=== PATIENT | female | born 1980 | race Caucasian/White ===

== ENCOUNTER → 2019-12-25 16:00 | Outpatient (CLI) | payer OTHER, SELFPAY ==
[2015-08-27 08:49] VITALS: BMI 38.5
[2019-12-25 18:09] LABS: CRP 5.51 mg/L (0.0-3.0)
[2019-12-25 18:10] LABS: Erythrocyte Sedimentation Rate 13 mm/hr (0-20)
[2019-12-27 17:52] LABS: Angiotensin Convert Enzyme 25 U/L (14-82)
== END ==
PROVIDERS: PCP Family Medicine; Referring Provider Internal Medicine Pulmonary Disease; Visit Provider Internal Medicine Pulmonary Disease
DX: R06.00 Dyspnea, unspecified (principal)
CPT/HCPCS: 36415; 82164; 85652; 86140

== ENCOUNTER → 2020-01-20 06:08 | Outpatient (CLI) | payer OTHER, SELFPAY ==
[2020-01-20 07:05] LABS: Absolute Lymphocyte Count 1.79 X10^3/uL (0.83-4.51); Absolute Neutrophil Count 6.9 X10^3/uL (2.0-7.7); Basophil# 0.02 X10^3/uL; Basophil% 0.2 % (0-1); Eosinophil# 0.12 X10^3/uL; Eosinophils% 1.3 % (0-5); Hematocrit 39.1 % (37-47); Hemoglobin 12.1 g/dL (12.0-15.0); Lymphocyte # 1.79 X10^3/ul (4.0); Lymphocyte % 18.8 % (19-41); Mean Corp Hgb Conc 30.9 g/dL (32-36); Mean Corpuscular Hgb 30.3 pg (27.0-32.0); Mean Corpuscular Volume 97.8 fL (81-99); Mean Platelet Vol. 10.1 fl (6.2-12.0); Monocyte# 0.65 X10^3/uL; Monocyte% 6.8 % (0-10); NRBC Flagged by Analyzer 0 % (0-5); Neutrophil # 6.88 X10^3/uL (2.7-7.7); Neutrophil % 72.2 % (47-70); Platelet Count 293 K/mm3 (150-450); RBC Distribution Width CV 12.3 % (11.6-14.6); RBC Distribution Width SD 44.1 fl (35.1-43.9); White Blood Count 9.5 K/mm3 (4.4-11.0)
[2020-01-23 03:07] LABS: Alternaria alternata <0.10 kU/L (Class 0); Aspergillus fumigatus <0.10 kU/L (Class 0); Bahia Grass <0.10 kU/L (Class 0); Bermuda Grass <0.10 kU/L (Class 0); Bluegrass, Kentucky <0.10 kU/L (Class 0); Cat Hair/Dander, Standard <0.10 kU/L (Class 0); Cedar, Mountain <0.10 kU/L (Class 0); Cladosporium herbarum <0.10 kU/L (Class 0); Cockroach, American <0.10 kU/L (Class 0); D farinae Mite <0.10 kU/L (Class 0); D pteronyssinus <0.10 kU/L (Class 0); Dog Epithelia <0.10 kU/L (Class 0); Elm, American White <0.10 kU/L (Class 0); Hazelnut Tree <0.10 kU/L (Class 0); Hickory, White <0.10 kU/L (Class 0); Johnson Grass <0.10 kU/L (Class 0); Maple/Box Elder <0.10 kU/L (Class 0); Mucor racemosus <0.10 kU/L (Class 0); Mugwort <0.10 kU/L (Class 0); Mulberry, White <0.10 kU/L (Class 0); Oak, White <0.10 kU/L (Class 0); Penicillium chrysogen <0.10 kU/L (Class 0); Pigweed, Rough <0.10 kU/L (Class 0); Plantain, English <0.10 kU/L (Class 0); Ragweed, Short/Common <0.10 kU/L (Class 0); Sheep Sorrel(Dock) <0.10 kU/L (Class 0); Stemphylium herbarum <0.10 kU/L (Class 0); Sweet Gum <0.10 kU/L (Class 0); Sycamore, American <0.10 kU/L (Class 0)
[2020-01-23 05:29] LABS: Nettle <0.10 kU/L (Class 0)
== END ==
PROVIDERS: PCP Family Medicine; Referring Provider Internal Medicine Pulmonary Disease; Visit Provider Internal Medicine Pulmonary Disease
DX: R06.00 Dyspnea, unspecified (principal); G47.33 Obstructive sleep apnea (adult) (pediatric); T78.40XA Allergy, unspecified, initial encounter; X58.XXXA Exposure to other specified factors, initial encounter
CPT/HCPCS: 36415; 85025; 86003

== ENCOUNTER → 2020-01-30 11:00 | Outpatient (CLI) | payer OTHER, SELFPAY ==
[2020-01-30 08:34] VITALS: BMI 46.8
[2020-01-30 12:14] LABS: Absolute Lymphocyte Count 1.72 X10^3/uL (0.83-4.51); Absolute Neutrophil Count 7.8 X10^3/uL (2.0-7.7); Basophil# 0.03 X10^3/uL; Basophil% 0.3 % (0-1); Hematocrit 39.4 % (37-47); Hemoglobin 12.5 g/dL (12.0-15.0); Lymphocyte # 1.72 X10^3/ul (4.0); Lymphocyte % 16.7 % (19-41); Mean Corp Hgb Conc 31.7 g/dL (32-36); Mean Corpuscular Hgb 30.4 pg (27.0-32.0); Mean Corpuscular Volume 95.9 fL (81-99); Monocyte# 0.54 X10^3/uL; Monocyte% 5.3 % (0-10); NRBC Flagged by Analyzer 0 % (0-5); Neutrophil # 7.83 X10^3/uL (2.7-7.7); Neutrophil % 76.1 % (47-70); Platelet Count 294 K/mm3 (150-450); RBC Distribution Width CV 12.2 % (11.6-14.6); RBC Distribution Width SD 42.6 fl (35.1-43.9); Red Blood Count 4.11 M/mm3 (4.2-5.4); White Blood Count 10.3 K/mm3 (4.4-11.0)
[2020-01-30 12:41] LABS: Hemoglobin A1c 6.1 % (3.8-5.6)
[2020-01-30 12:53] LABS: Anion Gap 5 (5-15); BUN 14 mg/dL (7-18); BUN/Creat Ratio 17.7 RATIO (10-20); Calcium,Total 8.9 mg/dL (8.5-10.1); Chloride 109 mmol/L (98-107); Cholesterol 186 mg/dL (200); Creatinine, Serum 0.79 mg/dL (0.55-1.02); EST Glomerular Filtration Rate 86 mL/min (>60); Est Glom Filt Rate - Afr Amer 104 mL/min (>60); Glucose 91 mg/dL (74-106); High Density Lipoprotein 48 mg/dL; Potassium 3.7 mmol/L (3.5-5.1); Sodium Level 139 mmol/L (136-145); Thyroid Stim Hormone (TSH) 0.94 uIU/mL (0.358-3.74); Triglycerides 149 mg/dL; Very Low Density Lipoprotein 30 mg/dL (5-40)
== END ==
PROVIDERS: PCP Internal Medicine; Referring Provider Internal Medicine; Visit Provider Internal Medicine
DX: E66.01 Morbid (severe) obesity due to excess calories (principal); Z68.42 Body mass index [BMI] 45.0-49.9, adult
CPT/HCPCS: 80048; 80061; 83036; 84439; 84443; 85025

== ENCOUNTER → 2020-02-01 | Outpatient (CLI) | payer OTHER, SELFPAY ==
[2020-01-30 08:34] VITALS: BMI 46.8
== END | disposition home or self-care (01) ==
LOC: LABSPEC 08:01
PROVIDERS: PCP Internal Medicine; Referring Provider Internal Medicine; Visit Provider Internal Medicine
DX: E66.01 Morbid (severe) obesity due to excess calories (principal); Z68.42 Body mass index [BMI] 45.0-49.9, adult

== ENCOUNTER → 2020-02-03 | Outpatient (CLI) | payer OTHER, SELFPAY ==
[2020-01-30 08:34] VITALS: BMI 46.8
[2020-02-10 01:42] LABS: Cortisol, Free 24Ur 37 ug/24 hr (6-42); Cortisol, Urinary Free 28 ug/L (Undefined)
== END | disposition home or self-care (01) ==
LOC: LABSPEC 06:42
PROVIDERS: PCP Internal Medicine; Referring Provider Internal Medicine; Visit Provider Internal Medicine
DX: E66.01 Morbid (severe) obesity due to excess calories (principal); Z68.42 Body mass index [BMI] 45.0-49.9, adult
CPT/HCPCS: 81050; 82530

== ENCOUNTER → 2020-06-22 11:08 | Outpatient (CLI) | payer OTHER, SELFPAY ==
[2020-06-22 10:01] VITALS: BMI 47.7
[2020-06-22 12:27] LABS: Absolute Lymphocyte Count 1.88 X10^3/uL (0.83-4.51); Basophil# 0.05 X10^3/uL; Basophil% 0.4 % (0-1); Eosinophil# 0.07 X10^3/uL; Eosinophils% 0.6 % (0-5); Lymphocyte # 1.88 X10^3/ul (4.0); Lymphocyte % 14.8 % (19-41); Mean Corp Hgb Conc 31.7 g/dL (32-36); Mean Corpuscular Hgb 29.9 pg (27.0-32.0); Mean Corpuscular Volume 94.3 fL (81-99); Mean Platelet Vol. 10.1 fl (6.2-12.0); Monocyte# 0.58 X10^3/uL; Monocyte% 4.6 % (0-10); NRBC Flagged by Analyzer 0 % (0-5); Neutrophil # 10.02 X10^3/uL (2.7-7.7); Neutrophil % 78.7 % (47-70); Platelet Count 376 K/mm3 (150-450); RBC Distribution Width CV 12.7 % (11.6-14.6); RBC Distribution Width SD 43.7 fl (35.1-43.9); Red Blood Count 4.35 M/mm3 (4.2-5.4); White Blood Count 12.7 K/mm3 (4.4-11.0)
[2020-06-22 12:44] LABS: ALB/GLOB Ratio 0.8 RATIO (0.9-2.4); AST(SGOT) 17 U/L (15-37); Alanine Aminotransfer ALT/SGPT 33 U/L (13-56); Albumin, Serum 3.7 g/dL (3.2-5.0); Alkaline Phosphatase 91 U/L (45-117); Anion Gap 7 (5-15); BUN 11 mg/dL (7-18); BUN/Creat Ratio 12.8 RATIO (10-20); Calcium,Total 9.4 mg/dL (8.5-10.1); Chloride 103 mmol/L (98-107); Creatinine, Serum 0.86 mg/dL (0.55-1.02); EST Glomerular Filtration Rate 78 mL/min (>60); Est Glom Filt Rate - Afr Amer 95 mL/min (>60); Follicle Stimulating Hormone 4.6 mIU/mL; Globulin 4.6 g/dL (2.2-4.2); Glucose 98 mg/dL (74-106); Luteinizing Hormone 7.1 mIU/mL; Protein, Total 8.3 g/dL (6.4-8.2); Sodium Level 136 mmol/L (136-145)
[2020-06-22 13:28] LABS: Hemoglobin A1c 6.2 % (3.8-5.6)
== END ==
PROVIDERS: PCP Internal Medicine; Visit Provider Internal Medicine
DX: E11.9 Type 2 diabetes mellitus without complications (principal); R23.2 Flushing
CPT/HCPCS: 36415; 80053; 82533; 83001; 83002; 83036; 84443; 85025

== ENCOUNTER 2020-07-02 03:03 | Emergency (ER) | payer OTHER, SELFPAY ==
[2020-06-22 10:01] VITALS: BMI 47.7
[2020-07-02 03:03] VITALS: BP 171/113; PULSE 96; RESP 28; TEMP 36.6; O2SAT 98; BMI 48.3
--- NOTE | 2020-07-02 03:13 | CT_ITS ---
STUDY: CTA CHEST REASON FOR EXAM: Female, 39 years old. chest pain RADIATION DOSAGE (If Supplied By Facility): CTDIvol = ( 13.85 ) mGy, DLP = ( 504.53 ) mGycm TECHNIQUE: The examination was performed with the intravenous administration of IV 100mL Isovue-370. Post-processing of the angiographic images was performed, with multiplanar reformation, but without 3D reconstruction. Individualized dose optimization techniques were used for this CT. COMPARISON: None. FINDINGS: Normal enhancement of the main pulmonary artery and right and left pulmonary arteries. Normal enhancement of the bilateral peripheral pulmonary arteries. There is no demonstrated pulmonary embolism. Sensitivity for small pulmonary emboli is limited by respiratory motion artifacts. Normal thoracic aorta and visualized great vessels. There is no demonstrated aortic dissection. Normal heart and pericardium. Normal mediastinum. Normal hilar regions. Normal visualized trachea and bronchi. The lungs are well expanded. Normal pulmonary parenchyma. Normal pleura. Normal chest wall structures. There are mild degenerative changes of the thoracic spine. The gallbladder surgically absent. CT/CTA Chest W/WO Contrast IMPRESSION: Slightly limited exam due to respiratory motion artifacts. No demonstrated pulmonary embolism, aortic aneurysm, or aortic dissection. No evidence for acute cardiopulmonary pathology. Electronically Signed: Alexander Grover MD at 4:28 EDT , Service support ,
--- NOTE | 2020-07-02 03:13 | EKG12_ITS ---
Test Reason : SHRTNESS OF BREATH Blood Pressure : / mmHG Vent. Rate : 090 BPM Atrial Rate : 090 BPM P-R Int : 154 ms QRS Dur : 086 ms QT Int : 358 ms P-R-T Axes : 044 -16 -06 degrees QTc Int : 437 ms Normal sinus rhythm Normal ECG Confirmed by ALBIN KING, LEONCIO ([id number]), manager editorial ELFEGO WEINER ([id number]) on 07/03/2020 8:19:26 AM Referred By: XIOMARA Confirmed By:DANICA TALAMANTES MD
--- NOTE | 2020-07-02 03:15 | ED.DCSUM_ITS ---
History of Present Illness Chief Complaint: Shortness of Breath Informant: Patient Narrative: 39-year-old female with past medical history of obstructive sleep apnea, morbid obesity, asthma, PCOS presents with concern for cough and shortness of breath. States that approximately 1 month ago she was helping cleaning out someone's garage and she feels like she is stirred up her asthma since that time. States that she had a chest x-ray shortly after which was negative. States that over the past 1 week she has had worsening cough with shortness of breath. Was seen by her crimping machine operator 3 days ago and diagnosed with pneumonia. Placed on a Z-Suman as well as steroid taper. Patient concerned because she continues to have symptoms. Patient also describing a burning pain in her chest which is worse with deep inspiration. States there is also a slight pain in her back. Denies any significant sputum production. States that she did have a Covid test last week which was negative. Denies any fever or chills. Denies any history of DVT or pulmonary embolism. Past Medical History - Allergies and Home Meds Allergies/Adverse Reactions: Allergies Penicillins Allergy (Verified 07/02/20 03:09) Hives fluticasone propionate [From Advair Diskus] Adverse Reaction (Verified 07/02/20 03:09) Swelling latex Adverse Reaction (Verified 07/02/20 03:09) Rash salmeterol xinafoate [From Advair Diskus] Adverse Reaction (Verified 07/02/20 03:09) Swelling Primary Care Physician: Bessie Warren MD [Primary Care Provider] - Prior records reviewed: Yes Past Medical History: - - HARJIT, PCOS, DMII, Lives: Alone Smoking Status: Never smoker Alcohol: None Drugs: None Review of Systems General: Denies: Chills, Fever, Sweats Eyes: Denies: Visual changes - bilaterally, Diplopia ENT: Denies: Rhinorrhea, Sore throat Cardiovascular: Reports: Chest pain. Denies: Palpitations Respiratory: Reports: Dyspnea, Cough, Dyspnea on exertion Gastrointestinal: Denies: Abdominal pain, Nausea, Vomiting, Diarrhea, Melena, Hematochezia Genitourinary: Denies: Dysuria, Hematuria, Frequency Musculoskeletal: Denies: Back pain, Extremity Pain Skin: Denies: Rash, Wounds Neurological: Denies: Headache, Weakness, Numbness Physical Exam Vital Signs/Narrative: Vital Signs Temp Pulse Resp BP Pulse Ox 07/02/20 03:03 97.9 F 96 28 H 171/113 H 98 Inital Vital Signs reviewed: Yes General: Well nourished, Well developed, No Acute Distress Head: Normocephalic, Atraumatic Eyes: Perrl, EOMI ENT: Moist mucous membranes, No rhinorrhea Neck: Supple, Nontender Cardiovascular: Regular rhythm, No murmurs, Tachycardia Respiratory: No distress, Chest nontender, Diminished Abdomen: Soft, Nontender, Nondistended, Normal bowel sounds Back: Nontender, Normal Inspection Extremities: Nontender, No edema Skin: Normal color, No rash Neurological: Alert, Oriented x3, Cranial nerves II-XII grossly intact, Normal Strength, Normal Sensation Psychological: Normal affect, Normal Mood Diagnostic/Tx/Re-eval Clinical Impression(s) from Imaging Studies Chest CTA 07/02/20 03:13 IMPRESSION: Slightly limited exam due to respiratory motion artifacts. No demonstrated pulmonary embolism, aortic aneurysm, or aortic dissection. No evidence for acute cardiopulmonary pathology. Electronically Signed: Alexander Grover MD at 4:28 EDT , Service support , Laboratory Data 07/02/20 07/02/20 07/02/20 03:15 03:15 03:15 WBC 17.0 H RBC 4.44 Hgb 13.1 Hct 41.6 MCV 93.7 MCH 29.5 MCHC 31.5 L RDW Std Deviation 44.4 H RDW Coeff of Ab 12.9 Plt Count 353 MPV 9.4 Immature Gran % (Auto) 1.200 H Neut % (Auto) 67.0 Lymph % (Auto) 24.6 [place] % (Auto) 6.7 Eos % (Auto) 0.2 Baso % (Auto) 0.3 Absolute Neuts (auto) 11.4 H Absolute Lymphs (auto) 4.17 Nucleated RBC % 0 Sodium 139 Potassium 3.5 Chloride 108 H Carbon Dioxide 23.0 Anion Gap 8 BUN 15 Creatinine 0.92 Estim Creat Clear Calc 70.89 Est GFR (MDRD) Af Amer 87 Est GFR (MDRD) Non-Af 72 BUN/Creatinine Ratio 16.3 Glucose 130 H Lactic Acid Calcium 9.1 Troponin I < 0.015 B-Natriuretic Peptide 4.9 07/02/20 03:15 WBC RBC Hgb Hct MCV MCH MCHC RDW Std Deviation RDW Coeff of Ab Plt Count MPV Immature Gran % (Auto) Neut % (Auto) Lymph % (Auto) [place] % (Auto) Eos % (Auto) Baso % (Auto) Absolute Neuts (auto) Absolute Lymphs (auto) Nucleated RBC % Sodium Potassium Chloride Carbon Dioxide Anion Gap BUN Creatinine Estim Creat Clear Calc Est GFR (MDRD) Af Amer Est GFR (MDRD) Non-Af BUN/Creatinine Ratio Glucose Lactic Acid 2.4 H* Calcium Troponin I B-Natriuretic Peptide - Rhythm Strip Rhythm Strip: Sinus Rhythm Rate: 90 Ectopy: None - EKG Initial EKG Interpretation: Sinus Rhythm - Normal sinus rhythm at 90 bpm. NV interval of 154 ms. QTC of 437 ms. No evidence of acute ischemia at this time. - Medical Decision Making Patient appears well and nontoxic. Initially hypertensive and mildly tachycardic. No hypoxemia. Lungs are coarse bilaterally. Patient given DuoNeb breathing treatment as well as Solu-Medrol. CTA was done given the patient's chest pain with shortness of breath. No evidence of infiltrate or pulmonary embolism. Lab work shows a slight lactic acidosis likely from some volume depletion and patient was given 1 L of normal saline. Leukocytosis of 17,000 however patient has been on steroids for 3 days. In an abundance of caution she was given IV antibiotics of Rocephin and azithromycin. On reevaluation at 0440 patient continues to have no hypoxemia and is 100% on room air. Tachycardia has improved. Patient remains hypertensive and will be advised to follow-up with her primary care physician about this issue. Troponin is negative with a nonischemic EKG. BNP also negative without concern for overt heart failure. Patient advised to continue steroids and abx with follow-up with her crimping machine operator as well as primary care provider. Stable at time of discharge. Impression: 1. Asthma exacerbation 2. Bronchitis ED Disposition - Plan for ED Patient: Disposition: Home or Assisted Living Instructions: ED Asthma, Acute (Adult), ED Bronchitis with Wheezing (Adult) Referrals: Bessie Warren MD [Primary Care Provider] - 2 Days
[2020-07-02] MEDS: MethylPREDNISolone 125 MG/2 ML Vial IV (03:21)
[2020-07-02 03:24] LABS: Absolute Lymphocyte Count 4.17 X10^3/uL (0.83-4.51); Absolute Neutrophil Count 11.4 X10^3/uL (2.0-7.7); Basophil# 0.05 X10^3/uL; Basophil% 0.3 % (0-1); Eosinophil# 0.03 X10^3/uL; Eosinophils% 0.2 % (0-5); Hematocrit 41.6 % (37-47); Hemoglobin 13.1 g/dL (12.0-15.0); Lymphocyte # 4.17 X10^3/ul (0.83-4.51); Lymphocyte % 24.6 % (19-41); Mean Corp Hgb Conc 31.5 g/dL (32-36); Mean Corpuscular Hgb 29.5 pg (27.0-32.0); Mean Corpuscular Volume 93.7 fL (81-99); Mean Platelet Vol. 9.4 fl (6.2-12.0); Monocyte# 1.13 X10^3/uL; Monocyte% 6.7 % (0-10); NRBC Flagged by Analyzer 0 % (0-5); Neutrophil # 11.39 X10^3/uL (2.7-7.7); POSITIVE MORPHOLOGY YES; Platelet Count 353 K/mm3 (150-450); RBC Distribution Width CV 12.9 % (11.6-14.6); RBC Distribution Width SD 44.4 fl (35.1-43.9); Red Blood Count 4.44 M/mm3 (4.2-5.4)
[2020-07-02] MEDS: Ipratropium/Albuterol Sulfate 3 ML AMPUL.NEB INHALATION (03:32)
[2020-07-02 03:34] VITALS: PULSE 94; RESP 25
[2020-07-02 03:39] LABS: Differential Indicated SCAN CRITERIA MET
[2020-07-02 03:44] LABS: BNP,B-Type NATRIURETIC PEPTIDE 4.9 pg/mL (0-100)
[2020-07-02 03:46] LABS: Anion Gap 8 (5-15); BUN 15 mg/dL (7-18); BUN/Creat Ratio 16.3 RATIO (10-20); Calcium,Total 9.1 mg/dL (8.5-10.1); Chloride 108 mmol/L (98-107); Creatinine, Serum 0.92 mg/dL (0.55-1.02); EST Glomerular Filtration Rate 72 mL/min (>60); Est Glom Filt Rate - Afr Amer 87 mL/min (>60); Estimated Creatinine Clearance 70.89 ml/min; Glucose 130 mg/dL (74-106); Potassium 3.5 mmol/L (3.5-5.1); Sodium Level 139 mmol/L (136-145)
[2020-07-02] MEDS: Ceftriaxone 1 GM/50 ML BAG IV (04:11)
[2020-07-02 04:12] LABS: Lactic Acid 2.4 mmol/L (0.4-1.9)
[2020-07-02 04:14] VITALS: BP 165/100; PULSE 98; RESP 22; TEMP 37.2; O2SAT 97
[2020-07-02] MEDS: 0.9% Normal Saline 1,000 ML 999 ML IV (04:17)
[2020-07-02 06:11] VITALS: BP 154/61; PULSE 91; RESP 20; O2SAT 98
[2020-07-02 07:49] LABS: Reflex Lactate? Y
== END 2020-07-02 06:11 | disposition home or self-care (01) ==
PROVIDERS: Emergency Provider Emergency Medicine; PCP Internal Medicine
DX: J45.901 Unspecified asthma with (acute) exacerbation (principal); E66.01 Morbid (severe) obesity due to excess calories; Z68.42 Body mass index [BMI] 45.0-49.9, adult; E28.2 Polycystic ovarian syndrome; E11.9 Type 2 diabetes mellitus without complications; G47.33 Obstructive sleep apnea (adult) (pediatric); Z79.899 Other long term (current) drug therapy
CPT/HCPCS: 71275; 80048; 83605; 83880; 84484; 85025; 87040; 87426; 93005; 94640; 96365; 96368; 96374; 99283; J7030; J7050; Q9967; A4216

== ENCOUNTER 2020-07-07 18:29 | Emergency (ER) | payer OTHER, SELFPAY ==
[2020-07-07 18:30] VITALS: BP 169/95; PULSE 101; RESP 15; TEMP 36; O2SAT 96; BMI 48.0
--- NOTE | 2020-07-07 18:40 | CT_ITS ---
STUDY: CT ABDOMEN AND PELVIS WITH CONTRAST REASON FOR EXAM: Female, 39 years old. right flank pain RADIATION DOSAGE (If Supplied By Facility): CTDIvol = ( 20.40 ) mGy, DLP = ( 1237.54 ) mGycm TECHNIQUE: Transaxial images were obtained from the dome of the diaphragm to the symphysis pubis without oral contrast. IV 100mL Isovue-300 was administered. Sagittal and coronal images were reconstructed. Individualized dose optimization techniques were used for this CT. COMPARISON: 07/29/2013. FINDINGS: The visualized lung bases are unremarkable. The visualized portions of the heart are within normal limits. There is decreased attenuation of the liver consistent with steatosis. There is hepatomegaly. There are surgical clips in the gallbladder fossa consistent with a prior cholecystectomy. Normal spleen. Normal pancreas. Normal bilateral adrenal glands. Normal right kidney. The left kidney has a 1 cm nonobstructing lower pole stone, otherwise normal left kidney. Evaluation of the GI tract is limited by absence of oral contrast. Cannot exclude stomach wall thickening. No dilated loops of bowel or evidence for obstruction. Cannot exclude segmental thickening of the escobar of the small or large bowel. Cannot exclude enteritis or colitis. Moderate diffuse fecal retention. Appendix within normal limits. Normal abdominal aorta. Normal inferior vena cava. Normal retroperitoneum. Normal urinary bladder. Normal visualized uterus. There is an IUD in atypical position within the uterus. Consider further evaluation with visualization or ultrasound. There is a small umbilical hernia containing fat. Normal osseous structures. CT/Abdomen/Pelvis W IV Cont ONLY IMPRESSION: Fatty liver with moderate hepatomegaly. Nonobstructing left renal stone. Cannot confirm normal position of IUD. Electronically Signed: Floyd Li MD at 20:22 EDT , Service support ,
--- NOTE | 2020-07-07 18:40 | EX.ED.DYSGE1 ---
HPI <Dr. Antony Gastelum DO - Last Filed: 07/07/20 20:32> History of Present Illness Informant: patient Narrative Narrative: 39-year-old female with past medical history of diabetes, asthma, morbid obesity presents with concern for right-sided pain as well as GI bleeding. States it began today. States she began getting nauseous this morning began having a pain in her right flank. States it is aching in nature. Nonradiating. States she is nauseous without vomiting. States she had a large bright red blood bowel movement. Denies any rectal pain. Denies any chest pain, shortness of breath, vomiting, lightheadedness, dizziness, vaginal bleeding or discharge. PFSH <Dr. Antony Gastelum DO - Last Filed: 07/07/20 20:32> [facility] Medical History Asthma CPAP (continuous positive airway pressure) dependence Depression Hypercholesteremia Kidney stones Restless leg syndrome Sleep apnea Home Medications albuterol sulfate 90 mcg/actuation aerosol inhaler 2 puff INHALATION Q6H PRN 01/30/20 [History Last Taken Unknown] cholecalciferol (vitamin D3) 1,250 mcg (50,000 unit) capsule 50,000 mcg PO QWEEK 01/30/20 [History Last Taken Unknown] fluticasone furoate 200 mcg-vilanterol 25 mcg/dose inhalation powder 1 inh INHALATION DAILY 01/30/20 [History Last Taken Unknown] levonorgestrel 20 mcg/24 hours (6 yrs) 52 mg intrauterine device 1 device INTRAUTERINE ONCE 01/30/20 [History Last Taken Unknown] multivitamin 1 tab PO DAILY 01/30/20 [History Last Taken Unknown] ropinirole 2 mg tablet 2 mg PO DAILY #30 tab 03/30/20 [Rx Last Taken Unknown] hydrocortisone [Anusol-HC] 1 applic [place] DAILY PRN #30 g 07/07/20 [Rx Last Taken Unknown] polyethylene glycol 3350 [Miralax] 17 g PO DAILY #14 ea 07/07/20 [Rx Last Taken Unknown] Allergy/AdvReac Type Severity Reaction Status Date / Time Penicillins Allergy Hives Verified 07/08/20 10:44 fluticasone propionate AdvReac Swelling Verified 07/08/20 10:44 [From Advair Diskus] latex AdvReac Rash Verified 07/08/20 10:44 salmeterol xinafoate AdvReac Swelling Verified 07/08/20 10:44 [From Advair Diskus] Family History Mother Thyroid disorder Fibromyalgia Grandmother Diabetes Grandfather Cancer Surgical History Cholecystectomy planned Social History Smoking Status: Never smoker alcohol intake: current alcohol intake frequency: holidays/special occasions only substance use type: does not use ROS <Dr. Antony Gastelum DO - Last Filed: 07/07/20 20:32> ROS ED Constitutional Constitutional ED: Denies chills, fever(s) or sweats Eyes Eyes: Denies blurry vision, change in vision or diplopia ENT ENT ED: Denies rhinorrhea or sore throat Cardiovascular Cardiovascular: Denies chest pain, orthopnea, palpitations or racing heartbeat Respiratory/Chest Respiratory/Chest: Denies cough, dyspnea, dyspnea on exertion, orthopnea or sputum Gastrointestinal Gastrointestinal: Reports abdominal pain, nausea and other Details: hematochezia ; Denies constipation, diarrhea, melena or vomiting Genitourinary Genitourinary ED: Denies dysuria, hematuria or urinary frequency Musculoskeletal Musculoskeletal: Denies arthralgias, myalgias or neck pain Integumentary Denies rash Neurologic Neurologic: Denies headache(s), paresthesias or weakness Psychiatric Psychiatric: Denies anxiety or depression Hematologic/Lymphatic Hematologic/Lymphatic: Denies easy bleeding or easy bruising Allergic/Immunologic Allergic/Immunologic ED: Denies mouth swelling or tongue swelling EXAM <Dr. Antony Gastelum, - Last Filed: 07/07/20 20:32> Physical Exam Const Vital Signs: 07/07/20 20:12 07/07/20 20:50 07/07/20 20:57 Temperature 98.6 F Temperature Source Oral Pulse Rate 89 82 94 Respiratory Rate 16 24 H 23 H Blood Pressure 154/82 H 151/80 H 151/80 H Blood Pressure Mean 106 103 Pulse Ox 96 96 97 Oxygen Delivery Method Room Air Room Air Positive well nourished and well developed General Appearance ED: well developed HEENT Reports TM's clear and moist mucous membranes normocephalic and atraumatic Tympanic Membrane ED: Yes TM's clear Eyes PERRL and EOMs intact bilaterally Neck no lymphadenopathy, supple and no JVD Chest Wall inspection of chest normal Resp normal respiratory effort and clear to auscultation bilaterally Cardio regular rate, S1 normal heart sound, S2 normal heart sound and no murmurs Peripheral Pulses: pulses 2+ throughout GI soft to palpation and non-distended GI Narrative: TTP in the right mid-abdomen. No rebound or guarding. No peritonitis. Narrative: Rectal exam shows two large non-thrombosed hemorrhoids. Back/Spine no CVA tenderness and no thoracic nor lumbar tenderness Extremity normal to inspection General Extremety ED: Negative for edema or tenderness General Extremity: Negative for edema Neuro oriented x3, CN's II-XII intact bilaterally and no sensory deficits noted Sensorium / Orientation: alert Motor Exam: strength 5/5 throughout Psych mental status grossly normal Skin no rashes or lesions noted <Dr. Jeff Silver MD - Last Filed: 07/08/20 18:48> Physical Exam Const Vital Signs: 07/07/20 20:12 07/07/20 20:50 07/07/20 20:57 Temperature 98.6 F Temperature Source Oral Pulse Rate 89 82 94 Respiratory Rate 16 24 H 23 H Blood Pressure 154/82 H 151/80 H 151/80 H Blood Pressure Mean 106 103 Pulse Ox 96 96 97 Oxygen Delivery Method Room Air Room Air [facility] <Dr. Antony Gastelum DO - Last Filed: 07/07/20 20:32> [facility] Narrative Medical decision making narrative: Patient appears well and nontoxic. Vital signs within normal limits. Leukocytosis which is improving from previous as patient has been on steroids recently. Hemoglobin stable. Other lab work within normal limits. CT the abdomen pelvis shows moderate fecal retention without acute process. Rectal exam shows 2 non-thrombosed hemorrhoids. Patient will be treated with Anusol and MiraLAX. Given gastroenterologic follow-up. Asked to return for worsened bleeding or symptoms. Stable at time of discharge. Lab Data Labs: Laboratory Results - last 24 hr 07/07/20 07/07/20 07/07/20 19:00 19:00 19:41 WBC 15.3 H RBC 4.03 L Hgb 12.0 Hct 38.0 MCV 94.3 MCH 29.8 MCHC 31.6 L RDW Std Deviation 45.1 H RDW Coeff of Ab 13.2 Plt Count 293 MPV 9.2 Immature Gran % (Auto) 2.900 H Neut % (Auto) 72.0 H Lymph % (Auto) 18.1 L [place] % (Auto) 5.7 Eos % (Auto) 0.8 Baso % (Auto) 0.5 Absolute Neuts (auto) 11.0 H Absolute Lymphs (auto) 2.77 Nucleated RBC % 0 Sodium 140 Potassium 4.1 Chloride 110 H Carbon Dioxide 22.0 Anion Gap 8 BUN 13 Creatinine 1.04 H Estim Creat Clear Calc 62.71 Est GFR (MDRD) Af Amer 76 Est GFR (MDRD) Non-Af 62 BUN/Creatinine Ratio 12.5 Glucose 110 H Calcium 8.4 L Total Bilirubin 0.30 AST 26 ALT 38 Alkaline Phosphatase 84 Total Protein 7.1 Albumin 3.1 L Globulin 4.0 Albumin/Globulin Ratio 0.8 L Lipase 110 Urine Color Yellow Urine Clarity Clear Urine pH 6.0 Ur Specific [place] 1.025 Urine Protein Negative Urine Glucose (UA) Normal Urine Ketones Negative Urine Occult Blood 50 H Urine Nitrite Negative Urine Bilirubin Negative Urine Urobilinogen Normal Ur Leukocyte Esterase 100 H Urine RBC 0-5 SEEN Urine WBC 5-10 SEEN Ur Squamous Epith Cells 10-25 SEEN Ur Renal Epithelial Cell 0-5 SEEN Urine Bacteria 0 SEEN Urine Mucus 0 SEEN Urine Test Negative Radiography Diagnostic Testing: Radiology Impression Abdomen/Pelvis CT 07/07/20 18:40 IMPRESSION: Fatty liver with moderate hepatomegaly. Nonobstructing left renal stone. Cannot confirm normal position of IUD. Electronically Signed: Floyd Li MD at 20:22 EDT , Service support , <Dr. Jeff Silver MD - Last Filed: 07/08/20 18:48> [facility] Lab Data Labs: Laboratory Results - last 24 hr 07/07/20 07/07/20 07/07/20 19:00 19:00 19:41 WBC 15.3 H RBC 4.03 L Hgb 12.0 Hct 38.0 MCV 94.3 MCH 29.8 MCHC 31.6 L RDW Std Deviation 45.1 H RDW Coeff of Ab 13.2 Plt Count 293 MPV 9.2 Immature Gran % (Auto) 2.900 H Neut % (Auto) 72.0 H Lymph % (Auto) 18.1 L [place] % (Auto) 5.7 Eos % (Auto) 0.8 Baso % (Auto) 0.5 Absolute Neuts (auto) 11.0 H Absolute Lymphs (auto) 2.77 Nucleated RBC % 0 Sodium 140 Potassium 4.1 Chloride 110 H Carbon Dioxide 22.0 Anion Gap 8 BUN 13 Creatinine 1.04 H Estim Creat Clear Calc 62.71 Est GFR (MDRD) Af Amer 76 Est GFR (MDRD) Non-Af 62 BUN/Creatinine Ratio 12.5 Glucose 110 H Calcium 8.4 L Total Bilirubin 0.30 AST 26 ALT 38 Alkaline Phosphatase 84 Total Protein 7.1 Albumin 3.1 L Globulin 4.0 Albumin/Globulin Ratio 0.8 L Lipase 110 Urine Color Yellow Urine Clarity Clear Urine pH 6.0 Ur Specific [place] 1.025 Urine Protein Negative Urine Glucose (UA) Normal Urine Ketones Negative Urine Occult Blood 50 H Urine Nitrite Negative Urine Bilirubin Negative Urine Urobilinogen Normal Ur Leukocyte Esterase 100 H Urine RBC 0-5 SEEN Urine WBC 5-10 SEEN Ur Squamous Epith Cells 10-25 SEEN Ur Renal Epithelial Cell 0-5 SEEN Urine Bacteria 0 SEEN Urine Mucus 0 SEEN Urine Test Negative Radiography Diagnostic Testing: Radiology Impression Abdomen/Pelvis CT 07/07/20 18:40 IMPRESSION: Fatty liver with moderate hepatomegaly. Nonobstructing left renal stone. Cannot confirm normal position of IUD. Electronically Signed: Floyd Li MD at 20:22 EDT , Service support , Discharge Plan Triage Chief Complaint: GI Bleed ED Provider: Antony Gastelum Dx/Rx/DC Orders Clinical Impression: Bleeding external hemorrhoids, Constipation Instructions: ED Hemorrhoids Prescriptions: New hydrocortisone [Anusol-HC] 2.5 % cream with perineal applicator 1 applic [place] DAILY PRN (Reason: hemorrhoids) Qty: 30 RF: 0 polyethylene glycol 3350 [Miralax] 17 gram powder in packet 17 g PO DAILY Qty: 14 RF: 0 No Action cholecalciferol (vitamin D3) 1,250 mcg (50,000 unit) capsule 50,000 mcg PO QWEEK RF: 0 Breo Ellipta 200-25 mcg/dose blister with device 1 inh INHALATION DAILY RF: 0 multivitamin [Daily Multi-Vitamin] Tablet 1 tab PO DAILY RF: 0 Mirena 20 mcg/24 hours (5 yrs) 52 mg intrauterine device 1 device intrauterine ONCE RF: 0 albuterol sulfate 90 mcg/actuation HFA aerosol inhaler 2 puff INHALATION Q6H PRN (Reason: Sob &/Or Wheezing) RF: 0 ropinirole 2 mg tablet 2 mg PO DAILY Qty: 30 RF: 3 Primary Care Provider: Bessie Warren Referrals: Bessie Warren MD [Primary Care Provider] - 2 Days Chino Reese MD [NON-STAFF] - 3-5 Days Disposition Disposition: Home, self care Discharge Date/Time: 07/07/20 21:06 <Dr. Jeff Silver MD - Last Filed: 07/08/20 18:48> Addt'l Comments Chart opened in error
[2020-07-07 19:06] LABS: Absolute Lymphocyte Count 2.77 X10^3/uL (0.83-4.51); Basophil# 0.08 X10^3/uL; Basophil% 0.5 % (0-1); Eosinophil# 0.12 X10^3/uL; Eosinophils% 0.8 % (0-5); Lymphocyte # 2.77 X10^3/ul (0.83-4.51); Lymphocyte % 18.1 % (19-41); Mean Corp Hgb Conc 31.6 g/dL (32-36); Mean Corpuscular Hgb 29.8 pg (27.0-32.0); Mean Corpuscular Volume 94.3 fL (81-99); Mean Platelet Vol. 9.2 fl (6.2-12.0); Monocyte# 0.87 X10^3/uL; Monocyte% 5.7 % (0-10); NRBC Flagged by Analyzer 0 % (0-5); Neutrophil # 11.02 X10^3/uL (2.7-7.7); Platelet Count 293 K/mm3 (150-450); RBC Distribution Width CV 13.2 % (11.6-14.6); RBC Distribution Width SD 45.1 fl (35.1-43.9); Red Blood Count 4.03 M/mm3 (4.2-5.4); White Blood Count 15.3 K/mm3 (4.4-11.0)
[2020-07-07 19:34] LABS: ALB/GLOB Ratio 0.8 RATIO (0.9-2.4); AST(SGOT) 26 U/L (15-37); Alanine Aminotransfer ALT/SGPT 38 U/L (13-56); Albumin, Serum 3.1 g/dL (3.2-5.0); Alkaline Phosphatase 84 U/L (45-117); Anion Gap 8 (5-15); BUN 13 mg/dL (7-18); BUN/Creat Ratio 12.5 RATIO (10-20); Calcium,Total 8.4 mg/dL (8.5-10.1); Chloride 110 mmol/L (98-107); Creatinine, Serum 1.04 mg/dL (0.55-1.02); EST Glomerular Filtration Rate 62 mL/min (>60); Est Glom Filt Rate - Afr Amer 76 mL/min (>60); Estimated Creatinine Clearance 62.71 ml/min; Glucose 110 mg/dL (74-106); Lipase 110 U/L (73-393); Potassium 4.1 mmol/L (3.5-5.1); Protein, Total 7.1 g/dL (6.4-8.2); Sodium Level 140 mmol/L (136-145)
[2020-07-07] MEDS: Ondansetron 4 MG/2 ML Vial IV (19:50)
[2020-07-07] MEDS: Morphine 4 MG/ML Syringe IV (19:50)
[2020-07-07 19:51] LABS: Color, Urine Yellow (Yellow); Glucose, Dipstick Normal (Normal); Ketone-Dipstick Negative (Negative); Leukocyte Esterase-Dipstick 100 /ul (Negative); Nitrite-Dipstick Negative (Negative); Occult Blood-Urine 50 /ul (Negative); Protein-Dipstick Negative (Negative); Specific Gravity, Urine 1.025 (1.002-1.030); Urine Bilirubin Dipstick Negative (Negative); Urine Clarity Clear (Clear); Urine Urobilinogen Normal (Normal)
[2020-07-07 19:52] LABS: Bacteria 0 SEEN /hpf (None Seen); Mucous, Urine 0 SEEN /hpf (<or=2+)
[2020-07-07 19:53] LABS: Internal QC Validated? YES +Cl - CLEAR BKGD
[2020-07-07 19:54] LABS: Pregnancy, Urine Negative Negative
[2020-07-07 19:58] LABS: Red Blood Cells-Urine 0-5 SEEN /hpf (0-5); White Blood Cells 5-10 SEEN /hpf (0-5)
[2020-07-07 19:59] LABS: Renal Epithelial Cells 0-5 SEEN /hpf (0-5); Squamous Epithelial Cells - UA 10-25 SEEN /hpf (5-10)
[2020-07-07] MEDS: 0.9% Normal Saline 1,000 ML 1000 ML IV (20:00)
[2020-07-07 20:12] VITALS: BP 154/82; PULSE 89; RESP 16; TEMP 37; O2SAT 96
[2020-07-07 20:50] VITALS: BP 151/80; PULSE 82; RESP 24; O2SAT 96
[2020-07-07 20:57] VITALS: BP 151/80; PULSE 94; RESP 23; O2SAT 97
== END 2020-07-07 21:06 | disposition home or self-care (01) ==
PROVIDERS: Emergency Provider Emergency Medicine; PCP Internal Medicine
DX: K64.4 Residual hemorrhoidal skin tags (principal); K59.00 Constipation, unspecified; E11.9 Type 2 diabetes mellitus without complications; E66.01 Morbid (severe) obesity due to excess calories; Z68.42 Body mass index [BMI] 45.0-49.9, adult; E78.00 Pure hypercholesterolemia, unspecified; F32.9 Major depressive disorder, single episode, unspecified; J45.909 Unspecified asthma, uncomplicated; G25.81 Restless legs syndrome; G47.30 Sleep apnea, unspecified; Z87.442 Personal history of urinary calculi; Z79.899 Other long term (current) drug therapy
CPT/HCPCS: 74177; 80053; 81001; 81025; 83690; 85025; 96361; 96374; 96375; 99283; J7030; Q9967; A4216; J2405

== ENCOUNTER → 2020-07-08 | Outpatient (CLI) | payer OTHER, SELFPAY ==
[2020-07-08 11:32] VITALS: BMI 48.0
== END | disposition home or self-care (01) ==
LOC: LABSPEC 13:04
PROVIDERS: PCP Internal Medicine; Referring Provider Internal Medicine; Visit Provider Internal Medicine
DX: R19.7 Diarrhea, unspecified (principal)
CPT/HCPCS: 87493

== ENCOUNTER → 2020-07-24 | Outpatient (CLI) | payer OTHER, SELFPAY ==
[2020-07-08 11:32] VITALS: BMI 48.0
== END | disposition home or self-care (01) ==
LOC: LABSPEC 15:11
PROVIDERS: PCP Internal Medicine; Referring Provider Internal Medicine Pulmonary Disease; Visit Provider Internal Medicine Pulmonary Disease
DX: R05 Cough (principal); R06.00 Dyspnea, unspecified
CPT/HCPCS: 87635; C9803; U0002

== ENCOUNTER → 2020-08-28 12:23 | Outpatient (CLI) | payer OTHER, SELFPAY ==
[2020-07-08 11:32] VITALS: BMI 48.0
[2020-08-28 15:39] LABS: Absolute Lymphocyte Count 1.67 X10^3/uL (0.83-4.51); Absolute Neutrophil Count 6.9 X10^3/uL (2.0-7.7); Basophil# 0.03 X10^3/uL; Basophil% 0.3 % (0-1); Eosinophil# 0.11 X10^3/uL; Eosinophils% 1.2 % (0-5); Hematocrit 40.1 % (37-47); Hemoglobin 12.5 g/dL (12.0-15.0); Lymphocyte # 1.67 X10^3/ul (0.83-4.51); Lymphocyte % 17.9 % (19-41); Mean Corp Hgb Conc 31.2 g/dL (32-36); Mean Corpuscular Hgb 29.6 pg (27.0-32.0); Mean Platelet Vol. 10.5 fl (6.2-12.0); Monocyte# 0.57 X10^3/uL; Monocyte% 6.1 % (0-10); NRBC Flagged by Analyzer 0 % (0-5); Neutrophil # 6.86 X10^3/uL (2.7-7.7); Neutrophil % 73.5 % (47-70); Platelet Count 350 K/mm3 (150-450); RBC Distribution Width CV 13.2 % (11.6-14.6); RBC Distribution Width SD 46.2 fl (35.1-43.9); Red Blood Count 4.22 M/mm3 (4.2-5.4); White Blood Count 9.3 K/mm3 (4.4-11.0)
[2020-08-28 15:55] LABS: Erythrocyte Sedimentation Rate 42 mm/hr (0-30)
[2020-09-01 11:25] LABS: Angiotensin Convert Enzyme 31 U/L (14-82)
== END ==
PROVIDERS: PCP Internal Medicine; Referring Provider Internal Medicine Pulmonary Disease; Visit Provider Internal Medicine Pulmonary Disease
DX: J45.909 Unspecified asthma, uncomplicated (principal); R06.00 Dyspnea, unspecified; R05 Cough
CPT/HCPCS: 36415; 82164; 85025; 85652

== ENCOUNTER → 2020-10-03 07:48 | Outpatient (CLI) | payer OTHER, SELFPAY ==
[2020-07-08 11:32] VITALS: BMI 48.0
--- NOTE | 2020-10-03 07:50 | CT_ITS ---
STUDY: CT CHEST WITHOUT CONTRAST REASON FOR EXAM: Female, 40 years old. DYSPNEA RADIATION DOSAGE (If Supplied By Facility): CTDIvol = ( 19.59 ) mGy, DLP = ( 876.43 ) mGycm TECHNIQUE: Transaxial imaging was performed without the administration of intravenous contrast material. Individualized dose optimization techniques were used for this CT. COMPARISON: None. FINDINGS: The lungs are normal. There is no demonstrated pleural abnormality. Normal heart and pericardium. Normal mediastinum. Normal hilar regions. Normal unenhanced pulmonary arteries. Normal aorta arch and descending thoracic aorta. Normal osseous structures. There is no demonstrated abnormality of the visualized upper abdomen. CT/Chest without Contrast IMPRESSION: Normal unenhanced CT Chest examination. Electronically Signed: Александр Tripathi MD at 7:35 EDT Tel , Service support ,
== END ==
PROVIDERS: PCP Internal Medicine; Referring Provider Internal Medicine Pulmonary Disease; Visit Provider Internal Medicine Pulmonary Disease
DX: R06.1 Stridor (principal); R06.00 Dyspnea, unspecified; J45.909 Unspecified asthma, uncomplicated
CPT/HCPCS: 71250

== ENCOUNTER 2020-10-21 10:59 | Day surgery (SDC) | payer OTHER, SELFPAY ==
[2020-07-08 11:32] VITALS: BMI 48.0
[2020-10-21] VITALS (8 sets, daily range): BP systolic 132–151; BP diastolic 69–88; PULSE 91–101; RESP 16–18; TEMP 36.4–36.9; O2SAT 96–98; BMI 47.6
[2020-10-21] MEDS: Lactated Ringers 1,000 ML 100 ML IV (11:05)
[2020-10-21 11:19] LABS: Internal QC Validated? YES +Cl - CLEAR BKGD; Pregnancy, Urine Negative Negative
[2020-10-21] MEDS: Ipratropium/Albuterol Sulfate 3 ML AMPUL.NEB INHALATION (12:13)
[2020-10-21] MEDS: Lidocaine 2% Jelly 1 APPLIC Tube (12:20)
[2020-10-21] MEDS: Phenylephrine 0.25% 15 ML NASAL.SRY 15 SPRAY NASAL (12:20)
[2020-10-21] MEDS: Lidocaine 2% (5ml sdv) 5 ML VIAL.MPF ×2 (12:25)
--- NOTE | 2020-10-21 22:01 | OP.BRONCH_ITS ---
Patient Name: Millie Webb Procedure Date: 10/21/2020 11:37 AM Date of : 1980 Age: 40 Procedure: Bronchoscopy Indications: Upper airway obstruction, Shortness of breath Providers: David Eldridge MD Referring MD: David Eldridge MD Medicines: Lidocaine 2% Nebulizer 2.5 mL, Albuterol nebulizer 2.5 mg, Monitored Anesthesia Care Complications: No immediate complications Procedure: Pre-Anesthesia Assessment: - Respiratory Examination: clear to auscultation. After I obtained informed consent, the scope was passed under direct vision. Throughout the procedure, the patient's blood pressure, pulse, and oxygen saturations were monitored continuously. The bronchoscope was introduced through the left nostril and advanced to the tracheobronchial tree of both lungs. Moderate Sedation: An independent trained observer was present and continuously monitored the patient. Moderate (conscious) sedation was personally administered by an anesthesia professional. The following parameters were monitored: oxygen saturation, heart rate, blood pressure, respiratory rate, EKG, adequacy of pulmonary ventilation, and response to care. Total physician intraservice time was 15 minutes. Findings: The nasopharynx/oropharynx appears normal. The larynx appears normal. The vocal cords appear normal. The subglottic space is normal. The trachea is of normal caliber. The raisa is sharp. The tracheobronchial tree was examined to at least the first subsegmental level. Bronchial mucosa and anatomy are normal; there are no endobronchial lesions, and no secretions. Impression: - The airway examination was normal. - No specimens collected. - The airway examination was normal. Recommendation: - Await test results. Procedure Code(s): --- Professional --- 74614, Bronchoscopy, rigid or flexible, including fluoroscopic guidance, when performed; diagnostic, with cell washing, when performed (separate procedure) CPT copyright 2017 [employer]. All rights reserved. The codes documented in this report are preliminary and upon supervisor garage review may be revised to meet current compliance requirements. MD David Mckeon MD 10/21/2020 12:47:55 PM This report has been signed electronically. Number of Addenda: 0 Note Initiated On: 10/21/2020 11:37 AM
== END 2020-10-21 13:50 ==
LOC: EN 11:00 → AC 11:04
PROVIDERS: Anesthesiology; PCP Internal Medicine; Referring Provider Internal Medicine Pulmonary Disease; Visit Provider Internal Medicine Pulmonary Disease
PROC: 0BJ08ZZ Inspection of Tracheobronchial Tree, Via Natural or Artificial Opening Endoscopic (ICD-10-PCS; CPT 31622; principal; 2020-10-21 11:45)
DX: J45.50 Severe persistent asthma, uncomplicated (principal); G47.33 Obstructive sleep apnea (adult) (pediatric); K21.9 Gastro-esophageal reflux disease without esophagitis; E66.09 Other obesity due to excess calories; Z68.42 Body mass index [BMI] 45.0-49.9, adult; F32.9 Major depressive disorder, single episode, unspecified; E78.00 Pure hypercholesterolemia, unspecified; G25.81 Restless legs syndrome; Z87.442 Personal history of urinary calculi; Z79.899 Other long term (current) drug therapy
CPT/HCPCS: 31622; 81025; 87426; 94640; C9803; J7120; J2405

== ENCOUNTER → 2020-11-09 08:08 | Outpatient (CLI) | payer OTHER, SELFPAY ==
--- NOTE | 2020-11-09 08:11 | RAD_ITS ---
CLINICAL INDICATION: 40-year-old female presenting with a knot in throat, throat swelling and coughing of one-year duration. EXAM: Double contrast esophagram. TECHNIQUE: Standard double phase esophagram performed with effervescent capsules and thick and thin barium. FINDINGS: Unremarkable transit of the contrast bolus within the oral cavity, unremarkable transit through the hypopharynx, no evidence of laryngeal penetration or aspiration was seen. Unremarkable transit through the esophagus, no evidence of gastroesophageal stricture or webs, no evidence of esophageal diverticula visualized. Unremarkable esophageal peristalsis seen. Fluoroscopy time 3.06 minutes. Dose area product: 27.17 mGy RAD/Esophagus Dual Contrast IMPRESSION: No small hiatus hernia, no evidence of gastroesophageal reflux. Electronically Signed: Jerardo Argueta MD at 12:31 EDT Tel , Service support ,
== END ==
PROVIDERS: PCP Internal Medicine; Referring Provider Otolaryngology; Visit Provider Otolaryngology
DX: K21.9 Gastro-esophageal reflux disease without esophagitis (principal)
CPT/HCPCS: 74221

== ENCOUNTER 2020-12-25 14:37 | Outpatient (CLI) | payer OTHER, SELFPAY ==
[2020-12-25] MEDS: 0.9% Saline Lock 10 ML Syringe IV (14:41)
[2020-12-25 14:42] VITALS: BP 138/77; PULSE 112; RESP 16; TEMP 37.8; O2SAT 96; BMI 46.0
[2020-12-25 15:20] VITALS: BP 147/80; PULSE 108; RESP 16; TEMP 37.3; O2SAT 96
[2020-12-25 16:22] VITALS: BP 140/82; PULSE 106; RESP 18; TEMP 37.8; O2SAT 96
== END 2020-12-25 16:23 | disposition home or self-care (01) ==
LOC: MS3OUT 14:37 → MS3 14:38
PROVIDERS: PCP Internal Medicine; Referring Provider Nurse Practitioner Adult Health; Visit Provider Nurse Practitioner Adult Health
DX: Z23 Encounter for immunization (principal); U07.1 COVID-19
CPT/HCPCS: J7050; M0243; A4216; Q0244

== ENCOUNTER 2020-12-27 07:21 | Emergency (ER) | payer OTHER, SELFPAY ==
[2020-12-27 07:22] VITALS: BP 145/89; PULSE 97; RESP 16; TEMP 36.4; O2SAT 93; BMI 46.0
--- NOTE | 2020-12-27 07:40 | EKG12_ITS ---
Test Reason : SOB Blood Pressure : / mmHG Vent. Rate : 092 BPM Atrial Rate : 092 BPM P-R Int : 154 ms QRS Dur : 082 ms QT Int : 362 ms P-R-T Axes : 034 -15 -22 degrees QTc Int : 447 ms Normal sinus rhythm Normal ECG Confirmed by LAURA KING, JAYLON ([id number]), continuity editor ELFEGO WEINER ([id number]) on 12/29/2020 9:16:35 AM Referred By: HERNAN Confirmed By:JAYLON SANCHEZ MD
--- NOTE | 2020-12-27 07:42 | EDS_ITS ---
HPI History of Present Illness Chief Complaint: Shortness of Breath Detail of Chief Complaint: Chest pain this morning Informant: patient Onset/Context/Timing Quality: Positive for Dyspnea on exertion Associated Symptoms cough Chest Pain: Positive for Sharp and Pleuritic Narrative Narrative: Patient presents stating that she started experiencing chest pain with breathing this morning. Patient describes pain across both sides of her chest as well as her back. She was diagnosed with COVID-19 on the of the month and has had symptoms since the . 2 days ago she had monoclonal antibody infusion. She has no history of PE or DVT. She did not receive the Covid vaccine. Patient does describe a cough and intermittent fevers. Patient has had some sputum production. She did have pneumonia 6 months ago and then developed shingles. Patient states that her also has Covid. She has history of asthma and obstructive sleep apnea. She does have a pulse oximeter at home and states that with activity her oxygen saturations sometimes drops to around 90 but never below and then comes up quickly after she rests. [facility] Medical History (Updated 12/27/20 @ 09:[address] Lindsey Qiu, ) Alcohol use Asthma CPAP (continuous positive airway pressure) dependence Depression Gastric reflux History of kidney stones History of stress test Hypercholesteremia Kidney stones Low iron Normal blood glucose level Restless leg syndrome Sleep apnea Home Medications albuterol sulfate 90 mcg/actuation aerosol inhaler 2 puff INHALATION Q6H PRN 01/30/20 [History Last Taken Unknown] fluticasone furoate 200 mcg-vilanterol 25 mcg/dose inhalation powder 1 inh INHALATION DAILY 01/30/20 [History Last Taken Unknown] levonorgestrel 20 mcg/24 hours (6 yrs) 52 mg intrauterine device 1 device INTRAUTERINE ONCE 01/30/20 [History Last Taken Unknown] multivitamin 1 tab PO DAILY 01/30/20 [History Last Taken Unknown] ropinirole 2 mg tablet 2 mg PO DAILY #90 tab 10/16/20 [Rx Last Taken Unknown] cetirizine [Zyrtec] 10 mg PO DAILY 10/20/20 [History Last Taken Unknown] cholecalciferol (vitamin D3) [Vitamin D3] 25 mcg PO DAILY 10/20/20 [History Last Taken Unknown] fluticasone propionate [Flonase] 2 spray INTRANASAL BID 10/20/20 [History Last Taken Unknown] montelukast [Singulair] 10 mg PO DAILY 10/20/20 [History Last Taken Unknown] omeprazole 20 mg PO BID 10/20/20 [History Last Taken Unknown] Allergy/AdvReac Type Severity Reaction Status Date / Time Penicillins Allergy Hives Verified 12/27/20 07:21 fluticasone propionate AdvReac Swelling Verified 12/27/20 07:21 [From Advair Diskus] latex AdvReac Rash Verified 12/27/20 07:21 salmeterol xinafoate AdvReac Swelling Verified 12/27/20 07:21 [From Advair Diskus] Family History Mother Thyroid disorder Fibromyalgia Grandmother Diabetes Grandfather Cancer Surgical History H/O endoscopy History of cholecystectomy History of wisdom tooth extraction Social History Smoking Status: Never smoker alcohol intake: current alcohol intake frequency: holidays/special occasions only substance use type: does not use ROS ROS ED Constitutional Constitutional ED: Reports systems reviewed and no addt'l complaints, except as documented and fever(s); Denies body ache(s), change in weight or chills Eyes Eyes: Denies acute decrease in peripheral vision, change in vision, double vision or loss of vision ENT ENT ED: Reports none; Denies ear pain, lip swelling, loss taste/smell, neck pain, otalgia or sore throat Cardiovascular Cardiovascular: Reports none and chest pain; Denies abdominal pain, chest pain with activity, leg edema, lightheadedness, palpitations, rapid heart rate or syncope Respiratory/Chest Respiratory/Chest: Reports none, cough, dyspnea on exertion and sputum; Denies change in mental status, dry cough, dyspnea, hemoptysis, shortness of breath at rest or shortness of breath with exertion Gastrointestinal Gastrointestinal: Reports none; Denies abdominal pain, change in stool character, diarrhea, hematemesis, hematochezia, melena, rectal bleeding or vom iting Genitourinary Genitourinary ED: Reports none; Denies abdominal discomfort, anuria, dysuria, genital pain or polyuria Musculoskeletal Musculoskeletal: Reports none and myalgias; Denies arthralgias, back pain, difficulty walking, extremity pain or muscle weakness Integumentary Reports none; Denies abscess or rash Neurologic Neurologic: Reports none, headache(s) and other Details: Loss of taste and smell ; Denies abnormal gait, confusion, focal weakness, frequent falls, loss of vision, numbness, paresthesias, radicular pain, vertigo or weakness Psychiatric Psychiatric: Reports systems reviewed and no addt'l complaints, except as documented and none; Denies behavioral changes, confusion, difficulty krystin ntrating, hallucinations, suicidal ideation, tactile hallucinations or visual hallucinations Endocrine Endocrinology: Denies none, cold intolerance, excessive sweating, fatigue or heat intolerance Hematologic/Lymphatic Hematologic/Lymphatic: Reports none; Denies anemia, easy bleeding or easy bruising Allergic/Immunologic Allergic/Immunologic ED: Denies as per HPI, none, lip swelling, mouth swelling, throat swelling, tongue swelling or hives EXAM Physical Exam Const Vital Signs: 12/27/20 07:22 12/27/20 08:02 Temperature 97.6 F L Temperature Source Temporal Pulse Rate 97 Respiratory Rate 16 Respiratory Effort Short of Breath Respiratory Depth Normal Respiratory Pattern Normal Blood Pressure 145/89 H Blood Pressure Mean 107 Pulse Ox 93 Oxygen Delivery Method Room Air Positive well nourished and well developed General Appearance ED: well developed and NAD HEENT Reports TM's clear and moist mucous membranes normocephalic and atraumatic; Negative for trauma or tenderness Tympanic Membrane ED: Yes TM's clear Eyes PERRL and EOMs intact bilaterally General Eye ED: Negative for pale conjunctiva or scleral icterus Neck no lymphadenopathy, supple and no JVD General: Negative for tenderness Chest Wall inspection of chest normal and palpation of chest normal Chest: Negative for tenderness Resp normal respiratory effort and clear to auscultation bilaterally Effort and Inspection: Negative for respiratory distress or pain with movement Auscultation: Negative for rhonchi, wheezes or diminished lung sounds Cardio regular rate, regular rhythm, S1 normal heart sound, S2 normal heart sound and no murmurs Peripheral Pulses: pulses 2+ throughout GI normal to inspection, nondistended, normoactive bowel sounds, soft to palpation, non-tender, non-distended and no masses Back/Spine no CVA tenderness and no thoracic nor lumbar tenderness Extremity normal to inspection General Extremety ED: Negative for edema General Extremity: Negative for edema Neuro oriented x3, CN's II-XII intact bilaterally, no sensory deficits noted and gait normal Sensorium / Orientation: awake, alert, oriented to person, oriented to place and oriented to time Motor Exam: strength 5/5 throughout and strength abnormal Psych mental status grossly normal Skin no rashes or lesions noted and no wounds MDM MDM MDM Narrative Medical decision making narrative: IV line established on arrival. Patient placed on a cardiac sonographer. EKG obtained arrival showed us sinus rhythm with no acute ST segment changes. CTA of her chest was negative for PE but did show bilateral infiltrates consistent with Covid 19. Patient looks well and is not hypoxic. She denies anything for her chest pain. Patient states Tylenol is managing. Patient advised to return if increasing shortness of breath or condition should worsen anyway. We discussed empiric antibiotic treatment to prevent secondary bacterial infection. Patient states that sometimes she gets yeast infections and did not want to do antibiotics unless absolutely indicated. At this point I feel she has Covid pneumonia and no evidence of bacterial infection. We will hold off on antibiotics and she is advised to return if condition should worsen. Lab Data Attestation: I reviewed the patient's lab results. Labs: Laboratory Results - last 24 hr 12/27/20 12/27/20 12/27/20 07:57 07:57 07:57 WBC 4.7 RBC 4.39 Hgb 12.9 Hct 39.8 MCV 90.7 MCH 29.4 MCHC 32.4 RDW Std Deviation 42.4 RDW Coeff of Ab 12.6 Plt Count 183 MPV 9.7 Immature Gran % (Auto) 0.600 Neut % (Auto) 75.7 H Lymph % (Auto) 18.0 L [place] % (Auto) 5.1 Eos % (Auto) 0.4 Baso % (Auto) 0.2 Absolute Neuts (auto) 3.6 Absolute Lymphs (auto) 0.85 Nucleated RBC % 0 D-Dimer Quant (PE/DVT) 0.61 H* Sodium 138 Potassium 3.4 L Chloride 106 Carbon Dioxide 23.0 Anion Gap 9 BUN 12 Creatinine 0.95 Estim Creat Clear Calc 67.98 Est GFR (MDRD) Af Amer 84 Est GFR (MDRD) Non-Af 69 BUN/Creatinine Ratio 12.6 Glucose 138 H Lactic Acid Calcium 8.9 Troponin I High Sens 8 12/27/20 07:57 WBC RBC Hgb Hct MCV MCH MCHC RDW Std Deviation RDW Coeff of Ab Plt Count MPV Immature Gran % (Auto) Neut % (Auto) Lymph % (Auto) [place] % (Auto) Eos % (Auto) Baso % (Auto) Absolute Neuts (auto) Absolute Lymphs (auto) Nucleated RBC % D-Dimer Quant (PE/DVT) Sodium Potassium Chloride Carbon Dioxide Anion Gap BUN Creatinine Estim Creat Clear Calc Est GFR (MDRD) Af Amer Est GFR (MDRD) Non-Af BUN/Creatinine Ratio Glucose Lactic Acid 2.1 H* Calcium Troponin I High Sens Radiography Chest X-Ray - ED: 1 View Diagnostic Testing: Clinical Impression(s) from Imaging Studies Chest X-Ray 12/27/20 07:45 IMPRESSION: No acute thoracic pathology. Electronically Signed: Son Renee MD at 8:34 EDT Tel , Service support , Chest CTA 12/27/20 08:21 IMPRESSION: Normal CTA chest examination, without a demonstrated pulmonary embolism or arterial dissection. Patchy peripheral airspace opacities in both lungs, most pronounced in the left lower lobe. This is consistent with COVID pneumonia. Fatty liver. Electronically Signed: Son Renee MD at 9:24 EDT Tel , Service support , 1 view chest x-ray obtained interpreted by myself as subtle bilateral lower lobe infiltrates. Radiology felt there was no acute disease process. EKG Initial EKG: Attestation: I personally reviewed and interpreted this EKG as follows: Comments: Sinus rhythm with a ventricular rate of 92 bpm with no acute ST segment changes. Discharge Plan Triage Chief Complaint: Shortness of Breath ED Provider: Lindsey Qiu Dx/Rx/DC Orders Clinical Impression: COVID-19, Chest pain Instructions: Caring for Someone Who Has COVID-19 Prescriptions: No Action Breo Ellipta 200-25 mcg/dose blister with device 1 inh INHALATION DAILY RF: 0 multivitamin [Daily Multi-Vitamin] Tablet 1 tab PO DAILY RF: 0 Mirena 20 mcg/24 hours (5 yrs) 52 mg intrauterine device 1 device intrauterine ONCE RF: 0 albuterol sulfate 90 mcg/actuation HFA aerosol inhaler 2 puff INHALATION Q6H PRN (Reason: Sob &/Or Wheezing) RF: 0 cholecalciferol (vitamin D3) [Vitamin D3] 25 mcg (1,000 unit) Tablet,Chewable 25 mcg PO DAILY RF: 0 cetirizine [Zyrtec] 10 mg Tablet 10 mg PO DAILY RF: 0 omeprazole 20 mg Capsule,Delayed Release(Dr/Ec) 20 mg PO BID RF: 0 montelukast [Singulair] 10 mg Tablet 10 mg PO DAILY RF: 0 fluticasone propionate [Flonase] 50 mcg/actuation [place],Suspension 2 spray INTRANASAL BID RF: 0 ropinirole 2 mg tablet 2 mg PO DAILY Qty: 90 RF: 1 Primary Care Provider: Bessie Warren Referrals: Bessie Warren MD [Primary Care Provider] - 5-7 Days Disposition Disposition: Home, Self Care
--- NOTE | 2020-12-27 07:45 | RAD_ITS ---
STUDY: X-RAY CHEST REASON FOR EXAM: Female, 40 years old. Chest pain TECHNIQUE: Frontal view of the chest COMPARISON: None. FINDINGS: The lungs are clear. There are no pleural effusions. There is no pneumothorax. The heart is normal in size. The visualized osseous structures are within normal limits. RAD/Chest 1 View (Portable) IMPRESSION: No acute thoracic pathology. Electronically Signed: Son Renee MD at 8:34 EDT Tel , Service support ,
[2020-12-27 08:07] LABS: Absolute Lymphocyte Count 0.85 X10^3/uL (0.83-4.51); Absolute Neutrophil Count 3.6 X10^3/uL (2.0-7.7); Basophil# 0.01 X10^3/uL; Basophil% 0.2 % (0-1); Eosinophil# 0.02 X10^3/uL; Eosinophils% 0.4 % (0-5); Hematocrit 39.8 % (37-47); Hemoglobin 12.9 g/dL (12.0-15.0); Lymphocyte # 0.85 X10^3/ul (0.83-4.51); Mean Corp Hgb Conc 32.4 g/dL (32-36); Mean Corpuscular Hgb 29.4 pg (27.0-32.0); Mean Corpuscular Volume 90.7 fL (81-99); Mean Platelet Vol. 9.7 fl (6.2-12.0); Monocyte# 0.24 X10^3/uL; Monocyte% 5.1 % (0-10); NRBC Flagged by Analyzer 0 % (0-5); Neutrophil # 3.58 X10^3/uL (2.7-7.7); Neutrophil % 75.7 % (47-70); Platelet Count 183 K/mm3 (150-450); RBC Distribution Width CV 12.6 % (11.6-14.6); RBC Distribution Width SD 42.4 fl (35.1-43.9); Red Blood Count 4.39 M/mm3 (4.2-5.4); White Blood Count 4.7 K/mm3 (4.4-11.0)
[2020-12-27 08:20] LABS: D-Dimer Quantitative (DVT/PE) 0.61 FEU/ug/m (0.27-0.49)
--- NOTE | 2020-12-27 08:21 | CT_ITS ---
STUDY: CTA CHEST REASON FOR EXAM: Female, 40 years old. Chest pain RADIATION DOSAGE (If Supplied By Facility): CTDIvol = ( 11.47 ) mGy, DLP = ( 423.00 ) mGycm TECHNIQUE: The examination was performed with the intravenous administration of IV 100mL Isovue-370. Post-processing of the angiographic images was performed, with multiplanar reformation and 3D reconstruction. Individualized dose optimization techniques were used for this CT. COMPARISON: None. FINDINGS: Evaluation is limited by patient motion. Normal enhancement of the main pulmonary artery and right and left pulmonary arteries. Normal enhancement of the bilateral peripheral pulmonary arteries. There is no demonstrated pulmonary embolism. Normal thoracic aorta and visualized great vessels. There is no demonstrated aortic dissection. Normal heart and pericardium. Normal mediastinum. Normal hilar regions. Normal visualized trachea and bronchi. The lungs are well expanded. There are patchy peripheral airspace opacities in both lungs, most pronounced in the left lower lobe. Normal pleura. Normal chest wall structures. Normal osseous structures. There is diffuse fatty infiltration of the liver. CT/CTA Chest W/WO Contrast IMPRESSION: Normal CTA chest examination, without a demonstrated pulmonary embolism or arterial dissection. Patchy peripheral airspace opacities in both lungs, most pronounced in the left lower lobe. This is consistent with COVID pneumonia. Fatty liver. Electronically Signed: Son Renee MD at 9:24 EDT Tel , Service support ,
[2020-12-27 08:25] LABS: Anion Gap 9 (5-15); BUN 12 mg/dL (7-18); BUN/Creat Ratio 12.6 RATIO (10-20); Calcium,Total 8.9 mg/dL (8.5-10.1); Chloride 106 mmol/L (98-107); Creatinine, Serum 0.95 mg/dL (0.55-1.02); EST Glomerular Filtration Rate 69 mL/min (>60); Est Glom Filt Rate - Afr Amer 84 mL/min (>60); Estimated Creatinine Clearance 67.98 ml/min; Glucose 138 mg/dL (74-106); Potassium 3.4 mmol/L (3.5-5.1); Sodium Level 138 mmol/L (136-145); Troponin-I HS 8 pg/mL (3.0-54.0)
[2020-12-27 08:54] LABS: Lactic Acid 2.1 mmol/L (0.4-1.9)
[2020-12-27 09:48] VITALS: BP 137/78; PULSE 91; RESP 18; O2SAT 94
[2020-12-27 12:02] LABS: Reflex Lactate? Y
== END 2020-12-27 09:49 | disposition home or self-care (01) ==
PROVIDERS: Emergency Provider Emergency Medicine; PCP Internal Medicine
DX: U07.1 COVID-19 (principal); E78.00 Pure hypercholesterolemia, unspecified; F32.A Depression, unspecified; G47.33 Obstructive sleep apnea (adult) (pediatric); J45.909 Unspecified asthma, uncomplicated; K21.9 Gastro-esophageal reflux disease without esophagitis; G25.81 Restless legs syndrome; Z87.442 Personal history of urinary calculi; Z79.899 Other long term (current) drug therapy
CPT/HCPCS: 71045; 71275; 80048; 83605; 84484; 85025; 85379; 87040; 93005; 99284; Q9967

== ENCOUNTER 2020-12-31 07:43 | Emergency (ER) | payer OTHER, SELFPAY ==
[2020-12-31 07:44] VITALS: BP 125/82; PULSE 93; RESP 18; TEMP 36.3; O2SAT 94; BMI 44.8
[2020-12-31 08:14] LABS: Color, Urine Yellow (Yellow); Glucose, Dipstick Normal (Normal); Ketone-Dipstick 5 mg/dl (Negative); Leukocyte Esterase-Dipstick 100 /ul (Negative); Nitrite-Dipstick Negative (Negative); Occult Blood-Urine 250 /ul (Negative); Protein-Dipstick 30 mg/dl (Negative); Specific Gravity, Urine 1.025 (1.002-1.030); Urine Clarity Sl. Cloudy (Clear); Urine Urobilinogen 1 mg/dl (Normal)
[2020-12-31 08:23] LABS: Urine Bilirubin Dipstick 1 mg/dL (Negative)
[2020-12-31 08:25] LABS: Bacteria 2+ /hpf (None Seen); Mucous, Urine 1+ /hpf (<or=2+); Red Blood Cells-Urine 25-50 SEEN /hpf (0-5); Squamous Epithelial Cells - UA 0-5 SEEN /hpf (5-10); White Blood Cells 10-25 SEEN /hpf (0-5)
--- NOTE | 2020-12-31 08:43 | CT_ITS ---
STUDY: CT ABDOMEN AND PELVIS WITHOUT CONTRAST REASON FOR EXAM: Female, 40 years old. Hematuria. Covid positive. RADIATION DOSAGE (If Supplied By Facility): CTDIvol = ( 23.85 ) mGy, DLP = ( 1251.39 ) mGycm TECHNIQUE: Transaxial images were obtained from the dome of the diaphragm to the symphysis pubis without oral contrast, and without intravenous contrast. Sagittal and coronal images were reconstructed. Individualized dose optimization techniques were used for this CT. COMPARISON: Comparison is made with the prior examination dated 07/07/2020. FINDINGS: Bibasilar pulmonary infiltrates more prominent at the left lung base. Follow-up is recommended. The visualized portions of the heart are within normal limits. There is decreased attenuation of the liver consistent with steatosis. There are surgical clips in the gallbladder fossa consistent with a prior cholecystectomy. Normal spleen. Normal pancreas. Normal bilateral adrenal glands. Normal right kidney. There is a 10 mm calculus in the lower pole calyx of the left kidney. Normal visualized stomach. Normal small intestine. Normal colon. The appendix is visualized and appears normal. Normal abdominal aorta. Normal inferior vena cava. Normal retroperitoneum. The urinary bladder is empty. IUD is seen within the uterus. There is evidence of bilateral tubal ligation clips. Normal abdominal wall. Moderate degree of disc space narrowing at the L1-L2 level. CT/Abdomen/Pelvis without Cont IMPRESSION: Bibasilar pulmonary infiltrates worse at the left lung base. Follow-up is recommended. 10 mm calculus in the lower pole calyx of the left kidney Electronically Signed: Lit Copeland MD at 9:59 EDT , Service support ,
[2020-12-31 09:27] LABS: Internal QC Validated? YES +Cl - CLEAR BKGD; Pregnancy, Urine Negative Negative
--- NOTE | 2020-12-31 09:28 | EX.ED.DYSGE1 ---
HPI History of Present Illness Chief Complaint: Complaint Informant: patient Narrative Narrative: 40-year-old female presents to the emergency department with blood in the urine. Patient states that she noticed this this morning. She notes a pain in her lower right abdomen and low back. She also notes some dysuria. The patient states that she has had a history of UTIs as well as kidney stones. She notes some nausea. [facility] Medical History Alcohol use Asthma CPAP (continuous positive airway pressure) dependence Depression Gastric reflux History of kidney stones History of stress test Hypercholesteremia Kidney stones Low iron Normal blood glucose level Restless leg syndrome Sleep apnea Home Medications albuterol sulfate 90 mcg/actuation aerosol inhaler 2 puff INHALATION Q6H PRN 01/30/20 [History Last Taken Unknown] fluticasone furoate 200 mcg-vilanterol 25 mcg/dose inhalation powder 1 inh INHALATION DAILY 01/30/20 [History Last Taken Unknown] levonorgestrel 20 mcg/24 hours (6 yrs) 52 mg intrauterine device 1 device INTRAUTERINE ONCE 01/30/20 [History Last Taken Unknown] multivitamin 1 tab PO DAILY 01/30/20 [History Last Taken Unknown] ropinirole 2 mg tablet 2 mg PO DAILY #90 tab 10/16/20 [Rx Last Taken Unknown] cetirizine [Zyrtec] 10 mg PO DAILY 10/20/20 [History Last Taken Unknown] cholecalciferol (vitamin D3) [Vitamin D3] 25 mcg PO DAILY 10/20/20 [History Last Taken Unknown] fluticasone propionate [Flonase] 2 spray INTRANASAL BID 10/20/20 [History Last Taken Unknown] montelukast [Singulair] 10 mg PO DAILY 10/20/20 [History Last Taken Unknown] omeprazole 20 mg PO BID 10/20/20 [History Last Taken Unknown] phenazopyridine [Pyridium] 200 mg PO TID PRN #6 tab 12/31/20 [Rx Last Taken Unknown] sulfamethoxazole-trimethoprim 1 tab PO BID #14 tablet 12/31/20 [Rx Last Taken Unknown] Allergy/AdvReac Type Severity Reaction Status Date / Time Penicillins Allergy Hives Verified 12/31/20 07:46 fluticasone propionate AdvReac Swelling Verified 12/31/20 07:46 [From Advair Diskus] latex AdvReac Rash Verified 12/31/20 07:46 salmeterol xinafoate AdvReac Swelling Verified 12/31/20 07:46 [From Advair Diskus] Family History Mother Thyroid disorder Fibromyalgia Grandmother Diabetes Grandfather Cancer Surgical History H/O endoscopy History of cholecystectomy History of wisdom tooth extraction Social History Smoking Status: Never smoker alcohol intake: current alcohol intake frequency: holidays/special occasions only substance use type: does not use ROS ROS ED Constitutional Constitutional ED: Denies chills or weight loss Eyes Eyes: Denies change in vision or diplopia ENT ENT ED: Denies ear pain, rhinorrhea or sore throat Cardiovascular Cardiovascular: Denies chest pain, orthopnea, palpitations or racing heartbeat Respiratory/Chest Respiratory/Chest: Denies cough, dyspnea or orthopnea Gastrointestinal Gastrointestinal: Reports abdominal pain and nausea; Denies diarrhea or vomiting Genitourinary Genitourinary ED: Reports dysuria and hematuria; Denies urinary frequency Musculoskeletal Musculoskeletal: Denies arthralgias or myalgias Integumentary Denies abscess or rash Neurologic Neurologic: Denies headache(s) or weakness Psychiatric Psychiatric: Denies anxiety, depression, suicidal ideation or suicidal thoughts Endocrine Endocrinology: Denies polydipsia, polyphagia or polyuria Allergic/Immunologic Allergic/Immunologic ED: Denies mouth swelling, tongue swelling or urticaria EXAM Physical Exam Const Vital Signs: 12/31/20 07:44 Temperature 97.4 F L Temperature Source Temporal Pulse Rate 93 Respiratory Rate 18 Blood Pressure 125/82 H Blood Pressure Mean 96 Pulse Ox 94 Oxygen Delivery Method Room Air Positive well nourished, well developed and obese General Appearance ED: well developed Nutritional Appearance: obese HEENT Reports normocephalic, head/scalp atraumatic, TM's clear and moist mucous membranes Negative for trauma Tympanic Membrane ED: Yes TM's clear Eyes PERRL and EOMs intact bilaterally Neck no lymphadenopathy, supple and no JVD Resp normal respiratory effort and clear to auscultation bilaterally Cardio regular rate, regular rhythm and no murmurs GI normal to inspection, nondistended, normoactive bowel sounds and non-tender Palpation: soft Back/Spine no CVA tenderness and normal ROM Extremity normal to inspection General Extremety ED: Negative for edema General Extremity: Negative for edema Neuro oriented x3 and CN's II-XII intact bilaterally Sensorium / Orientation: alert Motor Exam: strength 5/5 throughout Psych mental status grossly normal Mood & Affect: Negative for depressed or tearful Skin no rashes or lesions noted and no wounds MDM MDM MDM Narrative Medical decision making narrative: Patient's urinalysis shows 25-50 red cells 10-25 white cells 2+ bacteria. This was sent for culture. test is negative. CT the pelvis does not demonstrate any ureterolithiasis. Patient will be started on Bactrim. Lab Data Attestation: I reviewed the patient's lab results. Labs: Laboratory Results - last 24 hr 12/31/20 12/31/20 08:05 08:05 Urine Color Yellow Urine Clarity Sl. Cloudy Urine pH 5.0 Ur Specific [place] 1.025 Urine Protein 30 H Urine Glucose (UA) Normal Urine Ketones 5 H Urine Occult Blood 250 H Urine Nitrite Negative Urine Bilirubin 1 H Urine Urobilinogen 1 H Ur Leukocyte Esterase 100 H Urine RBC 25-50 SEEN Urine WBC 10-25 SEEN Ur Squamous Epith Cells 0-5 SEEN Urine Bacteria 2+ Urine Mucus 1+ Urine Test Negative Radiography Diagnostic Testing: Clinical Impression(s) from Imaging Studies Abdomen/Pelvis CT 12/31/20 08:43 IMPRESSION: Bibasilar pulmonary infiltrates worse at the left lung base. Follow-up is recommended. 10 mm calculus in the lower pole calyx of the left kidney Electronically Signed: Lit Copeland MD at 9:59 EDT , Service support , Discharge Plan Triage Chief Complaint: Complaint ED Provider: Adi Carr Dx/Rx/DC Orders Clinical Impression: UTI (urinary tract infection) Instructions: UITs Women Prescriptions: New sulfamethoxazole-trimethoprim [sulfamethoxazole-trimethoprim] 1 TABLET tablet 1 tab PO BID Qty: 14 RF: 0 phenazopyridine [Pyridium] 200 mg tablet 200 mg PO TID PRN (Reason: pain) Qty: 6 RF: 0 No Action Breo Ellipta 200-25 mcg/dose blister with device 1 inh INHALATION DAILY RF: 0 multivitamin [Daily Multi-Vitamin] Tablet 1 tab PO DAILY RF: 0 Mirena 20 mcg/24 hours (5 yrs) 52 mg intrauterine device 1 device intrauterine ONCE RF: 0 albuterol sulfate 90 mcg/actuation HFA aerosol inhaler 2 puff INHALATION Q6H PRN (Reason: Sob &/Or Wheezing) RF: 0 cholecalciferol (vitamin D3) [Vitamin D3] 25 mcg (1,000 unit) Tablet,Chewable 25 mcg PO DAILY RF: 0 cetirizine [Zyrtec] 10 mg Tablet 10 mg PO DAILY RF: 0 omeprazole 20 mg Capsule,Delayed Release(Dr/Ec) 20 mg PO BID RF: 0 montelukast [Singulair] 10 mg Tablet 10 mg PO DAILY RF: 0 fluticasone propionate [Flonase] 50 mcg/actuation [place],Suspension 2 spray INTRANASAL BID RF: 0 ropinirole 2 mg tablet 2 mg PO DAILY Qty: 90 RF: 1 Primary Care Provider: Bessie Warren Referrals: Bessie Warren MD [Primary Care Provider] - As Needed Disposition Disposition: Home, Self Care
[2020-12-31 10:36] VITALS: BP 145/100; PULSE 84; TEMP 36.9; O2SAT 95
== END 2020-12-31 10:38 | disposition home or self-care (01) ==
PROVIDERS: Emergency Provider Emergency Medicine; PCP Internal Medicine
DX: N39.0 Urinary tract infection, site not specified (principal); E66.9 Obesity, unspecified; Z68.41 Body mass index [BMI] 40.0-44.9, adult; E78.00 Pure hypercholesterolemia, unspecified; F32.A Depression, unspecified; G47.30 Sleep apnea, unspecified; G25.81 Restless legs syndrome; K21.9 Gastro-esophageal reflux disease without esophagitis; J45.909 Unspecified asthma, uncomplicated; Z87.440 Personal history of urinary (tract) infections; Z87.442 Personal history of urinary calculi; Z79.899 Other long term (current) drug therapy
CPT/HCPCS: 74176; 81001; 81025; 87086; 87088; 99282

== ENCOUNTER → 2021-01-20 14:50 | Outpatient (CLI) | payer OTHER, SELFPAY ==
--- NOTE | 2021-01-20 14:55 | RAD_ITS ---
EXAM: XR ABDOMEN, 1 VIEW CLINICAL INDICATION: LEFT KIDNEY STONE TECHNIQUE: Frontal supine view of the abdomen/pelvis. This report was created using [employer] report generation technology. COMPARISON: 12.31.20 ct. FINDINGS: LOWER THORAX: No acute pathology. GASTROINTESTINAL TRACT: Stool throughout the colon. Non-obstructive. No bowel or stomach distention. ORGANS: Liver is diffusely enlarged. An intrauterine device is identified within the pelvis and this is likely within the uterus. There are multiple metallic clips in the right upper quadrant. This is consistent for a cholecystectomy. No abnormal calcifications. BONES/JOINTS: No acute pathology. SOFT TISSUES: There are bilateral tubal ligation clips. RAD/Abdomen Single View IMPRESSION: 1. Stool throughout the colon. 2. Liver is diffusely enlarged. Electronically Signed: Wolfgang Ellis MD at 18:21 EST , Service support ,
== END ==
PROVIDERS: PCP Internal Medicine; Referring Provider Urology; Visit Provider Urology
DX: N20.0 Calculus of kidney (principal)
CPT/HCPCS: 74018

== ENCOUNTER → 2021-02-26 15:26 | Outpatient (CLI) | payer OTHER, SELFPAY ==
--- NOTE | 2021-02-26 15:30 | RAD_ITS ---
EXAM: XR CHEST, 2 VIEWS CLINICAL INDICATION: ASTHMA/COUGH TECHNIQUE: Frontal and lateral views of the chest. This report was created using [employer] report generation technology. COMPARISON: 12/28/2019 FINDINGS: LUNGS AND PLEURAL SPACES: Unremarkable. No consolidation or edema. No pneumothorax. No effusion. HEART: Unremarkable. Cardiac silhouette not enlarged. MEDIASTINUM: Central airways and mediastinal contour are unremarkable. BONES/JOINTS: Unremarkable. SOFT TISSUES: Unremarkable. RAD/Chest PA and Lateral IMPRESSION: No radiographic evidence of acute cardiopulmonary disease. Electronically Signed: Wolfgang Ellis MD at 16:33 EST , Service support ,
== END ==
PROVIDERS: PCP Internal Medicine; Referring Provider Internal Medicine Pulmonary Disease; Visit Provider Internal Medicine Pulmonary Disease
DX: R05.9 Cough, unspecified (principal); J45.909 Unspecified asthma, uncomplicated
CPT/HCPCS: 71046; 87070; 87205

== ENCOUNTER 2021-04-05 10:58 | Day surgery (SDC) | payer OTHER, SELFPAY ==
[2021-04-05 11:19] VITALS: BP 138/96; PULSE 101; RESP 16; TEMP 36.6; O2SAT 98; BMI 48.2
[2021-04-05 11:26] LABS: Internal QC Validated? YES +Cl - CLEAR BKGD; Pregnancy, Urine Negative Negative
[2021-04-05] MEDS: Lactated Ringers 1,000 ML 30 ML IV (11:33)
--- NOTE | 2021-04-05 12:18 | DCINST_ITS ---
Discharge Instructions Diet Discharge Diet: No restrictions Activity Discharge Activity: Return to Normal Activity May resume sexual activity in: No Restrictions Dressing / Incision Call your doctor if you observe: Fever of 101 or Higher, Inability to urinate, Inability to have a bowel movement and Uncontrolled pain Follow Up Care Please Follow Up With: Polly Carrasco MD When: in office in 2-3 weeks for stent removal and KUB xray. Call office for appt Test Results: Test results from this visit will be discussed in further detail at your follow-up appointment, if applicable. Discharge Plan Admission Attending Provider: Polly Carrasco Primary Care Provider: Bessie Warren Discharge Orders/Prescriptions Prescriptions: New oxycodone-acetaminophen [oxycodone-acetaminophen] 1 TABLET tablet 2 tab PO Q8H PRN PRN (Reason: Pain) 7 Days Qty: 20 RF: 0 phenazopyridine [Pyridium] 200 MG tablet 200 mg PO TID PRN PRN (Reason: Bladder Spasms) 7 Days Qty: 30 RF: 0 sulfamethoxazole-trimethoprim [sulfamethoxazole-trimethoprim] 1 TABLET tablet 1 tab PO BID 3 Days Qty: 6 RF: 0 Continued Breo Ellipta 200-25 mcg/dose blister with device 1 inh INHALATION DAILY RF: 0 multivitamin [Daily Multi-Vitamin] Tablet 1 tab PO DAILY RF: 0 Mirena 20 mcg/24 hours (5 yrs) 52 mg intrauterine device 1 device intrauterine ONCE RF: 0 albuterol sulfate 90 mcg/actuation HFA aerosol inhaler 2 puff INHALATION Q6H PRN (Reason: Sob &/Or Wheezing) RF: 0 cholecalciferol (vitamin D3) [Vitamin D3] 25 mcg (1,000 unit) Tablet,Chewable 25 mcg PO DAILY RF: 0 cetirizine [Zyrtec] 10 mg Tablet 10 mg PO DAILY RF: 0 omeprazole 20 mg Capsule,Delayed Release(Dr/Ec) 20 mg PO BID RF: 0 montelukast [Singulair] 10 mg Tablet 10 mg PO DAILY RF: 0 fluticasone propionate [Flonase Allergy Relief] 50 mcg/actuation [place],Suspension 2 spray INTRANASAL BID RF: 0 d-mannose 500 mg Capsule 700 mg PO BID RF: 0 ropinirole 2 mg tablet 2 mg PO DAILY Qty: 90 RF: 1 Referrals / Follow Up: Bessie Warren MD [Primary Care Provider] - Disposition Disposition (needs filled in before D/C Order can be placed): Home, Self Care
--- NOTE | 2021-04-05 12:23 | OP.PCM_ITS ---
Problems Associated Problem List Diagnoses (1) Renal stone: Report of Operation Date of Procedure: 04/05/21 Pre-Operative Diagnosis: Left renal calculus Post-Operative Diagnosis: Same Surgery/Procedure Performed:: Cystoscopy, left ureteral stent insertion, left extracorporal shockwave lithotripsy of the left stone Surgeon: Polly Carrasco Type of Anesthesia: General Specimen's removed: None Description of Procedure: The patient is a 40-year-old female found to have a large left renal calculus on imaging. She now presents for definitive intervention with a cystoscopy and stent insertion and extracorporal shockwave lithotripsy. Informed consent was obtained. The patient was taken to the operating room and placed on the operating room table. Anesthesia monitored the head, neck, airway, IV access and vital signs throughout the case. Once anesthesia was appropriately administered, the patient was placed into dorsal lithotomy position was prepped and draped in usual sterile fashion. The cystoscope was inserted through the urethra under direct visualization into the urinary bladder. The bladder mucosa revealed no evidence of abnormality including ulceration, erythema, mass or foreign body. The ureteral orifices were located in the correct anatomic position. The left ureteral orifice was intubated with a 0.035 Glidewire. Using fluoroscopic visualization, a 6 [place] 24 cm JJ stent was inserted over the wire into the renal pelvis with good positioning both in the renal pelvis as well as the urinary bladder. At this time the patient's bladder was emptied and the cystoscope was removed. The patient was positioned on the table and the lithotripter was used to apply 3000 shocks to the well-visualized stone. It appeared to be fragmented at the conclusion of the case. The patient was then awakened and taken to the recovery room in good condition. There were no complications during this procedure. Grafts/Implants Used: 6 x 24 JJ stent Complications None Admit VTE Documentation VTE Present on Admission: Yes VTE Mechan Device Prophylaxis: SCD's VTE Pharm Prophylaxis ordered?: No Reason prophylaxis not ordered:: Treatment Not Indicated
[2021-04-05] MEDS: Cefazolin 2 GM in 0.9% Normal Saline 100 ML IV (12:50)
[2021-04-05 14:05] VITALS: BP 131/70; BP 138/96; PULSE 95; RESP 20; TEMP 36.1; O2SAT 97
[2021-04-05 14:15] VITALS: BP 126/71; BP 138/96; PULSE 95; RESP 16; O2SAT 96
[2021-04-05 14:30] VITALS: BP 116/59; BP 138/96; PULSE 97; RESP 16; O2SAT 97
[2021-04-05 14:45] VITALS: BP 125/59; BP 138/96; PULSE 94; RESP 16; TEMP 36.1; O2SAT 94
[2021-04-05] MEDS: oxyCODONE 5 MG Tablet PO (15:35)
[2021-04-05] MEDS: Acetaminophen 325 MG Tablet PO (15:35)
[2021-04-05] MEDS: Phenazopyridine 95 MG Tablet 190 MG PO (15:35)
[2021-04-05 15:50] VITALS: BP 138/96; BP 166/93; PULSE 94; RESP 16; TEMP 36.4; O2SAT 99
== END 2021-04-05 23:59 | disposition home or self-care (01) ==
LOC: SDC 10:58 → AC 10:59
PROVIDERS: Anesthesiology; PCP Internal Medicine; Referring Provider Urology; Visit Provider Urology
PROC: (CPT 50590; principal; 2021-04-05 12:40)
DX: N20.0 Calculus of kidney (principal); E66.01 Morbid (severe) obesity due to excess calories; Z68.42 Body mass index [BMI] 45.0-49.9, adult; E78.2 Mixed hyperlipidemia; N39.3 Stress incontinence (female) (male); N39.43 Post-void dribbling; K59.04 Chronic idiopathic constipation; N32.89 Other specified disorders of bladder; K21.9 Gastro-esophageal reflux disease without esophagitis; E61.1 Iron deficiency; R39.15 Urgency of urination; Z79.899 Other long term (current) drug therapy; Z86.16 Personal history of COVID-19
CPT/HCPCS: 52356; 00873; 81025; 87426; C9803; J7120; C2617; J2405

== ENCOUNTER 2021-04-12 13:57 | Outpatient (CLI) | payer OTHER, SELFPAY ==
--- NOTE | 2021-04-12 14:01 | RAD_ITS ---
STUDY: X-RAY - ABDOMEN/PELVIS REASON FOR EXAM: Female, 40 years old. KUB- RENAL STONE TECHNIQUE: Single AP view of the abdomen / pelvis. COMPARISON: None. FINDINGS: Normal visualized lung bases. There is a moderate amount of colonic fecal material. A left-sided double-J stent catheter is seen with the proximal tip in the left renal pelvis and distal tip in the left side of the bladder. IUD is seen within the pelvis. There is evidence of a bilateral tubal ligation. Normal soft tissue structures. Normal visualized osseous structures. RAD/Abdomen Single View IMPRESSION: A left-sided double-J stent catheter is seen with the proximal tip in the left renal pelvis and the distal tip in the left side of the bladder. Electronically Signed: Lit Copeland MD at 15:47 EST ,
== END 2021-04-12 23:59 | disposition short-term general hospital (02) ==
LOC: MTRAD 13:57
PROVIDERS: PCP Internal Medicine; Referring Provider Urology; Visit Provider Urology
DX: N20.0 Calculus of kidney (principal)
CPT/HCPCS: 74018

== ENCOUNTER 2021-06-27 06:47 | Emergency (ER) | payer OTHER, SELFPAY ==
[2021-06-27 06:48] VITALS: BP 176/82; PULSE 102; RESP 17; TEMP 36.7; O2SAT 98; BMI 49.1
[2021-06-27 06:59] VITALS: O2SAT 98
--- NOTE | 2021-06-27 07:13 | RAD_ITS ---
STUDY: X-RAY CHEST REASON FOR EXAM: Female, 40 years old. cough TECHNIQUE: AP COMPARISON: 02/26/2021 FINDINGS: The lungs are clear and expanded. There is no demonstrated pleural abnormality. Normal size heart. Normal mediastinum and [place]. Normal visualized pulmonary arteries. Normal visualized aortic arch and descending thoracic aorta. Normal visualized thoracic spine. Normal visualized ribs, clavicles, and shoulders. There is no demonstrated abnormality of the visualized soft tissue structures of the upper abdomen. RAD/Chest 1 View (Portable) IMPRESSION: Nonacute portable x-ray examination of the chest. Electronically Signed: Edmond Jones MD ([place]) at 8:22 EDT ,
--- NOTE | 2021-06-27 07:15 | EDS_ITS ---
HPI HPI - URI History of Present Illness Chief Complaint: Cold Sx Narrative Narrative: 40-year-old female with history of asthma presenting with cough, rhinorrhea since yesterday. Patient states that he traveled from [place] back to [place] yesterday and the change in the weather would usually set her off but also her allergies are bothering her. She had a cough overnight. She has a rescue inhaler but states she is camping and does not have a breathing treatment at the campsite. She not have any chest pain. No fever or chills. She does admit to some marlene sputum. No stephanie mopped assist. No chest pain. ROS ROS ED Constitutional Constitutional ED: Denies chills or fever(s) Eyes Eyes: Denies blurry vision ENT ENT ED: Reports rhinorrhea; Denies sore throat Cardiovascular Cardiovascular: Denies chest pain or palpitations Respiratory/Chest Respiratory/Chest: Reports cough Gastrointestinal Gastrointestinal: Denies abdominal pain, nausea or vomiting Genitourinary Genitourinary ED: Denies dysuria or hematuria Musculoskeletal Musculoskeletal: Denies arthralgias or myalgias Integumentary Denies rash Neurologic Neurologic: Denies headache(s) or weakness Psychiatric Psychiatric: Denies anxiety or depression [facility] Medical History Alcohol use Asthma CPAP (continuous positive airway pressure) dependence Depression Gastric reflux GERD (gastroesophageal reflux disease) History of kidney stones History of stress test Hypercholesteremia Hypertension Kidney stones Low iron Normal blood glucose level Renal stone Restless leg syndrome Sleep apnea Home Medications albuterol sulfate 90 mcg/actuation aerosol inhaler 2 puff INHALATION Q6H PRN 01/30/20 [History Last Taken 04/05/21] fluticasone furoate 200 mcg-vilanterol 25 mcg/dose inhalation powder 1 inh INHALATION DAILY 01/30/20 [History Last Taken Unknown] levonorgestrel 20 mcg/24 hours (7 yrs) 52 mg intrauterine device 1 device INTRAUTERINE ONCE 01/30/20 [History Last Taken Unknown] multivitamin 1 tab PO DAILY 01/30/20 [History Last Taken Unknown] cetirizine [Zyrtec] 10 mg PO DAILY 10/20/20 [History Last Taken Unknown] cholecalciferol (vitamin D3) [Vitamin D3] 25 mcg PO DAILY 10/20/20 [History Last Taken Unknown] fluticasone propionate [Flonase Allergy Relief] 2 spray INTRANASAL BID 10/20/20 [History Last Taken Unknown] montelukast [Singulair] 10 mg PO DAILY 10/20/20 [History Last Taken Unknown] omeprazole 20 mg PO BID 10/20/20 [History Last Taken Unknown] d-mannose 700 mg PO BID 03/30/21 [History Last Taken Unknown] triamterene 37.5 mg-hydrochlorothiazide 25 mg tablet 1 tab PO DAILY #90 tab 05/18/21 [Rx Last Taken Unknown] ropinirole 3 mg tablet 3 mg PO DAILY #90 tab 05/31/21 [Rx Last Taken Unknown] prednisone 50 mg PO DAILY #5 tab 06/27/21 [Rx Last Taken Unknown] Allergy/AdvReac Type Severity Reaction Status Date / Time Penicillins Allergy Hives Verified 04/05/21 11:17 fluticasone propionate AdvReac Swelling Verified 04/05/21 11:17 [From Advair Diskus] latex AdvReac Rash Verified 04/05/21 11:17 salmeterol xinafoate AdvReac Swelling Verified 04/05/21 11:17 [From Advair Diskus] Family History Mother Thyroid disorder Fibromyalgia Grandmother Diabetes Grandfather Cancer Surgical History H/O endoscopy History of bronchoscopy History of cholecystectomy History of wisdom tooth extraction Social History Smoking Status: Never smoker alcohol intake: current alcohol intake frequency: holidays/special occasions only substance use type: does not use EXAM Physical Exam Const Vital Signs: 06/27/21 06:48 06/27/21 06:59 06/27/21 07:36 Temperature 98.0 F Temperature Source Oral Pulse Rate 102 H 89 Respiratory Rate 17 16 Respiratory Effort Non-Labored Respiratory Depth Normal Respiratory Pattern Tachypnea Blood Pressure 176/82 H Blood Pressure Mean 113 Pulse Ox 98 Oxygen Delivery Method Room Air Room Air Positive well nourished General Appearance ED: NAD; Negative for pallor HEENT normocephalic and atraumatic Eyes PERRL and EOMs intact bilaterally Neck supple and no meningeal signs Resp normal respiratory effort Auscultation: wheezes expiratory wheezes Cardio Rate: tachycardic Rhythm: regular rhythm Neuro oriented x3 and CN's II-XII intact bilaterally Sensorium / Orientation: alert Motor Exam: strength 5/5 throughout Psych mental status grossly normal Skin General Skin Exam: Negative for jaundice or pallor Lesions: no lesions Rashes: no rashes MDM MDM MDM Narrative Medical decision making narrative: Patient presenting with asthma exacerbation. He feels the combination of changing environments as well as seasonal allergies. She was given 60 mg oral prednisone and breathing treatments. She feels improved on reevaluation. I did obtain a chest x-ray which on my interpretation shows no acute cardiopulmonary process and the radiologist does agree. Patient will be given a prescription for prednisone. She has a rescue inhaler and breathing treatments at home. Patient stable for discharge and given return precautions. Impression: 1. Asthma exacerbation Radiography Diagnostic Testing: Clinical Impression(s) from Imaging Studies Chest X-Ray 06/27/21 07:13 IMPRESSION: Nonacute portable x-ray examination of the chest. Electronically Signed: Edmond Jones MD ([place]) at 8:22 EDT Reading Location ID and State: [facility] / [place] , Service support , Discharge Plan Triage Chief Complaint: Cold Sx ED Provider: Manuel Parsons Dx/Rx/DC Orders Instructions: ED Asthma, Acute (Adult) Prescriptions: New prednisone 50 mg tablet 50 mg PO DAILY Qty: 5 RF: 0 No Action Breo Ellipta 200-25 mcg/dose blister with device 1 inh INHALATION DAILY RF: 0 multivitamin [Daily Multi-Vitamin] Tablet 1 tab PO DAILY RF: 0 Mirena 20 mcg/24 hours (5 yrs) 52 mg intrauterine device 1 device intrauterine ONCE RF: 0 albuterol sulfate 90 mcg/actuation HFA aerosol inhaler 2 puff INHALATION Q6H PRN (Reason: Sob &/Or Wheezing) RF: 0 cholecalciferol (vitamin D3) [Vitamin D3] 25 mcg (1,000 unit) Tablet,Chewable 25 mcg PO DAILY RF: 0 cetirizine [Zyrtec] 10 mg Tablet 10 mg PO DAILY RF: 0 omeprazole 20 mg Capsule,Delayed Release(/Ec) 20 mg PO BID RF: 0 montelukast [Singulair] 10 mg Tablet 10 mg PO DAILY RF: 0 fluticasone propionate [Flonase Allergy Relief] 50 mcg/actuation [place],Suspension 2 spray INTRANASAL BID RF: 0 d-mannose 500 mg Capsule 700 mg PO BID RF: 0 triamterene-hydrochlorothiazid 37.5-25 mg tablet 1 tab PO DAILY Qty: 90 RF: 1 ropinirole 3 mg tablet 3 mg PO DAILY Qty: 90 RF: 1 Primary Care Provider: Bessie Warren Referrals: Bessie Warren MD [Primary Care Provider] - Disposition Disposition: Home, Self Care
[2021-06-27] MEDS: Albuterol 2.5 MG/3 ML VIAL.NEB. INHALATION (07:34)
[2021-06-27] MEDS: Ipratropium/Albuterol Sulfate 3 ML AMPUL.NEB INHALATION (07:34)
[2021-06-27 07:36] VITALS: PULSE 89; RESP 16
[2021-06-27] MEDS: predniSONE 20 MG Tablet 60 MG PO (07:49)
[2021-06-27 08:54] VITALS: BP 142/77; PULSE 103; RESP 23; O2SAT 97
== END 2021-06-27 08:59 | disposition home or self-care (01) ==
PROVIDERS: Emergency Provider Student in an Organized Health Care Education/Training Program; PCP Internal Medicine; Visit Provider Student in an Organized Health Care Education/Training Program
DX: J45.901 Unspecified asthma with (acute) exacerbation (principal); E78.00 Pure hypercholesterolemia, unspecified; I10 Essential (primary) hypertension; K21.9 Gastro-esophageal reflux disease without esophagitis; Z87.442 Personal history of urinary calculi; G25.81 Restless legs syndrome; G47.30 Sleep apnea, unspecified; F32.A Depression, unspecified; Z79.899 Other long term (current) drug therapy
CPT/HCPCS: 71045; 94640; 99251; 99283; G0463

== ENCOUNTER → 2021-07-16 | Outpatient (CLI) | payer OTHER, SELFPAY ==
[2021-07-16 17:26] LABS: Hematocrit 39.5 % (37-47); Hemoglobin 12.8 g/dL (12.0-15.0); Mean Corp Hgb Conc 32.4 g/dL (32-36); Mean Corpuscular Hgb 30.5 pg (27.0-32.0); Mean Platelet Vol. 10.2 fl (6.2-12.0); Platelet Count 347 K/mm3 (150-450); RBC Distribution Width CV 13.1 % (11.6-14.6); RBC Distribution Width SD 44.6 fl (35.1-43.9); White Blood Count 13.1 K/mm3 (4.4-11.0)
== END | disposition home or self-care (01) ==
PROVIDERS: PCP Internal Medicine; Referring Provider Internal Medicine Pulmonary Disease; Visit Provider Internal Medicine Pulmonary Disease
DX: J45.50 Severe persistent asthma, uncomplicated (principal)
CPT/HCPCS: 36415; 85027

== ENCOUNTER → 2021-08-04 | Outpatient (CLI) | payer OTHER, SELFPAY ==
[2021-08-04 17:47] LABS: Absolute Lymphocyte Count 2.29 X10^3/uL (0.83-4.51); Absolute Neutrophil Count 7.2 X10^3/uL (2.0-7.7); Basophil# 0.04 X10^3/uL; Basophil% 0.4 % (0-1); Eosinophil# 0.11 X10^3/uL; Eosinophils% 1.1 % (0-5); Hematocrit 37.6 % (37-47); Lymphocyte # 2.29 X10^3/ul (0.83-4.51); Mean Corp Hgb Conc 31.9 g/dL (32-36); Mean Corpuscular Hgb 30.2 pg (27.0-32.0); Mean Corpuscular Volume 94.7 fL (81-99); Mean Platelet Vol. 10.1 fl (6.2-12.0); Monocyte# 0.75 X10^3/uL; Monocyte% 7.2 % (0-10); NRBC Flagged by Analyzer 0 % (0-5); Neutrophil # 7.16 X10^3/uL (2.7-7.7); Neutrophil % 68.5 % (47-70); Platelet Count 297 K/mm3 (150-450); RBC Distribution Width CV 12.9 % (11.6-14.6); Red Blood Count 3.97 M/mm3 (4.2-5.4); White Blood Count 10.4 K/mm3 (4.4-11.0)
== END | disposition home or self-care (01) ==
LOC: MTLAB 15:13
PROVIDERS: PCP Internal Medicine; Referring Provider Internal Medicine Pulmonary Disease; Visit Provider Internal Medicine Pulmonary Disease
DX: J45.50 Severe persistent asthma, uncomplicated (principal)
CPT/HCPCS: 36415; 85025

== ENCOUNTER → 2021-11-25 | Outpatient (CLI) | payer OTHER, SELFPAY ==
--- NOTE | 2021-11-25 07:48 | CT_ITS ---
STUDY: CT ABDOMEN AND PELVIS WITHOUT CONTRAST REASON FOR EXAM: Female, 41 years old. Right flank pain and nausea. History of kidney stones. RADIATION DOSAGE (If Supplied By Facility): CTDIvol = ( 22.71 ) mGy, DLP = ( 1096.05 ) mGycm TECHNIQUE: Transaxial images were obtained from the dome of the diaphragm to the symphysis pubis without oral contrast, and without intravenous contrast. Sagittal and coronal images were reconstructed. Individualized dose optimization techniques were used for this CT. COMPARISON: Comparison is made with prior study 12/31/2020 and 07/07/2020. FINDINGS: The visualized lung bases are unremarkable. The visualized portions of the heart are within normal limits. There is decreased attenuation of the liver consistent with steatosis. Mild hepatomegaly. There are surgical clips in the gallbladder fossa consistent with a prior cholecystectomy. Normal spleen. Normal pancreas. Normal bilateral adrenal glands. Normal right kidney. Normal left kidney. The previously seen calculus in the lower pole calyx of the left kidney is not seen at this time. Normal visualized stomach. Normal small intestine. Normal colon. The appendix is visualized and appears normal. Normal abdominal aorta. Normal inferior vena cava. Normal retroperitoneum. Normal urinary bladder. There is evidence of bilateral tubal ligation. Normal abdominal wall. Normal osseous structures. CT/Abdomen/Pelvis without Cont IMPRESSION: Mild hepatomegaly and fatty infiltration of the liver. No evidence of ureteral obstruction at this time. Electronically Signed: Lit Copeland MD at 8:56 EDT ,
== END | disposition home or self-care (01) ==
LOC: CT 07:47
PROVIDERS: PCP Internal Medicine; Referring Provider Urology; Visit Provider Urology
DX: R10.9 Unspecified abdominal pain (principal); N20.0 Calculus of kidney; R11.2 Nausea with vomiting, unspecified
CPT/HCPCS: 74176

== ENCOUNTER → 2021-12-31 | Outpatient (CLI) | payer OTHER, SELFPAY ==
--- NOTE | 2021-12-31 17:33 | MRI_ITS ---
STUDY: MRI BRAIN WITH AND WITHOUT CONTRAST REASON FOR EXAM: Female, 41 years old. Vertigo, persistent headache -- Attention IAC TECHNIQUE: Standardized multiplanar fat and water weighted pulse sequences were obtained. IV 26ml Clariscan was administered for the contrast portion of the examination. COMPARISON: None. FINDINGS: No intracranial mass, mass effect or midline shift. No enhancing lesion. 7th and 8th cranial nerves are unremarkable. No enhancing lesion in the internal auditory canals or cerebellopontine angles. Normal size of the ventricles and extra-axial spaces for the patient''s age. Normal white matter tracts of the supratentorial brain. Normal bilateral basal ganglia. Normal thalami. There is no extra-axial fluid accumulation. Normal flow voids within the major intracranial circulation suggesting patency by spin echo criteria. There is no enhancing intra-axial or extra-axial abnormality. Pituitary gland is normal in height. Normal midbrain, radha and medulla. Normal cerebellum. Normal basal cisterns. Normal bilateral temporal bones. Fluid level in the right maxillary sinus consistent with acute sinusitis. Mucosal thickening in the left maxillary sinus. Normal calvarium and skull base. Normal visualized soft tissue structures. MRI/Brain W/WO Contrast IMPRESSION: Normal unenhanced and enhanced MRI of the brain and IACs. Electronically Signed: Virginia Alexandre MD at 22:40 EDT Reading Location ID and State: [id number] / Tel , Service support ,
== END | disposition home or self-care (01) ==
LOC: MRI 17:33
PROVIDERS: PCP Internal Medicine; Visit Provider Internal Medicine
DX: R42 Dizziness and giddiness (principal); R11.0 Nausea; G43.909 Migraine, unspecified, not intractable, without status migrainosus
CPT/HCPCS: 70553; A9575

== ENCOUNTER 2022-01-09 08:29 | Observation (INO) | payer OTHER, SELFPAY ==
[2022-01-09] VITALS (14 sets, daily range): BP systolic 140–184; BP diastolic 63–105; PULSE 85–103; RESP 18–24; TEMP 36.6–36.9; O2SAT 92–97; BMI 49.8
--- NOTE | 2022-01-09 09:32 | RAD_ITS ---
HISTORY: cough. TECHNIQUE: XR Chest 2 Views. COMPARISON: 06/27/2021. FINDINGS: CARDIOMEDIASTINAL BORDERS: Cardiac silhouette within normal limits in size. Mediastinal contour unremarkable. LUNGS: Mild medial right basilar opacity. PLEURA: No pleural effusion or pneumothorax seen. OSSEOUS STRUCTURES: Old left fifth rib fracture.. RAD/Chest PA and Lateral IMPRESSION: Mild right basilar atelectasis or inflammation. Electronically Signed: Elsa Riddle MD at 10:15 EDT ,
--- NOTE | 2022-01-09 09:32 | EKG12_ITS ---
Test Reason : SOB Blood Pressure : / mmHG Vent. Rate : 088 BPM Atrial Rate : 088 BPM P-R Int : 156 ms QRS Dur : 082 ms QT Int : 374 ms P-R-T Axes : 044 -07 -24 degrees QTc Int : 452 ms Normal sinus rhythm Nonspecific T wave abnormality Abnormal ECG Confirmed by RENÉ KING, ALICE ([id number]), continuity editor ELFEGO WEINER ([id number]) on 01/11/2022 1:01:26 PM Referred By: Confirmed By:ALICE MERRITT MD
[2022-01-09] MEDS: Ipratropium/Albuterol Sulfate 3 ML AMPUL.NEB INHALATION ×3 (09:47→20:05)
[2022-01-09 10:06] LABS: Absolute Lymphocyte Count 2.01 X10^3/uL (0.83-4.51); Absolute Neutrophil Count 9.6 X10^3/uL (2.0-7.7); Basophil# 0.05 X10^3/uL; Basophil% 0.4 % (0-1); Eosinophils% 0.8 % (0-5); Hematocrit 37.9 % (37-47); Hemoglobin 12.5 g/dL (12.0-15.0); Lymphocyte # 2.01 X10^3/ul (0.83-4.51); Lymphocyte % 15.8 % (19-41); Mean Corpuscular Hgb 30.7 pg (27.0-32.0); Mean Corpuscular Volume 93.1 fL (81-99); Mean Platelet Vol. 9.3 fl (6.2-12.0); Monocyte# 0.66 X10^3/uL; Monocyte% 5.2 % (0-10); NRBC Flagged by Analyzer 0 % (0-5); Neutrophil % 75.4 % (47-70); Platelet Count 299 K/mm3 (150-450); RBC Distribution Width CV 12.9 % (11.6-14.6); Red Blood Count 4.07 M/mm3 (4.2-5.4); White Blood Count 12.7 K/mm3 (4.4-11.0)
[2022-01-09 10:26] LABS: Anion Gap 7 (5-15); BUN 11 mg/dL (7-18); Calcium,Total 8.7 mg/dL (8.5-10.1); Chloride 107 mmol/L (98-107); Creatinine, Serum 0.69 mg/dL (0.55-1.02); EST Glomerular Filtration Rate 100 mL/min (>60); Est Glom Filt Rate - Afr Amer 121 mL/min (>60); Estimated Creatinine Clearance 92.65 ml/min; Glucose 125 mg/dL (74-106); Potassium 4.1 mmol/L (3.5-5.1); Sodium Level 138 mmol/L (136-145); Troponin-I HS 4 pg/mL (3.0-54.0)
--- NOTE | 2022-01-09 10:46 | ED.VIS.DYS ---
HPI History of Present Illness Chief Complaint: Cold Sx Informant: patient Narrative Narrative: Patient is a 41-year-old female with history of type 2 diabetes mellitus, nonalcoholic fatty liver disease, morbid obesity and obstructive sleep apnea as well as reported history of asthma presenting with worsening respiratory symptoms. Patient states she has had upper respiratory symptoms including cough and her ears plugged for the past 2 weeks. She feels that her cough is worsening despite being on 2 courses of antibiotics. Initially she was on a course of azithromycin with steroids and then was started on Ceftin as well as Tessalon Perles 4 days ago. She is been compliant with her antibiotics. She feels like her breathing is worsening as well as her cough. She is having large sputum production which she describes as clear. She feels that she is wheezing. She feels similar to when she had COVID-pneumonia. This was last year. She did have a negative COVID test on 01/01. She is having burning pain in her chest and her back. No fever reported but she is having chills. No other complaints at this time. [facility] Medical History Alcohol use Asthma CPAP (continuous positive airway pressure) dependence Depression Gastric reflux GERD (gastroesophageal reflux disease) History of kidney stones History of stress test Hypercholesteremia Hypertension Kidney stones Low iron Normal blood glucose level Renal stone Restless leg syndrome Sleep apnea Home Medications albuterol sulfate 90 mcg/actuation aerosol inhaler 2 puff inhalation Q6H PRN Sob &/Or Wheezing 01/30/20 [History Last Taken 04/05/21] fluticasone furoate 200 mcg-vilanterol 25 mcg/dose inhalation powder (Breo Ellipta) 1 inh inhalation DAILY 01/30/20 [History Last Taken 01/08/22 08:00] multivitamin (Daily Multi-Vitamin tablet) 1 tab PO DAILY 01/30/20 [History Last Taken 01/08/22 08:00] cetirizine 10 mg tablet (Zyrtec) 10 mg PO DAILY 10/20/20 [History Last Taken 01/08/22 08:00] montelukast 10 mg tablet (Singulair) 10 mg PO DAILY 10/20/20 [History Last Taken 01/08/22 08:00] omeprazole 20 mg capsule,delayed release 20 mg PO BID 10/20/20 [History Last Taken 01/08/22 08:00] triamterene 37.5 mg-hydrochlorothiazide 25 mg tablet 1 tab PO DAILY #90 tabs 08/04/21 [Rx Last Taken 01/08/22 08:00] ropinirole 3 mg tablet 3 mg PO DAILY #90 tabs 10/13/21 [Rx Last Taken 01/08/22 22:00] gabapentin 300 mg capsule 300 mg PO QHS restless leg 12/09/21 [History Last Taken 01/08/22 22:00] prednisone 10 mg tablet 10 mg PO DAILY #21 tabs 12/23/21 [Rx Last Taken Unknown] benzonatate 100 mg capsule 100 mg PO TID PRN cough #30 caps 01/05/22 [Rx Last Taken 01/08/22 23:00] cefuroxime axetil 500 mg tablet 500 mg PO BID #14 tabs 01/05/22 [Rx Last Taken 01/08/22 18:00] Allergy/AdvReac Type Severity Reaction Status Date / Time adhesive [adhesives] Allergy Rash Verified 01/09/22 16:49 Penicillins Allergy Hives Verified 01/09/22 08:32 fluticasone propionate AdvReac Swelling Verified 01/09/22 08:32 [From Advair Diskus] salmeterol xinafoate AdvReac Swelling Verified 01/09/22 08:32 [From Advair Diskus] Family History Mother Thyroid disorder Fibromyalgia Grandmother Diabetes Grandfather Cancer Surgical History H/O endoscopy History of bronchoscopy History of cholecystectomy History of wisdom tooth extraction Social History Smoking Status: Never smoker alcohol intake: current alcohol intake frequency: holidays/special occasions only substance use type: does not use ROS ROS ED Constitutional Constitutional ED: Reports chills Eyes Eyes: Denies change in vision ENT ENT ED: Reports ear pain, sore throat and other Details: Nasal congestion Cardiovascular Cardiovascular: Reports chest pain; Denies palpitations Respiratory/Chest Respiratory/Chest: Reports cough, dyspnea and dyspnea on exertion Gastrointestinal Gastrointestinal: Reports diarrhea; Denies abdominal pain, nausea or vomiting Genitourinary Genitourinary ED: Denies dysuria or hematuria Musculoskeletal Musculoskeletal: Denies arthralgias or myalgias Integumentary Denies rash Neurologic Neurologic: Reports weakness; Denies headache(s) Psychiatric Psychiatric: Denies anxiety Hematologic/Lymphatic Hematologic/Lymphatic: Denies easy bleeding or easy bruising EXAM Physical Exam Const Vital Signs: 01/09/22 08:32 01/09/22 08:35 01/09/22 08:38 Temperature 98.5 F 98.5 F Temperature Source Temporal Temporal Pulse Rate 92 92 Respiratory Rate 20 H 20 H Respiratory Effort Non-Labored Short of Breath Blood Pressure 184/85 H 184/85 H Blood Pressure Mean 118 118 Pulse Ox 97 97 Oxygen Delivery Method Room Air Room Air 01/09/22 10:59 01/09/22 10:59 01/09/22 11:00 Temperature 98.2 F 98.2 F Temperature Source Oral Oral Pulse Rate 95 91 Respiratory Rate 22 H 24 H Respiratory Effort Blood Pressure 140/71 H 140/71 H Blood Pressure Mean 94 94 Pulse Ox 96 92 96 Oxygen Delivery Method Room Air Room Air Room Air Positive well nourished, well developed and obese General Appearance ED: well developed Nutritional Appearance: obese HEENT Reports TM's clear and dry mucous membranes atraumatic Tympanic Membrane ED: Yes TM's clear bilateral (Injected, retracted. No effusions appreciated.) Mouth ED: Yes dry mucous membranes Mouth: dry mucous membranes Eyes PERRL and EOMs intact bilaterally Neck supple, no meningeal signs and no JVD Resp normal respiratory effort Resp Narrative: Coarse breath sounds throughout. No significant wheezing appreciated. Harsh bronchial cough Auscultation: diminished lung sounds Cardio regular rate, regular rhythm and no murmurs GI non-tender and non-distended Back/Spine no CVA tenderness Extremity normal to inspection Neuro oriented x3 Sensorium / Orientation: alert Motor Exam: general weakness Psych mental status grossly normal Skin no wounds MDM MDM MDM Narrative Medical decision making narrative: Patient is evaluated for worsening cough and respiratory symptoms. She says she is feeling worse despite being on her second course of antibiotics for respiratory illness. She has burning in her chest and her back. Her cough is now starting to produce a large amount of clear sputum. She states last time she felt this was when she had pneumonia after having a COVID-19 infection. Initial vital signs significant for hypertension. Patient does not hypoxic at rest however with ambulation she does go down to 92%. Chest x-ray shows inflammation or atelectasis of the right base however given her symptoms and mild leukocytosis of 12.7 am concerned she is developing pneumonia. Given that she is already had 4 days of her second antibiotics and feels that she is clinically worsening she will be observed for IV antibiotics and further respiratory treatments. She is given a DuoNeb in the ER with some improvement of her respiratory symptoms. Lab Data Attestation: I reviewed the patient's lab results. Labs: Laboratory Results - last 24 hr 01/09/22 01/09/22 09:55 09:55 WBC 12.7 H RBC 4.07 L Hgb 12.5 Hct 37.9 MCV 93.1 MCH 30.7 MCHC 33.0 RDW Std Deviation 44.0 H RDW Coeff of Ab 12.9 Plt Count 299 MPV 9.3 Immature Gran % (Auto) 2.400 H Neut % (Auto) 75.4 H Lymph % (Auto) 15.8 L [place] % (Auto) 5.2 Eos % (Auto) 0.8 Baso % (Auto) 0.4 Absolute Neuts (auto) 9.6 H Absolute Lymphs (auto) 2.01 Nucleated RBC % 0 Sodium 138 Potassium 4.1 Chloride 107 Carbon Dioxide 24.0 Anion Gap 7 BUN 11 Creatinine 0.69 Estim Creat Clear Calc 92.65 Est GFR (MDRD) Af Amer 121 Est GFR (MDRD) Non-Af 100 BUN/Creatinine Ratio 16.0 Glucose 125 H Calcium 8.7 Troponin I High Sens 4 Radiography Chest X-Ray - ED: 2 View, Read by ED Physician, Read by Radiologist and Right Infiltrate Diagnostic Testing: Clinical Impression(s) from Imaging Studies Chest X-Ray 01/09/22 09:32 IMPRESSION: Mild right basilar atelectasis or inflammation. Electronically Signed: Elsa Riddle MD at 10:15 EDT , Rhythm Strip Rhythm Strip: Sinus Rhythm Rate: 88 Ectopy: None EKG Initial EKG: Attestation: I personally reviewed and interpreted this EKG as follows: Interpretation: Sinus Rhythm Comments: NSR at 88 bpm Normal axis Normal intervals Normal ST segments with nonspecific T wave inversions in III, aVF and precordial leads Precordial T wave changes new compared to prior EKG on 12/27/2020 Discharge Plan Dx/Rx/DC Orders Clinical Impression: Dyspnea, Right lower lobe pneumonia, Failure of outpatient treatment Disposition Disposition: Acute Care Hospital [facility] Discharge Date/Time: 01/09/22 12:21
[2022-01-09] MEDS: 0.9% Normal Saline 1,000 ML 999 ML IV (10:58)
[2022-01-09] MEDS: Ceftriaxone 1 GM/50 ML BAG IV (12:18)
--- NOTE | 2022-01-09 12:28 | PCM.HP.STD ---
HPI - General General Date of Admission: 01/09/22 Date of Service: 01/09/22 Chief Complaint: Dyspnea HPI Narrative HÉCTOR CRUZ, is a 41 F who presents with the above. She has past medical history of asthma, type II DM, HARJIT on CPAP, morbid obesity who comes in with complaints of persistent coughing, shortness of breath and generalized aches that started 2 weeks ago. Patient had gone to her primary care doctor and was given Z-Suman and a short course of steroids. She still had persistent cough, generalized ache and feeling like she did when she had COVID a year ago. Rapid COVID-19 antigen test on 12/23/21 was negative. Patient was recently started on cefuroxime 4 days prior to admission. She however feels unchanged and decided to come to the emergency room. She denied any sore throat, she feels like the ears are plugged. She has been producing sputum, initially clear but now whitish. She denied any abdominal pain no nausea vomiting or diarrhea. In the emergency room, her blood pressure was uncontrolled at 184/85, heart rate 92, respiratory rate was 20, temperature 98.5 F, oxygen sat was 97% on room air. She dropped to 92% on room air with ambulation. Her WBC count was 12.7, Hb 12.5, platelet count was 299. BMP was unremarkable. Troponin was 4. Admission chest x-ray showed mild right basilar atelectasis. [facility] Medical History Alcohol use Asthma CPAP (continuous positive airway pressure) dependence Depression Gastric reflux GERD (gastroesophageal reflux disease) History of kidney stones History of stress test Hypercholesteremia Hypertension Kidney stones Low iron Normal blood glucose level Renal stone Restless leg syndrome Sleep apnea Home Medications albuterol sulfate 90 mcg/actuation aerosol inhaler 2 puff inhalation Q6H PRN Sob &/Or Wheezing 01/30/20 [History Last Taken 04/05/21] fluticasone furoate 200 mcg-vilanterol 25 mcg/dose inhalation powder (Breo Ellipta) 1 inh inhalation DAILY 01/30/20 [History Last Taken Unknown] multivitamin (Daily Multi-Vitamin tablet) 1 tab PO DAILY 01/30/20 [History Last Taken Unknown] cetirizine 10 mg tablet (Zyrtec) 10 mg PO DAILY 10/20/20 [History Last Taken Unknown] cholecalciferol (vitamin D3) 25 mcg (1,000 unit) chewable tablet (Vitamin D3) 25 mcg PO DAILY supplement 10/20/20 [History Last Taken Unknown] montelukast 10 mg tablet (Singulair) 10 mg PO DAILY 10/20/20 [History Last Taken Unknown] omeprazole 20 mg capsule,delayed release 20 mg PO BID 10/20/20 [History Last Taken Unknown] triamterene 37.5 mg-hydrochlorothiazide 25 mg tablet 1 tab PO DAILY #90 tabs 08/04/21 [Rx Last Taken Unknown] ropinirole 3 mg tablet 3 mg PO DAILY #90 tabs 10/13/21 [Rx Last Taken Unknown] gabapentin 300 mg capsule 300 mg PO QHS 12/09/21 [History Last Taken Unknown] prochlorperazine maleate 5 mg tablet 5 mg PO BID PRN nausea and vomiting #30 tabs 12/09/21 [Rx Last Taken Unknown] prednisone 10 mg tablet 10 mg PO DAILY #21 tabs 12/23/21 [Rx Last Taken Unknown] benzonatate 100 mg capsule 100 mg PO TID PRN cough #30 caps 01/05/22 [Rx Last Taken Unknown] cefuroxime axetil 500 mg tablet 500 mg PO BID #14 tabs 01/05/22 [Rx Last Taken Unknown] Allergy/AdvReac Type Severity Reaction Status Date / Time Penicillins Allergy Hives Verified 01/09/22 08:32 fluticasone propionate AdvReac Swelling Verified 01/09/22 08:32 [From Advair Diskus] latex AdvReac Rash Verified 01/09/22 08:32 salmeterol xinafoate AdvReac Swelling Verified 01/09/22 08:32 [From Advair Diskus] Family History Mother Thyroid disorder Fibromyalgia Grandmother Diabetes Grandfather Cancer Surgical History H/O endoscopy History of bronchoscopy History of cholecystectomy History of wisdom tooth extraction Social History Smoking Status: Never smoker alcohol intake: current alcohol intake frequency: holidays/special occasions only substance use type: does not use ROS ROS Narrative Constitutional: Reports: Malaise, Weakness, Fatigue. Denies: Anorexia, Chills, Fever, Night Sweats, Weight Change Eyes: Denies: Blurred vision, Cataracts, Conjunctivae Inflammation, Pain, Redness, Vision Change HEENT: Denies: Difficulty Hearing, Difficulty Swallowing, Head Aches, Hearing Changes, Sinus Congestion, Sinus Drainage Cardiovascular: Denies: Chest Pain, Orthopnea, Palpitations Respiratory: See HPI Gastrointestinal: Denies: Abdominal Pain, Nausea, Vomiting Genitourinary: Denies: Dysuria Musculoskeletal: Denies: Joint Pain, Joint stiffness, Joint swelling, Joint Tenderness Skin: Denies: Rash, Wounds Neurological: Denies: Numbness, Tingling, Focal weakness Vital Signs Vital Signs Vital Signs: 01/09/22 08:32 01/09/22 08:35 01/09/22 08:38 Temperature 98.5 F 98.5 F Temperature Source Temporal Temporal Pulse Rate 92 92 Respiratory Rate 20 H 20 H Respiratory Effort Non-Labored Short of Breath Blood Pressure 184/85 H 184/85 H Blood Pressure Mean 118 118 Pulse Ox 97 97 Oxygen Delivery Method Room Air Room Air 01/09/22 10:59 01/09/22 10:59 01/09/22 11:00 Temperature 98.2 F 98.2 F Temperature Source Oral Oral Pulse Rate 95 91 Respiratory Rate 22 H 24 H Respiratory Effort Blood Pressure 140/71 H 140/71 H Blood Pressure Mean 94 94 Pulse Ox 96 92 96 Oxygen Delivery Method Room Air Room Air Room Air 01/09/22 11:36 01/09/22 11:50 01/09/22 12:00 Temperature 98.2 F 98.2 F Temperature Source Oral Temporal Pulse Rate 91 85 Respiratory Rate 24 H 18 Respiratory Effort Blood Pressure 140/71 H 159/63 H Blood Pressure Mean 94 95 Pulse Ox 95 95 97 Oxygen Delivery Method Room Air Room Air Room Air Weight Weight: 131.8 kg Body Mass Index (BMI) 49.8 Results Lab / Micro Data Result Diagrams: 01/09/22 09:55 01/09/22 09:55 Labs: Laboratory Results - last 24 hr 01/09/22 09:55: WBC 12.7 H, RBC 4.07 L, Hgb 12.5, Hct 37.9, MCV 93.1, MCH 30.7, MCHC 33.0, RDW Std Deviation 44.0 H, RDW Coeff of Ab 12.9, Plt Count 299, MPV 9.3, Immature Gran % (Auto) 2.400 H, Neut % (Auto) 75.4 H, Lymph % (Auto) 15.8 L, [place] % (Auto) 5.2, Eos % (Auto) 0.8, Baso % (Auto) 0.4, Absolute Neuts (auto) 9.6 H, Absolute Lymphs (auto) 2.01, Nucleated RBC % 0 01/09/22 09:55: Sodium 138, Potassium 4.1, Chloride 107, Carbon Dioxide 24.0, Anion Gap 7, BUN 11, Creatinine 0.69, Estim Creat Clear Calc 92.65, Est GFR (MDRD) Af Amer 121, Est GFR (MDRD) Non-Af 100, BUN/Creatinine Ratio 16.0, Glucose 125 H, Calcium 8.7, Troponin I High Sens 4 Micro: Microbiology 01/09/22 09:45 Nasal Secretion SARS-CoV-2 & FLU Antigen (Rapid) - Final Rhythm Strip Rhythm Strip: Sinus Rhythm Rate: 88 Ectopy: None Radiology Impression Chest X-Ray 01/09/22 09:32 IMPRESSION: Mild right basilar atelectasis or inflammation. Electronically Signed: Elsa Riddle MD at 10:15 EDT Reading Location ID and State: [facility] / [place] Tel , Service support , Assessment & Plan Assessment/Plan (1) Dyspnea: PLAN: Plan 1. Acute dyspnea, recent upper respiratory, status post antibiotics in the outpatient Probable failed outpatient treatment versus early pneumonia Chest x-ray showed right upper lobe infiltrate probably atelectasis Rapid COVID-19 antigen is negative Will admit to [facility], Will start on IV ceftriaxone and azithromycin Encourage use of incentive spirometer, breathing treatments as needed Check sputum cultures, urine Legionella and streptococcal antigen, respiratory panel 2. Asthma, not in acute exacerbation now continue as needed breathing treatment 3. HARJIT on CPAP 4. Morbid obesity, lifestyle modification recommended 5. DVT PPx- Lovenox SC BID Charges/Coding Visit Charges OBSV E&M: 99320 Initial observation care L3
[2022-01-09 17:10] LABS: Bedside Glucose 104 mg/dL (74-106)
--- NOTE | 2022-01-09 17:40 | NURSING ---
HCTZ and triamterene has not arrived to unit for pt adminstration
--- NOTE | 2022-01-09 18:35 | NURSING ---
dyazide/HCTZ still not on unit or in accudose for pt administration
[2022-01-09] MEDS: Triamterene 37.5MG/Hctz 25MG Capsule 1 CAP PO (20:43)
[2022-01-09] MEDS: Gabapentin 300 MG Capsule PO (20:43)
[2022-01-09] MEDS: Enoxaparin 40 MG/0.4 ML Syringe SC (20:44)
[2022-01-09] MEDS: Acetaminophen 325 MG Tablet 650 MG PO (21:26)
[2022-01-09 23:16] LABS: Bedside Glucose 120 mg/dL (74-106)
[2022-01-10] VITALS (9 sets, daily range): BP systolic 127–177; BP diastolic 63–113; PULSE 86–110; RESP 16–20; TEMP 36.6–36.9; O2SAT 95–96
[2022-01-10] MEDS: BENZOCAINE/MENTHOL 1 LOZENGE MUCOUS MEM (00:16)
[2022-01-10] MEDS: Acetaminophen 325 MG Tablet 650 MG PO ×3 (03:33→21:38)
[2022-01-10 06:35] LABS: Bedside Glucose 128 mg/dL (74-106)
[2022-01-10 06:52] LABS: Absolute Lymphocyte Count 2.34 X10^3/uL (0.83-4.51); Absolute Neutrophil Count 7.4 X10^3/uL (2.0-7.7); Basophil# 0.03 X10^3/uL; Basophil% 0.3 % (0-1); Eosinophil# 0.18 X10^3/uL; Eosinophils% 1.7 % (0-5); Hematocrit 37.5 % (37-47); Hemoglobin 12.5 g/dL (12.0-15.0); Lymphocyte # 2.34 X10^3/ul (0.83-4.51); Lymphocyte % 21.9 % (19-41); Mean Corp Hgb Conc 33.3 g/dL (32-36); Mean Corpuscular Hgb 30.9 pg (27.0-32.0); Mean Corpuscular Volume 92.8 fL (81-99); Mean Platelet Vol. 8.8 fl (6.2-12.0); Monocyte# 0.64 X10^3/uL; NRBC Flagged by Analyzer 0 % (0-5); Neutrophil # 7.37 X10^3/uL (2.7-7.7); Neutrophil % 68.8 % (47-70); Platelet Count 290 K/mm3 (150-450); RBC Distribution Width SD 44.2 fl (35.1-43.9); Red Blood Count 4.04 M/mm3 (4.2-5.4); White Blood Count 10.7 K/mm3 (4.4-11.0)
[2022-01-10 07:15] LABS: ALB/GLOB Ratio 0.7 RATIO (0.9-2.4); AST(SGOT) 36 U/L (15-37); Alanine Aminotransfer ALT/SGPT 44 U/L (13-56); Alkaline Phosphatase 74 U/L (45-117); Anion Gap 8 (5-15); BUN 8 mg/dL (7-18); BUN/Creat Ratio 10.7 RATIO (10-20); Calcium,Total 9.1 mg/dL (8.5-10.1); Chloride 104 mmol/L (98-107); Creatinine, Serum 0.75 mg/dL (0.55-1.02); EST Glomerular Filtration Rate 90 mL/min (>60); Est Glom Filt Rate - Afr Amer 109 mL/min (>60); Estimated Creatinine Clearance 85.24 ml/min; Globulin 4.3 g/dL (2.2-4.2); Glucose 134 mg/dL (74-106); Potassium 3.7 mmol/L (3.5-5.1); Protein, Total 7.3 g/dL (6.4-8.2); Sodium Level 136 mmol/L (136-145)
[2022-01-10] MEDS: Ipratropium/Albuterol Sulfate 3 ML AMPUL.NEB INHALATION ×4 (07:18→19:21)
[2022-01-10] MEDS: Ceftriaxone 1 GM/50 ML BAG IV (09:33)
[2022-01-10] MEDS: 0.9% Saline Lock 10 ML Syringe IV (09:33)
[2022-01-10] MEDS: Enoxaparin 40 MG/0.4 ML Syringe SC ×2 (09:33→21:38)
[2022-01-10] MEDS: Triamterene 37.5MG/Hctz 25MG Capsule 1 CAP PO (09:34)
--- NOTE | 2022-01-10 10:13 | PCM.PN.HOSP ---
Subjective Subjective DOS: 01/10/2022 CC: Shortness of breath Reports continued shortness of breath, slightly improving though notes she is requiring the nebs every 4 and notices significant difference leading up to . Cough is improving to some extent. Does have nasal congestion. Has headache which has been present for 1 month and has been worked up as an outpatient. Was found to have sinusitis at the time. Doing well on nebs and antibiotics at this time Objective Data Objective Data Vital Signs: Vital Signs Temp Pulse Resp BP Pulse Ox O2 Del Method 98 F 86 16 130/99 H 96 Room Air 01/10/22 08:20 01/10/22 08:20 01/10/22 08:20 01/10/22 08:20 01/10/22 08:20 01/10/22 08:20 Oxygen Delivery Method Room Air Weight: 131.5 kg Body Mass Index (BMI) 49.8 Intake & Output: Intake and Output for Last 24 Hours 01/08/22 01/09/22 01/10/22 23:59 23:59 23:59 Intake Total 2641.67 / 2641.67 1500 / 1500 Balance 2641.67 / 2641.67 1500 / 1500 Lab / Micro Data Result Diagrams: 01/10/22 06:37 01/10/22 06:37 Labs: Laboratory Results - last 24 hr 01/09/22 09:55: Sodium 138, Potassium 4.1, Chloride 107, Carbon Dioxide 24.0, Anion Gap 7, BUN 11, Creatinine 0.69, Estim Creat Clear Calc 92.65, Est GFR (MDRD) Af Amer 121, Est GFR (MDRD) Non-Af 100, BUN/Creatinine Ratio 16.0, Glucose 125 H, Calcium 8.7, Troponin I High Sens 4 01/09/22 16:25: POC Glucose 104 01/09/22 20:47: POC Glucose 120 H 01/10/22 06:15: POC Glucose 128 H 01/10/22 06:37: WBC 10.7, RBC 4.04 L, Hgb 12.5, Hct 37.5, MCV 92.8, MCH 30.9, MCHC 33.3, RDW Std Deviation 44.2 H, RDW Coeff of Ab 13.0, Plt Count 290, MPV 8.8, Immature Gran % (Auto) 1.300 H, Neut % (Auto) 68.8, Lymph % (Auto) 21.9, [place] % (Auto) 6.0, Eos % (Auto) 1.7, Baso % (Auto) 0.3, Absolute Neuts (auto) 7.4, Absolute Lymphs (auto) 2.34, Nucleated RBC % 0 01/10/22 06:37: Sodium 136, Potassium 3.7, Chloride 104, Carbon Dioxide 24.0, Anion Gap 8, BUN 8, Creatinine 0.75, Estim Creat Clear Calc 85.24, Est GFR (MDRD) Af Amer 109, Est GFR (MDRD) Non-Af 90, BUN/Creatinine Ratio 10.7, Glucose 134 H, Calcium 9.1, Total Bilirubin 0.50, AST 36, ALT 44, Alkaline Phosphatase 74, Total Protein 7.3, Albumin 3.0 L, Globulin 4.3 H, Albumin/Globulin Ratio 0.7 L Micro: Microbiology 01/09/22 18:25 Urine, Clean Catch Streptococcus pneumoniae Antigen (M - Final 01/09/22 18:25 Urine, Clean Catch Legionella Antigen - Final 01/09/22 11:39 Mucosa - Nasopharyngeal Respiratory Panel (PCR) - Final 01/09/22 09:45 Nasal Secretion SARS-CoV-2 & FLU Antigen (Rapid) - Final Radiography Diagnostic Testing: Radiology Impression Chest X-Ray 01/09/22 09:32 IMPRESSION: Mild right basilar atelectasis or inflammation. Electronically Signed: Elsa Riddle MD at 10:15 EDT Reading Location ID and State: [facility] / [place] Tel , Service support , Rhythm Strip Rhythm Strip: Sinus Rhythm Rate: 88 Ectopy: None Physical Exam Const alert Constitutional Narrative: Oriented HEENT normocephalic and head/scalp atraumatic Eyes Eyes Narrative: EOM grossly intact, anicteric Neck supple Resp normal respiratory effort Resp Narrative: Diminished at the bases, difficult to fully assess secondary to body habitus Cardio regular rate and regular rhythm GI soft to palpation, non-tender and non-distended Extremity Extremity Narrative: No edema appreciated Neuro moves all extremities Neuro Narrative: No overt focal deficits appreciated Psych Psych Narrative: Cooperative Assessment & Plan Assessment/Plan (1) Dyspnea: PLAN: Plan 1. Acute dyspnea, recent upper respiratory, status post antibiotics in the outpatient Failed outpatient treatment Chest x-ray showed right upper lobe infiltrate probably atelectasis Rapid COVID-19 antigen is negative On IV Rocephin and azithromycin, additionally with nebs every 4 and is beginning to improve with this but feels she continues to have significant problems with her breathing and given her requirement of the nebs every 4 to feel observing for 1 more days reasonable Encourage use of incentive spirometer, breathing treatments as needed C urine Legionella and strep antigen negative 2. Asthma, not in acute exacerbation now continue as needed breathing treatment 3. HARJIT on CPAP 4. Morbid obesity, lifestyle modification recommended 5. DVT PPx- Lovenox SC BID Charges/Coding Visit Charges OBSV E&M: 02397 Subsequent observation care L2
--- NOTE | 2022-01-10 15:50 | CASEMGMT ---
JAY CM in to pt room, pt lying in bed in no distress on RA. Pt reports she has a nebulizer at home and has a CPAP. Pt denies any homegoing needs at this time.
[2022-01-10] MEDS: Pramipexole Di-HCl 1 MG Tablet 1.5 MG PO (21:37)
[2022-01-10] MEDS: Gabapentin 300 MG Capsule PO (21:38)
[2022-01-10] MEDS: Lisinopril 10 MG Tablet PO (23:41)
[2022-01-11] VITALS (8 sets, daily range): BP systolic 100–145; BP diastolic 67–96; PULSE 92–102; RESP 16–20; TEMP 36.6–36.8; O2SAT 94–97
[2022-01-11 05:49] LABS: Absolute Lymphocyte Count 2.38 X10^3/uL (0.83-4.51); Basophil# 0.02 X10^3/uL; Basophil% 0.2 % (0-1); Eosinophil# 0.17 X10^3/uL; Eosinophils% 1.5 % (0-5); Hematocrit 38.6 % (37-47); Hemoglobin 12.7 g/dL (12.0-15.0); Lymphocyte # 2.38 X10^3/ul (0.83-4.51); Lymphocyte % 20.7 % (19-41); Mean Corp Hgb Conc 32.9 g/dL (32-36); Mean Corpuscular Hgb 30.3 pg (27.0-32.0); Mean Corpuscular Volume 92.1 fL (81-99); Mean Platelet Vol. 9.1 fl (6.2-12.0); Monocyte# 0.74 X10^3/uL; Monocyte% 6.4 % (0-10); NRBC Flagged by Analyzer 0 % (0-5); Neutrophil # 8.03 X10^3/uL (2.7-7.7); Neutrophil % 69.7 % (47-70); Platelet Count 297 K/mm3 (150-450); RBC Distribution Width CV 13.2 % (11.6-14.6); RBC Distribution Width SD 44.1 fl (35.1-43.9); Red Blood Count 4.19 M/mm3 (4.2-5.4); White Blood Count 11.5 K/mm3 (4.4-11.0)
[2022-01-11 06:28] LABS: ALB/GLOB Ratio 0.7 RATIO (0.9-2.4); AST(SGOT) 31 U/L (15-37); Alanine Aminotransfer ALT/SGPT 41 U/L (13-56); Alkaline Phosphatase 70 U/L (45-117); Anion Gap 7 (5-15); BUN 16 mg/dL (7-18); Chloride 103 mmol/L (98-107); Creatinine, Serum 0.84 mg/dL (0.55-1.02); EST Glomerular Filtration Rate 79 mL/min (>60); Est Glom Filt Rate - Afr Amer 96 mL/min (>60); Estimated Creatinine Clearance 76.11 ml/min; Globulin 4.3 g/dL (2.2-4.2); Glucose 137 mg/dL (74-106); Potassium 3.6 mmol/L (3.5-5.1); Protein, Total 7.3 g/dL (6.4-8.2); Sodium Level 134 mmol/L (136-145)
[2022-01-11] MEDS: Ipratropium/Albuterol Sulfate 3 ML AMPUL.NEB INHALATION ×3 (07:09→20:08)
[2022-01-11] MEDS: Ceftriaxone 1 GM/50 ML BAG IV (09:44)
[2022-01-11] MEDS: Triamterene 37.5MG/Hctz 25MG Capsule 1 CAP PO (09:48)
[2022-01-11] MEDS: Enoxaparin 40 MG/0.4 ML Syringe SC ×2 (09:48→22:09)
[2022-01-11] MEDS: Lisinopril 10 MG Tablet PO (09:48)
--- NOTE | 2022-01-11 10:06 | PN.HOSP_ITS ---
Subjective Subjective DOS: 01/11/2022 CC: Feeling generally weak Reports feeling generalized weakness today and more fatigued, says she feels worse overall. Has been having productive cough, shortness of breath roughly the same and continues to require nebs. Denies chest pain. Does note ears and nose still feel clogged. Headache comes and goes. Denies change in bowel or bladder. Did not endorse any other complaints at this time. Has been eating fair, no nausea reported Objective Data Objective Data Vital Signs: Vital Signs Temp Pulse Resp BP Pulse Ox O2 Del Method 98.1 F 92 18 145/96 H 94 Room Air 01/11/22 02:37 01/11/22 07:09 01/11/22 07:09 01/11/22 02:37 01/11/22 07:09 01/11/22 07:09 Oxygen Delivery Method Room Air Weight: 127.63 kg Body Mass Index (BMI) 49.8 Intake & Output: Intake and Output for Last 24 Hours 01/09/22 01/10/22 01/11/22 23:59 23:59 23:59 Intake Total 2641.67 / 2641.67 2805 / 2805 300 / 300 Balance 2641.67 / 2641.67 2805 / 2805 300 / 300 Lab / Micro Data Result Diagrams: 01/11/22 05:34 01/11/22 05:34 Labs: Laboratory Results - last 24 hr 01/11/22 05:34: WBC 11.5 H, RBC 4.19 L, Hgb 12.7, Hct 38.6, MCV 92.1, MCH 30.3, MCHC 32.9, RDW Std Deviation 44.1 H, RDW Coeff of Ab 13.2, Plt Count 297, MPV 9.1, Immature Gran % (Auto) 1.500 H, Neut % (Auto) 69.7, Lymph % (Auto) 20.7, [place] % (Auto) 6.4, Eos % (Auto) 1.5, Baso % (Auto) 0.2, Absolute Neuts (auto) 8.0 H, Absolute Lymphs (auto) 2.38, Nucleated RBC % 0 01/11/22 05:34: Sodium 134 L, Potassium 3.6, Chloride 103, Carbon Dioxide 24.0, Anion Gap 7, BUN 16, Creatinine 0.84, Estim Creat Clear Calc 76.11, Est GFR (MDRD) Af Amer 96, Est GFR (MDRD) Non-Af 79, BUN/Creatinine Ratio 19.0, Glucose 137 H, Calcium 9.0, Total Bilirubin 0.50, AST 31, ALT 41, Alkaline Phosphatase 70, Total Protein 7.3, Albumin 3.0 L, Globulin 4.3 H, Albumin/Globulin Ratio 0.7 L Micro: Microbiology 01/09/22 18:25 Urine, Clean Catch Streptococcus pneumoniae Antigen (M - Final 01/09/22 18:25 Urine, Clean Catch Legionella Antigen - Final 01/09/22 11:39 Mucosa - Nasopharyngeal Respiratory Panel (PCR) - Final 01/09/22 09:45 Nasal Secretion SARS-CoV-2 & FLU Antigen (Rapid) - Final Rhythm Strip Rhythm Strip: Sinus Rhythm Rate: 88 Ectopy: None Physical Exam Const alert Constitutional Narrative: Oriented HEENT normocephalic and head/scalp atraumatic Eyes Eyes Narrative: EOM grossly intact, anicteric Neck supple Resp normal respiratory effort Resp Narrative: Diminished at the bases, difficult to fully assess secondary to body habitus Cardio regular rate and regular rhythm GI soft to palpation, non-tender and non-distended Extremity Extremity Narrative: No edema appreciated Neuro moves all extremities Neuro Narrative: No overt focal deficits appreciated Psych Psych Narrative: Cooperative Assessment & Plan Assessment/Plan (1) Dyspnea: PLAN: Plan 1. Acute dyspnea, recent upper respiratory, status post antibiotics in the outpatient Failed outpatient treatment Chest x-ray showed right upper lobe infiltrate probably atelectasis Rapid COVID-19 antigen is negative On IV Rocephin and azithromycin, additionally with nebs every 4 and is beginning to improve with this but feels she continues to have significant problems with her breathing and given her requirement of the nebs every 4 to feel observing for 1 more days reasonable Encourage use of incentive spirometer, breathing treatments as needed C urine Legionella and strep antigen negative 01/11/2022: Feels more fatigued and slightly worse today. Given worsening status, do feel it is reasonable to monitor for 1 more day. May just be part of progression of her present illness, nothing suggestive of new infection at this time. #Weakness Advised to continue getting up and moving around, low threshold for physical therapy/Occupational Therapy evaluation if this worsens any further Likely secondary to #1 Of note did have her sodium dropped to 134 over the last several days, will hold hydrochlorothiazide 2. Asthma, not in acute exacerbation now continue as needed breathing treatment 3. HARJIT on CPAP 4. Morbid obesity, lifestyle modification recommended 5. DVT PPx- Lovenox SC BID Charges/Coding Visit Charges OBSV E&M: 77576 Initial observation care L2
[2022-01-11] MEDS: Acetaminophen 325 MG Tablet 650 MG PO (18:31)
[2022-01-11] MEDS: Gabapentin 300 MG Capsule PO (22:07)
[2022-01-11] MEDS: Pramipexole Di-HCl 1 MG Tablet 1.5 MG PO (22:08)
[2022-01-11] MEDS: Oxymetazoline 0.05% 1 SPRAY SPRAY.BTL NASAL (22:09)
[2022-01-12 04:45] VITALS: BP 127/88; PULSE 92; RESP 18; TEMP 36.4; O2SAT 99
[2022-01-12] MEDS: 0.9% Saline Lock 10 ML Syringe IV (04:58)
[2022-01-12] MEDS: Ondansetron 4 MG/2 ML Vial IV (04:58)
[2022-01-12 06:40] LABS: Absolute Lymphocyte Count 2.35 X10^3/uL (0.83-4.51); Absolute Neutrophil Count 7.8 X10^3/uL (2.0-7.7); Basophil# 0.05 X10^3/uL; Basophil% 0.4 % (0-1); Eosinophil# 0.15 X10^3/uL; Eosinophils% 1.3 % (0-5); Hematocrit 40.5 % (37-47); Hemoglobin 13.3 g/dL (12.0-15.0); Lymphocyte # 2.35 X10^3/ul (0.83-4.51); Mean Corp Hgb Conc 32.8 g/dL (32-36); Mean Corpuscular Hgb 30.6 pg (27.0-32.0); Mean Corpuscular Volume 93.3 fL (81-99); Mean Platelet Vol. 9.2 fl (6.2-12.0); Monocyte# 0.67 X10^3/uL; NRBC Flagged by Analyzer 0 % (0-5); Neutrophil # 7.82 X10^3/uL (2.7-7.7); Neutrophil % 70.1 % (47-70); Platelet Count 323 K/mm3 (150-450); RBC Distribution Width CV 12.9 % (11.6-14.6); RBC Distribution Width SD 44.3 fl (35.1-43.9); Red Blood Count 4.34 M/mm3 (4.2-5.4); White Blood Count 11.2 K/mm3 (4.4-11.0)
[2022-01-12 06:59] VITALS: PULSE 84; RESP 19; O2SAT 94
[2022-01-12] MEDS: Ipratropium/Albuterol Sulfate 3 ML AMPUL.NEB INHALATION ×3 (06:59→14:21)
[2022-01-12 07:10] LABS: Anion Gap 7 (5-15); BUN 15 mg/dL (7-18); BUN/Creat Ratio 16.9 RATIO (10-20); Calcium,Total 9.2 mg/dL (8.5-10.1); Chloride 101 mmol/L (98-107); Creatinine, Serum 0.89 mg/dL (0.55-1.02); EST Glomerular Filtration Rate 74 mL/min (>60); Est Glom Filt Rate - Afr Amer 90 mL/min (>60); Estimated Creatinine Clearance 71.83 ml/min; Glucose 136 mg/dL (74-106); Potassium 3.7 mmol/L (3.5-5.1); Sodium Level 133 mmol/L (136-145)
[2022-01-12 08:39] VITALS: BP 131/82; PULSE 92; RESP 19; TEMP 36.6; O2SAT 96
[2022-01-12] MEDS: Oxymetazoline 0.05% 1 SPRAY SPRAY.BTL NASAL (09:51)
[2022-01-12] MEDS: Ceftriaxone 1 GM/50 ML BAG IV (09:51)
[2022-01-12] MEDS: amLODIPine 5 MG Tablet PO (09:52)
[2022-01-12] MEDS: Enoxaparin 40 MG/0.4 ML Syringe SC (09:53)
[2022-01-12] MEDS: Lisinopril 10 MG Tablet PO (09:54)
--- NOTE | 2022-01-12 10:24 | PCM.DC ---
Discharge Instructions Diet Discharge Diet: No restrictions Activity Discharge Activity: Return to Normal Activity Return to work on:: 01/17/22 Follow Up Care Test Results: Test results from this visit will be discussed in further detail at your follow-up appointment, if applicable. Discharge Plan Admission Admit Date/Time: 01/09/22 11:33 Primary Reason for Your Visit: Shortness of breath Attending Provider: Jesika Holden Primary Care Provider: Bessie Warren Consulting Providers: Corine Pedersen Instructions Patient Instructions: ED Dyspnea Additional Instructions / Restrictions: *Please take this with you to your next doctors appointment* ?You will need to finish 7 days total of antibiotics, you will need to take cefdinir 300 mg twice daily as well as azithromycin daily for an additional 4 days starting 01/13 ? You can return to work on January 17, please discuss with your primary care physician for reevaluation if you feel more time is needed ? Please continue on home inhalers, you will also be given an additional script for ipratropium/albuterol for home breathing treatments for several days while symptoms continue to improve ?Due to your sodium becoming slightly low. Triamterene?hydrochlorothiazide was held and you were started on Norvasc 5 mg. Additionally restarted on lisinopril 10 mg. Please follow-up with your primary care physician as an outpatient for further titration of these medications ?Your prescription were sent to the preferred pharmacy on file, [facility] on [facility] -Please call your primary care provider's office upon discharge to schedule a hospital follow up within 1 week. -For any concerning signs or symptoms please call 911 or proceed to the nearest emergency department Discharge Orders/Prescriptions Prescriptions: New amlodipine 5 mg Tablet 5 mg PO DAILY 30 Days Qty: 30 0RF lisinopril 10 mg Tablet 10 mg PO DAILY 30 Days Qty: 30 0RF cefdinir 300 mg capsule 300 mg PO BID 4 Days Qty: 8 0RF azithromycin 500 mg tablet 500 mg PO DAILY 4 Days Qty: 4 0RF ipratropium-albuterol 0.5 mg-3 mg(2.5 mg base)/3 mL solution for nebulization 3 ml inhalation Q4HWA.RT 5 Days Qty: 90 0RF Continued Breo Ellipta 200-25 mcg/dose blister with device 1 inh INHALATION DAILY multivitamin [Daily Multi-Vitamin] Tablet 1 tab PO DAILY gabapentin 300 mg capsule 300 mg PO QHS cetirizine [Zyrtec] 10 mg Tablet 10 mg PO DAILY omeprazole 20 mg Capsule,Delayed Release(Dr/Ec) 20 mg PO BID montelukast [Singulair] 10 mg Tablet 10 mg PO DAILY ropinirole 3 mg tablet 3 mg PO DAILY Qty: 90 1RF benzonatate 100 mg capsule 100 mg PO TID PRN (Reason: cough) Qty: 30 0RF Discontinued albuterol sulfate 90 mcg/actuation HFA aerosol inhaler 2 puff INHALATION Q6H PRN (Reason: Sob &/Or Wheezing) prednisone 10 mg tablet 10 mg PO DAILY Qty: 21 0RF Rx Instructions: Take 40 mg daily for 3 days then 20 mg daily for 3 days then 10 mg daily for 3 days then stop. triamterene-hydrochlorothiazid 37.5-25 mg tablet 1 tab PO DAILY Qty: 90 3RF Rx Instructions: swelling in feet/bp cefuroxime axetil 500 mg tablet 500 mg PO BID Qty: 14 0RF Referrals / Follow Up: Bessie Warren MD [Primary Care Provider] - Within 1 Week Disposition Disposition (needs filled in before D/C Order can be placed): Home, Self Care
--- NOTE | 2022-01-12 10:34 | PCM.DC.SUM ---
Providers Date of Admission: 01/09/22 Date of Discharge: 01/12/22 Primary Care Physician: Dr. Bessie Warren MD Reason For Visit: Shortness of breath Diagnosis Discharge Diagnosis (1) Dyspnea: Status: Acute Code(s): R06.00 - Dyspnea, unspecified Plan 1. Acute dyspnea, recent upper respiratory, status post antibiotics in the outpatient 2. Asthma 3. HARJIT on CPAP 4. Morbid obesity Medications at Discharge Home Medications fluticasone furoate 200 mcg-vilanterol 25 mcg/dose inhalation powder (Breo Ellipta) 1 inh inhalation DAILY 01/30/20 multivitamin (Daily Multi-Vitamin tablet) 1 tab PO DAILY 01/30/20 cetirizine 10 mg tablet (Zyrtec) 10 mg PO DAILY 10/20/20 montelukast 10 mg tablet (Singulair) 10 mg PO DAILY 10/20/20 omeprazole 20 mg capsule,delayed release 20 mg PO BID 10/20/20 ropinirole 3 mg tablet 3 mg PO DAILY #90 tabs 10/13/21 gabapentin 300 mg capsule 300 mg PO QHS restless leg 12/09/21 benzonatate 100 mg capsule 100 mg PO TID PRN cough #30 caps 01/05/22 amlodipine 5 mg tablet 5 mg PO DAILY 30 days #30 tabs 01/12/22 azithromycin 500 mg tablet 500 mg PO DAILY 4 days #4 tabs 01/12/22 cefdinir 300 mg capsule 300 mg PO BID 4 days #8 caps 01/12/22 ipratropium 0.5 mg-albuterol 3 mg (2.5 mg base)/3 mL nebulization soln 3 ml inhalation Q4HWA.RT 5 days #90 mL 01/12/22 lisinopril 10 mg tablet 10 mg PO DAILY 30 days #30 tabs 01/12/22 Hospital Course Summary of Care Provided Minutes Spent on Discharge: 32 Hospital Course: HÉCTOR CRUZ, is a 41 F who presented to [facility] in 01/09/2022 for shortness of breath. She has past medical history of asthma, type II DM, HARJIT on CPAP, morbid obesity who came in with complaints of persistent coughing, shortness of breath and generalized aches that started 2 weeks ago. She failed outpatient management and was admitted for presumed pneumonia based on x-ray and symptoms. Was given DuoNebs. Waxed and waned during admission but ultimately improved on Rocephin and azithromycin labs. Discharge instructions as followed: ?You will need to finish 7 days total of antibiotics, you will need to take cefdinir 300 mg twice daily as well as azithromycin daily for an additional 4 days starting 01/13 ? You can return to work on January 17, please discuss with your primary care physician for reevaluation if you feel more time is needed ? Please continue on home inhalers, you will also be given an additional script for ipratropium/albuterol for home breathing treatments for several days while symptoms continue to improve ?Due to your sodium becoming slightly low. Triamterene?hydrochlorothiazide was held and you were started on Norvasc 5 mg. Additionally restarted on lisinopril 10 mg. Please follow-up with your primary care physician as an outpatient for further titration of these medications ?Your prescription were sent to the preferred pharmacy on file, [facility] on [facility] -Please call your primary care provider's office upon discharge to schedule a hospital follow up within 1 week. -For any concerning signs or symptoms please call 911 or proceed to the nearest emergency department Physical Exam Const alert Constitutional Narrative: Oriented HEENT normocephalic and head/scalp atraumatic Eyes Eyes Narrative: EOM grossly intact, anicteric Neck supple Resp normal respiratory effort Resp Narrative: Diminished at the bases, difficult to fully assess secondary to body habitus Cardio regular rate and regular rhythm GI soft to palpation, non-tender and non-distended Extremity Extremity Narrative: No edema appreciated Neuro moves all extremities Neuro Narrative: No overt focal deficits appreciated Psych Psych Narrative: Cooperative Weight / BMI Weight Weight: 127.9 kg Body Mass Index (BMI) 49.8 ABG / Lab / Microbiology Data Result Diagrams: 01/12/22 06:15 01/12/22 06:15 Laboratory: Laboratory Results - last 24 hr 01/12/22 06:15: WBC 11.2 H, RBC 4.34, Hgb 13.3, Hct 40.5, MCV 93.3, MCH 30.6, MCHC 32.8, RDW Std Deviation 44.3 H, RDW Coeff of Ab 12.9, Plt Count 323, MPV 9.2, Immature Gran % (Auto) 1.200 H, Neut % (Auto) 70.1 H, Lymph % (Auto) 21.0, [place] % (Auto) 6.0, Eos % (Auto) 1.3, Baso % (Auto) 0.4, Absolute Neuts (auto) 7.8 H, Absolute Lymphs (auto) 2.35, Nucleated RBC % 0 01/12/22 06:15: Sodium 133 L, Potassium 3.7, Chloride 101, Carbon Dioxide 25.0, Anion Gap 7, BUN 15, Creatinine 0.89, Estim Creat Clear Calc 71.83, Est GFR (MDRD) Af Amer 90, Est GFR (MDRD) Non-Af 74, BUN/Creatinine Ratio 16.9, Glucose 136 H, Calcium 9.2 Microbiology: Microbiology 01/11/22 05:55 Sputum, Expectorated/Coughed Gram Stain - Final 01/09/22 18:25 Urine, Clean Catch Streptococcus pneumoniae Antigen (M - Final 01/09/22 18:25 Urine, Clean Catch Legionella Antigen - Final 01/09/22 11:39 Mucosa - Nasopharyngeal Respiratory Panel (PCR) - Final 01/09/22 09:45 Nasal Secretion SARS-CoV-2 & FLU Antigen (Rapid) - Final D/C Instructions Discharge Diet: No restrictions Return to work on: 01/17/22 Meaningful Use Info Meaningful Use Diagnoses (Choose all that apply): None applicable Discharge Plan Admission Admit Date/Time: 01/09/22 11:33 Primary Reason for Your Visit: Shortness of breath Attending Provider: Jesika Holden Primary Care Provider: Bessie Warren Consulting Providers: Corine Pedersen Instructions Patient Instructions: ED Dyspnea Additional Instructions / Restrictions: *Please take this with you to your next doctors appointment* ?You will need to finish 7 days total of antibiotics, you will need to take cefdinir 300 mg twice daily as well as azithromycin daily for an additional 4 days starting 01/13 ? You can return to work on Monday, January 17, please discuss with your primary care physician for reevaluation if you feel more time is needed ? Please continue on home inhalers, you will also be given an additional script for ipratropium/albuterol for home breathing treatments for several days while symptoms continue to improve ?Due to your sodium becoming slightly low. Triamterene?hydrochlorothiazide was held and you were started on Norvasc 5 mg. Additionally restarted on lisinopril 10 mg. Please follow-up with your primary care physician as an outpatient for further titration of these medications ?Your prescription were sent to the preferred pharmacy on file, [facility] on [facility] -Please call your primary care provider's office upon discharge to schedule a hospital follow up within 1 week. -For any concerning signs or symptoms please call 911 or proceed to the nearest emergency department Discharge Orders/Prescriptions Prescriptions: New amlodipine 5 mg Tablet 5 mg PO DAILY 30 Days Qty: 30 0RF lisinopril 10 mg Tablet 10 mg PO DAILY 30 Days Qty: 30 0RF cefdinir 300 mg capsule 300 mg PO BID 4 Days Qty: 8 0RF azithromycin 500 mg tablet 500 mg PO DAILY 4 Days Qty: 4 0RF ipratropium-albuterol 0.5 mg-3 mg(2.5 mg base)/3 mL solution for nebulization 3 ml inhalation Q4HWA.RT 5 Days Qty: 90 0RF Continued Breo Ellipta 200-25 mcg/dose blister with device 1 inh INHALATION DAILY multivitamin [Daily Multi-Vitamin] Tablet 1 tab PO DAILY gabapentin 300 mg capsule 300 mg PO QHS cetirizine [Zyrtec] 10 mg Tablet 10 mg PO DAILY omeprazole 20 mg Capsule,Delayed Release(Dr/Ec) 20 mg PO BID montelukast [Singulair] 10 mg Tablet 10 mg PO DAILY ropinirole 3 mg tablet 3 mg PO DAILY Qty: 90 1RF benzonatate 100 mg capsule 100 mg PO TID PRN (Reason: cough) Qty: 30 0RF Discontinued albuterol sulfate 90 mcg/actuation HFA aerosol inhaler 2 puff INHALATION Q6H PRN (Reason: Sob &/Or Wheezing) prednisone 10 mg tablet 10 mg PO DAILY Qty: 21 0RF Rx Instructions: Take 40 mg daily for 3 days then 20 mg daily for 3 days then 10 mg daily for 3 days then stop. triamterene-hydrochlorothiazid 37.5-25 mg tablet 1 tab PO DAILY Qty: 90 3RF Rx Instructions: swelling in feet/bp cefuroxime axetil 500 mg tablet 500 mg PO BID Qty: 14 0RF Referrals / Follow Up: Bessie Warren MD [Primary Care Provider] - Within 1 Week Disposition Disposition (needs filled in before D/C Order can be placed): Home, Self Care Charges/Coding Visit Charges OBSV E&M: 13549 Observation care discharge
[2022-01-12 10:55] VITALS: PULSE 80; RESP 18
--- NOTE | 2022-01-12 11:25 | PHA.DC.MC ---
Pharmacy Service has performed discharge medication reconciliation and counseling for this patient. 1. AMLODIPINE 5MG PO DAILY 2. AZITHROMYCIN 500MG PO DAILY X 4 DAYS 3. CEFDINIR 300MG PO BID X 4 DAYS 4. LISINOPRIL 10MG PO DAILY 5. DUONEB 3ML INHALATION Q4HWA The patient's discharge medication list was reviewed for discrepancies and discrepancies were resolved. Home Medications fluticasone furoate 200 mcg-vilanterol 25 mcg/dose inhalation powder (Breo Ellipta) 1 inh inhalation DAILY 01/30/20 multivitamin (Daily Multi-Vitamin tablet) 1 tab PO DAILY 01/30/20 cetirizine 10 mg tablet (Zyrtec) 10 mg PO DAILY 10/20/20 montelukast 10 mg tablet (Singulair) 10 mg PO DAILY 10/20/20 omeprazole 20 mg capsule,delayed release 20 mg PO BID 10/20/20 ropinirole 3 mg tablet 3 mg PO DAILY #90 tabs 10/13/21 gabapentin 300 mg capsule 300 mg PO QHS restless leg 12/09/21 benzonatate 100 mg capsule 100 mg PO TID PRN cough #30 caps 01/05/22 amlodipine 5 mg tablet 5 mg PO DAILY 30 days #30 tabs 01/12/22 azithromycin 500 mg tablet 500 mg PO DAILY 4 days #4 tabs 01/12/22 cefdinir 300 mg capsule 300 mg PO BID 4 days #8 caps 01/12/22 ipratropium 0.5 mg-albuterol 3 mg (2.5 mg base)/3 mL nebulization soln 3 ml inhalation Q4HWA.RT 5 days #90 mL 01/12/22 lisinopril 10 mg tablet 10 mg PO DAILY 30 days #30 tabs 01/12/22 The patient was counseled on the following discharge medications and changes in medications for homegoing were reviewed. The Reason for Use, instructions for use, and potential side effects were reviewed for all new medications. The patient's questions regarding all of their medications were answered. The patient was able to verbally demonstrate an understanding of their discharge medications.
[2022-01-12 14:22] VITALS: RESP 21
[2022-01-12 15:22] VITALS: BP 138/88; PULSE 88; RESP 19; TEMP 36.7; O2SAT 97
== END 2022-01-12 17:32 | disposition home or self-care (01) ==
LOC: ED 09:39 → MS3 11:58
PROVIDERS: Admitting Provider Internal Medicine; Emergency Provider Emergency Medicine; PCP Internal Medicine; Visit Provider Internal Medicine
DX: J06.9 Acute upper respiratory infection, unspecified (principal); E66.01 Morbid (severe) obesity due to excess calories; Z68.42 Body mass index [BMI] 45.0-49.9, adult; E11.9 Type 2 diabetes mellitus without complications; G47.33 Obstructive sleep apnea (adult) (pediatric); I10 Essential (primary) hypertension; Z86.16 Personal history of COVID-19; E78.00 Pure hypercholesterolemia, unspecified; J45.909 Unspecified asthma, uncomplicated; Z79.899 Other long term (current) drug therapy; K75.81 Nonalcoholic steatohepatitis (NASH); K21.9 Gastro-esophageal reflux disease without esophagitis; Z79.51 Long term (current) use of inhaled steroids
CPT/HCPCS: 36415; 71046; 80048; 80053; 82962; 84484; 85025; 87070; 87205; 87428; 87449; 87633; 93005; 94640; 96361; 96365; 96366; 96367; 96372; 96375; 99218; 99251; 99285; J7030; A4216; G0378; G0463; J2405

== ENCOUNTER 2022-02-17 15:52 | Outpatient (CLI) | payer OTHER, SELFPAY ==
[2022-02-17 16:51] LABS: Hematocrit 38.4 % (37-47); Hemoglobin 12.4 g/dL (12.0-15.0); Mean Corp Hgb Conc 32.3 g/dL (32-36); Mean Corpuscular Hgb 30.8 pg (27.0-32.0); Mean Corpuscular Volume 95.3 fL (81-99); Mean Platelet Vol. 9.9 fl (6.2-12.0); Platelet Count 310 K/mm3 (150-450); RBC Distribution Width CV 13.9 % (11.6-14.6); RBC Distribution Width SD 48.6 fl (35.1-43.9); Red Blood Count 4.03 M/mm3 (4.2-5.4); White Blood Count 14.5 K/mm3 (4.4-11.0)
[2022-02-17 17:24] LABS: Vitamin B12 461 pg/mL (211-911); Vitamin D,25 Hydroxy 17.7 ng/mL
[2022-02-17 18:53] LABS: ALB/GLOB Ratio 0.8 RATIO (0.9-2.4); AST(SGOT) 46 U/L (15-37); Alanine Aminotransfer ALT/SGPT 58 U/L (13-56); Albumin, Serum 3.3 g/dL (3.2-5.0); Alkaline Phosphatase 88 U/L (45-117); Anion Gap 8 (5-15); BUN 19 mg/dL (7-18); BUN/Creat Ratio 22.1 RATIO (10-20); Calcium,Total 8.9 mg/dL (8.5-10.1); Chloride 104 mmol/L (98-107); Creatinine, Serum 0.86 mg/dL (0.55-1.02); EST Glomerular Filtration Rate 77 mL/min (>60); Est Glom Filt Rate - Afr Amer 93 mL/min (>60); Estradiol 73.1 pg/mL; Follicle Stimulating Hormone 4.4 mIU/mL; Free T3 2.8 pg/mL (2.18-3.98); Globulin 4.2 g/dL (2.2-4.2); Glucose 151 mg/dL (74-106); Potassium 4.2 mmol/L (3.5-5.1); Protein, Total 7.5 g/dL (6.4-8.2); Sodium Level 135 mmol/L (136-145); T4 Total, Thyroxin 13.2 ug/dL (4.8-13.9); Thyroid Stim Hormone (TSH) 0.77 uIU/mL (0.358-3.74)
[2022-02-19 09:48] LABS: Thyroid Peroxidase AB 12 IU/mL (0-34)
== END 2022-02-17 23:59 | disposition home or self-care (01) ==
PROVIDERS: PCP Internal Medicine
DX: N95.1 Menopausal and female climacteric states (principal); R68.82 Decreased libido; E07.9 Disorder of thyroid, unspecified; E55.9 Vitamin D deficiency, unspecified; E53.8 Deficiency of other specified B group vitamins; R53.83 Other fatigue; F51.8 Other sleep disorders not due to a substance or known physiological condition; N94.10 Unspecified dyspareunia
CPT/HCPCS: 36415; 80053; 82306; 82607; 82670; 83001; 84403; 84436; 84439; 84443; 84481; 85027; 86376

== ENCOUNTER → 2022-04-08 | Outpatient (CLI) | payer OTHER, SELFPAY ==
--- NOTE | 2022-04-08 16:42 | CT_ITS ---
STUDY: CT ABDOMEN AND PELVIS WITHOUT CONTRAST REASON FOR EXAM: Female, 41 years old. GROSS HEMATURIA/ KIDNEY STONE RADIATION DOSAGE (If Supplied By Facility): CTDIvol = ( 23.75 ) mGy, DLP = ( 1251.83 ) mGycm TECHNIQUE: Transaxial images were obtained from the dome of the diaphragm to the symphysis pubis without oral contrast, and without intravenous contrast. Sagittal and coronal images were reconstructed. Individualized dose optimization techniques were used for this CT. COMPARISON: None. FINDINGS: The visualized lung bases are unremarkable. The visualized portions of the heart are within normal limits. Liver is enlarged and fatty infiltrated without mass or bile duct dilatation.. Gallbladder has been removed surgically. Normal spleen. Normal pancreas. Normal bilateral adrenal glands. Normal right kidney. Normal left kidney. Normal visualized stomach. Normal small intestine. Normal colon. No evidence for acute appendicitis. Normal abdominal aorta. Normal inferior vena cava. Normal retroperitoneum. Not enlarged uterine fundus depressing the dome of the bladder which is incompletely distended. There is no intravesical stone seen at this time. Postsurgical change status post bilateral tubal ligation Small bilateral inguinal hernias slightly larger on the right.. Lumbar spine demonstrates degenerative change CT/Abdomen/Pelvis without Cont IMPRESSION: No acute abnormality. No evidence for renal obstruction or ureteral calculus Enlarged fatty infiltrated liver.. Status post cholecystectomy and bilateral tubal ligation Other findings as above Electronically Signed: Rio Mcnulty MD at 17:10 EST ,
== END | disposition home or self-care (01) ==
LOC: CT 16:40
PROVIDERS: PCP Internal Medicine; Visit Provider Urology
DX: N20.0 Calculus of kidney (principal); Z90.49 Acquired absence of other specified parts of digestive tract; K40.20 Bilateral inguinal hernia, without obstruction or gangrene, not specified as recurrent; K76.0 Fatty (change of) liver, not elsewhere classified; R16.0 Hepatomegaly, not elsewhere classified; R31.0 Gross hematuria; Z98.51 Tubal ligation status
CPT/HCPCS: 74176

== ENCOUNTER → 2022-04-11 | Outpatient (CLI) | payer OTHER, SELFPAY ==
[2022-04-11 19:17] LABS: Estradiol 72.3 pg/mL; Follicle Stimulating Hormone 5.4 mIU/mL; T4 Total, Thyroxin 13.8 ug/dL (4.8-13.9); Thyroid Stim Hormone (TSH) 0.65 uIU/mL (0.358-3.74)
== END | disposition home or self-care (01) ==
LOC: MTLAB 14:37
PROVIDERS: PCP Internal Medicine
DX: N94.3 Premenstrual tension syndrome (principal); R06.82 Tachypnea, not elsewhere classified; E07.9 Disorder of thyroid, unspecified; E55.9 Vitamin D deficiency, unspecified; R53.83 Other fatigue
CPT/HCPCS: 36415; 82670; 83001; 84403; 84436; 84443; 84481

== ENCOUNTER → 2022-09-07 | Outpatient (CLI) | payer OTHER, SELFPAY ==
[2022-09-07 11:30] LABS: Vitamin B12 392 pg/mL (211-911); Vitamin D,25 Hydroxy 35.1 ng/mL
[2022-09-07 11:46] LABS: ALB/GLOB Ratio 0.8 RATIO (0.9-2.4); AST(SGOT) 50 U/L (15-37); Alanine Aminotransfer ALT/SGPT 40 U/L (13-56); Albumin, Serum 3.2 g/dL (3.2-5.0); Alkaline Phosphatase 76 U/L (45-117); Anion Gap 9 (5-15); BUN 15 mg/dL (7-18); BUN/Creat Ratio 16.2 RATIO (10-20); Calcium,Total 9.1 mg/dL (8.5-10.1); Chloride 107 mmol/L (98-107); Cholesterol 209 mg/dL (200); Creatinine, Serum 0.93 mg/dL (0.55-1.02); EST Glomerular Filtration Rate 70 mL/min (>60); Est Glom Filt Rate - Afr Amer 85 mL/min (>60); Globulin 4.1 g/dL (2.2-4.2); Glucose 147 mg/dL (74-106); High Density Lipoprotein 43 mg/dL; Magnesium 2.1 mg/dL (1.6-2.6); Potassium 3.9 mmol/L (3.5-5.1); Protein, Total 7.3 g/dL (6.4-8.2); Sodium Level 138 mmol/L (136-145); T4 Free Direct 1.41 ng/dL (0.76-1.46); Thyroid Stim Hormone (TSH) 1.23 uIU/mL (0.358-3.74); Triglycerides 224 mg/dL; Very Low Density Lipoprotein 45 mg/dL (5-40)
[2022-09-07 13:31] LABS: Hemoglobin A1c 7.1 % (3.8-5.6)
[2022-09-11 00:06] LABS: Insulin Like Growth Factor 136 ng/mL (74-239)
== END | disposition home or self-care (01) ==
LOC: MTLAB 08:15
PROVIDERS: PCP Internal Medicine; Referring Provider Internal Medicine; Visit Provider Internal Medicine
DX: E11.9 Type 2 diabetes mellitus without complications (principal); E66.01 Morbid (severe) obesity due to excess calories; Z68.42 Body mass index [BMI] 45.0-49.9, adult; K76.0 Fatty (change of) liver, not elsewhere classified; R53.83 Other fatigue; L65.9 Nonscarring hair loss, unspecified; E53.8 Deficiency of other specified B group vitamins; Z13.220 Encounter for screening for lipoid disorders; E55.9 Vitamin D deficiency, unspecified; R73.9 Hyperglycemia, unspecified
CPT/HCPCS: 36415; 80053; 80061; 82306; 82607; 83036; 83525; 83735; 84305; 84439; 84443; 84481

== ENCOUNTER → 2022-09-28 | Outpatient (CLI) | payer OTHER, SELFPAY ==
[2022-09-28 16:07] LABS: Ferritin 260 ng/mL (8-252)
== END | disposition home or self-care (01) ==
LOC: MTLAB 11:38
PROVIDERS: PCP Internal Medicine; Referring Provider Internal Medicine Pulmonary Disease; Visit Provider Internal Medicine Pulmonary Disease
DX: D64.9 Anemia, unspecified (principal)
CPT/HCPCS: 36415; 82728

== ENCOUNTER → 2022-12-09 | Outpatient (CLI) | payer OTHER, SELFPAY ==
[2022-12-09 17:34] LABS: Absolute Lymphocyte Count 3.07 X10^3/uL (0.83-4.51); Absolute Neutrophil Count 6.6 X10^3/uL (2.0-7.7); Basophil# 0.04 X10^3/uL; Basophil% 0.4 % (0-1); Eosinophil# 0.16 X10^3/uL; Eosinophils% 1.5 % (0-5); Hematocrit 39.8 % (37-47); Hemoglobin 12.6 g/dL (12.0-15.0); Lymphocyte # 3.07 X10^3/ul (0.83-4.51); Lymphocyte % 28.6 % (19-41); Mean Corp Hgb Conc 31.7 g/dL (32-36); Mean Corpuscular Hgb 29.7 pg (27.0-32.0); Mean Corpuscular Volume 93.9 fL (81-99); Mean Platelet Vol. 10.2 fl (6.2-12.0); Monocyte# 0.77 X10^3/uL; Monocyte% 7.2 % (0-10); NRBC Flagged by Analyzer 0 % (0-5); Neutrophil # 6.62 X10^3/uL (2.7-7.7); Neutrophil % 61.6 % (47-70); Platelet Count 337 K/mm3 (150-450); RBC Distribution Width SD 44.6 fl (35.1-43.9); Red Blood Count 4.24 M/mm3 (4.2-5.4); White Blood Count 10.7 K/mm3 (4.4-11.0)
== END | disposition home or self-care (01) ==
LOC: MTLAB 15:07
PROVIDERS: PCP Internal Medicine; Referring Provider Internal Medicine Pulmonary Disease; Visit Provider Internal Medicine Pulmonary Disease
DX: J45.50 Severe persistent asthma, uncomplicated (principal)
CPT/HCPCS: 36415; 85025

== ENCOUNTER → 2023-12-21 | Outpatient (CLI) | payer OTHER, SELFPAY ==
--- NOTE | 2023-12-21 12:45 | US_ITS ---
STUDY: RENAL ULTRASOUND - COMPLETE REASON FOR EXAM: Female, 43 years old. Flank pain TECHNIQUE: Ultrasound evaluation of the kidneys was performed with real-time and static selby-scale imaging. COMPARISON: None. FINDINGS: RIGHT KIDNEY: Normal location of the right kidney, which is normal in size. The right kidney measures 12.5 x 6.4 x 4.5 cm. There is a normal cortex of the right kidney. The renal cortex measures 1.5 cm. There is no right renal mass or cyst. There are no right renal calculi. There is no right hydronephrosis. DISTAL RIGHT URETER: There is non-visualization of the distal right ureter. There is no demonstrated right ureterovesical junction calculus. There is a visualized right ureteral jet. LEFT KIDNEY: Normal location of the left kidney, which is normal in size. The left kidney measures 12.9 x 5.3 x 5.6 cm. There is a normal cortex of the left kidney. The renal cortex measures 1.8 cm. There is no left renal mass or cyst. There are nonobstructing left renal calculi. There is no left hydronephrosis. DISTAL LEFT URETER: There is non-visualization of the distal left ureter. There is no demonstrated left ureterovesical junction calculus. There is a visualized left ureteral jet. AORTA: There is no elongation or tortuosity of the abdominal aorta. I.V.C.: The IVC is patent. BLADDER: The distended urinary bladder has a volume of 382.1 ml. Amount of post void residual was not measured. There is a normal wall thickness of the distended urinary bladder. There is no demonstrated mass within the urinary bladder. There are no demonstrated bladder calculi. Incidental note made of a fatty liver and a likely 6.8 cm uterine fibroid US/Kidney and Bladder IMPRESSION: No suspicious sonographic findings, nonobstructing left renal stones. No specific follow-up needed Fatty liver Uterine fibroid suspected Electronically Signed: Zafar De Los Santos MD at 13:39 EDT ,
== END | disposition home or self-care (01) ==
PROVIDERS: PCP Internal Medicine; Referring Provider Urology; Visit Provider Urology
DX: R10.9 Unspecified abdominal pain (principal); Z87.442 Personal history of urinary calculi
CPT/HCPCS: 76770

== ENCOUNTER → 2024-01-02 | Outpatient (CLI) | payer OTHER, SELFPAY ==
--- NOTE | 2024-01-02 14:45 | CT_ITS ---
INDICATION: STONES EXAMINATION: CT ABDOMEN AND PELVIS WITH AND WITHOUT CONTRAST - CT Abdomen And Pelvis WO/W Contrast Injection TECHNIQUE: Helically acquired images were obtained of the abdomen and pelvis both before and after IV contrast. The protocol utilizes one or more of the following dose reduction techniques: automated exposure control, adjustment of mA and/or kV according to patient size,and/or use of iterative reconstruction technique. IV Contrast dosage and agent: 100 cc of Isovue-300 Oral contrast: None. RADIATION DOSAGE (If Supplied By Facility): CTDIvol = ( 32.14 ) mGy, DLP = ( 6161.76 ) mGycm COMPARISON: April 08, 2022 FINDINGS: LOWER CHEST: Lung bases are clear. No cardiomegaly or pericardial effusion. LIVER: Homogeneous. No focal mass. GALLBLADDER AND BILIARY TREE: There are surgical clips within the gallbladder fossa consistent with prior cholecystectomy. No intra- or extrahepatic biliary ductal dilation. PANCREAS: No focal cystic or solid mass. SPLEEN: Normal size without focal cystic or solid mass. ADRENAL GLANDS: There is a stable round low-attenuation 9 mm focus arising from the left adrenal gland suggestive of an adenoma. KIDNEYS AND URETERS: Normal renal size and position. No hydronephrosis. There is a nonobstructing 2 mm left renal calculus. PERITONEUM: No ascites or free air. No other fluid collection. BOWEL: No evidence of acute appendicitis. No stomach or bowel distension. There are diverticula arising from the colon. No focal inflammatory change. LYMPH NODES: No enlarged mesenteric or retroperitoneal lymph nodes. VESSELS: Aorta is non-dilated. URINARY BLADDER: Unremarkable. REPRODUCTIVE ORGANS: There is a 1.8 x 2.5 cm round low-attenuation focus arising from the left adnexa. There are tubal ligation clips in place. ABDOMINAL WALL: No discrete abdominal or pelvic wall hernia. BONES: Stable. There is a stable sclerotic focus within the right iliac wing suggestive of a bone island. CT/CT Abd/Pelvis W/WO Contrast IMPRESSION: Nonobstructing 2 mm left renal calculus. 1.8 x 2.5 cm left ovarian cyst. Colonic diverticulosis. Electronically Signed: Lucia Mckinney MD at 9:30 EDT ,
== END | disposition home or self-care (01) ==
LOC: CT 14:43
PROVIDERS: PCP Internal Medicine; Referring Provider Urology; Visit Provider Urology
DX: N20.0 Calculus of kidney (principal)
CPT/HCPCS: 74178; Q9967

== ENCOUNTER 2024-01-26 05:59 | Day surgery (SDC) | payer OTHER, SELFPAY ==
--- NOTE | 2023-12-27 12:48 | PCM.HP.BLA ---
History and Physical Date of Admission: 01/26/24 HPI: The patient is a 43 year old female presenting for pre-operative visit. She is scheduled for hysteroscopy D&C with possible polyp resection and IUD insertion, for aUB, stenotic cervix, fluid in endometrial cavity on 01/26/24. Procedure discussed along with risks, benefits and complications. Other alternatives discussed for management. Consent form signed? Yes. PAST MEDICAL HISTORY PAST MEDICAL HISTORY Diagnosis Date ? Cardiac dysrhythmia, unspecified ? Chronic kidney disease ? Complication of anesthesia NAUSEA WITH ANESTHESIA ? H/O blood transfusion reaction BORN PREMATURE HAD BLOOD INFECTION ? Hypertension ? Infertility, female ? Sleep apnea ? Sleep apnea ? Type 2 diabetes mellitus (HCC) 09/14/2022 ? Urinary calculus, unspecified 1998 Renal stones ? Urinary tract infection, site not specified Recurrent UTI's PAST SURGICAL HISTORY PAST SURGICAL HISTORY Procedure Laterality Date ? DELIVERY ONLY 02/07/2007,07/24/12 , CLASSICAL ? LAPAROSCOPY SURG CHOLECYSTECTOMY 2010 Cholecystectomy, lap ? PAST SURGICAL HISTORY OF WISDOM TEETH ? PAST SURGICAL HISTORY OF TUBES IN CHEST WHEN BORN ? TUBAL LIGATION HX 2015 CURRENT MEDICATIONS Current Outpatient Medications Medication Sig Dispense Refill ? ondansetron (ZOFRAN) 4 mg tablet Take 1 tablet by mouth every 8 hours as needed for nausea/vomiting. 30 tablet 1 ? DUPIXENT PEN 300 mg/2 mL pen injection ? omeprazole (PRILOSEC) 20 mg capsule ? montelukast (SINGULAIR) 10 mg tablet ? cetirizine (ZYRTEC) 10 mg tablet Take by mouth. ? cholecalciferol (VITAMIN D3) 1,000 unit tab tablet VITAMIN D TABS 50,000 IU once a week CHOLECALCIFEROL TABS [id number] Nila Mahajan PA-C ? BREO ELLIPTA 200-25 mcg/dose inhaler 1 PUFF DAILY WITH GOOD ORAL CARE ? albuterol HFA (PROAIR HFA) 90 mcg/actuation inhaler Inhale 2 Puffs as instructed every 4 hours as needed. 1 Inhaler 0 ? L. acidoph-L. plantar-L. rhamn 15 billion cell cap Take 1 capsule by mouth once daily. 30 capsule 11 ? tranexamic acid (LYSTEDA) 650 mg tablet Take 2 tablets by mouth three times a day as needed. 30 tablet 11 No current facility-administered medications for this visit. ALLERGIES: Penicillins, Advair Diskus [Fluticasone Propion-Salmeterol], and Latex PERSONAL HISTORY: SOCIAL HISTORY Social History Tobacco Use ? Smoking status: Never ? Smokeless tobacco: Never Vaping Use ? Vaping status: Never Used Substance Use Topics ? Alcohol use: No ? Drug use: No FAMILY HISTORY: FAMILY HISTORY FAMILY HISTORY Problem Relation Age of Onset ? Hypertension Mother ? Thyroid Mother ? Cancer Father kidney ? Thyroid Brother ? Diabetes Maternal Grandmother ? Cancer Maternal Grandmother pancreas ? Thyroid Maternal Grandmother ? Diabetes Maternal Grandfather ? other (BLOOD CLOTS IN LEGS) Maternal Grandfather REVIEW OF SYMPTOMS: GENERAL: denies fevers or chills ENDOCRINOLOGY: has not been on steroids Cardiology : denies palpitations or chest pain Respiratory: denies SOB or cough Hematology: denies history of prolonged bleeding or easy bruising or VTE Allergy: Denies history of personal or family history of allergy to anesthesia PHYSICAL EXAMINATION: VITALS: Blood pressure 132/90, weight 124.7 kg (275 lb), last menstrual period 11/26/2023. GENERAL: The patient is well nourished, well hydrated in no acute distress. , The patient is oriented to time, place, and person. NECK: Supple. No lynphadenopathy, normal thyroid, no thyromegaly. LUNGS: Clear to auscultation bilaterally. no wheezes, rhonchi or rales HEART: Regular rate and rhythm, Normal heart sounds, and No murmurs or gallops IMPRESSION: Fluid in endometrium, AUB, stenotic cervical os PLAN: The risks/benefits/alternatives and personal involved for the planned hysteroscopy D&C with possible polypectomy and IUD insertion were reviewed with the patient. Her questions were answered to her satisfaction and she desires to proceed. Consent was signed. I reviewed with her postop instructions and expectations. I have reviewed and updated past medical and surgical history, medications and allergies Assessment & Plan Assessment/Plan (1) Abnormal uterine bleeding (AUB): (2) Stenotic cervical os: (3) Fluid in endometrial cavity:
[2024-01-11 16:03] LABS: Hemoglobin 12.2 g/dL (12.0-15.0); Mean Corp Hgb Conc 30.5 g/dL (32-36); Mean Corpuscular Hgb 28.1 pg (27.0-32.0); Mean Corpuscular Volume 92.2 fL (81-99); Mean Platelet Vol. 10.5 fl (6.2-12.0); Platelet Count 323 K/mm3 (150-450); RBC Distribution Width CV 12.4 % (11.6-14.6); RBC Distribution Width SD 41.9 fl (35.1-43.9); Red Blood Count 4.34 M/mm3 (4.2-5.4); White Blood Count 9.3 K/mm3 (4.4-11.0)
[2024-01-11 16:43] LABS: Anion Gap 7 (5-15); BUN 15 mg/dL (7-18); BUN/Creat Ratio 16.5 RATIO (10-20); Chloride 108 mmol/L (98-107); Creatinine, Serum 0.91 mg/dL (0.55-1.02); EST Glomerular Filtration Rate 72 mL/min (>60); Est Glom Filt Rate - Afr Amer 87 mL/min (>60); Glucose 106 mg/dL (74-106); Potassium 3.9 mmol/L (3.5-5.1); Sodium Level 139 mmol/L (136-145)
[2024-01-26] VITALS (8 sets, daily range): BP systolic 141–152; BP diastolic 88–95; PULSE 78–96; RESP 14–18; TEMP 36.1–36.4; O2SAT 88–97; BMI 48.8
--- NOTE | 2024-01-26 | EMB_PTH ---
PATIENT: HÉCTOR CRUZ [place] [facility] [id number] AGE/SX: 43/F ROOM: RE01/26/[address]: Dr. Sylvia Dixon MD : [id number] BED: DIS: 01/26/2024 SPEC #: [id number] RECD: 01/26/24 09:09 STATUS: XAVIER ROWE #: [id number] UMA: 01/26/24 00:[address]: Slyvia Dixon DEPT: SURGICAL PATHOLOGY RECD BY: Carolina Richards ENTERED: 01/26/24 10:17 SP TYPE: ENDOM BX/C ABBEY DR: Dr. Bessie Warren MD Tissues: Endometrium, NOS Procedures: Surgery Specimen Level IV HEADER OPERATION: Hysteroscopy, D&C PRE-OP DIAGNOSIS: Abnormal uterine bleeding, stenotic cervical os, fluid in endometrial cavity TISSUE SUBMITTED: Endometrial curettings and fibroid MICROSCOPIC DIAGNOSIS Endometrial curettings and fibroid: Disordered proliferative endometrium. Fragments of myometrium. See comment. 01/29/2024 COMMENT A few of the fragments of myometrium may represent fragments of leiomyoma. Clinical correlation and appropriate follow up are necessary. Case has been reviewed in consultation with Dr. Duff who concurs with the above diagnosis. IDC:MJ MICROSCOPIC DESCRIPTION Slides are reviewed. GROSS DESCRIPTION Received in fixative is one container labeled with the patient's name and designated Endometrial curettings and fibroid. The specimen consists of multiple fragments of jasso-pink soft tissue measuring in aggregate 3.5 x 3.0 x 1.0cm. The entire specimen is submitted in five cassettes. 01/26/2024 TC:5 CPT:87219
[2024-01-26] MEDS: Ketorolac 30 MG/ML Syringe IV (06:28)
[2024-01-26] MEDS: Acetaminophen 500 MG Tablet 1000 MG PO (06:28)
[2024-01-26 06:36] LABS: Internal QC Validated? YES +Cl - CLEAR BKGD; Pregnancy, Urine Negative Negative
--- NOTE | 2024-01-26 07:03 | PCM.PRE.AN2 ---
ASA Classification* ASA Classification ASA Classification: 3 Assessment & Plan Anesthesia* Anesthesia Assessment Anesthesia Assessment: Discussed sedation and/or anesthesia options, risks, benefits, and alternatives with patient/parents/legal guardian/POA. Questions invited. The patient/parents/legal guardian/POA seems to understand and agrees to proceed with anesthesia plan. Reviewed the physical assessment, medical history, allergy history and patient home medications list prior to surgery/procedure/anesthetic and documented any changes. Performed airway and anesthesia risk assessments. Anesthesia Type Anesthesia Type: MAC (GA bkup) Anesthesia Focused Assessment* Temperature: 97.6 F Pulse Rate: 78 Blood Pressure: 152/95 Respiratory Rate: 16 Pulse Ox: 97 Airway Assessment Mouth opens: >3 cm Mallampati Score: II Focused Labs Anesthesia Preop lab: CBC WBC 9.3 K/mm3 (4.4-11.0) 01/11/24 15:01 RBC 4.34 M/mm3 (4.2-5.4) 01/11/24 15:01 Hgb 12.2 g/dL (12.0-15.0) 01/11/24 15:01 Hct 40.0 % (37-47) 01/11/24 15:01 Plt Count 323 K/mm3 (150-450) 01/11/24 15:01 CHEMISTRY Potassium 3.9 mmol/L (3.5-5.1) 01/11/24 15:01 Sodium 139 mmol/L (136-145) 01/11/24 15:01 Magnesium 2.1 mg/dL (1.6-2.6) 09/07/22 08:19 BUN 15 mg/dL (7-18) 01/11/24 15:01 Creatinine 0.91 mg/dL (0.55-1.02) 01/11/24 15:01 Glucose 106 mg/dL (74-106) 01/11/24 15:01 POC Glucose 128 mg/dL (74-106) H 01/10/22 06:15 TSH 1.23 uIU/mL (0.358-3.74) 09/07/22 08:19 COAG Urine Test Negative Negative 01/26/24 06:10 Pre-Assessment Diagnosis/Proposed Procedure Planned Operative Procedure(s): (N/A) Hysteroscopy,D&C Symphion, possible polyp resection, Liletta IUD insertion Anesthesia History Anesthesia History - infection control rn: Anesthesia History - infection control rn Hx Hospitalization No 01/10/24 15:27 Any Problems With Anesthesia Yes: PONV W/ C-SECTIONS 01/10/24 15:27 Cholinesterase deficiency No 01/10/24 15:27 You/Your Family Experience No 01/10/24 15:27 fever (hyperthermia) with Relationship Recent Exposure to Contagious No 01/26/24 06:23 Disease Does patient have nerve No 01/10/24 15:27 stimulator Patient instructed to have device shut off --Does patient have Pacemaker or ICD? When Was Last Pacemaker Check QUESTION #4 FULL TEXT: You/Your Family Experience fever (hyperthermia) with Anesthesia Last Oral Intake Last Oral intake: Last Oral Intake NPO since 20:00 01/26/24 06:23 Meds taken in AM with sips of water? Meds patient instructed to take am of surgery PONV PONV - infection control rn: PONV - infection control rn Female Yes 01/10/24 15:27 HX of Motion Sickness Yes 01/10/24 15:27 HX of N/V After Surgery Yes 01/10/24 15:27 Non-Smoker Yes 01/10/24 15:27 Duration of Surgery greater No 01/10/24 15:27 than 60 minutes Number of Risk Factors 4 01/10/24 15:27 PONV Score Severe Risk 01/10/24 15:27 Height & Weight Height & Weight: Anesthesia: Height & Weight Height 5 ft 4 in 01/26/24 06:23 Weight: 129 kg 01/26/24 06:23 Body Mass Index (BMI) 48.8 01/26/24 06:23 Respiratory Assessment Respiratory Assessment - infection control rn: Respiratory Tract Infection Hx - infection control rn Hx Respiratory Tract Infection No 01/10/24 15:27 STOP Sleep Apnea STOP Sleep Apnea - infection control rn: STOP Sleep Apnea - infection control rn Hx Hypertension No 01/10/24 15:27 Hx Sleep Apnea Yes 01/10/24 15:27 CPAP Yes 01/10/24 15:27 BIPAP No 01/10/24 15:27 Do you snore loudly (louder than talking or can be heard Do you often feel tired/ fatigued/ sleepy during daytime? Has anyone observed you stop breathing during sleep? STOP Results Positive 01/10/24 15:27 QUESTION #5 FULL TEXT : Do you snore loudly (louder than talking or can be heard through closed doors)? Tobacco Use History Tobacco Use History - infection control rn: Tobacco Use History - infection control rn Tobacco Use Non-smoker 07/08/20 09:31 Smoking Status Never smoker 01/10/24 15:27 Hx Tobacco Use No 01/10/24 15:27 Years Smoking Packs Smoked per Day Smoking Cessation Date was within the last 15 years Hx Smoking Cessation Date Hx Smoking Cessation Counseling Hematologic Medial History Hematologic Hx - infection control rn: Hematologic Medical Hx - filler sifter helper Hx of Blood Transfusion Yes 01/10/24 15:27 Hx of Transfusion in last 3 No 01/10/24 15:27 Months Date of Last Transfusion (if within last 3 months) Ever experience any problems No 01/10/24 15:27 with transfusion(s)? Specify any problems Hx of Preganancy in last 3 N/A 01/10/24 15:27 Months Nurse Filling Out Transfusion NBUCHER 01/10/24 15:27 & Questions: Date: 01/10/24 01/10/24 15:27 Time: 15:28 01/10/24 15:27 Patient unable to answer at this time (ie. confused, unrespo /Reproduction History /Reproductive History - infection control rn: /Reproductive Hx- infection control rn Hx Now Gestational Age (in weeks): EDC: Hx Hx Para Hx Section SAB No 01/10/24 15:27 Active Medications Active Medications: Current Medications Generic Name Dose Route Start Last Admin Trade Name Darinq PRN Reason Stop Dose Admin Acetaminophen 1,000 mg 01/26/24 07:30 01/26/24 06:28 Acetaminophen 500 Mg Tablet PO 01/26/24 07:31 1,000 mg X1 ONE Administration Ketorolac Tromethamine 30 mg 01/26/24 07:30 01/26/24 06:28 Ketorolac 30 Mg/Ml Syringe IV 01/26/24 07:31 30 mg X1 ONE Administration PFSH Medical History Migraine headache Non-smoker Chronic cough Shortness of breath on exertion History of edema PONV (postoperative nausea and vomiting) Failure of outpatient treatment Right lower lobe pneumonia GERD (gastroesophageal reflux disease) Hypertension Renal stone Normal blood glucose level Alcohol use History of kidney stones Low iron Gastric reflux History of stress test Kidney stones CPAP (continuous positive airway pressure) dependence Depression Hypercholesteremia Restless leg syndrome Asthma Sleep apnea Home Medications ?Medication ?Instructions ?Recorded ?Last Taken ?Type fluticasone furoate 200 1 inh inhalation DAILY 01/30/20 01/08/22 08:00 History mcg-vilanterol 25 mcg/dose inhalation powder (Breo Ellipta) multivitamin (Daily Multi-Vitamin 1 tab PO DAILY 01/30/20 01/08/22 08:00 History tablet) cetirizine 10 mg tablet (Zyrtec) 10 mg PO DAILY 10/20/20 01/08/22 08:00 History montelukast 10 mg tablet 10 mg PO DAILY 10/20/20 01/08/22 08:00 History (Singulair) omeprazole 20 mg capsule,delayed 20 mg PO BID 10/20/20 01/08/22 08:00 History release ipratropium 0.5 mg-albuterol 3 mg 3 ml inhalation Q4HWA.RT 5 days 01/12/22 Unknown Rx (2.5 mg base)/3 mL nebulization #90 mL soln dupilumab 300 mg/2 mL subcutaneous 300 mg subcut .2X/MONTH 01/10/24 Unknown History pen injector (Dupixent) Allergy/AdvReac Type Severity Reaction Status Date / Time adhesive (adhesives) Allergy Rash Verified 01/26/24 06:22 Penicillins Allergy Hives Verified 01/26/24 06:22 fluticasone propionate (From AdvReac Swelling Verified 01/26/24 06:22 Advair Diskus) salmeterol xinafoate (From AdvReac Swelling Verified 01/10/24 15:23 Advair Diskus) Family History Mother Thyroid disorder Fibromyalgia Grandmother Diabetes Grandfather Cancer Surgical History History of bronchoscopy H/O endoscopy History of wisdom tooth extraction History of cholecystectomy Social History Smoking Status: Never smoker alcohol intake: current alcohol intake frequency: holidays/special occasions only substance use type: does not use Review of Systems (Anesthesia) ROS Narrative System reviewed and no additional complaints, except as documented.
[2024-01-26] MEDS: Vasopressin 20 UNITS/ML Vial (07:49)
[2024-01-26] MEDS: Levonorgestrel IUD (Liletta) 1 EACH INTRA-UTER (07:51)
--- NOTE | 2024-01-26 08:12 | OP.PCM_ITS ---
Problems Associated Problem List Diagnoses (1) Fluid in endometrial cavity: (2) Stenotic cervical os: (3) Abnormal uterine bleeding (AUB): (4) Fibroids, submucosal: Operative Report (Standard) Operative Information Surgery/Procedure Performed: Hysteroscopy D&C with fibroid resection and Liletta IUD insertion Surgeon: Sylvia Dixon Date of Procedure: 01/26/24 Procedure Start Time: 07:49 Procedure Stop Time: 08:07 Pre-Operative Diagnosis: menorrhagia, fluid in endometrial cavity Post-Operative Diagnosis: same Select all DRAINS/GRAFTS/IMPLANTS that apply: Implanted device (Liletta IUD) Implanted device details: Liletta IUD Type of Anesthesia: MAC/Supplemental/Local Special Medications: none Estimated Blood Loss: 10 Fluids Replaced: 700 Specimen collected: Yes Description of specimen(s) removed: endometrial curettings and fibroid Description of surgery: The patient was taken to the OR where she was prepped and draped in dorsal lithotomy position. The weighted speculum was placed in the vagina and the anterior lip of the cervix was grasped with a single-tooth tenaculum. A paracervical block was administered with 5 units of vasopressin diluted in injectable saline. The cervix was dilated serially with Hegar dilators. The Symphion hysteroscope was placed into the uterine cavity and the above findings were noted. Bilateral tubal ostia were identified. The uterine cavity was only slightly arcuate and decision was made that an IUD could be adequately placed inside as the uterus sounded to 10 cm. The hysteroscope was removed. The Symphion was readied and inserted. A visual D&C was done of the endometrial cavity and the fibroid in the lower uterine segment was resected in the usual fashion. The Liletta IUD was then readied and inserted in the usual sterile fashion and the strings cut to 2 cm.. The instruments were removed from the vagina. The specimen was handed off and sent to pathology. All sponge and needle counts were correct. Vaginal sweep was performed by me. The patient was awakened and taken to the recovery room in stable condition. Calculated hysteroscopic fluid deficit is approximately 1000 cc of normal saline Surgical Findings: lusch endometrium ,normal cervix and vagina, posterior lower uterine segment submucosal fibroid Veneer Lathe Operator lunchroom attendant: No Complications Complications: No Admit VTE Documentation VTE Present on Admission: No VTE Mechan Device Prophylaxis: SCD's
--- NOTE | 2024-01-26 08:16 | PCM.DC ---
Discharge Instructions Diet Discharge Diet: No restrictions Activity Discharge Activity: May Drive (01/27/24) Return to work on:: 01/29/24 May shower in (days): 1 May resume sexual activity in: 2 weeks Lifting Restrictions: none Dressing / Incision Call your doctor if your incision/area has: Sudden Increased Bleeding and Foul Smelling Discharge Call your doctor if you observe: Fever of 101 or Higher and Using more than 1 pad per hour (for 2 hrs in a row) Additional Dressing/Incision Instructions:: Use over the counter pain medications or a heating pad as needed for pain and cramping. Follow Up Care Please Follow Up With: Sylvia Dixon MD When: As needed. Call [phone] or send a [employer] message to make an appointment or with any concerns. Test Results: Test results from this visit will be discussed in further detail at your follow-up appointment, if applicable. Discharge Plan Admission Primary Reason for Your Visit: D&C with Liletta IUD insertion and fibroid removal Attending Provider: Sylvia Dixon Primary Care Provider: Bessie Warren Instructions Print Language: [place] Irish Discharge Orders/Prescriptions Prescriptions: No Action Breo Ellipta 200-25 mcg/dose blister with device 1 inh INHALATION DAILY multivitamin [Daily Multi-Vitamin] Tablet 1 tab PO DAILY cetirizine [Zyrtec] 10 mg Tablet 10 mg PO DAILY omeprazole 20 mg Capsule,Delayed Release(Dr/Ec) 20 mg PO BID montelukast [Singulair] 10 mg Tablet 10 mg PO DAILY ipratropium-albuterol 0.5 mg-3 mg(2.5 mg base)/3 mL solution for nebulization 3 ml inhalation Q4HWA.RT 5 Days Qty: 90 0RF Dupixent Pen 300 mg/2 mL pen injector 300 mg subcut .2X/MONTH Referrals / Follow Up: Bessie Warren MD [Primary Care Provider] - Disposition Disposition (needs filled in before D/C Order can be placed): Home, Self Care
--- NOTE | 2024-01-26 08:22 | PCM.POST.ANE ---
Anesthesia: Postop Eval I Current Vital Signs Temperature: 96.9 F Pulse Rate: 96 Blood Pressure: 141/95 Respiratory Rate: 18 Pulse Ox: 93 Assessment Airway patent: Yes Spontaneous unlabored respirations: Yes nausea: No Vomiting: No Anesthesia Complication: No Fluid Hydration Crystalloid volume administer (ml): 700 Total IV fluid infused: 700 Progress Note Anesthesia document: Postop Eval 1 completed: Yes
--- NOTE | 2024-01-26 08:42 | POSTOPAN2_ITS ---
Anesthesia Postop Eval I Sum Postop Eval Completion status Anesthesia document: Postop Eval 1 completed: Yes Anesthesia Postop Eval I Summary Anesthesia Postop Eval I Summary: Anesthesia Postop Eval I: Assessment Summary Airway patent Yes 01/26/24 08:22 BOX MAKER WOOD.CSIR Spontaneous unlabored Yes 01/26/24 08:22 BOX MAKER WOOD.CSIR respirations Mental status nausea No 01/26/24 08:22 BOX MAKER WOOD.CSIR Vomiting No 01/26/24 08:22 BOX MAKER WOOD.CSIR Anesthesia Postop Eval I: Fluid Summary Crystalloid volume administer 700 01/26/24 08:22 BOX MAKER WOOD.CSIR (ml) Colloids volume administered ( ml) Blood Product volume administered (ml) Total IV fluid infused 700 01/26/24 08:22 BOX MAKER WOOD.CSIR Anesthesia Postop Eval I: Summary Notes Anesthesia Complication No 01/26/24 08:22 BOX MAKER WOOD.CSIR Anesthesia Complication Comment: Post-operative progress note Anesthesia: Postop Eval II Evaluation Mental status: Awake Pain Level: 0 nausea: No Vomiting: No
--- NOTE | 2024-01-26 08:42 | PCM.POSTANE2 ---
Anesthesia Postop Eval I Sum Postop Eval Completion status Anesthesia document: Postop Eval 1 completed: Yes Anesthesia Postop Eval I Summary Anesthesia Postop Eval I Summary: Anesthesia Postop Eval I: Assessment Summary Airway patent Yes 01/26/24 08:22 MANAGER CONTENT.CSIR Spontaneous unlabored Yes 01/26/24 08:22 MANAGER CONTENT.CSIR respirations Mental status nausea No 01/26/24 08:22 MANAGER CONTENT.CSIR Vomiting No 01/26/24 08:22 MANAGER CONTENT.CSIR Anesthesia Postop Eval I: Fluid Summary Crystalloid volume administer 700 01/26/24 08:22 MANAGER CONTENT.CSIR (ml) Colloids volume administered ( ml) Blood Product volume administered (ml) Total IV fluid infused 700 01/26/24 08:22 MANAGER CONTENT.CSIR Anesthesia Postop Eval I: Summary Notes Anesthesia Complication No 01/26/24 08:22 MANAGER CONTENT.CSIR Anesthesia Complication Comment: Post-operative progress note Anesthesia: Postop Eval II Evaluation Mental status: Awake Pain Level: 0 nausea: No Vomiting: No
== END 2024-01-26 09:22 | disposition home or self-care (01) ==
LOC: SDC 06:01 → AC 06:03
PROVIDERS: Anesthesiology; PCP Internal Medicine; Referring Provider Obstetrics & Gynecology; Visit Provider Obstetrics & Gynecology
PROC: 0UB98ZZ Excision of Uterus, Via Natural or Artificial Opening Endoscopic (ICD-10-PCS; CPT 58558; principal; 2024-01-26 07:15)
DX: N93.9 Abnormal uterine and vaginal bleeding, unspecified (principal); E11.22 Type 2 diabetes mellitus with diabetic chronic kidney disease; M48.02 Spinal stenosis, cervical region; N92.0 Excessive and frequent menstruation with regular cycle; I12.9 Hypertensive chronic kidney disease with stage 1 through stage 4 chronic kidney disease, or unspecified chronic kidney disease; N18.9 Chronic kidney disease, unspecified; F32.A Depression, unspecified; Z79.899 Other long term (current) drug therapy; Z86.16 Personal history of COVID-19
CPT/HCPCS: 58558; 58300; 00952; 36415; 80048; 81025; 85027; 88305; A4216; J2405

== ENCOUNTER → 2024-02-23 | Outpatient (CLI) | payer OTHER, SELFPAY ==
[2024-02-23 18:09] LABS: Ferritin 123 ng/mL (8-252); Iron 51 ug/dL (50-170)
== END | disposition home or self-care (01) ==
LOC: MTLAB 15:37
PROVIDERS: PCP Internal Medicine; Referring Provider Internal Medicine Pulmonary Disease; Visit Provider Internal Medicine Pulmonary Disease
DX: G47.61 Periodic limb movement disorder (principal)
CPT/HCPCS: 36415; 82728; 83540

== ENCOUNTER → 2024-02-28 | Outpatient (CLI) | payer OTHER, SELFPAY ==
--- NOTE | 2024-02-28 08:48 | RAD_ITS ---
STUDY: X-RAY - ABDOMEN/PELVIS REASON FOR EXAM: Female, 43 years old. KUB-STONES TECHNIQUE: Single AP view of the abdomen / pelvis. COMPARISON: None. FINDINGS: Status post cholecystectomy. Status post bilateral tubal ligation. Intrauterine device. There is an unremarkable bowel gas pattern. The visualized liver, spleen and kidneys are grossly normal in size and morphology. Normal soft tissue structures. Normal visualized osseous structures. RAD/Abdomen Single View IMPRESSION: Normal x-ray examination of the abdomen and pelvis. Electronically Signed: Александр Tripathi MD at 8:41 EST ,
== END | disposition home or self-care (01) ==
LOC: MTRAD 08:46
PROVIDERS: PCP Internal Medicine; Referring Provider Urology; Visit Provider Urology
DX: N20.0 Calculus of kidney (principal)
CPT/HCPCS: 74018

== ENCOUNTER 2024-05-24 11:56 | Emergency (ER) | payer OTHER, SELFPAY ==
[2024-05-24 11:56] VITALS: BP 162/115; PULSE 103; RESP 18; TEMP 36.8; O2SAT 98; BMI 47.9
[2024-05-24 12:41] VITALS: BP 148/88; PULSE 100; RESP 20; O2SAT 97
--- NOTE | 2024-05-24 13:04 | EKG12_ITS ---
Test Reason : HTN Blood Pressure : */* mmHG Vent. Rate : 103 BPM Atrial Rate : 103 BPM P-R Int : 180 ms QRS Dur : 84 ms QT Int : 304 ms P-R-T Axes : 35 -20 -34 degrees QTcB Int : 398 ms Sinus tachycardia Septal infarct , age undetermined Possible Lateral infarct , age undetermined Abnormal ECG Confirmed by ALBIN KING, LEONCIO ([id number]), acquisitions editor KEN SAMSON ([id number]) on 05/27/2024 10:54:50 AM Referred By: Confirmed By: LEONCIO TALAMANTES MD
[2024-05-24 13:16] LABS: Absolute Lymphocyte Count 2.18 X10^3/uL (0.83-4.51); Absolute Neutrophil Count 8.8 X10^3/uL (2.0-7.7); Basophil# 0.04 X10^3/uL; Basophil% 0.3 % (0-1); Eosinophil# 0.03 X10^3/uL; Eosinophils% 0.3 % (0-5); Hematocrit 40.3 % (37-47); Lymphocyte # 2.18 X10^3/ul (0.83-4.51); Lymphocyte % 18.4 % (19-41); Mean Corp Hgb Conc 32.3 g/dL (32-36); Mean Corpuscular Hgb 29.5 pg (27.0-32.0); Mean Corpuscular Volume 91.4 fL (81-99); Mean Platelet Vol. 10.1 fl (6.2-12.0); Monocyte# 0.75 X10^3/uL; Monocyte% 6.3 % (0-10); NRBC Flagged by Analyzer 0 % (0-5); Neutrophil # 8.78 X10^3/uL (2.7-7.7); Neutrophil % 74.3 % (47-70); Platelet Count 331 K/mm3 (150-450); RBC Distribution Width CV 12.4 % (11.6-14.6); RBC Distribution Width SD 41.4 fl (35.1-43.9); Red Blood Count 4.41 M/mm3 (4.2-5.4); White Blood Count 11.8 K/mm3 (4.4-11.0)
[2024-05-24 13:19] VITALS: BP 157/87; PULSE 92; RESP 24; O2SAT 95
--- NOTE | 2024-05-24 13:21 | EDS_ITS ---
HPI History of Present Illness Chief Complaint: Hypertension Narrative Narrative: Chief complaint and HPI: Hypertension. 43-year-old female with past medical history of HLD, migraines, prediabetes, asthma presents for evaluation of hypertension. Patient states that Monday she was referred to the weight loss clinic by her [employer]. She states that she was started on metformin. She states when she woke up this morning she felt slightly lightheaded and nauseous. She states that she checked her glucose thinking maybe she was hypoglycemic but it was 113. She states she continued to work in which she redeveloped recurrence of symptoms. She states she went home and took her blood pressure with SBP in the 170s so she presented for evaluation. Patient states her symptoms have since improved. She does endorse some episodic left-sided chest cramping this week however she states that her daughter is currently at home with a cast and the other one with recent knee surgery so she has been doing a lot of manual assistance with their care. She states she thought it was secondary to a muscle strain. She states is not abnormal for her to have episodic left-sided chest pain as well given she has had previous rib fractures. She denies any fever, chills, abdominal pain, vomiting, dysuria, diarrhea. She states that she is also having a migraine which causes lip tingling. She states this is typical of her migraines. She does not develop a headache with it. Review of systems: See HPI Medications: As listed on the chart Allergies: As listed on the chart PFSH: Per chart Vital signs: As listed on the chart. Reviewed. Physical exam: Gen: A&O x3, NAD Head: Normocephalic, atraumatic Eyes: No sclera icterus, conjunctiva clear ENT: Moist mucous membranes Neck: Trachea midline, No JVD CV: RRR, no murmurs, no peripheral edema Resp: Lungs CTA BL, no w/r/c GI: Abd soft, non-distended, non-tender, no r/r/g Musc: Full ROM, no deformity Skin: Warm, dry Neuro: Alert, oriented, grossly intact, sensation intact Psych: Cooperative, appropriate mood and affect [facility] Medical History (Updated 05/24/24 @ 16:[address] Kei Condon, ) Need for influenza vaccination Migraine headache Non-smoker Chronic cough Shortness of breath on exertion History of edema PONV (postoperative nausea and vomiting) Failure of outpatient treatment Right lower lobe pneumonia GERD (gastroesophageal reflux disease) Hypertension Renal stone Normal blood glucose level Alcohol use History of kidney stones Low iron Gastric reflux History of stress test Kidney stones CPAP (continuous positive airway pressure) dependence Depression Hypercholesteremia Restless leg syndrome Asthma Sleep apnea Home Medications ?Medication ?Instructions ?Recorded ?Last Taken ?Type fluticasone furoate 200 1 inh inhalation DAILY 01/2901/08/22 08:00 History mcg-vilanterol 25 mcg/dose inhalation powder (Breo Ellipta) multivitamin (Daily Multi-Vitamin 1 tab PO DAILY 01/2901/08/22 08:00 History tablet) cetirizine 10 mg tablet (Zyrtec) 10 mg PO DAILY 01/08/22 08:00 History montelukast 10 mg tablet 10 mg PO DAILY 10/20/2012/12 08:00 History (Singulair) omeprazole 20 mg capsule,delayed 20 mg PO BID 10/20/20 01/08/22 08:00 History release ipratropium 0.5 mg-albuterol 3 mg 3 ml inhalation Q4HW A.RT 5 days 01/12/22 Unknown Rx (2.5 mg base)/3 mL nebulization #90 mL soln dupilumab 300 mg/2 mL subcutaneous 300 mg subcut .2X/M ONTH 01/10/24 Unknown History pen injector (Dupixent) Allergy/AdvReac Type Severity Reaction Status Date / Time latex Allergy Mild Rash Verified 05/24/24 11:59 adhesive (adhesives) Allergy Rash Verified 05/24/24 11:59 Penicillins Allergy Hives Verified 05/24/24 11:59 fluticasone propionate (From AdvReac Swelling Verified 05/24/24 11:59 Advair Diskus) salmeterol xinafoate (From AdvReac Swelling Verified 05/24/24 11:59 Advair Diskus) Family History Mother Thyroid disorder Fibromyalgia Grandmother Diabetes Grandfather Cancer Surgical History History of bronchoscopy H/O endoscopy History of wisdom tooth extraction History of cholecystectomy Social History Smoking Status: Never smoker alcohol intake: current alcohol intake frequency: holidays/special occasions only substance use type: does not use EXAM Physical Exam Const Vital Signs: 05/24/24 11:56 05/24/24 12:34 05/24/24 12:41 Temperature 98.3 F Temperature Source Temporal Pulse Rate 103 H 100 Respiratory Rate 18 20 H Respiratory Effort Normal Non-Labored Respiratory Pattern Normal Blood Pressure 162/115 H 148/88 H Blood Pressure Mean 130 108 Pulse Ox 98 97 Oxygen Delivery Method Room Air Room Air 05/24/24 13:19 05/24/24 15:16 Temperature Temperature Source Pulse Rate 92 86 Respiratory Rate 24 H 18 Respiratory Effort Respiratory Pattern Blood Pressure 157/87 H 133/78 H Blood Pressure Mean 110 96 Pulse Ox 95 97 Oxygen Delivery Method Room Air Room Air MDM MDM MDM Narrative Medical decision making narrative: 43-year-old female with past medical history of HLD, migraines, prediabetes, asthma presents for evaluation of hypertension. Associated symptoms are episodic chest pain x 1 week, lightheadedness and nausea today. Patient was recently started on metformin for weight loss. She states she is prediabetic. No official diagnosis of diabetes. On presentation, patient is hypertensive with blood pressure 162/115. However while examiner her, systolic blood pressure is in the 140s and her diastolic blood pressure is in the 80s. On chart review in January she had hypertension. When I spoke to her about this she states she has no diagnosis of hypertension. She states she has had high blood pressure readings in the past periodically however it was followed closely by her PCP and blood pressure improved. She states she was just at the weight loss clinic yesterday and she had normal blood pressure at that time. Differential diagnosis includes but is not limited to metformin side effect, electrolyte abnormality, hypertension urgency, suspect less likely ACS or PE. Aspirin ordered for pain. Cardiac workup ordered. Will monitor blood pressure at this time without treatment. EKG shows sinus tachycardia with a heart rate of 103. No acute ischemic changes. Chest x-ray without pneumonia, effusion, cardiomegaly, pneumothorax. CBC with mild leukocytosis of 11.8. No anemia. BMP with metabolic anion gap acidosis otherwise unremarkable without electrolyte abnormality, ZOFIA, hyperglycemia. Suspect patient's metabolic acidosis is secondary to her metformin use. D-dimer unremarkable. Troponin negative x 2. Patient's heart score is a 1. Which places her at low risk for ACS. Given that her chest pain has been ongoing episodically for a week, she endorses increased manual activity, and describes it as crampy. Suspect that it is secondary to musculoskeletal strain. On reevaluation, patient's symptoms have all resolved. Her blood pressure has improved to 133/78 without treatment. Although she has had a high blood pressure in the past she has had workup for hypertension which was negative therefore at this time will not place on antihypertensives and instead will have her follow-up with PCP and monitor her blood pressure closely at home. She confirmed understanding. Patient was educated on all of her lab results and findings. She states that the weight loss clinic was concerned that she may develop acidosis from her metformin and told her that that was a risk factor. Given that she has no true diagnosis of diabetes we will stop metformin due to her acidosis. She was educated that she needs to have repeat labs in the next couple days to make sure acidosis resolves. She was told to call the weight loss clinic after discharge to inform them that I stopped the metformin and that they need to repeat her labs. She confirmed understanding. Return precautions explained. Impression: 1. Hypertension, not fully diagnosed 2. Episodic chest pain, suspect musculoskeletal strain 3. Metformin side effect Lab Data Labs: Laboratory Results - last 24 hr 05/24/24 05/24/24 12:30 14:55 WBC 11.8 H RBC 4.41 Hgb 13.0 Hct 40.3 MCV 91.4 MCH 29.5 MCHC 32.3 RDW Std Deviation 41.4 RDW Coeff of Ab 12.4 Plt Count 331 MPV 10.1 Immature Gran % (Auto) 0.400 Neut % (Auto) 74.3 H Lymph % (Auto) 18.4 L Roberts % (Auto) 6.3 Eos % (Auto) 0.3 Baso % (Auto) 0.3 Absolute Neuts (auto) 8.8 H Absolute Lymphs (auto) 2.18 Nucleated RBC % 0 D-Dimer Quant (PE/DVT) < 0.27 L Sodium 137 Potassium 3.8 Chloride 102 Carbon Dioxide 17.1 L Anion Gap 17 H BUN 16 Creatinine 0.82 Estim Creat Clear Calc 116.53 Est GFR (MDRD) Non-Af 91 BUN/Creatinine Ratio 19.9 Glucose 103 H Calcium 9.8 Troponin T High Sens < 6 Troponin T Hi Sens 2 Hr 7 Radiography Diagnostic Testing: Clinical Impression(s) from Imaging Studies Chest X-Ray 05/24/24 13:22 IMPRESSION: 1. No convincing or visible acute cardiopulmonary findings 2. Additional description as above. Reading Location: [facility] Discharge Plan Triage Chief Complaint: Hypertension ED Provider: Kei Condon Dx/Rx/DC Orders Clinical Impression: Metformin adverse reaction, Hypertension Instructions: Understanding High Blood Pressure, ED Drug Reaction, Other Prescriptions: No Action Breo Ellipta 200-25 mcg/dose blister with device 1 inh INHALATION DAILY multivitamin [Daily Multi-Vitamin] Tablet 1 tab PO DAILY cetirizine [Zyrtec] 10 mg Tablet 10 mg PO DAILY omeprazole 20 mg Capsule,Delayed Release(Dr/Ec) 20 mg PO BID montelukast [Singulair] 10 mg Tablet 10 mg PO DAILY ipratropium-albuterol 0.5 mg-3 mg(2.5 mg base)/3 mL solution for nebulization 3 ml inhalation Q4HWA.RT 5 Days Qty: 90 0RF Dupixent Pen 300 mg/2 mL pen injector 300 mg subcut .2X/MONTH Primary Care Provider: Bessie Warren Referrals: Bessie Warren MD [Primary Care Provider] - 3-5 Days Activity Restrictions/Additional Instructions: Monitor your blood pressure at home. Follow-up with your PCP to have this rechecked as well. Stop taking your metformin. Call the weight loss clinic and let them know that I took you off of it due to the metabolic acidosis that it is causing. Return back to the ED if symptoms change or worsen. Print Language: Swazi Disposition Disposition: Home, Self Care Discharge Date/Time: 05/24/24 16:12
--- NOTE | 2024-05-24 13:22 | RAD_ITS ---
PROCEDURE: CHEST PA AND LATERAL (RADCXR), 05/24/2024 REASON FOR EXAM: CHEST PAIN TECHNIQUE: PA and lateral views of the chest were obtained. COMPARISON: 01/09/2022; images only are available for review, the report is not available at the time of dictation. FINDINGS: Heart: Unremarkable. Mediastinum: Unremarkable. Lungs/pleura: No convincing focal consolidation allowing for chest wall attenuation. No sizeable pleural effusion or visible pneumothorax. Bones: Trace thoracolumbar dextroscoliosis could be positional. Mild spondylosis. Lines and support devices: None. Other: Right upper quadrant surgical clips. RAD/Chest PA and Lateral IMPRESSION: 1. No convincing or visible acute cardiopulmonary findings 2. Additional description as above. Reading Location: [id number]
[2024-05-24] MEDS: Aspirin 81 MG TAB.CHEW 324 MG PO (13:28)
[2024-05-24 13:34] LABS: D-Dimer Quantitative (DVT/PE) < 0.27 FEU/ug/m (0.27-0.49)
[2024-05-24 15:16] VITALS: BP 133/78; PULSE 86; RESP 18; O2SAT 97
[2024-05-24 15:35] LABS: Anion Gap 17 (5-15); BUN 16 mg/dL (4-19); BUN/Creat Ratio 19.9 RATIO (10-20); Calcium,Total 9.8 mg/dL (7.6-11.0); Carbon Dioxide 17.1 mmol/L (21.0-32.0); Chloride 102 mmol/L (98-108); Creatinine, Serum 0.82 mg/dL (0.70-1.20); EST Glomerular Filtration Rate 91 (>60); Estimated Creatinine Clearance 116.53 ml/min (50-250); Glucose 103 mg/dL (70-99); Potassium 3.8 mmol/L (3.3-5.1); Sodium Level 137 mmol/L (133-145); Troponin T High Sensitivity < 6 ng/L (<=14)
[2024-05-24 15:56] LABS: Troponin T High Sens 2 HR 7 ng/L (<=14)
== END 2024-05-24 16:12 | disposition home or self-care (01) ==
PROVIDERS: Emergency Provider Surgery; PCP Internal Medicine; Visit Provider Surgery
DX: I10 Essential (primary) hypertension (principal); R07.9 Chest pain, unspecified; E78.00 Pure hypercholesterolemia, unspecified; T38.3X5A Adverse effect of insulin and oral hypoglycemic [antidiabetic] drugs, initial encounter; G47.30 Sleep apnea, unspecified; Z99.89 Dependence on other enabling machines and devices; J45.909 Unspecified asthma, uncomplicated; Z79.51 Long term (current) use of inhaled steroids; K21.9 Gastro-esophageal reflux disease without esophagitis; Z79.899 Other long term (current) drug therapy; Z90.49 Acquired absence of other specified parts of digestive tract
CPT/HCPCS: 71046; 80048; 84484; 85025; 85379; 93005; 99284; A4216

== ENCOUNTER 2024-05-28 09:04 | Emergency (ER) | payer OTHER, SELFPAY ==
[2024-05-28 09:04] VITALS: BP 164/104; BP 168/110; PULSE 89; PULSE 90; RESP 16; RESP 18; TEMP 36.3; O2SAT 100; BMI 48.2
--- NOTE | 2024-05-28 09:11 | EKG12_ITS ---
Test Reason : CP Blood Pressure : */* mmHG Vent. Rate : 96 BPM Atrial Rate : 96 BPM P-R Int : 168 ms QRS Dur : 86 ms QT Int : 376 ms P-R-T Axes : 51 -30 12 degrees QTcB Int : 475 ms Normal sinus rhythm Left axis deviation Anterolateral infarct , age undetermined Abnormal ECG Confirmed by LAURA KING, JAYLON ([id number]), television news video editor ELFEGO WEINER ([id number]) on 05/29/2024 8:47:27 AM Referred By: Confirmed By: JAYLON SANCHEZ MD
--- NOTE | 2024-05-28 09:11 | RAD_ITS ---
PROCEDURE: CHEST PA AND LATERAL 05/28/2024 REASON FOR EXAM: CHEST PAIN TECHNIQUE: Frontal and lateral views of the chest. COMPARISON: Comparison is made with prior study dated May 24, 2024. FINDINGS: EKG electrodes are seen. The lungs are clear. RAD/Chest PA and Lateral IMPRESSION: NO ACUTE FINDINGS. Reading Location: [place] [id number]
--- NOTE | 2024-05-28 09:23 | ED.VIS.CHEST ---
HPI History of Present Illness Chief Complaint: Chest Pain Informant: patient Onset/Context/Timing Onset: Days Activity at onset: gradual Timing: Continuous Quality: Positive for Aching Location: Right Chest and Left Chest Current Severity: Mild Maximum Severity: Mild Worsened By: Nothing Relieved By: Nothing Associated Symptoms: Positive for Nausea and Lightheadedness; Negative for Vomiting, Diaphoresis, Dyspnea, Cough, Fever, Acid Reflux or Palpitations Narrative Narrative: 43-year-old female history of prior hypertension but is currently off medications because her pressure improved when she came off of steroids. History of asthma, sleep apnea and borderline diabetes. No cardiac history. States for the last week or 2 her blood pressures have been elevated. And she feels like she has discomfort in her upper chest on both sides like she had been carrying around a small child all day. She was seen emergency department on Monday had a negative workup. She is not having any exertional chest pain or significant exertional dyspnea. Prior Similar Symptoms: Yes Recent Illness/Hospitalization: No CVD Risk Factors: Positive for Hypertension and Diabetes PE Risk Factors: Negative for Recent Travel/Surgery, Recent Immobilization, Prior DVT or PE, Cancer or OCP + Smoking + >/=35 TAD Risk Factors: Negative for Marfan's Syndrome [facility] Medical History Need for influenza vaccination Migraine headache Non-smoker Chronic cough Shortness of breath on exertion History of edema PONV (postoperative nausea and vomiting) Failure of outpatient treatment Right lower lobe pneumonia GERD (gastroesophageal reflux disease) Hypertension Renal stone Normal blood glucose level Alcohol use History of kidney stones Low iron Gastric reflux History of stress test Kidney stones CPAP (continuous positive airway pressure) dependence Depression Hypercholesteremia Restless leg syndrome Asthma Sleep apnea Home Medications ?Medication ?Instructions ?Recorded ?Last Taken ?Type fluticasone furoate 200 1 inh inhalation DAILY 01/30/20 01/08/22 08:00 History mcg-vilanterol 25 mcg/dose inhalation powder (Breo Ellipta) multivitamin (Daily Multi-Vitamin 1 tab PO DAILY 01/30/20 01/08/22 08:00 History tablet) cetirizine 10 mg tablet (Zyrtec) 10 mg PO DAILY 10/20/20 01/08/22 08:00 History montelukast 10 mg tablet 10 mg PO DAILY 10/20/20 01/08/22 08:00 History (Singulair) omeprazole 20 mg capsule,delayed 20 mg PO BID 10/20/20 01/08/22 08:00 History release ipratropium 0.5 mg-albuterol 3 mg 3 ml inhalation Q4HWA.RT 5 days 01/12/22 Unknown Rx (2.5 mg base)/3 mL nebulization #90 mL soln dupilumab 300 mg/2 mL subcutaneous 300 mg subcut .2X/MONTH 01/10/24 Unknown History pen injector (Dupixent) lisinopril 5 mg tablet 5 mg PO DAILY #30 tabs 05/28/24 Unknown Rx Allergy/AdvReac Type Severity Reaction Status Date / Time latex Allergy Mild Rash Verified 05/28/24 09:05 adhesive (adhesives) Allergy Rash Verified 05/28/24 09:05 Penicillins Allergy Hives Verified 05/28/24 09:05 fluticasone propionate (From AdvReac Swelling Verified 05/28/24 09:05 Advair Diskus) salmeterol xinafoate (From AdvReac Swelling Verified 05/28/24 09:05 Advair Diskus) Family History Mother Thyroid disorder Fibromyalgia Grandmother Diabetes Grandfather Cancer Surgical History History of bronchoscopy H/O endoscopy History of wisdom tooth extraction History of cholecystectomy Social History Smoking Status: Never smoker alcohol intake: current alcohol intake frequency: holidays/special occasions only substance use type: does not use ROS ROS ED ROS Narrative Atypical chest discomfort. No recent illness. Constitutional Constitutional ED: Denies chills or fever(s) Eyes Eyes: Reports none ENT ENT ED: Denies ear pain Cardiovascular Cardiovascular: Reports as per HPI and chest pain; Denies racing heartbeat Respiratory/Chest Respiratory/Chest: Denies cough, dyspnea or dyspnea on exertion Gastrointestinal Gastrointestinal: Denies abdominal pain or constipation Genitourinary Genitourinary ED: Denies dysuria or hematuria Musculoskeletal Musculoskeletal: Denies arthralgias or back pain Integumentary Denies abscess or Abrasions Neurologic Neurologic: Reports headache(s) Psychiatric Psychiatric: Denies anxiety or depression Endocrine Endocrinology: Denies cold intolerance Hematologic/Lymphatic Hematologic/Lymphatic: Denies easy bleeding, easy bruising or lymphadenopathy Allergic/Immunologic Allergic/Immunologic ED: Denies mouth swelling, tongue swelling or urticaria EXAM Physical Exam Narrative Exam Narrative: Well-appearing 43-year-old female. Vital signs are stable initial blood pressure 164/104. Pulse ox 100% on room air no hypoxia. Afebrile. She is in no acute distress. Currently there is no family present in the room. H EENT exam pupils round reactive light. No facial droop. Normal speech. Neck nontender. Lungs clear to auscultation bilaterally. Heart regular rate rhythm rate about 90 no murmur. Chest wall and ribs are nontender. There is no reproducible chest wall pain. No ecchymosis or bruising. Abdomen is soft nontender. Moving all 4 extremities. 5 out of 5 padder cushion strength. Dorsi plantarflexion intact. Normal range of motion. Calves are nontender without edema nor cords. Back nontender. Neurologically she is awake and alert no focal motor deficits. Const Vital Signs: 05/28/24 09:04 05/28/24 09:04 05/28/24 09:04 Temperature 97.3 F L Temperature Source Temporal Pulse Rate 90 89 Respiratory Rate 18 16 Respiratory Effort Normal Blood Pressure 164/104 H 168/110 H Blood Pressure Mean 124 129 Pulse Ox 100 100 Oxygen Delivery Method Room Air Room Air 05/28/24 09:28 05/28/24 11:04 05/28/24 12:56 Temperature Temperature Source Pulse Rate 79 90 Respiratory Rate Respiratory Effort Blood Pressure 149/91 H 159/88 H Blood Pressure Mean 110 111 Pulse Ox 96 97 Oxygen Delivery Method Room Air Room Air Positive well nourished and well developed; Negative for cachectic, contractures or unkempt General Appearance ED: well developed and NAD; Negative for unkempt, cachectic, contractures or pallor Nutritional Appearance: Negative for cachectic HEENT Reports moist mucous membranes normocephalic and atraumatic; Negative for trauma or tenderness Eyes PERRL and EOMs intact bilaterally General Eye ED: Negative for pale conjunctiva or scleral icterus Neck no lymphadenopathy, supple and no JVD General: Negative for tenderness Chest Wall inspection of chest normal and palpation of chest normal Chest: Negative for tenderness Resp normal respiratory effort and clear to auscultation bilaterally Effort and Inspection: Negative for respiratory distress Auscultation: Negative for rales, rhonchi, wheezes or diminished lung sounds Cardio regular rate, regular rhythm, S1 normal heart sound, S2 normal heart sound and no murmurs Rate: Negative for bradycardia or tachycardic Peripheral Pulses: pulses 2+ throughout GI normal to inspection, nondistended, normoactive bowel sounds, soft to palpation, non-tender, non-distended and no masses Back/Spine no CVA tenderness and no thoracic nor lumbar tenderness Extremity normal to inspection General Extremety ED: Negative for edema, pulses abnormal or tenderness General Extremity: Negative for edema or pulses abnormal Neuro oriented x3 and CN's II-XII intact bilaterally Sensorium / Orientation: awake, alert, oriented to person, oriented to place and oriented to time; Negative for confused, lethargic or stuporous Motor Exam: strength 5/5 throughout; Negative for general weakness or strength abnormal Psych Appearance: Negative for unkempt Attitude: No agitated Mood & Affect: Negative for depressed, anxious or tearful Skin no rashes or lesions noted and no wounds General Skin Exam: Negative for jaundice or pallor Rashes: No rashes noted Heart Score History: Slightly/Non-Suspicious ECG: Normal Age: </= 45 years Risk Factors: 1 or 2 Risk Factors Troponin: </= Normal Limit Score: 1 MDM MDM MDM Narrative Medical decision making narrative: 43-year-old female with atypical chest discomfort. Historically I do not have a strong suspicion this is cardiac chest pain. Her pressures have been running elevated she may need to start back on blood pressure medication. She was on it in the past but then pressure seem to improve when she came off of steroid therapy that she was on for her asthma. She had a recent D-dimer and has never had a PE or DVT or significant risk factors I do not think that needs to be reevaluated today. I do not think this is a PE. Repeat exam at 11:17 AM Patient is doing well. We went over her test results. We are waiting on the 2-hour troponin. Repeat exam patient is doing well at 2:08 PM. Went over her test. She will be discharged home with chest pain uncertain etiology. I do not think this is cardiac in etiology. Due to her elevated blood pressure should be restarted on her blood pressure medication lisinopril. She was on that in the past. Follow-up with her primary care physician. History & Record Review Discussion w/independent historian: Patient Additional record(s) reviewed:: Prior inpatient record, Prior outpatient record, Prior ED visit and Prior labs Lab Data Attestation: I reviewed the patient's lab results. Lab results narrative: CBC normal. White count of 10. H&H 13 and 39. Platelets 304. Electrolytes show a gap of 10. Normal BUN of 12 creatinine 0.8. Glucose 121. Initial troponin is 11. 2-hour troponin is less than 6. Chest x-ray is unremarkable. Labs: Laboratory Results - last 24 hr 05/28/24 05/28/24 09:34 13:20 WBC 10.9 RBC 4.39 Hgb 13.1 Hct 39.2 MCV 89.3 MCH 29.8 MCHC 33.4 RDW Std Deviation 40.2 RDW Coeff of Ab 12.3 Plt Count 304 MPV 9.5 Immature Gran % (Auto) 0.300 Neut % (Auto) 80.1 H Lymph % (Auto) 13.9 L Trimble % (Auto) 5.0 Eos % (Auto) 0.5 Baso % (Auto) 0.2 Absolute Neuts (auto) 8.7 H Absolute Lymphs (auto) 1.52 Nucleated RBC % 0 Sodium 134 Potassium 4.1 Chloride 103 Carbon Dioxide 21.0 Anion Gap 10 BUN 12 Creatinine 0.89 Estim Creat Clear Calc 107.80 Est GFR (MDRD) Non-Af 82 BUN/Creatinine Ratio 13.4 Glucose 121 H Calcium 8.8 Troponin T High Sens 11 D Troponin T Hi Sens 2 Hr < 6 Radiography Chest X-Ray - ED: 2 View, Read by ED Physician, Normal, Heart, Lungs, Mediastinum, Bony Structures, No Acute Disease and Chronic Changes Diagnostic Testing: Clinical Impression(s) from Imaging Studies Chest X-Ray 05/28/24 09:11 IMPRESSION: NO ACUTE FINDINGS. [facility], 2 views, interpreted by myself and radiologist shows normal cardiac silhouette. Normal lung garcia. No acute abnormality. No effusions. Rhythm Strip Rhythm Strip: Sinus Rhythm Rate: 96 Ectopy: None EKG Initial EKG: Attestation: I personally reviewed and interpreted this EKG as follows: Interpretation: Sinus Rhythm and No Acute Injury Pattern Comments: Normal sinus rhythm rate of 96 no acute signs of AK nor ischemia no dysrhythmia. Discharge Plan Triage Chief Complaint: Chest Pain ED Provider: Venancio Conti Dx/Rx/DC Orders Clinical Impression: Chest pain, Hypertension, Type 2 diabetes mellitus Instructions: ED Hypertension, To Be Confirmed, ED Pain, Acute, Uncertain Cause Prescriptions: New lisinopril 5 mg tablet 5 mg PO DAILY Qty: 30 0RF No Action Breo Ellipta 200-25 mcg/dose blister with device 1 inh INHALATION DAILY multivitamin [Daily Multi-Vitamin] Tablet 1 tab PO DAILY cetirizine [Zyrtec] 10 mg Tablet 10 mg PO DAILY omeprazole 20 mg Capsule,Delayed Release(Dr/Ec) 20 mg PO BID montelukast [Singulair] 10 mg Tablet 10 mg PO DAILY ipratropium-albuterol 0.5 mg-3 mg(2.5 mg base)/3 mL solution for nebulization 3 ml inhalation Q4HWA.RT 5 Days Qty: 90 0RF Dupixent Pen 300 mg/2 mL pen injector 300 mg subcut .2X/MONTH Primary Care Provider: Bessie Warren Referrals: Bessie Warren MD [Primary Care Provider] - As soon as possible Activity Restrictions/Additional Instructions: Your labs, x-ray and EKG were unremarkable. Follow-up your primary care physician. Due to your recent elevated blood pressures we will restart your on your prior blood pressure medication lisinopril. Take this daily. Watch your blood pressures. Follow-up with your primary care physician. I would take your lisinopril an hour before you go to bed each night. Log your blood pressures in the morning after breakfast when you are calm and relaxed and in the evening. Take those blood pressure readings to your primary care physician so you and he can go over them to determine what to do with your blood pressure medication. Also consider ways to exercise and decrease stress which may help bring down your blood pressure and possibly enable you to stop the medication. Print Language: Mongolian Disposition Disposition: Home, Self Care
[2024-05-28 09:42] LABS: Absolute Lymphocyte Count 1.52 X10^3/uL (0.83-4.51); Absolute Neutrophil Count 8.7 X10^3/uL (2.0-7.7); Basophil# 0.02 X10^3/uL; Basophil% 0.2 % (0-1); Eosinophil# 0.05 X10^3/uL; Eosinophils% 0.5 % (0-5); Hematocrit 39.2 % (37-47); Hemoglobin 13.1 g/dL (12.0-15.0); Lymphocyte # 1.52 X10^3/ul (0.83-4.51); Lymphocyte % 13.9 % (19-41); Mean Corp Hgb Conc 33.4 g/dL (32-36); Mean Corpuscular Hgb 29.8 pg (27.0-32.0); Mean Corpuscular Volume 89.3 fL (81-99); Mean Platelet Vol. 9.5 fl (6.2-12.0); Monocyte# 0.54 X10^3/uL; NRBC Flagged by Analyzer 0 % (0-5); Neutrophil # 8.74 X10^3/uL (2.7-7.7); Neutrophil % 80.1 % (47-70); Platelet Count 304 K/mm3 (150-450); RBC Distribution Width CV 12.3 % (11.6-14.6); RBC Distribution Width SD 40.2 fl (35.1-43.9); Red Blood Count 4.39 M/mm3 (4.2-5.4); White Blood Count 10.9 K/mm3 (4.4-11.0)
[2024-05-28 10:02] LABS: Troponin T High Sensitivity 11 ng/L (<=14)
[2024-05-28 10:19] LABS: Anion Gap 10 (5-15); BUN 12 mg/dL (4-19); BUN/Creat Ratio 13.4 RATIO (10-20); Calcium,Total 8.8 mg/dL (7.6-11.0); Chloride 103 mmol/L (98-108); Creatinine, Serum 0.89 mg/dL (0.70-1.20); EST Glomerular Filtration Rate 82 (>60); Glucose 121 mg/dL (70-99); Potassium 4.1 mmol/L (3.3-5.1); Sodium Level 134 mmol/L (133-145)
[2024-05-28 11:04] VITALS: BP 149/91; PULSE 79; O2SAT 96
[2024-05-28 12:56] VITALS: BP 159/88; PULSE 90; O2SAT 97
[2024-05-28 13:44] LABS: Troponin T High Sens 2 HR < 6 ng/L (<=14)
[2024-05-28 14:16] VITALS: BP 144/90; PULSE 83; RESP 16; TEMP 36.3; O2SAT 96
== END 2024-05-28 14:23 | disposition home or self-care (01) ==
PROVIDERS: Emergency Provider Emergency Medicine; PCP Internal Medicine; Visit Provider Emergency Medicine
DX: R07.9 Chest pain, unspecified (principal); E11.9 Type 2 diabetes mellitus without complications; I10 Essential (primary) hypertension; E78.00 Pure hypercholesterolemia, unspecified; G47.30 Sleep apnea, unspecified; Z99.89 Dependence on other enabling machines and devices; K21.9 Gastro-esophageal reflux disease without esophagitis; Z79.899 Other long term (current) drug therapy; Z79.85 Long-term (current) use of injectable non-insulin antidiabetic drugs; Z90.49 Acquired absence of other specified parts of digestive tract
CPT/HCPCS: 71046; 80048; 84484; 85025; 93005; 99284; A4216

== ENCOUNTER → 2024-09-16 | Outpatient (CLI) | payer OTHER, SELFPAY | END | disposition home or self-care (01) | LOC: LABSPEC 15:55 | PROVIDERS: PCP Internal Medicine; Referring Provider Physician Assistant Medical; Visit Provider Physician Assistant Medical | DX: R35.0 Frequency of micturition (principal) | CPT/HCPCS: 87086; 87088 ==

== ENCOUNTER → 2024-10-23 | Outpatient (CLI) | payer OTHER, SELFPAY ==
[2024-10-23 18:18] LABS: Free T3 3.2 pg/mL (2.18-3.98)
== END | disposition home or self-care (01) ==
LOC: MTLAB 14:53
PROVIDERS: PCP Internal Medicine; Referring Provider Internal Medicine; Visit Provider Internal Medicine
DX: I10 Essential (primary) hypertension (principal); E66.01 Morbid (severe) obesity due to excess calories; Z68.42 Body mass index [BMI] 45.0-49.9, adult; L65.9 Nonscarring hair loss, unspecified
CPT/HCPCS: 36415; 84439; 84443; 84481; 86376; 86800

== ENCOUNTER → 2024-12-09 | Outpatient (CLI) | payer OTHER, SELFPAY ==
--- OUTSIDE RECORDS SUMMARY | 2024-11-21 09:03 | XMS RPT_ITS ---
Author Name Auto Generated Organization [facility] Care Team Providers Care Assistant Counsel Name Role Phone RUTHIE CROOK Primary Care Unavailable ILDA CLIFFORD Attending Unavailable KADE OBANDO Attending Unavailable GLADIS GANT Primary Care UnavailRUTHIE Romero Primary Care Unavailable ARASH FRASER Referring Unavailable RUTHIE CROOK Primary Care Unavailable AIDA MAKI Attending Unavailable KADE OBANDO Referring Unavailable RUTHIE CROOK Primary Care Unavailable AIDA MAKI Referring Unavailable RUTHIE CROOK Primary Care Unavailable RUTHIE CROOK Primary Care Unavailable AIDA MAKI Attending Unavailable RUTHIE CROOK Primary Care Unavailable PROBLEMS DATE TYPE CONDITION / CODE ATTENDING STATUS [facility] 11/21/2024 Active Bacterial sinusi tis / J32.9(ICD-10) ILDA CLIFFORD Active [facility] 11/21/2024 Active Bacterial sinusi tis / B96.89(ICD-10) ILDA CLIFFORD Active [facility] 06/19/2024 Active HARJIT on CPAP / G47.33(ICD-10) AIDA MAKI Active [facility] 06/19/2024 Active Gastroesophageal reflux disease, unspecified whether esophagitis present / K21.9(ICD-10) AIDA MAKI Active [facility] 06/19/2024 Active Migraine without aura, not intractable, without status migrainosus / G43.009(ICD-10) AIDA MAKI Active [facility] 06/19/2024 Active Intermittent ast hma, unspecified asthma severity, unspecified whether complicated (HCC) / J45.20(ICD-10) AIDA MAKI Active [facility] 12/14/2023 Active Type 2 diabetes mellitus without complication, without long-term current use of insulin (HCC) / E11.9(ICD-10) NA Active [facility] 05/06/2008 Active Essential hypert ension, benign / I10(ICD-10) NA [facility] 05/22/2024 Active NAFLD (nonalcoho lic fatty liver disease) / K76.0(ICD-10) NA [facility] 05/22/2024 Active Chronic kidney d isease, unspecified CKD stage / N18.9(ICD-10) NA Active [facility] 05/22/2024 Active Screening choles terol level / Z13.220(ICD-10) AIDA MAKI [facility] 05/22/2024 Active Screening for de ficiency anemia / Z13.0(ICD-10) AIDA MAKI [facility] 05/22/2024 Active Screening for di abetes mellitus / Z13.1(ICD-10) AIDA MAKI Active [facility] 05/22/2024 Active Screening for me tabolic disorder / Z13.228(ICD-10) AIDA MAKI [facility] 05/22/2024 Active Screening for th yroid disorder / Z13.29(ICD-10) AIDA MAKI [facility] 05/22/2024 Active Encounter for vi tamin deficiency screening / Z13.21(ICD-10) AIDA MAKI [facility] 05/22/2024 Active Class 3 severe o besity due to excess calories with serious comorbidity and body mass index (BMI) of 45.0 to 49.9 in adult (HCC) / E66.813(ICD-10) AIDA MAKI [facility] 05/22/2024 Active Class 3 severe o besity due to excess calories with serious comorbidity and body mass index (BMI) of 45.0 to 49.9 in adult (HCC) / Z68.42(ICD-10) AIDA MAKI [facility] 05/22/2024 Active Class 3 severe o besity due to excess calories with serious comorbidity and body mass index (BMI) of 45.0 to 49.9 in adult (HCC) / E66.01(ICD-10) JACK AIDA Active [facility] 05/22/2024 Active Obstructive slee p apnea syndrome / G47.33(ICD-10) JACKAIDA Active [facility] 02/27/2024 Active Acute cough / R05.1(ICD-10) NA A ctive [facility] PROCEDURES No Procedure Records Found RESULTS PROGRESS Observed: 11/21/2024 9:22 AM Status: COMPLETED Source: [facility] HNO ID: [id number] Author: ILDA CLIFFORD APRN.RECEIVING LEAD Service: ? Author Type: Nurse Practitioner Type: Progress Notes Filed: 11/21/2024 09:23 Note Text: [facility]RG[facility] CARE YUKOJAYLA Cruz is a 44 year old female. Patient presents with: Sinus Problem: Pressure and pain, runny nose, runny eyes, cough, chest congestion, sore throat, ears clogged x 1 week HPI Patient presents today complaining of 1 week of sinus pressure, drainage, sore throat, and cough. Denies any recent fevers. Does note a history of seasonal allergies. Review of Systems As above Objective BP 153/97 Pulse 77 Temp 36.6 ?C (97.9 ?F) Resp 20 Wt 133 kg (293 lb 3.4 oz) LMP 11/13/2024 (Exact Date) SpO2 98% BMI 50.33 kg/m? Physical Exam Vitals and nursing note reviewed. Constitutional: General: She is not in acute distress. Appearance: Normal appearance. She is not ill-appearing. HENT: Head: Normocephalic. Mouth/Throat: Mouth: Mucous membranes are moist. Pharynx: No oropharyngeal exudate or posterior oropharyngeal erythema. Eyes: Conjunctiva/sclera: Conjunctivae normal. Cardiovascular: Rate and Rhythm: Normal rate and regular rhythm. Pulmonary: Effort: Pulmonary effort is normal. Breath sounds: Normal breath sounds. Musculoskeletal: General: Normal range of motion. Cervical back: Normal range of motion. Skin: General: Skin is warm and dry. Neurological: General: No focal deficit present. Mental Status: She is alert. Psychiatric: Mood and Affect: Mood normal. Behavior: Behavior normal. {ASSESSMENT/PLAN: 1. Bacterial sinusitis - ICD9: 473.9, 041.9, ICD10: J32.9, B96.89 -Discussed with patient symptoms could be consistent with ongoing seasonal allergies versus sinus infection. Discussed the use of continued [id number] treatments for symptomatic relief. Patient was given a delayed prescription as noted below if symptoms do not improve. - DOXYCYCLINE MONOHYDRATE 100 MG CAPSULE Ilda Clifford APRN.RECEIVING LEAD Disposition The patient was discharged. Procedures CNOV Observed: 11/21/2024 9:15 AM Status: COMPLETED Source: [facility] Office Visit (WOAI) HÉCTOR CRUZ ([id number]) 1980 F Date Time Provider Department 11/21/24 9:15 AM ILDA CLIFFORD During your visit today, we recorded the following information about you: Temperature Pulse Respiration Blood pressure 97.9 degrees 77/minute 20/minute 153/97 Weight Last Period 133 kg 11/13/24 Ilda Clifford APRN.RECEIVING LEAD 11/21/2024 9:23 AM Signed [facility] Subjective Héctor Cruz is a 44 year old female. Patient presents with: Sinus Problem: Pressure and pain, runny nose, runny eyes, cough, chest congestion, sore throat, ears clogged x 1 week HPI Patient presents today complaining of 1 week of sinus pressure, drainage, sore throat, and cough. Denies any recent fevers. Does note a history of seasonal allergies. Review of Systems As above Objective BP 153/97 Pulse 77 Temp 36.6 ?C (97.9 ?F) Resp 20 Wt 133 kg (293 lb 3.4 oz) LMP 11/13/2024 (Exact Date) SpO2 98% BMI 50.33 kg/m? Physical Exam Vitals and nursing note reviewed. Constitutional: General: She is not in acute distress. Appearance: Normal appearance. She is not ill-appearing. HENT: Head: Normocephalic. Mouth/Throat: Mouth: Mucous membranes are moist. Pharynx: No oropharyngeal exudate or posterior oropharyngeal erythema. Eyes: Conjunctiva/sclera: Conjunctivae normal. Cardiovascular: Rate and Rhythm: Normal rate and regular rhythm. Pulmonary: Effort: Pulmonary effort is normal. Breath sounds: Normal breath sounds. Musculoskeletal: General: Normal range of motion. Cervical back: Normal range of motion. Skin: General: Skin is warm and dry. Neurological: General: No focal deficit present. Mental Status: She is alert. Psychiatric: Mood and Affect: Mood normal. Behavior: Behavior normal. {ASSESSMENT/PLAN: 1. Bacterial sinusitis - ICD9: 473.9, 041.9, ICD10: J32.9, B96.89 -Discussed with patient symptoms could be consistent with ongoing seasonal allergies versus sinus infection. Discussed the use of continued fwaj-uis-[id number] treatments for symptomatic relief. Patient was given a delayed prescription as noted below if symptoms do not improve. - DOXYCYCLINE MONOHYDRATE 100 MG CAPSULE Ilda Clifford APRN.RECEIVING LEAD Disposition The patient was discharged. Procedures Allergies As of Date: 11/21/2024 Noted Allergy Reaction PENICILLINS 2006 4 - Hives ADVAIR DISKUS (FLUTICASONE PROPIO*12/27/2010 7 - Swelling METFORMIN 06/19/2024 14 - Other: See Comments Comments: Increased lactic acid LATEX 2006 5 - Intolerance Comments: Possible latex allergy- bandaids Date Reviewed: 11/21/2024 Reviewed by: Ilda Clifford APRN.RECEIVING LEAD - Fully Assessed Reason for Visit: Sinus Problem [99] Cmt: Pressure and pain, runny nose, runny eyes, cough, chest congestion, sore throat, ears clogged x 1 week Primary Visit Diagnosis:Bacterial sinusitis [J32.9, B96.89] Order(s):doxycycline monohydrate (MONODOX) 100 mg capsuleTake 1 capsule by mouth two times a day for 7 days.Disp: 14 capsuleRfl: 0 Prescriptions as of 11/21/2024 - magnesium oxide 300 mg magnesium tab Take 1 tablet by mouth daily at bedtime. - doxycycline monohydrate (MONODOX) 100 mg capsule Take 1 capsule by mouth two times a day for 7 days. - lisinopril (ZESTRIL) 5 mg tablet Take 10 mg by mouth once daily. - traZODone (DESYREL) 50 mg tablet Take 50 mg by mouth at bedtime as needed for sedation. - dupilumab 300 mg/2 mL subcutaneous pen injector (DUPIXENT) Inject 300 mg subcutaneously every 2 weeks. - ipratropium-albuterol (DUONEB) 0.5 mg-3 mg(2.5 mg base)/3 mL nebu Inhale 3 mL as instructed every 4 hours as needed for wheezing/shortness of breath. - Cholecalciferol, Vitamin D3, (VITAMIN D-3) 50 mcg (2,000 unit) cap Take 200 Units by mouth once daily. - gabapentin (NEURONTIN) 300 mg capsule Take 300 mg by mouth daily at bedtime. - levonorgestrel (LILETTA) 20.4 mcg/24 hr (8 yrs) 52 mg IUD 1 Each by INTRAUTERINE route as directed. - omeprazole (PRILOSEC) 20 mg capsule - montelukast (SINGULAIR) 10 mg tablet - cetirizine (ZYRTEC) 10 mg tablet Take by mouth. - BREO ELLIPTA 200-25 mcg/dose inhaler 1 PUFF DAILY WITH GOOD ORAL CARE - albuterol HFA (PROAIR HFA) 90 mcg/actuation inhaler Inhale 2 Puffs as instructed every 4 hours as needed. Problem List As Of Date 11/21/2024 Noted Resolved Supervision of normal first [Z34.00] 09/23/2006 12/29/2011 Mild hyperemesis gravidarum, antepartum [O21.0] 10/03/2006 01/16/2012 Threatened premature labor, antepartum [O47.00] 01/30/2007 01/16/2012 Other malaise and fatigue [R53.81, R53.83] 05/06/2008 01/16/2012 BENIGN HYPERTENSION [I10] 05/06/2008 Previous section [Z98.891] 12/29/2011 08/07/2012 History of delivery, currently *12/29/2011 08/07/2012 History of recurrent UTI (urinary tract infecti*12/29/2011 08/07/2012 History of kidney stones [Z87.442] 12/29/2011 04/16/2012 Patient requested diagnostic testing [Z01.89] 12/29/2011 04/16/2012 Nausea/vomiting in [O21.9] 12/29/2011 03/15/2012 Anesthesia complication [T88.59XA] 12/29/2011 04/16/2012 History of cardiac dysrhythmia [Z86.79] 12/29/2011 08/07/2012 Immunization due [Z23] 12/29/2011 08/07/2012 High-risk [O09.90] 01/02/2012 08/07/2012 Advanced maternal age in multigravida [O09.529] 02/06/2015 10/15/2015 History of classical section [Z98.891] 02/06/2015 10/15/2015 Previous delivery in first trimester, a*02/06/2015 10/15/2015 Nausea and vomiting of , antepartum [O*02/06/2015 10/15/2015 Single umbilical artery [Q27.0] 05/05/2015 10/15/2015 Type 2 diabetes mellitus (HCC) [E11.9] 09/14/2022 Hyperlipidemia [E78.5] 12/14/2023 Migraine headache [G43.909] 12/23/2021 Prescriptions ordered this encounter Disp Refills Start End DOXYCYCLINE MONOHYDRATE 100 MG CAPSU* 14 c* 0 11/21/2024 11/28/2024 Class: Print RX Route: PO Sig: Take 1 capsule by mouth two times a day for 7 days. Encounter Status:Closed by ILDA CLIFFORD on 11/21/24 CNOV Observed: 06/19/2024 3:00 PM Status: COMPLETED Source: [facility] Office Visit (OBGYWM) HÉCTOR CRUZ ([id number]) 1980 F Date Time Provider Department 06/19/24 3:00 PM AIDA MAKI During your visit today, we recorded the following information about you: Pulse Blood pressure Weight Last Period 84/minute 138/82 124.3 kg 06/08/24 Aida Maki APRN.RECEIVING LEAD 06/19/2024 6:52 PM Signed Some documentation from previous visit of 05/22/2024 was copied and pasted, documentation has been reviewed and edited as necessary for today's visit. Patient Summary: Héctor is a 43 year old Female who presents for follow-up evaluation of obesity/weight management to treat and prevent related co-morbidities. In our previous visits we have discussed lifestyle intervention including a nutrition recommendations and physical activity optimization. Her last office visit was 1 month ago. Assessment/plan from last visit: message - [facility] 05/27 BP 162/17, elevated lactic acid after taking 1 dose of metformin - metformin discontinued. Lisinopril started Has had 2 follow-up visits with PCP. Lisinopril increased to 10 mg Interval History PT specifies the following items as new or significant updates since the last appointment: Month finally calming down. LIRIANO first week - could have been from cutting out sugar or elevated BP. message - [facility] 05/27 BP 162/17, elevated lactic acid - metformin discontinued Weight loss since last vist: 5 lbs Date Last Wt BMI AOM 06/19/2024 274 lb 47.03 05/22/2024 279 lb 47.98 5% weight loss = 265 lbs, 10% weight loss = 255 lbs Anti-obesity medications: none Weight promoting medications: gabapentin, Inhaled corticosteroid Previous Diet (initial appointment): Diet/Nutrition overview: Awake - 0500 B - 0630 cheese stick or orange/ WE or if home in summer eggs/toast/christianson S - none L - 0945 school - school lunch OR home - lunch meat sandwich or can of soup and sometimes fruit S - dollar fast food sandwich and regular pop or crackers/leftovers struggle time D - 6 pm meat/potato/veg No dessert S - sometimes banana bread or ice cream or taco if not full/satisfied Fluids: water and sometimes milk at work, water at home, regular pop afternoon 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 Smaller portion pasta/rice if having it. S - coffee with sweetened creamer before bed Fluids - water, unsweet tea with Splenda, coffee with sweetened creamer before bed Current Barriers: excessive hunger/lack of satiety signals on weekend day, inadequate sleep duration, and reduced physical activity Exercise: increased walking Regular exercise: Got walking pad - 10 min in evening Strength/resistance exercise:no Barriers to regular exercise? Yes, asthma Work-related activity:Sedentary. - trying to walk more while at work Gym Membership: no Activity Tracker: no average steps per day 5000 Stress: decreased Work, Financial, Personal, health Sleep: increased 8-9 hours, still getting up once a night. Sometimes up for 30 minutes. HARJIT YES ; CPAP YES Estimated Creatinine Clearance: 122.6 mL/min (based on SCr of 0.78 mg/dL). PAST MEDICAL HISTORY Diagnosis Date Cardiac dysrhythmia, unspecified remembers HR going high in a CS Chronic kidney disease Complication of anesthesia NAUSEA WITH ANESTHESIA Eosinophilic asthma GERD (gastroesophageal reflux disease) Dr. Eldridge H/O blood transfusion reaction BORN PREMATURE HAD BLOOD INFECTION Hypertension Infertility, female HARJIT on CPAP Type 2 diabetes mellitus (HCC) 09/14/2022 Urinary calculus, unspecified 1998 Renal stones Urinary tract infection, site not specified Recurrent UTI's Current Outpatient Medications Medication Sig Dispense Refill lisinopril (ZESTRIL) 5 mg tablet Take 10 mg by mouth once daily. traZODone (DESYREL) 50 mg tablet Take 50 mg by mouth at bedtime as needed for sedation. dupilumab 300 mg/2 mL subcutaneous pen injector ([employer] IntelligenceIXTreater) Inject 300 mg subcutaneously every 2 weeks. ipratropium-albuterol (DUONEB) 0.5 mg-3 mg(2.5 mg base)/3 mL nebu Inhale 3 mL as instructed every 4 hours as needed for wheezing/shortness of breath. Cholecalciferol, Vitamin D3, (VITAMIN D-3) 50 mcg (2,000 unit) cap Take 200 Units by mouth once daily. gabapentin (NEURONTIN) 300 mg capsule Take 300 mg by mouth daily at bedtime. levonorgestrel (LILETTA) 20.4 mcg/24 hr (8 yrs) 52 mg IUD 1 Each by INTRAUTERINE route as directed. 1 Each 0 omeprazole (PRILOSEC) 20 mg capsule montelukast (SINGULAIR) 10 mg tablet cetirizine (ZYRTEC) 10 mg tablet Take by mouth. BREO ELLIPTA 200-25 mcg/dose inhaler 1 PUFF DAILY WITH GOOD ORAL CARE albuterol HFA (PROAIR HFA) 90 mcg/actuation inhaler Inhale 2 Puffs as instructed every 4 hours as needed. 1 Inhaler 0 No current facility-administered medications for this visit. 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 Physical Exam Constitutional: She appears healthy. No distress. Results: recent labs reviewed with the patient. Latest Ref Rng AND Units 05/22/2024 CMP Sodium 136 - 144 mmol/L 136 Potassium 3.7 - 5.1 mmol/L 4.0 Chloride 98 - 107 mmol/L 101 CO2 22 - 30 mmol/L 23 Glucose 74 - 99 mg/dL 126 BUN 7 - 21 mg/dL 15 Creatinine 0.58 - 0.96 mg/dL 0.78 EGFR >=60 mL/min/1.73m? 97 Protein, Total 6.3 - 8.0 g/dL 8.2 Albumin 3.9 - 4.9 g/dL 4.5 Calcium 8.5 - 10.2 mg/dL 9.6 Bilirubin, Total 0.2 - 1.3 mg/dL 0.5 AST 13 - 35 U/L 18 ALT 7 - 38 U/L 18 Alkaline Phosphatase 34 - 123 U/L 92 Cholesterol, Total (mg/dL) Date Value 05/22/2024 264 HDL Cholesterol (mg/dL) Date Value 05/22/2024 45 LDL Cholesterol (mg/dL) Date Value 05/22/2024 173 Triglyceride (mg/dL) Date Value 05/22/2024 231 Latest Ref Rng AND Units 05/22/2024 CBC WBC 3.70 - 11.00 k/uL 10.96 RBC 3.90 - 5.20 m/uL 4.59 Hemoglobin 11.5 - 15.5 g/dL 13.5 Hematocrit 36.0 - 46.0 % 41.3 MCV 80.0 - 100.0 fL 90.0 MCH 26.0 - 34.0 pg 29.4 MCHC 30.5 - 36.0 g/dL 32.7 RDW-CV 11.5 - 15.0 % 12.5 Platelet Count 150 - 400 k/uL 330 MPV 9.0 - 12.7 fL 9.6 Vitamin D 25 Hydroxy Date Value Ref Range Status 08/13/2020 32.4 31.0 - 80.0 ng/mL Final Comment: Classification of 25 OH Vitamin D status: Insufficiency/Moderate Deficiency: < or = 30 ng/mL Sufficiency/Optimal Levels: 31 to 80 ng/mL Toxicity: > 100 ng/mL Test performed by chemiluminescent immunoassay. 12/10/2019 33.7 31.0 - 80.0 ng/mL Final Comment: Classification of 25 OH Vitamin D status: Insufficiency/Moderate Deficiency: < or = 30 ng/mL Sufficiency/Optimal Levels: 31 to 80 ng/mL Toxicity: > 100 ng/mL Test performed by chemiluminescent immunoassay. TSH (uU/mL) Date Value 03/30/2018 1.150 06/06/2016 1.040 Hemoglobin A1C (%) Date Value 05/22/2024 6.2 02/19/2019 5.7 Anti-Obesity Medications >Phentermine: No uncontrolled HTN, No CVD Hx or hx of seizure disorder. No MAOI inhibitor use. No drug abuse hx. Crcl > 15. Palpitations with caffeine use. >Topiramate/zonisamide: No seizure, kidney stone or glaucoma hx. Has hx of migraines, and hx of poor sleep. Is of Child bearing age - tubal sterilization. 12/2023 - US shows lt renal calculi >Qsymia: see above >Contrave: No uncontrolled HTN or hx of seizure disorder. No MAOI inhibitor use. No opiate use. >Saxenda/Wegovy/Ozempic: Cost. Ins coverage? >Metformin: eGFR > 30. No contraindications or medication interactions. Assessment/Plan: Héctor Cruz is a 43 year old yo with Class III obesity who presented today for follow up for supervised weight loss to treat and prevent related co-morbidities. 1. HARJIT on CPAP - ICD9: 327.23, ICD10: G47.33 (primary diagnosis) - benefits of weight loss discussed - Whole food balanced protein low-carb nutrition 2. Type 2 diabetes mellitus without complication, without long-term current use of insulin ([facility]) - ICD9: 250.00, ICD10: E11.9 05/22/2024 Hgba1c 6.2 FBS 126 09/2022 - Hgba1c 7.1 3. Essential hypertension, benign - ICD9: 401.1, ICD10: I10 - lisinopril 10 mg - benefits of weight loss discussed - Whole food balanced protein low-carb nutrition - is now checking blood pressure at home on a regular basis 4. Gastroesophageal reflux disease, unspecified whether esophagitis present - ICD9: 530.81, ICD10: K21.9 - omeprazole daily -Lifestyle changes - benefits of weight loss discussed - Whole food balanced protein low-carb nutrition 5. NAFLD (nonalcoholic fatty liver disease) - ICD9: 571.8, ICD10: K76.0 6. Chronic kidney disease, unspecified CKD stage - ICD9: 585.9, ICD10: N18.9 - Eat only fresh meat. Chicken Fish, eggs. Beef a couple of times a week. No preserved or processed meats such as meat sticks, pepperoni, lunch meat, salami, jerky. Look for low sodium and nitrate/nitrite free. 7. Migraine without aura, not intractable, without status migrainosus - ICD9: 346.10, ICD10: G43.009 8. Intermittent asthma, unspecified asthma severity, unspecified whether complicated ([facility]) - ICD9: 493.90, ICD10: J45.20 - multiple medications 9. Class 3 severe obesity due to excess calories with serious comorbidity and body mass index (BMI) of 45.0 to 49.9 in adult ([facility]) - ICD9: 278.01, V85.42, ICD10: E66.813, Z68.42, E66.01 Weight decreasing Bariatric surgery is an exclusion from her health insurance. -ER 500 MG discontinued elevated lactic acid - Recommended whole food balanced protein, controlled carbohydrate nutrition plan. - Given protein, whole food and high protein nutrition lists. - Encouraged the patient to improve her physical activity. 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 An overall goal of 150-200 minutes per week of exercise has been effective in weight loss and maintenance. Prescription instructions reviewed with patient as applicable. Potential red flag symptoms discussed with the patient. Reviewed appropriate action plan to take if red flag symptoms occur. Patient agreeable to treatment plan. Follow up in 4 weeks Aida Maki CNP Advanced Education from the [employer] I spent a total of 51 minutes on the date of the service which included preparing to see the patient, [id number] patient care, completing clinical documentation, obtaining and/or reviewing separately obtained history, performing a medically appropriate examination, counseling and educating the patient/family/caregiver, ordering medications, tests, or procedures, and communicating results to the patient/family/caregiver. Aida Maki, GEOMAGNETIST.RECEIVING LEAD 06/19/2024 3:45 PM Addendum - Whole food balanced protein, controlled carbohydrate nutrition plan - 30 g of protein 3 times a day and up to 30 g of carbs at lunch and dinner only. Breakfast - 30 gm protein with limit of 2 gm carbohydrates. Options include: Premier Protein or generic 30 gm protein 1 gm sugar or 5 eggs or 2-3 eggs and some unbreaded meat and/or cheese. No fruit, vegetables, bread, grain, yogurt, Smoothies, etc. Lunch and dinner - 30 gm protein is the goal with less than 30 gm carbohydrates Snacks - all protein or more protein than carbs Protein - no carbs Egg 1 large - 6g Egg white 1 large 3.6g 3 oz is approximately the size of a deck of cards and equals 21 g protein so 4 oz is 28 gm protein Beef, Chicken, [place], Pork, Stubbs 1 oz 7g Fish, Tuna Fish 1 oz 7g (Starkist tuna packet 2.6 oz 17 gm protein) Seafood (Crabmeat, Shrimp, Lobster) 1 oz 6g Protein shakes (read labels) Premier Protein or generic [employer] Equate, [employer] High Performance- 30g protein AND 1g carb - meal replacement Premier Protein powder or generic- 30 gm protein, 1g carb Premier Protein plant protein powder - 25 gm protein, 0 sugar/2 carb Vanilla and chocolate (not a meal replacement) Fairlife 30 gram protein - 30g protein AND 3g carb BOOST Glucose Control Max 30g Protein Nutritional Drink - 30g protein AND 1 carb - meal replacement Slimfast High Protein - 20g protein AND 1g carb Ensure Max Protein Nutrition Shake 30g protein AND 2 carb Protein AND carbs Beef/Denton Jerky 1 oz dried 10-15g protein - check carb count, can be high if sugar added Slim Paul - 6 gm protein and 4 net carb Great Value original turkey sausage sticks - 7 gm protein and 2 gm carb Flavia (at [facility]) Original smoked sausage sticks - 8 gm protein and 0 carb Imitation Crab Meat 1 oz - 2g protein AND 4g carb Milk, skim 2% or 1% 8 oz - 8g protein AND 12g carb Fairlife 2% milk 8 oz -13 g protein AND 6g carb Prydeinig yogurt Full Fat Prydeinig Yogurt 1 cup - 20.4g protein AND 9.1g carb 2% Prydeinig Yogurt 1 cup - 22.7g protein AND 9.1g carb 0% (fat-free) Prydeinig Yogurt - 1 cup 24g protein AND 9.3g carb Aldi Protein Prydeinig yogurt single svg - 13/g15g protein AND 7g carb Chobani Zero Sugar single svg: - 12g protein AND 5g carb Chobani drinkable 15g, 20g and 30g protein AND 18 carb Dannon Prydeinig Light + Fit 1 single svg - 12g protein AND 9g carb Oikos Pro single svg - 20g protein AND 8g carb Oikos Triple Zero Prydeinig Nonfat Yogurt 1 single svg - 15g protein AND 7g carb Oikos Pro drinkable yogurt 1 single svg - 23 g protein AND 8 g carb :ratio, KETO Friendly Dairy Snack 1 single svg - 15g protein AND 2g carb :ratio Protein 1 single svg - 25g protein AND 8g carb Two Good Lowfat Prydeinig Yogurt, [place], Lower Sugar - 12g protein AND 2g carb Yoplait Protein 1 single svg 15gm protein AND 5gm carb Dairy Free - [place] unsweetened Prydeinig almond/soy 15 gm protein AND 3 gm carb Dairy Free - True Goodness by Meron coconut-based yogurt alternative 1 gm protein 1 gm net carb 180 jackelin Cheese each oz Brie 5.9g protein AND 0.1g carb Cheddar 7g protein AND 0.4g carb Jos 6.7g protein AND 0.7g carb Cream Cheese 1.7g protein AND 1.2g carb Feta 4g protein AND 1.2g carb Mozzarella 6.3g protein AND 0.6g carb Parmesan 10g protein AND 0.9g carb Canadian 7.6g protein AND 1.5g carb Cottage Cheese 1/2 c Breakstone 2% 13g protein 7g carb Radha 2% 13g protein 5 g carb Good Culture 2% 14g protein 3g carb Garner?s Low Fat 12g protein AND 4g carb Legumes Lentils ? cup 9g protein AND 20g carb Vargas beans ? cup 7g protein AND 20g carb Kidney, Black, [place], Cannellini beans ? cup 8g protein AND 20g carb Soybeans 1/2 c 14g complete protein AND 8.5g carb Dale milk, unsweetened 8 oz 1g protein AND 2g carb Soy milk 8 oz 3.5g protein AND 1.6g carb Tofu 1/2 cup 10g protein AND 2.3g carb Peanut butter, natural 2 Tbsp 7-8g protein AND 4g net carbs, 190 calories PB2 powder 2 Tbsp 6g protein AND 5g carb Nuts and Seeds per oz Almonds - 5.9g protein AND 6.1g carb Henderson Nuts - 4.0g protein AND 3.4g carb Cashews - 5.1g protein AND 9.2g carb Hazelnuts - 4.2g protein AND 4.7g carb Hemp seeds/hearts 3 T/30 gms - 9.5 gm complete protein and 2.5 gm carb Peanuts - 7g protein AND 4.6g carb Pecans - 2.6g protein AND 3.9g carb Pistachios - 5.8g protein AND 7.8g carb Pumpkin Seeds - 6.9g protein AND 5g carb [place] Seeds - 5.8g protein AND 5.6g carb Walnuts - 4.3g protein AND 3.8g carb Edamame Beans (soybean) snack 1 pack 11 gm complete protein 2 carb 5 (FIVE) gram carb vegetable options 1 cup raw OR ? cup cooked: Asparagus Otto sprouts Beets Broccoli Brussel sprouts Cabbage Carrots Cauliflower Celery Kohler Eggplant Green beans Lettuce Peppers Snap peas Spaghetti squash Spinach Tomato Turnips Zucchini 15 gram carb vegetable options ? cup cooked corn or hominy ? corn on the cob, large (5 oz) ? cup cooked green peas 4.3 gm complete protein ? cup cooked vargas beans 1 small potato or sweet potato ? cup cooked potato, plain ? cup cooked sweet potato, plain 1 cup winter squash (pumpkin, acorn, butternut) 1 cup marinara or pasta sauce - check label ? cup tomato juice ? cup tomato puree Beans, Seeds, Nuts ? cup cooked beans (kidney, chambers, red, green, etc.) ? cup cooked lentils ? cup baked beans 4 tablespoons nut butter <15 gram carb fruit options Berries have the lowest sugar content 1/2 medium apple - 12.5 carbs 1/2 medium avocado - 6.5 gm carbs 1/2 medium banana - 15 carbs 1/2 cup blueberries - 11 carbs - may actually help you lose weight 1/2 cup fresh cherries -11 carbs 1 medium Shawanda -9 carbs 1/2 cup fresh cranberries - 6.5 carbs 1/2 c grapes - 15 carbs 1/2 medium grapefruit - 10.5 carbs 1/2 cup diced honeydew melon - 8 carbs 1 medium kiwi without skin - 11 carbs 1/2 cup sliced johnie -14 carbs 1 medium nectarine - 15 carbs 1 medium orange -15.5 carbs 1 medium peach -14.5 carbs 1/2 cup fresh pineapple -11 carbs 1 medium plum -7.5 carbs 1 prune - 6 carbs 1/4 c raisins - 31.25 carbs 1/2 cup raspberries -7.5 carbs 1/2 c strawberries - 12.7 carbs 1 medium tangerine -12 carbs 1/2 cup diced watermelon - 6 carbs Grains Brown rice 1/2 c 5.5g protein 24 carb White long-grain rice 1/2 c 2g protein 22.5 carb Quinoa 1/2 c 4 gm complete protein 25 carb Oatmeal, old fashioned 1/2 c 5g protein 27g carb High Protein Snack Ideas 1. Jerky 2. Bricelyn mix without dried fruit 3. Denton roll-ups 4. Prydeinig yogurt 5. Veggies and yogurt dip 6. Tuna 7. Hard-boiled eggs 8. Peanut butter with celery 9. Cheese slices/ Cheese Stick 10. Handful of almonds, peanuts or walnuts 11. Cottage Cheese 12. Beef sticks 13. Protein bars 14. Canned Mccomb 15. Pumpkin seeds 16. Nut butter 17. Protein shakes 18. Avocado and chicken salad 19. Egg muffins 20. Leftover protein or lunch meat 21. 1/2 c blended cottage cheese or Prydeinig yogurt with dry ranch/Mrs. Dash/herb seasoning mix to make protein dip 22. 1/2 c blended cottage cheese with 1 Tbsp sugar-free dry cheesecake pudding mix 12g protein 10 carb 23. Pudding - 1 30 gm protein shake with 1/2 pkg sugar-free pudding 4 svgs - 7.8 gm protein, 5 carb each svg 24. SF Sunkist or Root Beer with 1-2 Tablespoons heavy whipping cream 25. Mini frozen dessert bites - layer protein yogurt, skinny syrup and crushed nuts and freeze Coffee - Splenda with [facility] PB carrots/celery hearts Allergies As of Date: 06/19/2024 Noted Allergy Reaction PENICILLINS 2006 4 - Hives ADVAIR DISKUS (FLUTICASONE PROPIO*12/27/2010 7 - Swelling METFORMIN 06/19/2024 14 - Other: See Comments Comments: Increased lactic acid LATEX 2006 5 - Intolerance Comments: Possible latex allergy- bandaids Date Reviewed: 06/19/2024 Reviewed by: Aida Maki APRN.RECEIVING LEAD - Fully Assessed Reason for Visit: Weight Management [3933] Primary Visit Diagnosis:HARJIT on CPAP [G47.33] Other Visit Diagnoses:Type 2 diabetes mellitus without complication, without long-term current use of insulin ([facility]) [E11.9] Essential hypertension, benign [I10] Gastroesophageal reflux disease, unspecified whether esophagitis present [K21.9] NAFLD (nonalcoholic fatty liver disease) [K76.0] Chronic kidney disease, unspecified CKD stage [N18.9] Migraine without aura, not intractable, without status migrainosus [G43.009] Intermittent asthma, unspecified asthma severity, unspecified whether complicated ([facility]) [J45.20] Class 3 severe obesity due to excess calories with serious comorbidity and body mass index (BMI) of 45.0 to 49.9 in adult ([facility]) [E66.813, Z68.42, E66.01] Prescriptions as of 06/19/2024 - lisinopril (ZESTRIL) 5 mg tablet Take 10 mg by mouth once daily. - traZODone (DESYREL) 50 mg tablet Take 50 mg by mouth at bedtime as needed for sedation. - dupilumab 300 mg/2 mL subcutaneous pen injector (DUPIXENT) Inject 300 mg subcutaneously every 2 weeks. - ipratropium-albuterol (DUONEB) 0.5 mg-3 mg(2.5 mg base)/3 mL nebu Inhale 3 mL as instructed every 4 hours as needed for wheezing/shortness of breath. - Cholecalciferol, Vitamin D3, (VITAMIN D-3) 50 mcg (2,000 unit) cap Take 200 Units by mouth once daily. - gabapentin (NEURONTIN) 300 mg capsule Take 300 mg by mouth daily at bedtime. - levonorgestrel (LILETTA) 20.4 mcg/24 hr (8 yrs) 52 mg IUD 1 Each by INTRAUTERINE route as directed. - omeprazole (PRILOSEC) 20 mg capsule - montelukast (SINGULAIR) 10 mg tablet - cetirizine (ZYRTEC) 10 mg tablet Take by mouth. - BREO ELLIPTA 200-25 mcg/dose inhaler 1 PUFF DAILY WITH GOOD ORAL CARE - albuterol HFA (PROAIR HFA) 90 mcg/actuation inhaler Inhale 2 Puffs as instructed every 4 hours as needed. Problem List As Of Date 06/19/2024 Noted Resolved Supervision of normal first [Z34.00] 09/23/2006 12/29/2011 Mild hyperemesis gravidarum, antepartum [O21.0] 10/03/2006 01/16/2012 Threatened premature labor, antepartum [O47.00] 01/30/2007 01/16/2012 Other malaise and fatigue [R53.81, R53.83] 05/06/2008 01/16/2012 BENIGN HYPERTENSION [I10] 05/06/2008 Previous section [Z98.891] 12/29/2011 08/07/2012 History of delivery, currently *12/29/2011 08/07/2012 History of recurrent UTI (urinary tract infecti*12/29/2011 08/07/2012 History of kidney stones [Z87.442] 12/29/2011 04/16/2012 Patient requested diagnostic testing [Z01.89] 12/29/2011 04/16/2012 Nausea/vomiting in [O21.9] 12/29/2011 03/15/2012 Anesthesia complication [T88.59XA] 12/29/2011 04/16/2012 History of cardiac dysrhythmia [Z86.79] 12/29/2011 08/07/2012 Immunization due [Z23] 12/29/2011 08/07/2012 High-risk [O09.90] 01/02/2012 08/07/2012 Advanced maternal age in multigravida [O09.529] 02/06/2015 10/15/2015 History of classical section [Z98.891] 02/06/2015 10/15/2015 Previous delivery in first trimester, a*02/06/2015 10/15/2015 Nausea and vomiting of , antepartum [O*02/06/2015 10/15/2015 Single umbilical artery [Q27.0] 05/05/2015 10/15/2015 Type 2 diabetes mellitus (HCC) [E11.9] 09/14/2022 Hyperlipidemia [E78.5] 12/14/2023 Migraine headache [G43.909] 12/23/2021 Other instructions from your clinician: - Whole food balanced protein, controlled carbohydrate nutrition plan - 30 g of protein 3 times a day and up to 30 g of carbs at lunch and dinner only. Breakfast - 30 gm protein with limit of 2 gm carbohydrates. Options include: Premier Protein or generic 30 gm protein 1 gm sugar or 5 eggs or 2-3 eggs and some unbreaded meat and/or cheese. No fruit, vegetables, bread, grain, yogurt, Smoothies, etc. Lunch and dinner - 30 gm protein is the goal with less than 30 gm carbohydrates Snacks - all protein or more protein than carbs Protein - no carbs Egg 1 large - 6g Egg white 1 large 3.6g 3 oz is approximately the size of a deck of cards and equals 21 g protein so 4 oz is 28 gm protein Beef, Chicken, Denton, Pork, Stubbs 1 oz 7g Fish, Tuna Fish 1 oz 7g (Starkist tuna packet 2.6 oz 17 gm protein) Seafood (Crabmeat, Shrimp, Lobster) 1 oz 6g Protein shakes (read labels) Premier Protein or generic [employer] Equate, [employer] High Performance- 30g protein AND 1g carb - meal replacement Premier Protein powder or generic- 30 gm protein, 1g carb Premier Protein plant protein powder - 25 gm protein, 0 sugar/2 carb Vanilla and chocolate (not a meal replacement) Fairlife 30 gram protein - 30g protein AND 3g carb BOOST Glucose Control Max 30g Protein Nutritional Drink - 30g protein AND 1 carb - meal replacement Slimfast High Protein - 20g protein AND 1g carb Ensure Max Protein Nutrition Shake 30g protein AND 2 carb Protein AND carbs Beef/[place]enton Jerky 1 oz dried 10-15g protein - check carb count, can be high if sugar added Slim Paul - 6 gm protein and 4 net carb Great Value original turkey sausage sticks - 7 gm protein and 2 gm carb Flavia (at [employer]) Original smoked sausage sticks - 8 gm protein and 0 carb Imitation Crab Meat 1 oz - 2g protein AND 4g carb Milk, skim 2% or 1% 8 oz - 8g protein AND 12g carb Fairlife 2% milk 8 oz -13 g protein AND 6g carb Prydeinig yogurt Full Fat Prydeinig Yogurt 1 cup - 20.4g protein AND 9.1g carb 2% Prydeinig Yogurt 1 cup - 22.7g protein AND 9.1g carb 0% (fat-free) Prydeinig Yogurt - 1 cup 24g protein AND 9.3g carb Aldi Protein Prydeinig yogurt single svg - 13/g15g protein AND 7g carb Chobani Zero Sugar single svg: - 12g protein AND 5g carb Chobani drinkable 15g, 20g and 30g protein AND 18 carb Dannon Prydeinig Light + Fit 1 single svg - 12g protein AND 9g carb Oikos Pro single svg - 20g protein AND 8g carb Oikos Triple Zero Prydeinig Nonfat Yogurt 1 single svg - 15g protein AND 7g carb Oikos Pro drinkable yogurt 1 single svg - 23 g protein AND 8 g carb :ratio, KETO Friendly Dairy Snack 1 single svg - 15g protein AND 2g carb :ratio Protein 1 single svg - 25g protein AND 8g carb Two Good Lowfat Prydeinig Yogurt, [place], Lower Sugar - 12g protein AND 2g carb Yoplait Protein 1 single svg 15gm protein AND 5gm carb Dairy Free - [place] unsweetened Prydeinig almond/soy 15 gm protein AND 3 gm carb Dairy Free - True Goodness by [employer] coconut-based yogurt alternative 1 gm protein 1 gm net carb 180 jackelin Cheese each oz Brie 5.9g protein AND 0.1g carb Cheddar 7g protein AND 0.4g carb Jos 6.7g protein AND 0.7g carb Cream Cheese 1.7g protein AND 1.2g carb Feta 4g protein AND 1.2g carb Mozzarella 6.3g protein AND 0.6g carb Parmesan 10g protein AND 0.9g carb Canadian 7.6g protein AND 1.5g carb Cottage Cheese 1/2 c Breakstone 2% 13g protein 7g carb Radha 2% 13g protein 5 g carb Good Culture 2% 14g protein 3g carb Garner?s Low Fat 12g protein AND 4g carb Legumes Lentils ? cup 9g protein AND 20g carb Vargas beans ? cup 7g protein AND 20g carb Kidney, Black, [place], Cannellini beans ? cup 8g protein AND 20g carb Soybeans 1/2 c 14g complete protein AND 8.5g carb Dale milk, unsweetened 8 oz 1g protein AND 2g carb Soy milk 8 oz 3.5g protein AND 1.6g carb Tofu 1/2 cup 10g protein AND 2.3g carb Peanut butter, natural 2 Tbsp 7-8g protein AND 4g net carbs, 190 calories PB2 powder 2 Tbsp 6g protein AND 5g carb Nuts and Seeds per oz Almonds - 5.9g protein AND 6.1g carb [place] Nuts - 4.0g protein AND 3.4g carb Cashews - 5.1g protein AND 9.2g carb Hazelnuts - 4.2g protein AND 4.7g carb Hemp seeds/hearts 3 T/30 gms - 9.5 gm complete protein and 2.5 gm carb Peanuts - 7g protein AND 4.6g carb Pecans - 2.6g protein AND 3.9g carb Pistachios - 5.8g protein AND 7.8g carb Pumpkin Seeds - 6.9g protein AND 5g carb [place] Seeds - 5.8g protein AND 5.6g carb Walnuts - 4.3g protein AND 3.8g carb Edamame Beans (soybean) snack 1 pack 11 gm complete protein 2 carb 5 (FIVE) gram carb vegetable options 1 cup raw OR ? cup cooked: Asparagus Otto sprouts Beets Broccoli Brussel sprouts Cabbage Carrots Cauliflower Celery Kohler Eggplant Green beans Lettuce Peppers Snap peas Spaghetti squash Spinach Tomato Turnips Zucchini 15 gram carb vegetable options ? cup cooked corn or hominy ? corn on the cob, large (5 oz) ? cup cooked green peas 4.3 gm complete protein ? cup cooked vargas beans 1 small potato or sweet potato ? cup cooked potato, plain ? cup cooked sweet potato, plain 1 cup winter squash (pumpkin, acorn, butternut) 1 cup marinara or pasta sauce - check label ? cup tomato juice ? cup tomato puree Beans, Seeds, Nuts ? cup cooked beans (kidney, chambers, red, green, etc.) ? cup cooked lentils ? cup baked beans 4 tablespoons nut butter <15 gram carb fruit options Berries have the lowest sugar content 1/2 medium apple - 12.5 carbs 1/2 medium avocado - 6.5 gm carbs 1/2 medium banana - 15 carbs 1/2 cup blueberries - 11 carbs - may actually help you lose weight 1/2 cup fresh cherries -11 carbs 1 medium [place] -9 carbs 1/2 cup fresh cranberries - 6.5 carbs 1/2 c grapes - 15 carbs 1/2 medium grapefruit - 10.5 carbs 1/2 cup diced honeydew melon - 8 carbs 1 medium kiwi without skin - 11 carbs 1/2 cup sliced johnie -14 carbs 1 medium nectarine - 15 carbs 1 medium orange -15.5 carbs 1 medium peach -14.5 carbs 1/2 cup fresh pineapple -11 carbs 1 medium plum -7.5 carbs 1 prune - 6 carbs 1/4 c raisins - 31.25 carbs 1/2 cup raspberries -7.5 carbs 1/2 c strawberries - 12.7 carbs 1 medium tangerine -12 carbs 1/2 cup diced watermelon - 6 carbs Grains Brown rice 1/2 c 5.5g protein 24 carb White long-grain rice 1/2 c 2g protein 22.5 carb Quinoa 1/2 c 4 gm complete protein 25 carb Oatmeal, old fashioned 1/2 c 5g protein 27g carb High Protein Snack Ideas 1. Jerky 2. Bricelyn mix without dried fruit 3. Denton roll-ups 4. Prydeinig yogurt 5. Veggies and yogurt dip 6. Tuna 7. Hard-boiled eggs 8. Peanut butter with celery 9. Cheese slices/ Cheese Stick 10. Handful of almonds, peanuts or walnuts 11. Cottage Cheese 12. Beef sticks 13. Protein bars 14. Canned Mccomb 15. Pumpkin seeds 16. Nut butter 17. Protein shakes 18. Avocado and chicken salad 19. Egg muffins 20. Leftover protein or lunch meat 21. 1/2 c blended cottage cheese or Prydeinig yogurt with dry ranch/Mrs. Dash/herb seasoning mix to make protein dip 22. 1/2 c blended cottage cheese with 1 Tbsp sugar-free dry cheesecake pudding mix 12g protein 10 carb 23. Pudding - 1 30 gm protein shake with 1/2 pkg sugar-free pudding 4 svgs - 7.8 gm protein, 5 carb each svg 24. SF Sunkist or Root Beer with 1-2 Tablespoons heavy whipping cream 25. Mini frozen dessert bites - layer protein yogurt, skinny syrup and crushed nuts and freeze Coffee - Splenda with [facility] PB carrots/celery hearts Medications Discontinued During This Encounter Prescriptions - metFORMIN ER (GLUCOPHAGE XR) 500 mg 24 hr tablet (Discontinued) Take 1 tablet by mouth daily with dinner. - DUPIXENT PEN 300 mg/2 mL pen injection (Discontinued) Disposition: Return in about 4 weeks (around 07/17/2024) for wt mgt F/up. Follow-up and Disposition History for Encounter Date Provider Department Center 06/19/2024 [id number] MAKI Encounter Status:Closed by AIDA MAKI on 06/19/24 PROGRESS Observed: 06/19/2024 3:00 PM Status: COMPLETED Source: [facility] ID: [id number] Author: AIDA MAKI APRN.RECEIVING LEAD Service: ? Author Type: Nurse Practitioner Type: Progress Notes Filed: 06/19/2024 18:52 Note Text: Some documentation from previous visit of 05/22/2024 was copied and pasted, documentation has been reviewed and edited as necessary for today's visit. Patient Summary: Héctor is a 43 year old Female who presents for follow-up evaluation of obesity/weight management to treat and prevent related co-morbidities. In our previous visits we have discussed lifestyle intervention including a nutrition recommendations and physical activity optimization. Her last office visit was 1 month ago. Assessment/plan from last visit: message - [facility] 05/27 BP 162/17, elevated lactic acid after taking 1 dose of metformin - metformin discontinued. Lisinopril started Has had 2 follow-up visits with PCP. Lisinopril increased to 10 mg Interval History PT specifies the following items as new or significant updates since the last appointment: Month finally calming down. LIRIANO first week - could have been from cutting out sugar or elevated BP. [facility] - [facility] 05/27 BP 162/17, elevated lactic acid - metformin discontinued Weight loss since last vist: 5 lbs Date Last Wt BMI AOM 06/19/2024 274 lb 47.03 05/22/2024 279 lb 47.98 5% weight loss = 265 lbs, 10% weight loss = 255 lbs Anti-obesity medications: none Weight promoting medications: gabapentin, Inhaled corticosteroid Previous Diet (initial appointment): Diet/Nutrition overview: Awake - 0500 B - 0630 cheese stick or orange/ WE or if home in summer eggs/toast/christianson S - none L - 0945 school - school lunch OR home - lunch meat sandwich or can of soup and sometimes fruit S - dollar fast food sandwich and regular pop or crackers/leftovers struggle time D - 6 pm meat/potato/veg No dessert S - sometimes banana bread or ice cream or taco if not full/satisfied Fluids: water and sometimes milk at work, water at home, regular pop afternoon 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 Smaller portion pasta/rice if having it. S - coffee with sweetened creamer before bed Fluids - water, unsweet tea with Splenda, coffee with sweetened creamer before bed Current Barriers: excessive hunger/lack of satiety signals on weekend day, inadequate sleep duration, and reduced physical activity Exercise: increased walking Regular exercise: Got walking pad - 10 min in evening Strength/resistance exercise:no Barriers to regular exercise? Yes, asthma Work-related activity:Sedentary. - trying to walk more while at work Gym Membership: no Activity Tracker: no average steps per day 5000 Stress: decreased Work, Financial, Personal, health Sleep: increased 8-9 hours, still getting up once a night. Sometimes up for 30 minutes. HARJIT YES ; CPAP YES Estimated Creatinine Clearance: 122.6 mL/min (based on SCr of 0.78 mg/dL). PAST MEDICAL HISTORY Diagnosis Date Cardiac dysrhythmia, unspecified remembers HR going high in a CS Chronic kidney disease Complication of anesthesia NAUSEA WITH ANESTHESIA Eosinophilic asthma GERD (gastroesophageal reflux disease) Dr. Eldridge H/O blood transfusion reaction BORN PREMATURE HAD BLOOD INFECTION Hypertension Infertility, female HARJIT on CPAP Type 2 diabetes mellitus (HCC) 09/14/2022 Urinary calculus, unspecified 1998 Renal stones Urinary tract infection, site not specified Recurrent UTI's Current Outpatient Medications Medication Sig Dispense Refill lisinopril (ZESTRIL) 5 mg tablet Take 10 mg by mouth once daily. traZODone (DESYREL) 50 mg tablet Take 50 mg by mouth at bedtime as needed for sedation. dupilumab 300 mg/2 mL subcutaneous pen injector (DUPIXTreater) Inject 300 mg subcutaneously every 2 weeks. ipratropium-albuterol (DUONEB) 0.5 mg-3 mg(2.5 mg base)/3 mL nebu Inhale 3 mL as instructed every 4 hours as needed for wheezing/shortness of breath. Cholecalciferol, Vitamin D3, (VITAMIN D-3) 50 mcg (2,000 unit) cap Take 200 Units by mouth once daily. gabapentin (NEURONTIN) 300 mg capsule Take 300 mg by mouth daily at bedtime. levonorgestrel (LILETTA) 20.4 mcg/24 hr (8 yrs) 52 mg IUD 1 Each by INTRAUTERINE route as directed. 1 Each 0 omeprazole (PRILOSEC) 20 mg capsule montelukast (SINGULAIR) 10 mg tablet cetirizine (ZYRTEC) 10 mg tablet Take by mouth. BREO ELLIPTA 200-25 mcg/dose inhaler 1 PUFF DAILY WITH GOOD ORAL CARE albuterol HFA (PROAIR HFA) 90 mcg/actuation inhaler Inhale 2 Puffs as instructed every 4 hours as needed. 1 Inhaler 0 No current facility-administered medications for this visit. 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 Physical Exam Constitutional: She appears healthy. No distress. Results: recent labs reviewed with the patient. Latest Ref Rng AND Units 05/22/2024 CMP Sodium 136 - 144 mmol/L 136 Potassium 3.7 - 5.1 mmol/L 4.0 Chloride 98 - 107 mmol/L 101 CO2 22 - 30 mmol/L 23 Glucose 74 - 99 mg/dL 126 BUN 7 - 21 mg/dL 15 Creatinine 0.58 - 0.96 mg/dL 0.78 EGFR >=60 mL/min/1.73m? 97 Protein, Total 6.3 - 8.0 g/dL 8.2 Albumin 3.9 - 4.9 g/dL 4.5 Calcium 8.5 - 10.2 mg/dL 9.6 Bilirubin, Total 0.2 - 1.3 mg/dL 0.5 AST 13 - 35 U/L 18 ALT 7 - 38 U/L 18 Alkaline Phosphatase 34 - 123 U/L 92 Cholesterol, Total (mg/dL) Date Value 05/22/2024 264 HDL Cholesterol (mg/dL) Date Value 05/22/2024 45 LDL Cholesterol (mg/dL) Date Value 05/22/2024 173 Triglyceride (mg/dL) Date Value 05/22/2024 231 Latest Ref Rng AND Units 05/22/2024 CBC WBC 3.70 - 11.00 k/uL 10.96 RBC 3.90 - 5.20 m/uL 4.59 Hemoglobin 11.5 - 15.5 g/dL 13.5 Hematocrit 36.0 - 46.0 % 41.3 MCV 80.0 - 100.0 fL 90.0 MCH 26.0 - 34.0 pg 29.4 MCHC 30.5 - 36.0 g/dL 32.7 RDW-CV 11.5 - 15.0 % 12.5 Platelet Count 150 - 400 k/uL 330 MPV 9.0 - 12.7 fL 9.6 Vitamin D 25 Hydroxy Date Value Ref Range Status 08/13/2020 32.4 31.0 - 80.0 ng/mL Final Comment: Classification of 25 OH Vitamin D status: Insufficiency/Moderate Deficiency: < or = 30 ng/mL Sufficiency/Optimal Levels: 31 to 80 ng/mL Toxicity: > 100 ng/mL Test performed by chemiluminescent immunoassay. 12/10/2019 33.7 31.0 - 80.0 ng/mL Final Comment: Classification of 25 OH Vitamin D status: Insufficiency/Moderate Deficiency: < or = 30 ng/mL Sufficiency/Optimal Levels: 31 to 80 ng/mL Toxicity: > 100 ng/mL Test performed by chemiluminescent immunoassay. TSH (uU/mL) Date Value 03/30/2018 1.150 06/06/2016 1.040 Hemoglobin A1C (%) Date Value 05/22/2024 6.2 02/19/2019 5.7 Anti-Obesity Medications >Phentermine: No uncontrolled HTN, No CVD Hx or hx of seizure disorder. No MAOI inhibitor use. No drug abuse hx. Crcl > 15. Palpitations with caffeine use. >Topiramate/zonisamide: No seizure, kidney stone or glaucoma hx. Has hx of migraines, and hx of poor sleep. Is of Child bearing age - tubal sterilization. 12/2023 - US shows lt renal calculi >Qsymia: see above >Contrave: No uncontrolled HTN or hx of seizure disorder. No MAOI inhibitor use. No opiate use. >Saxenda/Wegovy/Ozempic: Cost. Ins coverage? >Metformin: eGFR > 30. No contraindications or medication interactions. Assessment/Plan: Héctor Cruz is a 43 year old yo with Class III obesity who presented today for follow up for supervised weight loss to treat and prevent related co-morbidities. 1. HARJIT on CPAP - ICD9: 327.23, ICD10: G47.33 (primary diagnosis) - benefits of weight loss discussed - Whole food balanced protein low-carb nutrition 2. Type 2 diabetes mellitus without complication, without long-term current use of insulin (HCC) - ICD9: 250.00, ICD10: E11.9 05/22/2024 Hgba1c 6.2 FBS 126 09/2022 - Hgba1c 7.1 3. Essential hypertension, benign - ICD9: 401.1, ICD10: I10 - lisinopril 10 mg - benefits of weight loss discussed - Whole food balanced protein low-carb nutrition - is now checking blood pressure at home on a regular basis 4. Gastroesophageal reflux disease, unspecified whether esophagitis present - ICD9: 530.81, ICD10: K21.9 - omeprazole daily -Lifestyle changes - benefits of weight loss discussed - Whole food balanced protein low-carb nutrition 5. NAFLD (nonalcoholic fatty liver disease) - ICD9: 571.8, ICD10: K76.0 6. Chronic kidney disease, unspecified CKD stage - ICD9: 585.9, ICD10: N18.9 - Eat only fresh meat. Chicken Fish, eggs. Beef a couple of times a week. No preserved or processed meats such as meat sticks, pepperoni, lunch meat, salami, jerky. Look for low sodium and nitrate/nitrite free. 7. Migraine without aura, not intractable, without status migrainosus - ICD9: 346.10, ICD10: G43.009 8. Intermittent asthma, unspecified asthma severity, unspecified whether complicated (HCC) - ICD9: 493.90, ICD10: J45.20 - multiple medications 9. Class 3 severe obesity due to excess calories with serious comorbidity and body mass index (BMI) of 45.0 to 49.9 in adult (HCC) - ICD9: 278.01, V85.42, ICD10: E66.813, Z68.42, E66.01 Weight decreasing Bariatric surgery is an exclusion from her health insurance. -ER 500 MG discontinued elevated lactic acid - Recommended whole food balanced protein, controlled carbohydrate nutrition plan. - Given protein, whole food and high protein nutrition lists. - Encouraged the patient to improve her physical activity. 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 An overall goal of 150-200 minutes per week of exercise has been effective in weight loss and maintenance. Prescription instructions reviewed with patient as applicable. Potential red flag symptoms discussed with the patient. Reviewed appropriate action plan to take if red flag symptoms occur. Patient agreeable to treatment plan. Follow up in 4 weeks Aida Maki CNP Advanced Education from the Obesity Medicine Association I spent a total of 51 minutes on the date of the service which included preparing to see the patient, [id number] patient care, completing clinical documentation, obtaining and/or reviewing separately obtained history, performing a medically appropriate examination, counseling and educating the patient/family/caregiver, ordering medications, tests, or procedures, and communicating results to the patient/family/caregiver. CNOV Observed: 05/24/2024 12:00 PM Status: COMPLETED Source: [facility] Office Visit (WSTR) HÉCTOR CRUZ ([id number]) 1980 F Date Time Provider Department 05/24/24 12:00 PM RAJAT QUIÑONES WSTR During your visit today, we recorded the following information about you: Rajat Quiñones MD 05/24/2024 11:59 AM Signed Express Care Triage Note: Patient presents to the express care with complaint feeling fatigued and not well today. She checked her blood pressure and it was 189/103. She recently had metformin added or changed but her blood sugar was between 100-150. She notes slight left face numbness today which she gets with migraines occasionally but has no headache. She has left chest and left shoulder discomfort also. Denies fever, cough, or shortness of breath. She is alert, ambulates without assistance, and speaking in full sentences. She chooses to cancel her appointment here and have her take her to [facility] ER where acute coronary syndrome can be ruled out. Allergies As of Date: 05/24/2024 Noted Allergy Reaction PENICILLINS 2006 4 - Hives ADVAIR DISKUS (FLUTICASONE PROPIO*12/27/2010 7 - Swelling LATEX 2006 5 - Intolerance Comments: Possible latex allergy- bandaids Date Reviewed: 05/22/2024 Reviewed by: Aida Maki APRN.RECEIVING LEAD - Fully Assessed Primary Visit Diagnosis:Elevated blood pressure reading [R03.0] Other Visit Diagnoses:Left chest pressure [R07.89] Numbness and tingling of left side of face [R20.0, R20.2] Prescriptions as of 05/24/2024 - Cholecalciferol, Vitamin D3, (VITAMIN D-3) 50 mcg (2,000 unit) cap Take 200 Units by mouth once daily. - gabapentin (NEURONTIN) 300 mg capsule Take 300 mg by mouth daily at bedtime. - metFORMIN ER (GLUCOPHAGE XR) 500 mg 24 hr tablet Take 1 tablet by mouth daily with dinner. - levonorgestrel (LILETTA) 20.4 mcg/24 hr (8 yrs) 52 mg IUD 1 Each by INTRAUTERINE route as directed. - DUPIXENT PEN 300 mg/2 mL pen injection - omeprazole (PRILOSEC) 20 mg capsule - montelukast (SINGULAIR) 10 mg tablet - cetirizine (ZYRTEC) 10 mg tablet Take by mouth. - BREO ELLIPTA 200-25 mcg/dose inhaler 1 PUFF DAILY WITH GOOD ORAL CARE - albuterol HFA (PROAIR HFA) 90 mcg/actuation inhaler Inhale 2 Puffs as instructed every 4 hours as needed. Problem List As Of Date 05/24/2024 Noted Resolved Supervision of normal first [Z34.00] 09/23/2006 12/29/2011 Mild hyperemesis gravidarum, antepartum [O21.0] 10/03/2006 01/16/2012 Threatened premature labor, antepartum [O47.00] 01/30/2007 01/16/2012 Other malaise and fatigue [R53.81, R53.83] 05/06/2008 01/16/2012 BENIGN HYPERTENSION [I10] 05/06/2008 Previous section [Z98.891] 12/29/2011 08/07/2012 History of delivery, currently *12/29/2011 08/07/2012 History of recurrent UTI (urinary tract infecti*12/29/2011 08/07/2012 History of kidney stones [Z87.442] 12/29/2011 04/16/2012 Patient requested diagnostic testing [Z01.89] 12/29/2011 04/16/2012 Nausea/vomiting in [O21.9] 12/29/2011 03/15/2012 Anesthesia complication [T88.59XA] 12/29/2011 04/16/2012 History of cardiac dysrhythmia [Z86.79] 12/29/2011 08/07/2012 Immunization due [Z23] 12/29/2011 08/07/2012 High-risk [O09.90] 01/02/2012 08/07/2012 Advanced maternal age in multigravida [O09.529] 02/06/2015 10/15/2015 History of classical section [Z98.891] 02/06/2015 10/15/2015 Previous delivery in first trimester, a*02/06/2015 10/15/2015 Nausea and vomiting of , antepartum [O*02/06/2015 10/15/2015 Single umbilical artery [Q27.0] 05/05/2015 10/15/2015 Type 2 diabetes mellitus (HCC) [E11.9] 09/14/2022 Hyperlipidemia [E78.5] 12/14/2023 Migraine headache [G43.909] 12/23/2021 Encounter Status:Closed by RAJAT QUIÑONES on 05/24/24 PROGRESS Observed: 05/24/2024 11:52 AM Status: COMPLETED Source: [facility] HNO ID: [id number] Author: ARJAT QUIÑONES MD Service: ? Author Type: Physician Type: Progress Notes Filed: 05/24/2024 11:59 Note Text: Express Care Triage Note: Patient presents to the [facility] care with complaint feeling fatigued and not well today. She checked her blood pressure and it was 189/103. She recently had metformin added or changed but her blood sugar was between 100-150. She notes slight left face numbness today which she gets with migraines occasionally but has no headache. She has left chest and left shoulder discomfort also. Denies fever, cough, or shortness of breath. She is alert, ambulates without assistance, and speaking in full sentences. She chooses to cancel her appointment here and have her take her to [facility] ER where acute coronary syndrome can be ruled out. COMP METAB 2000 PNL SERPL Collected: 9:50 AM Status: F Source: [facility] Order Comment: Specimen Type : BLOOD SPECIMEN Ordering Facility: [facility] Address: [facility] [place] [address] TYPE CODE TESTS RESULT OUT OF RANGE REFERENCE UNITS LAB 2885-2(LOINC) Prot SerPl-mCnc 8.2 High 6.3-8.0 g/dL LAB 1751-7(LOINC) Albumin SerPl-mCnc 4.5 3.9-4.9 g/dL LAB 09887-0(LOINC) Calcium SerPl-mCnc 9.6 8.5-10.2 mg/dL LAB 1975-2(LOINC) Bilirub SerPl-mCnc 0.5 0.2-1.3 mg/dL LAB 6768-6(LOINC) ALP SerPl-cCnc 92 34-123 U/L LAB 1920-8(LOINC) AST SerPl-cCnc 18 13-35 U/L LAB 1742-6(LOINC) ALT SerPl-cCnc 18 7-38 U/L LAB 2345-7(LOINC) Glucose SerPl-mCnc 126 High 74-99 mg/dL Result Comment: The [place] Diabetes Association (ADA) provides guidance for cutoff values for fasting glucose and random glucose. The ADA defines fasting as no caloric intake for at least 8 hours. Fasting plasma glucose results between 100 to 125 mg/dL indicate increased risk for diabetes (prediabetes). Fasting plasma glucose results greater than or equal to 126 mg/dL meet the criteria for diagnosis of diabetes. In the absence of unequivocal hyperglycemia, results should be confirmed by repeat testing. In a patient with classic symptoms of hyperglycemia or hyperglycemic crisis, random plasma glucose results greater than or equal to 200 mg/dL meet the criteria for diagnosis of diabetes. Reference: Standards of Medical Care in Diabetes 2016, [place] Diabetes Association. Diabetes Care. 2016.39(Suppl 1). LAB 3094-0(LOINC) BUN SerPl-mCnc 15 7-21 mg/ dL LAB 2160-0(LOINC) Creat SerPl-mCnc 0.78 0.58-0.96 mg/dL LAB 2951-2(LOINC) Sodium SerPl-sCnc 136 136-144 mmol/L LAB 2823-3(LOINC) Potassium SerPl-sCnc 4.0 3.7-5.1 mmol/L LAB 2075-0(LOINC) Chloride SerPl-sCnc 101 98-107 mmol/L LAB 2028-9(LOINC) CO2 SerPl-sCnc 23 22-30 mmo l/L LAB 74835-8(LOINC) Anion Gap SerPl-sCnc 12 8-15 mmol/L LAB 13659-7(LOINC) Creatinine + eGFR Pnl SerPlBld 97 >=60 mL/min/1 .73m??? Result Comment: Estimated Gl omerular Filtration Rate (eGFR) is calculated using the 2020 CKD-EPI creatinine equation. This equation utilizes serum creatinine, sex, and age as parameters. The creatinine assay has traceable calibration to isotope dilution-mass spectrometry. Refer to KDIGO guidelines for clinical interpretation. In patients with unstable renal function, e.g. those with acute kidney injury, the eGFR may not accurately reflect actual GFR. Performed By: #### [id number] # ### [facility] CLIA [id number] [address] [place] [address] OF [facility] DEPRECATED HGB A1C BLD Collected: 05/22 9:50 AM Status: F Source: [facility] Order Comment: Specimen Type : BLOOD SPECIMEN Ordering Facility: [facility] Address: [address] [place] [address] TYPE CODE TESTS RESULT OUT OF RANGE REFERENCE UNITS LAB 4548-4(LOINC) HbA1c MFr Bld 6.2 High 4.3-5.6 % Result Comment: [place] Ross[employer] betes Association guidelines indicate that patients with HgbA1c in the range 5.7-6.4% are at increased risk for development of diabetes, and intervention by lifestyle modification may be beneficial. HgbA1c greater or equal to 6.5% is considered diagnostic of diabetes. LAB 37865-8(LOINC) Est. average glucose Bld gHb Est-mCnc 131 mg/dL Result Comment: eAG: (Estima charles average glucose) is a calculated value from HgbA1c and is sales representative adding machines of the average blood glucose level in the last 2-3 month period. Performed By: #### [id number] # ### [facility] CLIA [id number] [address] [place] [address] [place] CBC PNL BLD AUTO Collected: 9:50 AM Status: F Source: [facility] Order Comment: Specimen Type : BLOOD SPECIMEN Ordering Facility: [facility] Address: [address] [place] [address] TYPE CODE TESTS RESULT OUT OF RANGE REFERENCE UNITS LAB 6690-2(LOINC) WBC # Bld Auto 10.96 3.70-11.00 k/uL LAB 789-8(LOINC) RBC # Bld Auto 4.59 3.90-5.20 m/uL LAB 718-7([facility]) Hgb Bld-mCnc 13.5 11.5-15.5 g/dL LAB 4544-3([facility]) Hct VFr Bld Auto 41.3 36.0-46.0 % LAB 787-2([facility]) MCV RBC Auto 90.0 80.0-100.0 fL LAB 785-6([facility]) MCH RBC Qn Auto 29.4 26.0-34.0 pg LAB 786-4([facility]) MCHC RBC Auto-mCnc 32.7 30.5-36.0 g/dL LAB 27581-3([facility]) RDW RBC-Rto 12.5 11.5-15.0 % LAB 777-3([facility]) Platelet # Bld Auto 330 150-400 k/uL LAB 14971-9([facility]) PMV Bld Auto 9.6 9.0-12.7 fL LAB 771-6([facility]) nRBC # Bld Auto <0.01 <0.01 k/uL Performed By: #### [id number] # ### [facility] [id number] [address] [place] [address] [place] LIPID 1996 PNL SERPL Collected: 025 9:50 AM Status: F Source: [facility] Order Comment: Specimen Type : BLOOD SPECIMEN Ordering Facility: [facility] Address: [address] [place] [address] TYPE CODE TESTS RESULT OUT OF RANGE REFERENCE UNITS LAB 2093-3([facility]) Cholest SerPl-mCnc 264 High <200 mg/dL Result Comment: <200 mg/dL, Desirable 200-239 mg/dL, Borderline high >239 mg/dL, High LAB 2571-8([facility]) Trigl SerPl-mCnc 231 High <150 mg/dL Result Comment: <150 mg/dL, Normal 150-199 mg/dL, Borderline high 200-499 mg/dL, High >499 mg/dL, Very high LAB 2085-9([facility]) HDLc SerPl-mCnc 45 >39 mg/dL Result Comment: 40-59 mg/dL, Acceptable >59 mg/dL, High: Negative risk factor for coronary heart disease <40 mg/dL, Low: Positive risk factor for coronary heart disease LAB 07070-1(LOINC) NonHDLc SerPl-mCnc 219 High <130 mg/dL Result Comment: <130 mg/dL, Optimal 130-159 mg/dL, Near optimal/above optimal 160-189 mg/dL, Borderline high 190-219 mg/dL, High >219 mg/dL, Very high Secondary prevention optimal non HDL Cholesterol levels are recommended to be <100 mg/dL LAB FT FASTING TIME 12 hrs LAB 76604-4(LOINC) VLDLc SerPl Calc-mCnc 46 High <30 mg/dL LAB 9830-1(LOINC) Cholest/HDLc SerPl 5.87 High <5.10 LAB 2089-1(LOINC) LDLc SerPl-mCnc 173 High <100 mg/dL Result Comment: <100 mg/dL, Optimal 100-129 mg/dL, Near optimal/above optimal 130-159 mg/dL, Borderline high 160-189 mg/dL, High >189 mg/dL, Very high Secondary prevention optimal LDL Cholesterol levels are recommended to be < 70 mg/dL LAB 62474-5(LOINC) LDLc/HDLc SerPl 3.84 High <2.54 Result Comment: Reference: 1. National Cholesterol Education Program ATP III Guideline At-A-Glance Quick Desk Reference: National Heart, Lung, and Blood [place]. National Institutes of Health. 2001: NIH Publication No. 01-3305. 2. An International Atherosclerosis Society position paper: global recommendations for the management of dyslipidemia: executive summary, Atherosclerosis. 2014: 232(2):410-413. Performed By: #### 27479-8 # ### [facility] CLIA [id number] [address] [place] [address] [place] [facility] CLIA [id number] [address] [place] [address] [place] CNOV Observed: 05/22/2024 8:00 AM Status: COMPLETED Source: [facility] Office Visit (OBGYWM) HÉCTOR CRUZ ([id number]) 1980 F Date Time Provider Department 05/22/24 8:00 AM AIDA MAKI During your visit today, we recorded the following information about you: Pulse Blood pressure Weight Height 95/minute 136/84 126.6 kg 1.626 m Last Period 05/13/24 Aida Maki APRN.RECEIVING LEAD 05/22/2024 8:10 PM Signed Patient Summary: Héctor Cruz is a 43 year old female with obesity who presents for an initial evaluation of overweight/obesity to treat and prevent co-morbidities and is interested in open to all options. Motivation for seeking treatment for the disease of overweight/obesity : want to be able to do things with my kids, avoid more health problems Goal weight: under 200 Lowest recall weight: 98 at 18 years old - usually 110 Highest non- recall weight: 297lbs Patient identified barriers to weight loss: asthma, stress, motivation, time, money Weight History: She reports a strong family history of obesity and early adulthood weight gain. She states her weight gain is related to the following factors, including weight retention , exposure to a weight gain promoting medication, steroids, Lexapro, reduced physical activity, consumption of unhealthy foods, and inadequate sleep duration. Difficulty losing weight? Y History of weight loss with regain? Y - Last Wt 05/22/24 : 126.6 kg (279 lb) 5% weight loss = 265 lbs, 10% weight loss = 255 lbs WEIGHT GRAPH: Diet/Nutrition overview: Awake - 0500 B - 0630 cheese stick or orange/ WE or if home in summer eggs/toast/christianson S - none L - 0945 school - school lunch OR home - lunch meat sandwich or can of soup and sometimes fruit S - dollar fast food sandwich and regular pop or crackers/leftovers struggle time D - 6 pm meat/potato/veg No dessert S - sometimes banana bread or ice cream or taco if not full/satisfied Fluids: water and sometimes milk at work, water at home, regular pop afternoon Bedtime - 9 pm - asleep at 2130 Quality of diet: 24hr recall suggests unhealthy diet. Characterization of diet:Structured in morning, Unstructured in evening, unhealthy snacking, excessive cravings, and evening snacking. 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 HARJIT YES ; CPAP YES Stress Stress:yes , Cause:Work, Financial, Personal , and health Obesity Related Comorbidities: Prior Weight Loss Surgery:No PAST MEDICAL HISTORY Diagnosis Date Cardiac dysrhythmia, unspecified remembers HR going high in a CS Chronic kidney disease Complication of anesthesia NAUSEA WITH ANESTHESIA Eosinophilic asthma GERD (gastroesophageal reflux disease) Dr. Eldridge H/O blood transfusion reaction BORN PREMATURE HAD BLOOD INFECTION Hypertension Infertility, female HARJIT on CPAP Type 2 diabetes mellitus (HCC) 09/14/2022 Urinary calculus, unspecified 1998 Renal stones Urinary tract infection, site not specified Recurrent UTI's PAST SURGICAL HISTORY Procedure Laterality Date DELIVERY ONLY 02/07/2007,07/24/12 , CLASSICAL HYSTEROSCOPY REMOVAL LEIOMYOMATA LAPAROSCOPY SURG CHOLECYSTECTOMY 03/13/2010 Cholecystectomy, lap PAST SURGICAL HISTORY OF WISDOM TEETH PAST SURGICAL HISTORY OF TUBES IN CHEST WHEN BORN TUBAL LIGATION HX 03/13/2015 FAMILY HISTORY Problem Relation Age of Onset Hypertension Mother Thyroid Mother Obesity Mother other (sleep apnea) Mother Fibromyalgia Mother Cancer Father kidney Obesity Father Obesity Sister Obesity Sister Thyroid Brother Obesity Brother Diabetes Maternal Grandmother Cancer Maternal Grandmother pancreas Thyroid Maternal Grandmother Obesity Maternal Grandmother Diabetes Maternal Grandfather other (BLOOD CLOTS IN LEGS) Maternal Grandfather Obesity Paternal Grandfather Fibromyalgia Daughter Asthma Son Social History Tobacco Use Smoking status: Never Smokeless tobacco: Never Vaping Use Vaping status: Never Used Substance Use Topics Alcohol use: No Drug use: No AOM Medications: none Weight Promoting Medications: gabapentin, Inhaled corticosteroid Diet/weight loss History: Past weight loss attempts? self-directed. Weight watchers, Noom, calorie restriction, No carbs Exercise: Regular exercise: with work Strength/resistance exercise:no Barriers to regular exercise? Yes, asthma Work-related activity:Sedentary. 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 Current Contraception: tubal sterilization Obesity ROS/ FHx GEN: Fatigue:yes CV: h/o palpitations/cardiac arrhythmia, Chest pain: yes, palpitations with caffeine and dehydration HTN: Yes - not treated with antihypertensives, checks home BP irregularly PULM: Asthma:yes GI: GERD:yes Gallstones: cholecystectomy 2010 ; Fatty liver disease:yes Pancreatitis: no MSK: Joint Pain:yes , legs, hands - sometimes caused by dupixent : Nephrolithiasis: yes 12/2023 - US shows LT renal calculi Symptoms of PCOS: no NEURO: Migraines/LIRIANO: yes - both ; H/o seizures: no Glaucoma:no; Cataracts no Symptoms of or History of pseudotumor cerebri:no Family or personal History of MEN2 or Medullary thyroid cancer: no PE BP 136/84 Pulse 95 Ht 162.6 cm (5' 4) Wt 126.6 kg (279 lb) LMP 05/13/2024 (Exact Date) SpO2 97% BMI 47.89 kg/m? GENERAL: Female in NAD. Central adiposity. SKIN: acanthosis nigricans yes , Skin tags: yes Hirsutism: yes HEENT: PERRL, No supraclavicular adiposity. No dorsal adiposity. RESPIRATORY: CBTA CARDIAC: RRR ABDOMEN: Large pannus; EXTREMITIES: peripheral edema: yes, end of day Results: reviewed with the patient No visits with results within 3 Month(s) from this visit. Anti-Obesity Medications >Phentermine: No uncontrolled HTN, No CVD Hx or hx of seizure disorder. No MAOI inhibitor use. No drug abuse hx. Crcl > 15. Palpitations with caffeine use. >Topiramate/zonisamide: No seizure, kidney stone or glaucoma hx. Has hx of migraines, and hx of poor sleep. Is of Child bearing age - tubal sterilization. 12/2023 - US shows lt renal calculi >Qsymia: see above >Contrave: No uncontrolled HTN or hx of seizure disorder. No MAOI inhibitor use. No opiate use. >Saxenda/Wegovy/Ozempic: Cost. Ins coverage? >Metformin: eGFR > 30. No contraindications or medication interactions. Impression: Héctor Cruz is a 43 year old Female with Class III obesity (Body mass index is 47.89 kg/m?.) who has early adulthood obesity with several periods of weight loss followed by weight gain . The causes of her obesity are multifactorial, biological, psychological and social and environmental. Specific factors include a genetic component related to a strong family of obesity, exposure to weight gain promoting medication(s) , increased consumption of high calorie/process foods, suboptimal physical activity, poor sleep quality, and post weight retention. She has few weight-related medical comorbidities which increase her cardiovascular mortality risk. There are additional metabolic obesity complications including type 2 diabetes mellitus, hypertension, obstructive sleep apnea, and elevated LFTs s/o non alcoholic fatty liver disease. Other medical conditions as above. Regarding her lifestyle, as above, she has several behavioral contributors; her physical activity is non-existent. Overall, it is clear that her quality of life is moderately compromised by her weight. It is likely a combination of weight loss therapies will be needed. She appears motivated today. ASSESSMENT/PLAN: 1. HARJIT on CPAP - ICD9: 327.23, ICD10: G47.33 (primary diagnosis) - benefits of weight loss discussed - Whole food balanced protein low-carb nutrition 2. Type 2 diabetes mellitus without complication, without long-term current use of insulin (HCC) - ICD9: 250.00, ICD10: E11.9 09/2022 - Hgba1c 7.1 - HEMOGLOBIN A1C - COMPREHENSIVE METABOLIC PANEL - METFORMIN ER 500 MG TABLET,EXTENDED RELEASE 24 HR 3. Essential hypertension, benign - ICD9: 401.1, ICD10: I10 - well-controlled without medication - - benefits of weight loss discussed - Whole food balanced protein low-carb nutrition - does not check blood pressure at home on a regular basis - COMPREHENSIVE METABOLIC PANEL 4. Gastroesophageal reflux disease, unspecified whether esophagitis present - ICD9: 530.81, ICD10: K21.9 - omeprazole daily -Lifestyle changes - benefits of weight loss discussed - Whole food balanced protein low-carb nutrition 5. NAFLD (nonalcoholic fatty liver disease) - ICD9: 571.8, ICD10: K76.0 - LIPID PANEL BASIC 6. Chronic kidney disease, unspecified CKD stage - ICD9: 585.9, ICD10: N18.9 - Eat only fresh meat. Chicken Fish, eggs. Beef a couple of times a week. No preserved or processed meats such as meat sticks, pepperoni, lunch meat, salami, jerky. Look for low sodium and nitrate/nitrite free. - COMPREHENSIVE METABOLIC PANEL 7. Migraine without aura, not intractable, without status migrainosus - ICD9: 346.10, ICD10: G43.009 8. Intermittent asthma, unspecified asthma severity, unspecified whether complicated - ICD9: 493.90, ICD10: J45.20 - multiple medications 9. Screening cholesterol level - ICD9: V77.91, ICD10: Z13.220 - LIPID PANEL BASIC 10. Screening for deficiency anemia - ICD9: V78.1, ICD10: Z13.0 - COMPLETE BLOOD COUNT 11. Screening for metabolic disorder - ICD9: V77.99, ICD10: Z13.228 - COMPREHENSIVE METABOLIC PANEL 12. 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 Bariatric surgery is an exclusion from her health insurance. - HEMOGLOBIN A1C - COMPLETE BLOOD COUNT - LIPID PANEL BASIC - COMPREHENSIVE METABOLIC PANEL - METFORMIN ER 500 MG TABLET,EXTENDED RELEASE 24 HR Agreeable to begin Metformin 500 mg with dinner daily We discussed common side effects of this medication including nausea, changes in bowel habits, abdominal discomfort, and flatulence. Discussed taking it with food and complication of lactic acidosis and signs/symptoms and medication handout given. Further instructed that if she experiences malaise, muscle aches, difficulty breathing, or severe abdominal pain to seek immediate medical attention. -- We discussed several strategies to track food intake and increase mindfulness around eating while will decrease calorie intake. She was counseled on the following: Eating primarily whole foods. Limit carbs, especially processed carbs. Do not drink your calories 30 grams of protein for breakfast decreases your hunger during the day by up to 40 % Premier Protein or generic 30 gm protein 1 gm sugar - Eat only fresh meat. Chicken Fish, eggs. Beef a couple of times a week. No preserved or processed meats such as meat sticks, pepperoni, lunch meat, salami, jerky. Look for low sodium and nitrate/nitrite free. Walk for 15 minutes immediately a meal. -- Encouraged the patient to improve her physical activity. Although cardiovascular exercise is most beneficial for weight loss initially, we discussed healthy muscle from a combination of resistance training and cardiovascular exercise is the best retirement plan. An overall goal of 150-200 minutes per week of exercise has been effective in weight loss and maintenance. -- Reviewed that monitoring weight daily and food intake can have a positive impact on overall weight loss and maintenance of weight loss. Activity tracking can be used to stay on target for exercise however should not be used to reward oneself She understands that there can be limitations of pharmacotherapy due to contraindications, side effects and cost. Patient was told to contact her insurance company to see what AOMs and supervised behavioral medical appointments are currently covered. Patient understands she will have more success when following a healthy lifestyle. We reviewed continued use of online tracking of daily weights, food journal and if desired physical activity. We reviewed that during management she is to report any concerning side effects of any pharmacotherapy she is placed on. She understands that she will need routine follow up in the office. Prior to any virtual visits in the future she will need to check her Blood pressure, weight, and pulse. Prescription instructions reviewed with patient as applicable. Potential red flag symptoms discussed with the patient. Reviewed appropriate action plan to take if red flag symptoms occur. Patient agreeable to treatment plan. -- follow-up visit in 4 weeks for management of above interventions Aida Maki CNP Advanced Education from the Obesity Medicine Association I spent a total of 90 minutes on the date of the service which included preparing to see the patient, [id number] patient care, completing clinical documentation, obtaining and/or reviewing separately obtained history, performing a medically appropriate examination, counseling and educating the patient/family/caregiver, and ordering medications, tests, or procedures. Aida Maki APRN.CONSTANTIN 05/22/2024 9:36 AM Addendum Weight Management: You have taken the initiative to become a healthier version of yourself and to decrease the risks that come with the diagnosis of obesity or being overweight. We are happy to help you along this journey but know this is a lifetime commitment to yourself. Losing just 3-10 % of your body weight can decrease your risks of many other serious diseases like diabetes, heart disease, osteoarthritis, hypertension, cancer and so many others. During this time you will have triumphs, setbacks and plateaus- your body will fight against you but we are here to give you the tools and the resources to continue to reach your goals. We recommend during this time that you track your weight daily or at least five times per week as well as tracking your nutrition. You may track your activity but do not use hitting your fitness goals as a reward system as this can derail your success. We recommend weekly physical activity of 150-200 min/week-although physical exercise, this will be especially important for weight maintenance. Exercise can have many other benefits including improving insulin resistance, improving balance, bone health, improving mental health and cardiovascular health. Do not feel overwhelmed - we will discuss this more at your visits. Our time will be limited with each visit but we will try to touch on factors that are important to you and to your overall goals. We will try to set a goal at the end of each visit and then decide on what we want to accomplish with your upcoming visits. On your After Visit Summary (AVS), we will provide you with information that may be useful during this journey so please remember to read the information given. Check your AVS a few days after your appointment because we may have added more information specifically for you. Remember that if you are placed on medications, they are tools that can help you succeed but you must put in the work. Your nutrition will be the main factor. There are medications that work well for some and not for others- so it may take time to find the right combination for your body's needs. Please remember that factors such as other health co-morbidities one might have, as well as insurance coverage, will play a factor in determining which medications you can take. Most of the newer medications that are all the craze ,injectables, may not be covered or will only be covered if you fail months of oral medications or have Type 2 diabetes so please be patient with the process. It would be beneficial for you to determine what your insurance covers as far as Anti-Obesity Medications (AOMs), Nutritional Counseling, behavioral intervention and weight loss surgery. Please call your health insurance prior to your first appointment and write down coverage for each of those therapies. Most importantly, remember that ultimately our goal is to help you get to a healthier weight which will decrease your overall health risks. We will work together as a team and try to reach your personalized goals as well. Follow-up appointments Please arrive to follow-up visits a minimum of 15 minutes prior to your appointment. Follow-up weight management visits can be virtual. You will need to report a current blood pressure, heart rate (pulse) and weight at the beginning of each virtual appointment so you will need to have a reliable BP cuff, either wrist or upper arm. If you need to reschedule your appointment time or switch from an in-office visit to a virtual visit or vice versa, you need to call our office as we have designated appointment slots. This should not be done on listedplaces as you will not be scheduled appropriately and will need to be rescheduled. [phone] We appreciate that you have entrusted us with your health and know that we are committed to this process with you. Sincerely, Niharika Gagnon MD, LUCILA BELL AND Aida Maki CNP Advanced Education from the Obesity Medicine Association Obesity Obesity is a disease that affects nearly one-third of the adult [place] population (approximately 60 million). The number of overweight and obese Americans has continued to increase since 1959, a trend that is not slowing down. Today, 64.5 percent of adult Americans (about 127 million) are categorized as being overweight or obese. Each year, obesity causes at least 300,000 excess deaths in the [place] and healthcare costs of [place] adults with obesity amount to approximately $100 billion. (AOA) Obesity is a complex, multi-factorial chronic disease involving: Environmental (social and cultural) The tendency toward obesity is a result of our environment: lack of physical activity along with high-calorie, low-cost foods. Home, work, school, and even the community can inhibit a healthy lifestyle. Genetic (Hereditary plays a large role in determining how susceptible people are to overweight and obesity). Genes also influence how the body hurley calories for energy and stores fat. Physiologic, metabolic, behavioral (eating too many calories while not getting enough exercise) and psychological components. It is the second leading cause of preventable in the [place] Behavioral changes brought on by economic development, modernization and urbanization have been linked to the rise in global obesity. Calculating BMI Body Mass Index (BMI) is a measurement tool used to determine excess body weight. Overweight is defined as a BMI of 25 or more, obesity is 30 or more, and severe obesity is 40 or more. You can visit www.nhlbi.nih.gov to estimate your BMI. Obesity Related Health Conditions The morbidity and mortality risk from being overweight is proportional to its degree. Individuals with morbid obesity, therefore, have the highest risk for developing numerous illnesses that often reduce mobility and quality of life due to their excess weight. In particular, type 2 diabetes, gallbladder disease and osteoarthritis have been found to increase concurrently with higher BMI. Premature , a 20-year shorter life span, has also been found in individuals with morbid obesity. All of the systems that make the body function are affected by morbid obesity. Type 2 diabetes Gallbladder disease and gallstones Liver disease Osteoarthritis, a disease in which the joints deteriorate. This is possibly the result of excess weight on the joints. Gout, another disease affecting the joints Pulmonary (breathing) problems, including sleep apnea in which a person can stop breathing for a short time during sleep Reproductive problems in women, including menstrual irregularities and infertility Gastroesophageal reflux/heartburn Hypertension Heart Disease Depression Psychological disorders/social impairments Urinary Stress Incontinence Obesity is also linked to higher rates of certain types of cancer. Obese men are more likely than non-obese men to from cancer of the colon, rectum, or prostate. Obese women are more likely than non-obese women to from cancer of the gallbladder, breast, uterus, cervix, or ovaries https://my.[facility].org/health/diseases/13335-bakcvi-wkzgmejpps-afrsqji-- education - Eat primarily whole foods. Limit carbs, especially processed carbs. Eat - Meat, vegetables and fruits with skin on if possible, eggs, cheese. - Do not drink your calories - 30 grams of protein for your first meal of the day decreases your hunger during the day by up to 40 %. Options include: Premier Protein or generic 30 gm protein 1 gm sugar or 5 eggs or 2-3 eggs and some unbreaded meat and/or cheese. No fruit, vegetables, bread, grain, yogurt, Smoothies, etc. - Protein at every meal - Walk for 15 minutes immediately after meal. A Short Walk After Meals Is All It Takes to Lower Blood Sugar Researchers studying older adults with pre-diabetes found that 15 minutes of qerd-jz-tszdkreq exercise after every meal curbed risky blood sugar spikes all day. Seniors are more prone to developing diabetes, but a little exercise could make a big difference. A study published today in Diabetes Care found that three short walks each day after meals were as effective at reducing blood sugar over 24 hours as a single 45-minute walk at the same moderate pace. Even better, taking an evening constitutional was found to be much more effective at lowering blood sugar following supper. The evening meal, often the largest of the day, can significantly raise 24-hour glucose levels. The innovative exercise science study was conducted at the Clinical Exercise Physiology Laboratory at the [facility] ([facility]) using whole room calorimeters. Penelope Flor, Ph.D., chair of the [facility] Department of Exercise Science, led the study. ?These findings are good news for people in their 70s and 80s who may feel more capable of engaging in intermittent physical activity on a daily basis,? Basia said in a press release. Putting Humans in a Box to Measure Their Energy Use The whole room calorimeter (WRM), which looks like a very small hotel room, is a controlled-air environment for human study that allows scientists to calculate a person?s energy expenditure by testing samples of air. The balance of oxygen consumed and carbon dioxide produced varies according to the activity level of the person in the room. The WRM also measures the body?s use of different food fuels, such as carbohydrates, proteins, and fats. The 10 study participants spent three 48-hour periods in the small calorimeter rooms. Each room was equipped with a bed, toilet, sink, treadmill, television, and computer, leaving little room to move around. Participants ate standardized meals, and their blood sugar levels were monitored continuously using blood tests. The first day in the WRM served as a control period, with no exercise. On the second day, participants either walked at a moderate pace on the treadmill for 15 minutes after each meal, or for 45 minutes in either the late morning or before supper. The researchers observed that the evening post-meal walk was the most effective in lowering blood sugar levels for a full 24 hours. The typical exaggerated rise in blood sugar after supper--which often lasts well into the night and mortgage closing clerk--was curbed significantly as soon as the participants started to walk on the treadmill, the study authors said. How Age Affects Insulin Resistance An estimated 79 million Americans have pre-diabetes, according to the National Diabetes Education Program run by the National Institutes of Health. But many people have no idea they are at risk. According to Basia, older people may be particularly susceptible to poor blood sugar control after meals because inactive muscles contribute to insulin resistance. The problem is compounded by slow or low insulin secretion by the pancreas, which often occurs as the body ages. ?Post-meal high blood sugar is a valencia risk factor in the progression from impaired glucose tolerance (pre-diabetes) to type 2 diabetes and cardiovascular disease,? Basia explained. Other studies have suggested that weight loss and exercise can prevent type 2 diabetes. The authors say theirs is the first study to examine short bouts of physical activity timed around the risky period following meals--a time when blood sugar can rise rapidly and potentially cause damage to internal organs and blood vessels. ?The muscle contractions connected with short walks were immediately effective in blunting the potentially damaging elevations in post-meal blood sugar commonly observed in older people,? Basia said. If the findings of this small study hold up to further testing, it could lead to an inexpensive prevention strategy for pre-diabetes, which can develop over time into type 2 diabetes. Back in the day, it was ?de arie? to take a morning, noon, and evening walk. The time has come to get up from the table, tie on those walking shoes, and take a little stroll around the block. https://www.Screwpulp.EvaluAgent/health-news/ygqmw-qdwoowv-etaxv-alppy-ws-imgmeeq-blo- oq-ivecv-axyxtp-115734 - Eat only fresh meat. Chicken Fish, eggs. Beef a couple of times a week. No preserved or processed meats such as meat sticks, pepperoni, lunch meat, salami, jerky. Look for low sodium and nitrate/nitrite free. METFORMIN ER Dosing -- Begin Metformin 500 ER mg with dinner daily. Taking the medication with food will help. -- if you experience any GI upset (Nausea, diarrhea, bloating, gas) you can go back to 1 tablet or hold the medication until it resolves. Once you are tolerating the medication you can try increasing it again. -- we can discuss increasing the dose further at your follow up visit. -- Metformin can interfere with the absorption of B12 in your food, please add a B12 1,000-2,400 mcg supplement and I suggest having it checked every 1-2 years Using Metformin for weight loss: Metformin helps to lower blood glucose levels by reducing the amount of glucose produced and released by the liver, and by increasing insulin sensitivity. It has now been proven to prevent or delay diabetes. Metformin and Type 2 Diabetes Prevention Diabetes Spectrum (diabetesjournals.org) Large cohort studies have shown weight loss benefits associated with metformin therapy. Emerging evidence suggests that metformin-associated weight loss is due to modulation of hypothalamic appetite-regulatory centers, alteration in the gut microbiome, and reversal of consequences of aging. Metformin is also being explored in the management of obesity?s sequelae such as hepatic steatosis, obstructive sleep apnea and osteoarthritis. Effectiveness of metformin on weight loss in non-diabetic individuals with obesity - PubMed (nih.gov) Is metformin a wonder drug? - [facility] Common side effects of this medication include nausea, changes in bowel habits, abdominal discomfort, and flatulence. Taking the medication with food will help. Side effects also typically get better with time. Rarely, a severe side effect called lactic acidosis can occur. If you experience malaise, muscle aches, difficulty breathing, or severe abdominal pain, please seek immediate medical attention. When to Take Extended-Release Metformin Metformin HCL is metabolized slowly, over 24 hours, which helps reduce GI side effects. Metformin extended-release is often a good option for people who experience adverse GI symptoms with standard metformin. Metformin HCL should be taken at night, with food. Zuleyma Sanchez MD, clinical director of adult diabetes at [facility], explains why timing metformin HCL with the evening meal is so important. In normal physiology, a person's liver often makes glucose overnight, she says. So, it's not uncommon for a person to go to bed with a good blood glucose level and wake up with a higher one because their liver has been releasing sugar [all night]. Metformin turns off or slows down this process, so it can be more effective at night in treating fasting high blood sugar. https://www.Enviroo.EvaluAgent/article/752522-yjog-kv-r-joie-fynavprgo-apa-ak-pron-- relphqs-be-nshhb/ Metformin: Patient drug information Warning Rarely, metformin may cause too much lactic acid in the blood (lactic acidosis). The risk is higher in people who have kidney problems, liver problems, heart failure, use alcohol, or take other drugs like topiramate. The risk is also higher in people who are 65 or older and in people who are having surgery, an exam or test with contrast, or other procedures. If lactic acidosis happens, it can lead to other health problems and can be deadly. Kidney tests may be done while taking this drug. Do not take this drug if you have a very bad infection, low oxygen, or a lot of fluid loss (dehydration). Call your doctor right away if you have signs of too much lactic acid in the blood (lactic acidosis) like fast breathing, fast or slow heartbeat, a heartbeat that does not feel normal, very bad upset stomach or throwing up, feeling very sleepy, shortness of breath, feeling very tired or weak, very bad dizziness, feeling cold, or muscle pain or cramps. What is this drug used for? It is used to lower blood sugar in patients with high blood sugar (diabetes), treatment for PCOS, What do I need to tell my doctor BEFORE I take this drug? If you are allergic to this drug; any part of this drug; or any other drugs, foods, or substances. Tell your doctor about the allergy and what signs you had. If you have any of these health problems: Acidic blood problem, kidney disease, or liver disease. If you have had a recent heart attack or stroke. If you are not able to eat or drink like normal, including before certain procedures or surgery. If you are having an exam or test with contrast or have had one within the past 48 hours, talk with your doctor. This is not a list of all drugs or health problems that interact with this drug. Tell your doctor and pharmacist about all of your drugs (prescription or OTC, natural products, vitamins) and health problems. You must check to make sure that it is safe for you to take this drug with all of your drugs and health problems. Do not start, stop, or change the dose of any drug without checking with your doctor. What are some things I need to know or do while I take this drug? All products: Tell all of your health care providers that you take this drug. This includes your doctors, nurses, pharmacists, and dentists. Talk with your doctor before you drink alcohol. Do not drive if your blood sugar has been low. There is a greater chance of you having a crash. Check your blood sugar as you have been told by your doctor. Have blood work checked as you have been told by the doctor. Talk with the doctor. It may be harder to control blood sugar during times of stress such as fever, infection, injury, or surgery. A change in physical activity, exercise, or diet may also affect blood sugar. Follow the diet and workout plan that your doctor told you about. If diarrhea happens or you are throwing up, call your doctor. You will need to drink more fluids to keep from losing too much fluid. Be careful in hot weather or while being active. Drink lots of fluids to stop fluid loss. Long-term treatment with metformin may lead to low vitamin B-12 levels. If you have ever had low vitamin B-12 levels, talk with your doctor. If you are 65 or older, use this drug with care. You could have more side effects. There is a chance of in people of childbearing age who have not been ovulating. If you want to avoid , use control while taking this drug. Tell your doctor if you are , plan on getting , or are breast-feeding. You will need to talk about the benefits and risks to you and the baby. Extended-release tablets: You may see something that looks like the tablet in your stool. This is normal and not a cause for concern. If you have questions, talk with your doctor. What are some side effects that I need to call my doctor about right away? WARNING/CAUTION: Even though it may be rare, some people may have very bad and sometimes deadly side effects when taking a drug. Tell your doctor or get medical help right away if you have any of the following signs or symptoms that may be related to a very bad side effect: Signs of an allergic reaction, like rash; hives; itching; red, swollen, blistered, or peeling skin with or without fever; wheezing; tightness in the chest or throat; trouble breathing, swallowing, or talking; unusual hoarseness; or swelling of the mouth, face, lips, tongue, or throat. It is common to have stomach problems like upset stomach, throwing up, or diarrhea when you start taking this drug. If you have stomach problems later during treatment, call your doctor right away. This may be a sign of an acid health problem in the blood (lactic acidosis). Low blood sugar can happen. The chance may be raised when this drug is used with other drugs for diabetes. Signs may be dizziness, headache, feeling sleepy or weak, shaking, fast heartbeat, confusion, hunger, or sweating. Call your doctor right away if you have any of these signs. Follow what you have been told to do for low blood sugar. This may include taking glucose tablets, liquid glucose, or some fruit juices. What are some other side effects of this drug? All drugs may cause side effects. However, many people have no side effects or only have minor side effects. Call your doctor or get medical help if any of these side effects or any other side effects bother you or do not go away: Stomach pain or heartburn. Gas. Diarrhea, upset stomach, or throwing up. Feeling tired or weak. Headache. These are not all of the side effects that may occur. If you have questions about side effects, call your doctor. Call your doctor for medical advice about side effects. You may report side effects to your national health agency. How is this drug best taken? Use this drug as ordered by your doctor. Read all information given to you. Follow all instructions closely. All products: Take with meals. Keep taking this drug as you have been told by your doctor or other health care provider, even if you feel well. Extended-release tablets: Take with the evening meal if taking once daily. Swallow whole. Do not chew, break, or crush. If you have trouble swallowing, talk with your doctor. Referring Provider: KADE OBANDO [[id number]] Allergies As of Date: 05/22/2024 Noted Allergy Reaction PENICILLINS 2006 4 - Hives ADVAIR DISKUS (FLUTICASONE PROPIO*12/27/2010 7 - Swelling LATEX 2006 5 - Intolerance Comments: Possible latex allergy- bandaids Date Reviewed: 05/22/2024 Reviewed by: Aida Maki APRN.RECEIVING LEAD - Fully Assessed Reason for Visit: Weight Management [3933] Primary Visit Diagnosis:HARJIT on CPAP [G47.33] Other Visit Diagnoses:Type 2 diabetes mellitus without complication, without long-term current use of insulin (HCC) [E11.9] Essential hypertension, benign [I10] Gastroesophageal reflux disease, unspecified whether esophagitis present [K21.9] NAFLD (nonalcoholic fatty liver disease) [K76.0] Chronic kidney disease, unspecified CKD stage [N18.9] Migraine without aura, not intractable, without status migrainosus [G43.009] Intermittent asthma, unspecified asthma severity, unspecified whether complicated [J45.20] Screening cholesterol level [Z13.220] Screening for deficiency anemia [Z13.0] Screening for metabolic disorder [Z13.228] Class 3 severe obesity due to excess calories with serious comorbidity and body mass index (BMI) of 45.0 to 49.9 in adult ([facility]) [E66.813, Z68.42, E66.01] Order(s):HEMOGLOBIN A1C [LBZGO0G] Order #: [id number] FUTURE COMPLETE BLOOD COUNT [SQCBC] Order #: [id number] FUTURE LIPID PANEL BASIC [SQLIPB] Order #: [id number] FUTURE COMPREHENSIVE METABOLIC PANEL [SQCMP] Order #: [id number] FUTURE CONSULT TO [facility] WEIGHT MANAGEMENT PROGRAM [[id number]] Order #: [id number]: 1 metFORMIN ER (GLUCOPHAGE XR) 500 mg 24 hr tabletTake 1 tablet by mouth daily with dinner.Disp: 90 tabletRfl: 1 Prescriptions as of 05/22/2024 - Cholecalciferol, Vitamin D3, (VITAMIN D-3) 50 mcg (2,000 unit) cap Take 200 Units by mouth once daily. - gabapentin (NEURONTIN) 300 mg capsule Take 300 mg by mouth daily at bedtime. - metFORMIN ER (GLUCOPHAGE XR) 500 mg 24 hr tablet Take 1 tablet by mouth daily with dinner. - levonorgestrel (LILETTA) 20.4 mcg/24 hr (8 yrs) 52 mg IUD 1 Each by INTRAUTERINE route as directed. - DUPIXENT PEN 300 mg/2 mL pen injection - omeprazole (PRILOSEC) 20 mg capsule - montelukast (SINGULAIR) 10 mg tablet - cetirizine (ZYRTEC) 10 mg tablet Take by mouth. - BREO ELLIPTA 200-25 mcg/dose inhaler 1 PUFF DAILY WITH GOOD ORAL CARE - albuterol HFA (PROAIR HFA) 90 mcg/actuation inhaler Inhale 2 Puffs as instructed every 4 hours as needed. Problem List As Of Date 05/22/2024 Noted Resolved Supervision of normal first [Z34.00] 09/23/2006 12/29/2011 Mild hyperemesis gravidarum, antepartum [O21.0] 10/03/2006 01/16/2012 Threatened premature labor, antepartum [O47.00] 01/30/2007 01/16/2012 Other malaise and fatigue [R53.81, R53.83] 05/06/2008 01/16/2012 BENIGN HYPERTENSION [I10] 05/06/2008 Previous section [Z98.891] 12/29/2011 08/07/2012 History of delivery, currently *12/29/2011 08/07/2012 History of recurrent UTI (urinary tract infecti*12/29/2011 08/07/2012 History of kidney stones [Z87.442] 12/29/2011 04/16/2012 Patient requested diagnostic testing [Z01.89] 12/29/2011 04/16/2012 Nausea/vomiting in [O21.9] 12/29/2011 03/15/2012 Anesthesia complication [T88.59XA] 12/29/2011 04/16/2012 History of cardiac dysrhythmia [Z86.79] 12/29/2011 08/07/2012 Immunization due [Z23] 12/29/2011 08/07/2012 High-risk [O09.90] 01/02/2012 08/07/2012 Advanced maternal age in multigravida [O09.529] 02/06/2015 10/15/2015 History of classical section [Z98.891] 02/06/2015 10/15/2015 Previous delivery in first trimester, a*02/06/2015 10/15/2015 Nausea and vomiting of , antepartum [O*02/06/2015 10/15/2015 Single umbilical artery [Q27.0] 05/05/2015 10/15/2015 Type 2 diabetes mellitus (HCC) [E11.9] 09/14/2022 Hyperlipidemia [E78.5] 12/14/2023 Migraine headache [G43.909] 12/23/2021 Other instructions from your clinician: Weight Management: You have taken the initiative to become a healthier version of yourself and to decrease the risks that come with the diagnosis of obesity or being overweight. We are happy to help you along this journey but know this is a lifetime commitment to yourself. Losing just 3-10 % of your body weight can decrease your risks of many other serious diseases like diabetes, heart disease, osteoarthritis, hypertension, cancer and so many others. During this time you will have triumphs, setbacks and plateaus- your body will fight against you but we are here to give you the tools and the resources to continue to reach your goals. We recommend during this time that you track your weight daily or at least five times per week as well as tracking your nutrition. You may track your activity but do not use hitting your fitness goals as a reward system as this can derail your success. We recommend weekly physical activity of 150-200 min/week-although physical exercise, this will be especially important for weight maintenance. Exercise can have many other benefits including improving insulin resistance, improving balance, bone health, improving mental health and cardiovascular health. Do not feel overwhelmed - we will discuss this more at your visits. Our time will be limited with each visit but we will try to touch on factors that are important to you and to your overall goals. We will try to set a goal at the end of each visit and then decide on what we want to accomplish with your upcoming visits. On your After Visit Summary (AVS), we will provide you with information that may be useful during this journey so please remember to read the information given. Check your AVS a few days after your appointment because we may have added more information specifically for you. Remember that if you are placed on medications, they are tools that can help you succeed but you must put in the work. Your nutrition will be the main factor. There are medications that work well for some and not for others- so it may take time to find the right combination for your body's needs. Please remember that factors such as other health co-morbidities one might have, as well as insurance coverage, will play a factor in determining which medications you can take. Most of the newer medications that are all the craze ,injectables, may not be covered or will only be covered if you fail months of oral medications or have Type 2 diabetes so please be patient with the process. It would be beneficial for you to determine what your insurance covers as far as Anti-Obesity Medications (AOMs), Nutritional Counseling, behavioral intervention and weight loss surgery. Please call your health insurance prior to your first appointment and write down coverage for each of those therapies. Most importantly, remember that ultimately our goal is to help you get to a healthier weight which will decrease your overall health risks. We will work together as a team and try to reach your personalized goals as well. Follow-up appointments Please arrive to follow-up visits a minimum of 15 minutes prior to your appointment. Follow-up weight management visits can be virtual. You will need to report a current blood pressure, heart rate (pulse) and weight at the beginning of each virtual appointment so you will need to have a reliable BP cuff, either wrist or upper arm. If you need to reschedule your appointment time or switch from an in-office visit to a virtual visit or vice versa, you need to call our office as we have designated appointment slots. This should not be done on [facility] as you will not be scheduled appropriately and will need to be rescheduled. [phone] We appreciate that you have entrusted us with your health and know that we are committed to this process with you. Sincerely, Niharika Gagnon MD, LUCILA BELL AND Aida Maki CNP Advanced Education from the Obesity Medicine Association Obesity Obesity is a disease that affects nearly one-third of the adult [place] population (approximately 60 million). The number of overweight and obese Americans has continued to increase since 1960, a trend that is not slowing down. Today, 64.5 percent of adult Americans (about 127 million) are categorized as being overweight or obese. Each year, obesity causes at least 300,000 excess deaths in the [place] and healthcare costs of [place] adults with obesity amount to approximately $100 billion. (AOA) Obesity is a complex, multi-factorial chronic disease involving: Environmental (social and cultural) The tendency toward obesity is a result of our environment: lack of physical activity along with high-calorie, low-cost foods. Home, work, school, and even the community can inhibit a healthy lifestyle. Genetic (Hereditary plays a large role in determining how susceptible people are to overweight and obesity). Genes also influence how the body hurley calories for energy and stores fat. Physiologic, metabolic, behavioral (eating too many calories while not getting enough exercise) and psychological components. It is the second leading cause of preventable in the [place] Behavioral changes brought on by economic development, modernization and urbanization have been linked to the rise in global obesity. Calculating BMI Body Mass Index (BMI) is a measurement tool used to determine excess body weight. Overweight is defined as a BMI of 25 or more, obesity is 30 or more, and severe obesity is 40 or more. You can visit www.nhlbi.nih.gov to estimate your BMI. Obesity Related Health Conditions The morbidity and mortality risk from being overweight is proportional to its degree. Individuals with morbid obesity, therefore, have the highest risk for developing numerous illnesses that often reduce mobility and quality of life due to their excess weight. In particular, type 2 diabetes, gallbladder disease and osteoarthritis have been found to increase concurrently with higher BMI. Premature , a 20-year shorter life span, has also been found in individuals with morbid obesity. All of the systems that make the body function are affected by morbid obesity. Type 2 diabetes Gallbladder disease and gallstones Liver disease Osteoarthritis, a disease in which the joints deteriorate. This is possibly the result of excess weight on the joints. Gout, another disease affecting the joints Pulmonary (breathing) problems, including sleep apnea in which a person can stop breathing for a short time during sleep Reproductive problems in women, including menstrual irregularities and infertility Gastroesophageal reflux/heartburn Hypertension Heart Disease Depression Psychological disorders/social impairments Urinary Stress Incontinence Obesity is also linked to higher rates of certain types of cancer. Obese men are more likely than non-obese men to from cancer of the colon, rectum, or prostate. Obese women are more likely than non-obese women to from cancer of the gallbladder, breast, uterus, cervix, or ovaries https://my.[facility].org/health/diseases/71289-fbgayk-frpisxbqbr-zcgh ent-education - Eat primarily whole foods. Limit carbs, especially processed carbs. Eat - Meat, vegetables and fruits with skin on if possible, eggs, cheese. - Do not drink your calories - 30 grams of protein for your first meal of the day decreases your hunger during the day by up to 40 %. Options include: Premier Protein or generic 30 gm protein 1 gm sugar or 5 eggs or 2-3 eggs and some unbreaded meat and/or cheese. No fruit, vegetables, bread, grain, yogurt, Smoothies, etc. - Protein at every meal - Walk for 15 minutes immediately after meal. A Short Walk After Meals Is All It Takes to Lower Blood Sugar Researchers studying older adults with pre-diabetes found that 15 minutes of rphj-ok-wsajglet exercise after every meal curbed risky blood sugar spikes all day. Seniors are more prone to developing diabetes, but a little exercise could make a big difference. A study published today in Diabetes Care found that three short walks each day after meals were as effective at reducing blood sugar over 24 hours as a single 45-minute walk at the same moderate pace. Even better, taking an evening constitutional was found to be much more effective at lowering blood sugar following supper. The evening meal, often the largest of the day, can significantly raise 24-hour glucose levels. The innovative exercise science study was conducted at the Clinical Exercise Physiology Laboratory at the [facility] ([facility]) using whole room calorimeters. Penelope Flor, Ph.D., chair of the [facility] Department of Exercise Science, led the study. ?These findings are good news for people in their 70s and 80s who may feel more capable of engaging in intermittent physical activity on a daily basis,? Basia said in a press release. Putting Humans in a Box to Measure Their Energy Use The whole room calorimeter (WRM), which looks like a very small hotel room, is a controlled-air environment for human study that allows scientists to calculate a person?s energy expenditure by testing samples of air. The balance of oxygen consumed and carbon dioxide produced varies according to the activity level of the person in the room. The WR also measures the body?s use of different food fuels, such as carbohydrates, proteins, and fats. The 10 study participants spent three 48-hour periods in the small calorimeter rooms. Each room was equipped with a bed, toilet, sink, treadmill, television, and computer, leaving little room to move around. Participants ate standardized meals, and their blood sugar levels were monitored continuously using blood tests. The first day in the [facility] served as a control period, with no exercise. On the second day, participants either walked at a moderate pace on the treadmill for 15 minutes after each meal, or for 45 minutes in either the late morning or before supper. The researchers observed that the evening post-meal walk was the most effective in lowering blood sugar levels for a full 24 hours. The typical exaggerated rise in blood sugar after supper--which often lasts well into the night and mortgage closing clerk--was curbed significantly as soon as the participants started to walk on the treadmill, the study authors said. How Age Affects Insulin Resistance An estimated 79 million Americans have pre-diabetes, according to the National Diabetes Education Program run by the National Institutes of Health. But many people have no idea they are at risk. According to Basia, older people may be particularly susceptible to poor blood sugar control after meals because inactive muscles contribute to insulin resistance. The problem is compounded by slow or low insulin secretion by the pancreas, which often occurs as the body ages. ?Post-meal high blood sugar is a valencia risk factor in the progression from impaired glucose tolerance (pre-diabetes) to type 2 diabetes and cardiovascular disease,? Basia explained. Other studies have suggested that weight loss and exercise can prevent type 2 diabetes. The authors say theirs is the first study to examine short bouts of physical activity timed around the risky period following meals--a time when blood sugar can rise rapidly and potentially cause damage to internal organs and blood vessels. ?The muscle contractions connected with short walks were immediately effective in blunting the potentially damaging elevations in post-meal blood sugar commonly observed in older people,? Basia said. If the findings of this small study hold up to further testing, it could lead to an inexpensive prevention strategy for pre-diabetes, which can develop over time into type 2 diabetes. Back in the day, it was ?de rigueur? to take a morning, noon, and evening walk. The time has come to get up from the table, tie on those walking shoes, and take a little stroll around the block. https://www.Screwpulp.EvaluAgent/health-news/xdaxc-jonnbzb-jscgy-gutvu-ec-ppzargw -mzjld-xqhhq-tsjtmz-324506 - Eat only fresh meat. Chicken Fish, eggs. Beef a couple of times a week. No preserved or processed meats such as meat sticks, pepperoni, lunch meat, salami, jerky. Look for low sodium and nitrate/nitrite free. METFORMIN ER Dosing -- Begin Metformin 500 ER mg with dinner daily. Taking the medication with food will help. -- if you experience any GI upset (Nausea, diarrhea, bloating, gas) you can go back to 1 tablet or hold the medication until it resolves. Once you are tolerating the medication you can try increasing it again. -- we can discuss increasing the dose further at your follow up visit. -- Metformin can interfere with the absorption of B12 in your food, please add a B12 1,000-2,400 mcg supplement and I suggest having it checked every 1-2 years Using Metformin for weight loss: Metformin helps to lower blood glucose levels by reducing the amount of glucose produced and released by the liver, and by increasing insulin sensitivity. It has now been proven to prevent or delay diabetes. Metformin and Type 2 Diabetes Prevention Diabetes Spectrum (diabetesjournals.org) Large cohort studies have shown weight loss benefits associated with metformin therapy. Emerging evidence suggests that metformin-associated weight loss is due to modulation of hypothalamic appetite-regulatory centers, alteration in the gut microbiome, and reversal of consequences of aging. Metformin is also being explored in the management of obesity?s sequelae such as hepatic steatosis, obstructive sleep apnea and osteoarthritis. Effectiveness of metformin on weight loss in non-diabetic individuals with obesity - PubMed (nih.gov) Is metformin a wonder drug? - [facility] Common side effects of this medication include nausea, changes in bowel habits, abdominal discomfort, and flatulence. Taking the medication with food will help. Side effects also typically get better with time. Rarely, a severe side effect called lactic acidosis can occur. If you experience malaise, muscle aches, difficulty breathing, or severe abdominal pain, please seek immediate medical attention. When to Take Extended-Release Metformin Metformin HCL is metabolized slowly, over 24 hours, which helps reduce GI side effects. Metformin extended-release is often a good option for people who experience adverse GI symptoms with standard metformin. Metformin HCL should be taken at night, with food. Zuleyma Sanchez MD, clinical director of adult diabetes at [facility], explains why timing metformin HCL with the evening meal is so important. In normal physiology, a person's liver often makes glucose overnight, she says. So, it's not uncommon for a person to go to bed with a good blood glucose level and wake up with a higher one because their liver has been releasing sugar [all night]. Metformin turns off or slows down this process, so it can be more effective at night in treating fasting high blood sugar. https://www.Enviroo.EvaluAgent/article/790405-txma-by-z-zlgg-yrqleyafo-imn-hk-v vxf-zvouycz-so-night/ Metformin: Patient drug information Warning Rarely, metformin may cause too much lactic acid in the blood (lactic acidosis). The risk is higher in people who have kidney problems, liver problems, heart failure, use alcohol, or take other drugs like topiramate. The risk is also higher in people who are 65 or older and in people who are having surgery, an exam or test with contrast, or other procedures. If lactic acidosis happens, it can lead to other health problems and can be deadly. Kidney tests may be done while taking this drug. Do not take this drug if you have a very bad infection, low oxygen, or a lot of fluid loss (dehydration). Call your doctor right away if you have signs of too much lactic acid in the blood (lactic acidosis) like fast breathing, fast or slow heartbeat, a heartbeat that does not feel normal, very bad upset stomach or throwing up, feeling very sleepy, shortness of breath, feeling very tired or weak, very bad dizziness, feeling cold, or muscle pain or cramps. What is this drug used for? It is used to lower blood sugar in patients with high blood sugar (diabetes), treatment for PCOS, What do I need to tell my doctor BEFORE I take this drug? If you are allergic to this drug; any part of this drug; or any other drugs, foods, or substances. Tell your doctor about the allergy and what signs you had. If you have any of these health problems: Acidic blood problem, kidney disease, or liver disease. If you have had a recent heart attack or stroke. If you are not able to eat or drink like normal, including before certain procedures or surgery. If you are having an exam or test with contrast or have had one within the past 48 hours, talk with your doctor. This is not a list of all drugs or health problems that interact with this drug. Tell your doctor and pharmacist about all of your drugs (prescription or OTC, natural products, vitamins) and health problems. You must check to make sure that it is safe for you to take this drug with all of your drugs and health problems. Do not start, stop, or change the dose of any drug without checking with your doctor. What are some things I need to know or do while I take this drug? All products: Tell all of your health care providers that you take this drug. This includes your doctors, nurses, pharmacists, and dentists. Talk with your doctor before you drink alcohol. Do not drive if your blood sugar has been low. There is a greater chance of you having a crash. Check your blood sugar as you have been told by your doctor. Have blood work checked as you have been told by the doctor. Talk with the doctor. It may be harder to control blood sugar during times of stress such as fever, infection, injury, or surgery. A change in physical activity, exercise, or diet may also affect blood sugar. Follow the diet and workout plan that your doctor told you about. If diarrhea happens or you are throwing up, call your doctor. You will need to drink more fluids to keep from losing too much fluid. Be careful in hot weather or while being active. Drink lots of fluids to stop fluid loss. Long-term treatment with metformin may lead to low vitamin B-12 levels. If you have ever had low vitamin B-12 levels, talk with your doctor. If you are 65 or older, use this drug with care. You could have more side effects. There is a chance of in people of childbearing age who have not been ovulating. If you want to avoid , use control while taking this drug. Tell your doctor if you are , plan on getting , or are breast-feeding. You will need to talk about the benefits and risks to you and the baby. Extended-release tablets: You may see something that looks like the tablet in your stool. This is normal and not a cause for concern. If you have questions, talk with your doctor. What are some side effects that I need to call my doctor about right away? WARNING/CAUTION: Even though it may be rare, some people may have very bad and sometimes deadly side effects when taking a drug. Tell your doctor or get medical help right away if you have any of the following signs or symptoms that may be related to a very bad side effect: Signs of an allergic reaction, like rash; hives; itching; red, swollen, blistered, or peeling skin with or without fever; wheezing; tightness in the chest or throat; trouble breathing, swallowing, or talking; unusual hoarseness; or swelling of the mouth, face, lips, tongue, or throat. It is common to have stomach problems like upset stomach, throwing up, or diarrhea when you start taking this drug. If you have stomach problems later during treatment, call your doctor right away. This may be a sign of an acid health problem in the blood (lactic acidosis). Low blood sugar can happen. The chance may be raised when this drug is used with other drugs for diabetes. Signs may be dizziness, headache, feeling sleepy or weak, shaking, fast heartbeat, confusion, hunger, or sweating. Call your doctor right away if you have any of these signs. Follow what you have been told to do for low blood sugar. This may include taking glucose tablets, liquid glucose, or some fruit juices. What are some other side effects of this drug? All drugs may cause side effects. However, many people have no side effects or only have minor side effects. Call your doctor or get medical help if any of these side effects or any other side effects bother you or do not go away: Stomach pain or heartburn. Gas. Diarrhea, upset stomach, or throwing up. Feeling tired or weak. Headache. These are not all of the side effects that may occur. If you have questions about side effects, call your doctor. Call your doctor for medical advice about side effects. You may report side effects to your national health agency. How is this drug best taken? Use this drug as ordered by your doctor. Read all information given to you. Follow all instructions closely. All products: Take with meals. Keep taking this drug as you have been told by your doctor or other health care provider, even if you feel well. Extended-release tablets: Take with the evening meal if taking once daily. Swallow whole. Do not chew, break, or crush. If you have trouble swallowing, talk with your doctor. Prescriptions ordered this encounter Disp Refills Start End METFORMIN ER 500 MG TABLET,EXTENDED * 90 t* 1 05/22/2024 11/18/2024 Route: ORAL Sig: Take 1 tablet by mouth daily with dinner. Medications Discontinued During This Encounter Prescriptions - benzonatate (TESSALON PERLE) 100 mg capsule (Discontinued) Reported on 05/22/2024 - cholecalciferol (VITAMIN D3) 1,000 unit tab tablet (Discontinued) Reported on 05/22/2024 - ondansetron (ZOFRAN) 4 mg tablet (Discontinued) Reported on 05/22/2024 - tranexamic acid (LYSTEDA) 650 mg tablet (Discontinued) Reported on 05/22/2024 - L. acidoph-L. plantar-L. rhamn 15 billion cell cap (Discontinued) Take 1 capsule by mouth once daily. Disposition: Return in about 4 weeks (around 06/19/2024) for wt mgt F/up. Follow-up and Disposition History for Encounter Date Provider Department Center 05/22/2024 [id number] MAKI [facility] Encounter Status:Closed by AIDA MAKI on 05/22/24 PROGRESS Observed: 05/17/2024 1:27 PM Status: COMPLETED Source: [facility] ID: [id number] Author: AIDA MAKI APRN.RECEIVING LEAD Service: ? Author Type: Nurse Practitioner Type: Progress Notes Filed: 05/22/2024 20:10 Note Text: Patient Summary: Héctor Cruz is a 43 year old female with obesity who presents for an initial evaluation of overweight/obesity to treat and prevent co-morbidities and is interested in open to all options. Motivation for seeking treatment for the disease of overweight/obesity : want to be able to do things with my kids, avoid more health problems Goal weight: under 200 Lowest recall weight: 98 at 18 years old - usually 110 Highest non- recall weight: 297lbs Patient identified barriers to weight loss: asthma, stress, motivation, time, money Weight History: She reports a strong family history of obesity and early adulthood weight gain. She states her weight gain is related to the following factors, including weight retention , exposure to a weight gain promoting medication, steroids, Lexapro, reduced physical activity, consumption of unhealthy foods, and inadequate sleep duration. Difficulty losing weight? Y History of weight loss with regain? Y - Last Wt 05/22/24 : 126.6 kg (279 lb) 5% weight loss = 265 lbs, 10% weight loss = 255 lbs WEIGHT GRAPH: Diet/Nutrition overview: Awake - 0500 B - 0630 cheese stick or orange/ WE or if home in summer eggs/toast/christianson S - none L - 0945 school - school lunch OR home - lunch meat sandwich or can of soup and sometimes fruit S - dollar fast food sandwich and regular pop or crackers/leftovers struggle time D - 6 pm meat/potato/veg No dessert S - sometimes banana bread or ice cream or taco if not full/satisfied Fluids: water and sometimes milk at work, water at home, regular pop afternoon Bedtime - 9 pm - asleep at 2130 Quality of diet: 24hr recall suggests unhealthy diet. Characterization of diet:Structured in morning, Unstructured in evening, unhealthy snacking, excessive cravings, and evening snacking. 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 HARJIT YES ; CPAP YES Stress Stress:yes , Cause:Work, Financial, Personal , and health Obesity Related Comorbidities: Prior Weight Loss Surgery:No PAST MEDICAL HISTORY Diagnosis Date Cardiac dysrhythmia, unspecified remembers HR going high in a CS Chronic kidney disease Complication of anesthesia NAUSEA WITH ANESTHESIA Eosinophilic asthma GERD (gastroesophageal reflux disease) Dr. Eldridge H/O blood transfusion reaction BORN PREMATURE HAD BLOOD INFECTION Hypertension Infertility, female HARJIT on CPAP Type 2 diabetes mellitus (HCC) 09/14/2022 Urinary calculus, unspecified 1998 Renal stones Urinary tract infection, site not specified Recurrent UTI's PAST SURGICAL HISTORY Procedure Laterality Date DELIVERY ONLY 02/07/2007,07/24/12 , CLASSICAL HYSTEROSCOPY REMOVAL LEIOMYOMATA LAPAROSCOPY SURG CHOLECYSTECTOMY 03/13/2010 Cholecystectomy, lap PAST SURGICAL HISTORY OF WISDOM TEETH PAST SURGICAL HISTORY OF TUBES IN CHEST WHEN BORN TUBAL LIGATION HX 03/13/2015 FAMILY HISTORY Problem Relation Age of Onset Hypertension Mother Thyroid Mother Obesity Mother other (sleep apnea) Mother Fibromyalgia Mother Cancer Father kidney Obesity Father Obesity Sister Obesity Sister Thyroid Brother Obesity Brother Diabetes Maternal Grandmother Cancer Maternal Grandmother pancreas Thyroid Maternal Grandmother Obesity Maternal Grandmother Diabetes Maternal Grandfather other (BLOOD CLOTS IN LEGS) Maternal Grandfather Obesity Paternal Grandfather Fibromyalgia Daughter Asthma Son Social History Tobacco Use Smoking status: Never Smokeless tobacco: Never Vaping Use Vaping status: Never Used Substance Use Topics Alcohol use: No Drug use: No AOM Medications: none Weight Promoting Medications: gabapentin, Inhaled corticosteroid Diet/weight loss History: Past weight loss attempts? self-directed. Weight watchers, Noom, calorie restriction, No carbs Exercise: Regular exercise: with work Strength/resistance exercise:no Barriers to regular exercise? Yes, asthma Work-related activity:Sedentary. 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 Current Contraception: tubal sterilization Obesity ROS/ FHx GEN: Fatigue:yes CV: h/o palpitations/cardiac arrhythmia, Chest pain: yes, palpitations with caffeine and dehydration HTN: Yes - not treated with antihypertensives, checks home BP irregularly PULM: Asthma:yes GI: GERD:yes Gallstones: cholecystectomy 2010 ; Fatty liver disease:yes Pancreatitis: no MSK: Joint Pain:yes , legs, hands - sometimes caused by dupixent : Nephrolithiasis: yes 12/2023 - US shows LT renal calculi Symptoms of PCOS: no NEURO: Migraines/LIRIANO: yes - both ; H/o seizures: no Glaucoma:no; Cataracts no Symptoms of or History of pseudotumor cerebri:no Family or personal History of MEN2 or Medullary thyroid cancer: no PE BP 136/84 Pulse 95 Ht 162.6 cm (5' 4) Wt 126.6 kg (279 lb) LMP 05/13/2024 (Exact Date) SpO2 97% BMI 47.89 kg/m? GENERAL: Female in NAD. Central adiposity. SKIN: acanthosis nigricans yes , Skin tags: yes Hirsutism: yes HEENT: PERRL, No supraclavicular adiposity. No dorsal adiposity. RESPIRATORY: CBTA CARDIAC: RRR ABDOMEN: Large pannus; EXTREMITIES: peripheral edema: yes, end of day Results: reviewed with the patient No visits with results within 3 Month(s) from this visit. Anti-Obesity Medications >Phentermine: No uncontrolled HTN, No CVD Hx or hx of seizure disorder. No MAOI inhibitor use. No drug abuse hx. Crcl > 15. Palpitations with caffeine use. >Topiramate/zonisamide: No seizure, kidney stone or glaucoma hx. Has hx of migraines, and hx of poor sleep. Is of Child bearing age - tubal sterilization. 12/2023 - US shows lt renal calculi >Qsymia: see above >Contrave: No uncontrolled HTN or hx of seizure disorder. No MAOI inhibitor use. No opiate use. >Saxenda/Wegovy/Ozempic: Cost. Ins coverage? >Metformin: eGFR > 30. No contraindications or medication interactions. Impression: Héctor Cruz is a 43 year old Female with Class III obesity (Body mass index is 47.89 kg/m?.) who has early adulthood obesity with several periods of weight loss followed by weight gain . The causes of her obesity are multifactorial, biological, psychological and social and environmental. Specific factors include a genetic component related to a strong family of obesity, exposure to weight gain promoting medication(s) , increased consumption of high calorie/process foods, suboptimal physical activity, poor sleep quality, and post weight retention. She has few weight-related medical comorbidities which increase her cardiovascular mortality risk. There are additional metabolic obesity complications including type 2 diabetes mellitus, hypertension, obstructive sleep apnea, and elevated LFTs s/o non alcoholic fatty liver disease. Other medical conditions as above. Regarding her lifestyle, as above, she has several behavioral contributors; her physical activity is non-existent. Overall, it is clear that her quality of life is moderately compromised by her weight. It is likely a combination of weight loss therapies will be needed. She appears motivated today. ASSESSMENT/PLAN: 1. HARJIT on CPAP - ICD9: 327.23, ICD10: G47.33 (primary diagnosis) - benefits of weight loss discussed - Whole food balanced protein low-carb nutrition 2. Type 2 diabetes mellitus without complication, without long-term current use of insulin (HCC) - ICD9: 250.00, ICD10: E11.9 09/2022 - Hgba1c 7.1 - HEMOGLOBIN A1C - COMPREHENSIVE METABOLIC PANEL - METFORMIN ER 500 MG TABLET,EXTENDED RELEASE 24 HR 3. Essential hypertension, benign - ICD9: 401.1, ICD10: I10 - well-controlled without medication - - benefits of weight loss discussed - Whole food balanced protein low-carb nutrition - does not check blood pressure at home on a regular basis - COMPREHENSIVE METABOLIC PANEL 4. Gastroesophageal reflux disease, unspecified whether esophagitis present - ICD9: 530.81, ICD10: K21.9 - omeprazole daily -Lifestyle changes - benefits of weight loss discussed - Whole food balanced protein low-carb nutrition 5. NAFLD (nonalcoholic fatty liver disease) - ICD9: 571.8, ICD10: K76.0 - LIPID PANEL BASIC 6. Chronic kidney disease, unspecified CKD stage - ICD9: 585.9, ICD10: N18.9 - Eat only fresh meat. Chicken Fish, eggs. Beef a couple of times a week. No preserved or processed meats such as meat sticks, pepperoni, lunch meat, salami, jerky. Look for low sodium and nitrate/nitrite free. - COMPREHENSIVE METABOLIC PANEL 7. Migraine without aura, not intractable, without status migrainosus - ICD9: 346.10, ICD10: G43.009 8. Intermittent asthma, unspecified asthma severity, unspecified whether complicated - ICD9: 493.90, ICD10: J45.20 - multiple medications 9. Screening cholesterol level - ICD9: V77.91, ICD10: Z13.220 - LIPID PANEL BASIC 10. Screening for deficiency anemia - ICD9: V78.1, ICD10: Z13.0 - COMPLETE BLOOD COUNT 11. Screening for metabolic disorder - ICD9: V77.99, ICD10: Z13.228 - COMPREHENSIVE METABOLIC PANEL 12. 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 Bariatric surgery is an exclusion from her health insurance. - HEMOGLOBIN A1C - COMPLETE BLOOD COUNT - LIPID PANEL BASIC - COMPREHENSIVE METABOLIC PANEL - METFORMIN ER 500 MG TABLET,EXTENDED RELEASE 24 HR Agreeable to begin Metformin 500 mg with dinner daily We discussed common side effects of this medication including nausea, changes in bowel habits, abdominal discomfort, and flatulence. Discussed taking it with food and complication of lactic acidosis and signs/symptoms and medication handout given. Further instructed that if she experiences malaise, muscle aches, difficulty breathing, or severe abdominal pain to seek immediate medical attention. -- We discussed several strategies to track food intake and increase mindfulness around eating while will decrease calorie intake. She was counseled on the following: Eating primarily whole foods. Limit carbs, especially processed carbs. Do not drink your calories 30 grams of protein for breakfast decreases your hunger during the day by up to 40 % Premier Protein or generic 30 gm protein 1 gm sugar - Eat only fresh meat. Chicken Fish, eggs. Beef a couple of times a week. No preserved or processed meats such as meat sticks, pepperoni, lunch meat, salami, jerky. Look for low sodium and nitrate/nitrite free. Walk for 15 minutes immediately a meal. -- Encouraged the patient to improve her physical activity. 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 An overall goal of 150-200 minutes per week of exercise has been effective in weight loss and maintenance. -- Reviewed that monitoring weight daily and food intake can have a positive impact on overall weight loss and maintenance of weight loss. Activity tracking can be used to stay on target for exercise however should not be used to reward oneself She understands that there can be limitations of pharmacotherapy due to contraindications, side effects and cost. Patient was told to contact her insurance company to see what AOMs and supervised behavioral medical appointments are currently covered. Patient understands she will have more success when following a healthy lifestyle. We reviewed continued use of online tracking of daily weights, food journal and if desired physical activity. We reviewed that during management she is to report any concerning side effects of any pharmacotherapy she is placed on. She understands that she will need routine follow up in the office. Prior to any virtual visits in the future she will need to check her Blood pressure, weight, and pulse. Prescription instructions reviewed with patient as applicable. Potential red flag symptoms discussed with the patient. Reviewed appropriate action plan to take if red flag symptoms occur. Patient agreeable to treatment plan. -- follow-up visit in 4 weeks for management of above interventions Aida Maki CNP Advanced Education from the [employer] I spent a total of 90 minutes on the date of the service which included preparing to see the patient, [id number] patient care, completing clinical documentation, obtaining and/or reviewing separately obtained history, performing a medically appropriate examination, counseling and educating the patient/family/caregiver, and ordering medications, tests, or procedures. PROGRESS Observed: 02/27/2024 8:59 AM Status: COMPLETED Source: [facility] HNO ID: [id number] Author: ARASH FRASER PA-C Service: ? Author Type: Physician Mat Making Machine Tender Type: Progress Notes Filed: 02/27/2024 09:05 Note Text: This note was created using Kaseya. Subjective Héctor Cruz is a 43 year old female. HPI Presents with a chief complaint of a cough and chest congestion over the past 3 days. Her son has been sick as well. Her daughter had walking pneumonia about 10 days ago. She did start using albuterol yesterday. She does have asthma. Denies chest pain. States she also has developed a rash over the past day on her right breast. She states she has had shingles before and this felt similar. She does have some pain wrapping around to her back area on that side. No vomiting or diarrhea. She has not had a fever. Review of Systems Constitutional: Negative. HENT: Positive for congestion. Negative for ear pain, rhinorrhea and sore throat. Respiratory: Positive for cough and wheezing. Negative for chest tightness and shortness of breath. Cardiovascular: Negative. Gastrointestinal: Negative. Skin: Positive for rash. All other systems reviewed and are negative. PAST MEDICAL HISTORY Diagnosis Date Cardiac dysrhythmia, unspecified Chronic kidney disease Complication of anesthesia NAUSEA WITH ANESTHESIA H/O blood transfusion reaction BORN PREMATURE HAD BLOOD INFECTION Hypertension Infertility, female Sleep apnea Sleep apnea Type 2 diabetes mellitus (HCC) 09/14/2022 Urinary calculus, unspecified 1998 Renal stones Urinary tract infection, site not specified Recurrent UTI's Current Outpatient Medications Medication Sig Dispense Refill levonorgestrel (LILETTA) 20.4 mcg/24 hr (8 yrs) 52 mg IUD 1 Each by INTRAUTERINE route as directed. 1 Each 0 tranexamic acid (LYSTEDA) 650 mg tablet Take 2 tablets by mouth three times a day as needed. 30 tablet 11 ondansetron (ZOFRAN) 4 mg tablet Take 1 tablet by mouth every 8 hours as needed for nausea/vomiting. 30 tablet 1 DUPIXENT PEN 300 mg/2 mL pen injection omeprazole (PRILOSEC) 20 mg capsule montelukast (SINGULAIR) 10 mg tablet cetirizine (ZYRTEC) 10 mg tablet Take by mouth. cholecalciferol (VITAMIN D3) 1,000 unit tab tablet VITAMIN D TABS 50,000 IU once a week CHOLECALCIFEROL TABS [id number] Nila Mahajan PA-C BREO ELLIPTA 200-25 mcg/dose inhaler 1 PUFF DAILY WITH GOOD ORAL CARE albuterol HFA (PROAIR HFA) 90 mcg/actuation inhaler Inhale 2 Puffs as instructed every 4 hours as needed. 1 Inhaler 0 valACYclovir (VALTREX) 1 gram tablet Take 1 tablet by mouth three times a day for 7 days. 21 tablet 0 doxycycline (VIBRA-TABS) 100 mg tablet Take 1 tablet by mouth two times a day for 7 days. 14 tablet 0 benzonatate (TESSALON PERLE) 100 mg capsule Take 2 capsules by mouth three times a day as needed. 30 capsule 0 L. acidoph-L. plantar-L. rhamn 15 billion cell cap Take 1 capsule by mouth once daily. 30 capsule 11 No current facility-administered medications for this visit. PAST SURGICAL HISTORY Procedure Laterality Date DELIVERY ONLY 02/07/2007,07/24/12 , CLASSICAL HYSTEROSCOPY REMOVAL LEIOMYOMATA LAPAROSCOPY SURG CHOLECYSTECTOMY 03/13/2010 Cholecystectomy, lap PAST SURGICAL HISTORY OF WISDOM TEETH PAST SURGICAL HISTORY OF TUBES IN CHEST WHEN BORN TUBAL LIGATION HX 03/13/2015 FAMILY HISTORY Problem Relation Age of Onset Hypertension Mother Thyroid Mother Cancer Father kidney Thyroid Brother Diabetes Maternal Grandmother Cancer Maternal Grandmother pancreas Thyroid Maternal Grandmother Diabetes Maternal Grandfather other (BLOOD CLOTS IN LEGS) Maternal Grandfather Social History Tobacco Use Smoking status: Never Smokeless tobacco: Never Vaping Use Vaping status: Never Used Substance Use Topics Alcohol use: No Drug use: No Objective BP 122/76 Pulse 88 Temp 36.8 ?C (98.3 ?F) Resp 16 Wt 128.4 kg (283 lb 1.1 oz) LMP 11/26/2023 (Exact Date) SpO2 98% BMI 48.59 kg/m? Physical Exam Vitals reviewed. Constitutional: Appearance: Normal appearance. HENT: Head: Normocephalic and atraumatic. Right Ear: Tympanic membrane, ear canal and external ear normal. Left Ear: Tympanic membrane, ear canal and external ear normal. Nose: Congestion present. Mouth/Throat: Mouth: Mucous membranes are moist. Pharynx: Oropharynx is clear. Cardiovascular: Rate and Rhythm: Normal rate and regular rhythm. Heart sounds: Normal heart sounds. Pulmonary: Effort: Pulmonary effort is normal. Breath sounds: Normal breath sounds. Chest: Comments: Patient has some streaky faint erythema of the right breast. No abscess palpated. No rash wrapping around the back or underneath the breast. Musculoskeletal: Cervical back: Neck supple. Skin: General: Skin is warm and dry. Neurological: Mental Status: She is alert. Assessment and Plan ASSESSMENT/PLAN: 1. Viral URI with cough - ICD9: 465.9, ICD10: J06.9 - Discussed viral etiology and rationale for treatment. - Symptomatic treatment with prn analgesia - Supportive care with fluids and rest -Chest x-ray is clear. Given Tessalon for cough. Follow-up with PCP if not improving. - XR CHEST 2V FRONTAL/LAT 2. Rash - ICD9: 782.1, ICD10: R21 Patient concerned for shingles as she has had this previously in this area. Discussed with her that shingles typically does not recur very frequently. She does not have any vesicles however is early in the rash. I will cover with Valtrex but also doxycycline as this could be cellulitis. Discussed red flags to be seen again. She is agreeable with plan. Arash Fraser PA-C XR CHEST 2V FRONTAL/LAT Observed: 2023 8:28 AM Status: F Source: [facility] * * *Final Report* * * DATE OF EXAM: Feb 27 2024 8:28AM WOX [id number] - XR CHEST 2V FRONTAL/LAT / PROCEDURE REASON: Acute cough * * * * Physician Interpretation * * * * HISTORY: Acute cough Acute cough TECHNIQUE: PA and lateral views COMPARISON: None RESULT: Lungs and pleura appear clear. Heart does not appear enlarged. IMPRESSION: Negative chest [employer] Lieutenant: SHARLENE Transcribe Date/Time: Feb 27 2024 8:28A Dictated by : FRANK PÉREZ MD This examination was interpreted and the report reviewed and electronically signed by: FRANK PÉREZ MD on Feb 27 2024 8:29AM EST [id number] PROGRESS Observed: 02/27/2024 8:10 AM Status: COMPLETED Source: [facility] HNO ID: [id number] Author: RAMY YEAGER RT(R) Service: ? Author Type: Looper Fixer Type: Progress Notes Filed: 02/27/2024 08:27 Note Text: Radiology Service Progress Note PATIENT NAME: Héctor Cruz DATE OF SERVICE: February 27, 2024 TIME: 8:19 AM PATIENT IDENTITY VERIFICATION COMPLETED USING TWO (2) IDENTIFIERS: Name and Date of confirmed by patient verbally. FALL SCREENING: Has the patient had 2 falls in the last year or 1 fall with injury or currently using an Ambulatory Assistive Device (Walker, Cane, Wheelchair, Crutches, etc.)? No PATIENT GENDER DATA: Female. status: : No status: NO. PATIENT RELEVANT IMPLANT DATA REVIEWED: Yes PATIENT PRESENTS WITH AN IMPLANTABLE OR ATTACHED PENS AND PENCILS DIPPER: No RADIOLOGY DEPARTMENT: General X-ray: Exam(s) Completed: Chest X-Ray PERIPHERAL IV DATA: Not applicable SIGNED BY: RT Thee(R) February 27, 2024 8:19 AM CNOV Observed: 02/27/2024 7:45 AM Status: COMPLETED Source: [facility] Office Visit ([facility]) HÉCTOR CRUZ ([id number]) 1980 F Date Time Provider Department 02/27/24 7:45 AM ARASH FRASER [facility] During your visit today, we recorded the following information about you: Temperature Pulse Respiration Blood pressure 98.3 degrees 88/minute 16/minute 122/76 Weight 128.4 kg Arash Fraser PA-C 02/27/2024 9:05 AM Signed This note was created using Loco2riter. Subjective Héctor Cruz is a 43 year old female. HPI Presents with a chief complaint of a cough and chest congestion over the past 3 days. Her son has been sick as well. Her daughter had walking pneumonia about 10 days ago. She did start using albuterol yesterday. She does have asthma. Denies chest pain. States she also has developed a rash over the past day on her right breast. She states she has had shingles before and this felt similar. She does have some pain wrapping around to her back area on that side. No vomiting or diarrhea. She has not had a fever. Review of Systems Constitutional: Negative. HENT: Positive for congestion. Negative for ear pain, rhinorrhea and sore throat. Respiratory: Positive for cough and wheezing. Negative for chest tightness and shortness of breath. Cardiovascular: Negative. Gastrointestinal: Negative. Skin: Positive for rash. All other systems reviewed and are negative. PAST MEDICAL HISTORY Diagnosis Date Cardiac dysrhythmia, unspecified Chronic kidney disease Complication of anesthesia NAUSEA WITH ANESTHESIA H/O blood transfusion reaction BORN PREMATURE HAD BLOOD INFECTION Hypertension Infertility, female Sleep apnea Sleep apnea Type 2 diabetes mellitus (HCC) 09/14/2022 Urinary calculus, unspecified 1998 Renal stones Urinary tract infection, site not specified Recurrent UTI's Current Outpatient Medications Medication Sig Dispense Refill levonorgestrel (LILETTA) 20.4 mcg/24 hr (8 yrs) 52 mg IUD 1 Each by INTRAUTERINE route as directed. 1 Each 0 tranexamic acid (LYSTEDA) 650 mg tablet Take 2 tablets by mouth three times a day as needed. 30 tablet 11 ondansetron (ZOFRAN) 4 mg tablet Take 1 tablet by mouth every 8 hours as needed for nausea/vomiting. 30 tablet 1 DUPIXENT PEN 300 mg/2 mL pen injection omeprazole (PRILOSEC) 20 mg capsule montelukast (SINGULAIR) 10 mg tablet cetirizine (ZYRTEC) 10 mg tablet Take by mouth. cholecalciferol (VITAMIN D3) 1,000 unit tab tablet VITAMIN D TABS 50,000 IU once a week CHOLECALCIFEROL TABS [id number] Nila Mahajan PA-C BREO ELLIPTA 200-25 mcg/dose inhaler 1 PUFF DAILY WITH GOOD ORAL CARE albuterol HFA (PROAIR HFA) 90 mcg/actuation inhaler Inhale 2 Puffs as instructed every 4 hours as needed. 1 Inhaler 0 valACYclovir (VALTREX) 1 gram tablet Take 1 tablet by mouth three times a day for 7 days. 21 tablet 0 doxycycline (VIBRA-TABS) 100 mg tablet Take 1 tablet by mouth two times a day for 7 days. 14 tablet 0 benzonatate (TESSALON PERLE) 100 mg capsule Take 2 capsules by mouth three times a day as needed. 30 capsule 0 L. acidoph-L. plantar-L. rhamn 15 billion cell cap Take 1 capsule by mouth once daily. 30 capsule 11 No current facility-administered medications for this visit. PAST SURGICAL HISTORY Procedure Laterality Date DELIVERY ONLY 02/07/2007,07/24/12 , CLASSICAL HYSTEROSCOPY REMOVAL LEIOMYOMATA LAPAROSCOPY SURG CHOLECYSTECTOMY 03/13/2010 Cholecystectomy, lap PAST SURGICAL HISTORY OF WISDOM TEETH PAST SURGICAL HISTORY OF TUBES IN CHEST WHEN BORN TUBAL LIGATION HX 03/13/2015 FAMILY HISTORY Problem Relation Age of Onset Hypertension Mother Thyroid Mother Cancer Father kidney Thyroid Brother Diabetes Maternal Grandmother Cancer Maternal Grandmother pancreas Thyroid Maternal Grandmother Diabetes Maternal Grandfather other (BLOOD CLOTS IN LEGS) Maternal Grandfather Social History Tobacco Use Smoking status: Never Smokeless tobacco: Never Vaping Use Vaping status: Never Used Substance Use Topics Alcohol use: No Drug use: No Objective BP 122/76 Pulse 88 Temp 36.8 ?C (98.3 ?F) Resp 16 Wt 128.4 kg (283 lb 1.1 oz) LMP 11/26/2023 (Exact Date) SpO2 98% BMI 48.59 kg/m? Physical Exam Vitals reviewed. Constitutional: Appearance: Normal appearance. HENT: Head: Normocephalic and atraumatic. Right Ear: Tympanic membrane, ear canal and external ear normal. Left Ear: Tympanic membrane, ear canal and external ear normal. Nose: Congestion present. Mouth/Throat: Mouth: Mucous membranes are moist. Pharynx: Oropharynx is clear. Cardiovascular: Rate and Rhythm: Normal rate and regular rhythm. Heart sounds: Normal heart sounds. Pulmonary: Effort: Pulmonary effort is normal. Breath sounds: Normal breath sounds. Chest: Comments: Patient has some streaky faint erythema of the right breast. No abscess palpated. No rash wrapping around the back or underneath the breast. Musculoskeletal: Cervical back: Neck supple. Skin: General: Skin is warm and dry. Neurological: Mental Status: She is alert. Assessment and Plan ASSESSMENT/PLAN: 1. Viral URI with cough - ICD9: 465.9, ICD10: J06.9 - Discussed viral etiology and rationale for treatment. - Symptomatic treatment with prn analgesia - Supportive care with fluids and rest -Chest x-ray is clear. Given Tessalon for cough. Follow-up with PCP if not improving. - XR CHEST 2V FRONTAL/LAT 2. Rash - ICD9: 782.1, ICD10: R21 Patient concerned for shingles as she has had this previously in this area. Discussed with her that shingles typically does not recur very frequently. She does not have any vesicles however is early in the rash. I will cover with Valtrex but also doxycycline as this could be cellulitis. Discussed red flags to be seen again. She is agreeable with plan. GISELE DurbinC Allergies As of Date: 02/27/2024 Noted Allergy Reaction PENICILLINS 2006 4 - Hives ADVAIR DISKUS (FLUTICASONE PROPIO*12/27/2010 7 - Swelling LATEX 2006 5 - Intolerance Comments: Possible latex allergy- bandaids Date Reviewed: 02/27/2024 Reviewed by: My Santillan MA - Fully Assessed Reason for Visit: Chest Congestion [236] Cmt: bodyaches x 3 days, right side rash Primary Visit Diagnosis:Viral URI with cough [J06.9] Other Visit Diagnosis:Rash [R21] Order(s):XR CHEST 2V FRONTAL/LAT [[id number]] Order #: [id number] FUTURE valACYclovir (VALTREX) 1 gram tabletTake 1 tablet by mouth three times a day for 7 days.Disp: 21 tabletRfl: 0 doxycycline (VIBRA-TABS) 100 mg tabletTake 1 tablet by mouth two times a day for 7 days.Disp: 14 tabletRfl: 0 benzonatate (TESSALON PERLE) 100 mg capsuleTake 2 capsules by mouth three times a day as needed.Disp: 30 capsuleRfl: 0 Prescriptions as of 02/27/2024 - valACYclovir (VALTREX) 1 gram tablet Take 1 tablet by mouth three times a day for 7 days. - doxycycline (VIBRA-TABS) 100 mg tablet Take 1 tablet by mouth two times a day for 7 days. - benzonatate (TESSALON PERLE) 100 mg capsule Take 2 capsules by mouth three times a day as needed. - levonorgestrel (LILETTA) 20.4 mcg/24 hr (8 yrs) 52 mg IUD 1 Each by INTRAUTERINE route as directed. - tranexamic acid (LYSTEDA) 650 mg tablet Take 2 tablets by mouth three times a day as needed. - ondansetron (ZOFRAN) 4 mg tablet Take 1 tablet by mouth every 8 hours as needed for nausea/vomiting. - DUPIXENT PEN 300 mg/2 mL pen injection - omeprazole (PRILOSEC) 20 mg capsule - montelukast (SINGULAIR) 10 mg tablet - cetirizine (ZYRTEC) 10 mg tablet Take by mouth. - cholecalciferol (VITAMIN D3) 1,000 unit tab tablet VITAMIN D TABS 50,000 IU once a week CHOLECALCIFEROL TABS [id number] Nila Mahajan PA-C - DANIEL ELLIPTA 200-25 mcg/dose inhaler 1 PUFF DAILY WITH GOOD ORAL CARE - albuterol HFA (PROAIR HFA) 90 mcg/actuation inhaler Inhale 2 Puffs as instructed every 4 hours as needed. - L. acidoph-L. plantar-L. rhamn 15 billion cell cap Take 1 capsule by mouth once daily. Problem List As Of Date 02/27/2024 Noted Resolved Supervision of normal first [Z34.00] 09/23/2006 12/29/2011 Mild hyperemesis gravidarum, antepartum [O21.0] 10/03/2006 01/16/2012 Threatened premature labor, antepartum [O47.00] 01/30/2007 01/16/2012 Other malaise and fatigue [R53.81, R53.83] 05/06/2008 01/16/2012 BENIGN HYPERTENSION [I10] 05/06/2008 Previous section [Z98.891] 12/29/2011 08/07/2012 History of delivery, currently *12/29/2011 08/07/2012 History of recurrent UTI (urinary tract infecti*12/29/2011 08/07/2012 History of kidney stones [Z87.442] 12/29/2011 04/16/2012 Patient requested diagnostic testing [Z01.89] 12/29/2011 04/16/2012 Nausea/vomiting in [O21.9] 12/29/2011 03/15/2012 Anesthesia complication [T88.59XA] 12/29/2011 04/16/2012 History of cardiac dysrhythmia [Z86.79] 12/29/2011 08/07/2012 Immunization due [Z23] 12/29/2011 08/07/2012 High-risk [O09.90] 01/02/2012 08/07/2012 Advanced maternal age in multigravida [O09.529] 02/06/2015 10/15/2015 History of classical section [Z98.891] 02/06/2015 10/15/2015 Previous delivery in first trimester, a*02/06/2015 10/15/2015 Nausea and vomiting of , antepartum [O*02/06/2015 10/15/2015 Single umbilical artery [Q27.0] 05/05/2015 10/15/2015 Type 2 diabetes mellitus (HCC) [E11.9] 09/14/2022 Hyperlipidemia [E78.5] 12/14/2023 Prescriptions ordered this encounter Disp Refills Start End VALACYCLOVIR 1 GRAM TABLET 21 t* 0 02/27/2024 03/05/2024 Route: ORAL Sig: Take 1 tablet by mouth three times a day for 7 days. DOXYCYCLINE HYCLATE 100 MG TABLET 14 t* 0 02/27/2024 03/05/2024 Route: ORAL Sig: Take 1 tablet by mouth two times a day for 7 days. BENZONATATE 100 MG CAPSULE 30 c* 0 02/27/2024 Route: ORAL Sig: Take 2 capsules by mouth three times a day as needed. Letter Text Encounter Status:Closed by ARASH FRASER on 02/27/24 PROGRESS Observed: 01/29/2024 4:53 PM Status: COMPLETED Source: [facility] HNO ID: [id number] Author: KADE OBANDO MD Service: ? Author Type: Physician Type: Progress Notes Filed: 01/29/2024 16:55 Note Text: Patient underwent hysteroscopy DANDC with submucosal fibroid resection and Liletta IUD insertion at [facility] on 01/26/2024 without complication she was discharged home with routine instructions and follow-up. Kade Obando MD CNOP Observed: 01/26/2024 12:00 AM Status: COMPLETED Source: [facility] Operative Note (Enc) (OBGYWM ) Encounter Status:Closed by KADE OBANDO on 01/29/24 HISTORY PHYSICAL Observed: 12/27/2023 12:38 PM Status: COMPLETED Source: [facility] HNO ID: [id number] Author: KADE OBANDO MD Service: ? Author Type: Physician Type: H&P Filed: 12/27/2023 12:47 Note Text: Pre-Op History and Physical HPI: The patient is a 43 year old female presenting for pre-operative visit. She is scheduled for hysteroscopy DANDC with possible polyp resection and IUD insertion, for aUB, stenotic cervix, fluid in endometrial cavity on 01/26/24. Procedure discussed along with risks, benefits and complications. Other alternatives discussed for management. Consent form signed? Yes. PAST MEDICAL HISTORY Diagnosis Date Cardiac dysrhythmia, unspecified Chronic kidney disease Complication of anesthesia NAUSEA WITH ANESTHESIA H/O blood transfusion reaction BORN PREMATURE HAD BLOOD INFECTION Hypertension Infertility, female Sleep apnea Sleep apnea Type 2 diabetes mellitus (HCC) 09/14/2022 Urinary calculus, unspecified 1998 Renal stones Urinary tract infection, site not specified Recurrent UTI's PAST SURGICAL HISTORY Procedure Laterality Date DELIVERY ONLY 02/07/2007,07/24/12 , CLASSICAL LAPAROSCOPY SURG CHOLECYSTECTOMY 2011 Cholecystectomy, lap PAST SURGICAL HISTORY OF WISDOM TEETH PAST SURGICAL HISTORY OF TUBES IN CHEST WHEN BORN TUBAL LIGATION HX 2016 Current Outpatient Medications Medication Sig Dispense Refill ondansetron (ZOFRAN) 4 mg tablet Take 1 tablet by mouth every 8 hours as needed for nausea/vomiting. 30 tablet 1 DUPIXENT PEN 300 mg/2 mL pen injection omeprazole (PRILOSEC) 20 mg capsule montelukast (SINGULAIR) 10 mg tablet cetirizine (ZYRTEC) 10 mg tablet Take by mouth. cholecalciferol (VITAMIN D3) 1,000 unit tab tablet VITAMIN D TABS 50,000 IU once a week CHOLECALCIFEROL TABS [id number] Nila Mahajan PA-C BREO ELLIPTA 200-25 mcg/dose inhaler 1 PUFF DAILY WITH GOOD ORAL CARE albuterol HFA (PROAIR HFA) 90 mcg/actuation inhaler Inhale 2 Puffs as instructed every 4 hours as needed. 1 Inhaler 0 L. acidoph-L. plantar-L. rhamn 15 billion cell cap Take 1 capsule by mouth once daily. 30 capsule 11 tranexamic acid (LYSTEDA) 650 mg tablet Take 2 tablets by mouth three times a day as needed. 30 tablet 11 No current facility-administered medications for this visit. ALLERGIES: Penicillins, Advair Diskus [Fluticasone Propion-Salmeterol], and Latex PERSONAL HISTORY: Social History Tobacco Use Smoking status: Never Smokeless tobacco: Never Vaping Use Vaping status: Never Used Substance Use Topics Alcohol use: No Drug use: No FAMILY HISTORY: FAMILY HISTORY Problem Relation Age of Onset Hypertension Mother Thyroid Mother Cancer Father kidney Thyroid Brother Diabetes Maternal Grandmother Cancer Maternal Grandmother pancreas Thyroid Maternal Grandmother Diabetes Maternal Grandfather other (BLOOD CLOTS IN LEGS) Maternal Grandfather REVIEW OF SYMPTOMS: GENERAL: denies fevers or chills ENDOCRINOLOGY: has not been on steroids Cardiology : denies palpitations or chest pain Respiratory: denies SOB or cough Hematology: denies history of prolonged bleeding or easy bruising or VTE Allergy: Denies history of personal or family history of allergy to anesthesia PHYSICAL EXAMINATION: VITALS: Blood pressure 132/90, weight 124.7 kg (275 lb), last menstrual period 11/26/2023. GENERAL: The patient is well nourished, well hydrated in no acute distress. , The patient is oriented to time, place, and person. NECK: Supple. No lynphadenopathy, normal thyroid, no thyromegaly. LUNGS: Clear to auscultation bilaterally. no wheezes, rhonchi or rales HEART: Regular rate and rhythm, Normal heart sounds, and No murmurs or gallops IMPRESSION: Fluid in endometrium, AUB, stenotic cervical os PLAN: The risks/benefits/alternatives and personal involved for the planned hysteroscopy DANDC with possible polypectomy and IUD insertion were reviewed with the patient. Her questions were answered to her satisfaction and she desires to proceed. Consent was signed. I reviewed with her postop instructions and expectations. I have reviewed and updated past medical and surgical history, medications and allergies Kade Obando M.D. CNOV Observed: 12/27/2023 10:20 AM Status: COMPLETED Source: [facility] Office Visit (OBGYWM) HÉCTOR CRUZ ([id number]) 1980 F Date Time Provider Department 12/27/23 10:20 AM KADE OBANDO OBGYWM During your visit today, we recorded the following information about you: Blood pressure Weight 132/90 124.7 kg Kade Obando MD 12/27/2023 12:47 PM Signed Héctor Cruz is a 43 year old female who presents for problem visit for c/o pelvic pressure and nausea. Feels like someone has a fist in my side. On right. No fever or chills. No blood in urine. Had eval for kidney stones and has some on left but not right. Has CT scan ordered by Dr. Carrasco. No emesis but taking zofran for nausea. Some hearburn despite medications. Has been going on since started aygestin. It did stop bleeding. No constipation or diarrhea, no blood in stools. Urine culture from urology pending but doesn't feel like it is a UTI.Tylenol and ibuprofen prn pain but it kept her up at night. Almost went to ED last night. OB History T1 L3 SAB0 IAB0 Ectopic0 Multiple0 Live Births3 [employer] History LMP: 11/26/2023 (Exact Date), Having periods Age at Menarche: Age at First : Age at Menopause: [employer] History Comments: Sexual Activity: Yes; Male Contraception: Tubal Ligation PAST MEDICAL HISTORY Diagnosis Date Cardiac dysrhythmia, unspecified Chronic kidney disease Complication of anesthesia NAUSEA WITH ANESTHESIA H/O blood transfusion reaction BORN PREMATURE HAD BLOOD INFECTION Hypertension Infertility, female Sleep apnea Sleep apnea Type 2 diabetes mellitus (HCC) 09/14/2022 Urinary calculus, unspecified 1998 Renal stones Urinary tract infection, site not specified Recurrent UTI's PAST SURGICAL HISTORY Procedure Laterality Date DELIVERY ONLY 02/07/2007,07/24/12 , CLASSICAL LAPAROSCOPY SURG CHOLECYSTECTOMY 2010 Cholecystectomy, lap PAST SURGICAL HISTORY OF WISDOM TEETH PAST SURGICAL HISTORY OF TUBES IN CHEST WHEN BORN TUBAL LIGATION HX 2016 FAMILY HISTORY Problem Relation Age of Onset Hypertension Mother Thyroid Mother Cancer Father kidney Thyroid Brother Diabetes Maternal Grandmother Cancer Maternal Grandmother pancreas Thyroid Maternal Grandmother Diabetes Maternal Grandfather other (BLOOD CLOTS IN LEGS) Maternal Grandfather Social History Tobacco Use Smoking status: Never Smokeless tobacco: Never Vaping Use Vaping status: Never Used Substance Use Topics Alcohol use: No Drug use: No Current Outpatient Medications Medication Sig ondansetron (ZOFRAN) 4 mg tablet Take 1 tablet by mouth every 8 hours as needed for nausea/vomiting. DUPIXENT PEN 300 mg/2 mL pen injection norethindrone (AYGESTIN) 5 mg tablet Take 1 tablet by mouth as directed. One tablet daily, may use BID as needed for increased bleeding omeprazole (PRILOSEC) 20 mg capsule montelukast (SINGULAIR) 10 mg tablet cetirizine (ZYRTEC) 10 mg tablet Take by mouth. cholecalciferol (VITAMIN D3) 1,000 unit tab tablet VITAMIN D TABS 50,000 IU once a week CHOLECALCIFEROL TABS [id number] Nila Mahajan PA-C BREKel ELLIPTA 200-25 mcg/dose inhaler 1 PUFF DAILY WITH GOOD ORAL CARE albuterol HFA (PROAIR HFA) 90 mcg/actuation inhaler Inhale 2 Puffs as instructed every 4 hours as needed. L. acidoph-L. plantar-L. rhamn 15 billion cell cap Take 1 capsule by mouth once daily. No current facility-administered medications for this visit. Allergies As of Date: 12/27/2023 Allergen Noted Reaction PENICILLINS 2006 Hives ADVAIR DISKUS [FLUTICASONE PROPIO*12/27/2010 Swelling LATEX 2006 Intolerance Fully Assessed 12/27/2023 Allergies and current medication updated:Yes SENSITIVE EXAM: The sensitive examination was discussed with the Patient or Patient's Authorized Chicken Cutter. As applicable, any other physician, advance practice provider, medical student, or other health professional student that will be observing or involved in the sensitive examination for educational or training purposes was discussed with the Patient or Authorized Chicken Cutter. The Patient or Authorized Chicken Cutter has agreed to proceed with the sensitive examination. (Sensitive examination includes inspection and/or palpation of the breasts, pelvis, prostate and anorectal regions). EXAM: BP 132/90 Wt 275 lb (124.7kg) LMP 11/26/2023 GENERAL: pleasant, female in no apparent distress ABDOMEN: soft, no hernia, no masses, and Mild tenderness in RLQ, right lateral abdomen and suprapubic, no rebound or guarding PELVIC: external genitalia normal, normal Bartholin's glands, urethra, [place]'s glands, no vulvar lesions, no cervical lesions, good vaginal support, physiologic discharge present, normal appearing perineal body and perianal region BIMANUAL: no adnexal masses, non-tender, and uterus mildly tender, chris. on right ASSESSMENT AND PLAN: Assessment AND Plan Right flank pain Nausea Uncertain of etiology of pain, does seem to have started after EMB. Has f/u w/ urology, CT ordered to rule out stone and this seems reasonable. US suggests may have adhesions of uterus and ovary, may have endometriosis and this may be flaring. Cont. symptoamtic measures and ibuprofen and tylenol and zofran prn. Offered pain medication for prn use as pain has kept her awake, declines this. D/w her plan for IUD for heavy menses/aub may help pain if is endometriosis related. Decision for surgery today for hysteroscopy DANDC w/ possible polyp resection and IUD insertion due to stenotic cervix and AUB reviewed. Desires to proceed. MD Zack Carrillo, Kade Wheatley MD 12/27/2023 12:47 PM Signed Pre-Op History and Physical HPI: The patient is a 43 year old female presenting for pre-operative visit. She is scheduled for hysteroscopy [facility] with possible polyp resection and IUD insertion, for aUB, stenotic cervix, fluid in endometrial cavity on 01/26/24. Procedure discussed along with risks, benefits and complications. Other alternatives discussed for management. Consent form signed? Yes. PAST MEDICAL HISTORY Diagnosis Date Cardiac dysrhythmia, unspecified Chronic kidney disease Complication of anesthesia NAUSEA WITH ANESTHESIA H/O blood transfusion reaction BORN PREMATURE HAD BLOOD INFECTION Hypertension Infertility, female Sleep apnea Sleep apnea Type 2 diabetes mellitus (HCC) 09/14/2022 Urinary calculus, unspecified 1998 Renal stones Urinary tract infection, site not specified Recurrent UTI's PAST SURGICAL HISTORY Procedure Laterality Date DELIVERY ONLY 02/07/2007,07/24/12 , CLASSICAL LAPAROSCOPY SURG CHOLECYSTECTOMY 2010 Cholecystectomy, lap PAST SURGICAL HISTORY OF WISDOM TEETH PAST SURGICAL HISTORY OF TUBES IN CHEST WHEN BORN TUBAL LIGATION HX 2016 Current Outpatient Medications Medication Sig Dispense Refill ondansetron (ZOFRAN) 4 mg tablet Take 1 tablet by mouth every 8 hours as needed for nausea/vomiting. 30 tablet 1 DUPIXENT PEN 300 mg/2 mL pen injection omeprazole (PRILOSEC) 20 mg capsule montelukast (SINGULAIR) 10 mg tablet cetirizine (ZYRTEC) 10 mg tablet Take by mouth. cholecalciferol (VITAMIN D3) 1,000 unit tab tablet VITAMIN D TABS 50,000 IU once a week CHOLECALCIFEROL TABS [id number] Nila Mahajan PA-C BREO ELLIPTA 200-25 mcg/dose inhaler 1 PUFF DAILY WITH GOOD ORAL CARE albuterol HFA (PROAIR HFA) 90 mcg/actuation inhaler Inhale 2 Puffs as instructed every 4 hours as needed. 1 Inhaler 0 L. acidoph-L. plantar-L. rhamn 15 billion cell cap Take 1 capsule by mouth once daily. 30 capsule 11 tranexamic acid (LYSTEDA) 650 mg tablet Take 2 tablets by mouth three times a day as needed. 30 tablet 11 No current facility-administered medications for this visit. ALLERGIES: Penicillins, Advair Diskus [Fluticasone Propion-Salmeterol], and Latex PERSONAL HISTORY: Social History Tobacco Use Smoking status: Never Smokeless tobacco: Never Vaping Use Vaping status: Never Used Substance Use Topics Alcohol use: No Drug use: No FAMILY HISTORY: FAMILY HISTORY Problem Relation Age of Onset Hypertension Mother Thyroid Mother Cancer Father kidney Thyroid Brother Diabetes Maternal Grandmother Cancer Maternal Grandmother pancreas Thyroid Maternal Grandmother Diabetes Maternal Grandfather other (BLOOD CLOTS IN LEGS) Maternal Grandfather REVIEW OF SYMPTOMS: GENERAL: denies fevers or chills ENDOCRINOLOGY: has not been on steroids Cardiology : denies palpitations or chest pain Respiratory: denies SOB or cough Hematology: denies history of prolonged bleeding or easy bruising or VTE Allergy: Denies history of personal or family history of allergy to anesthesia PHYSICAL EXAMINATION: VITALS: Blood pressure 132/90, weight 124.7 kg (275 lb), last menstrual period 11/26/2023. GENERAL: The patient is well nourished, well hydrated in no acute distress. , The patient is oriented to time, place, and person. NECK: Supple. No lynphadenopathy, normal thyroid, no thyromegaly. LUNGS: Clear to auscultation bilaterally. no wheezes, rhonchi or rales HEART: Regular rate and rhythm, Normal heart sounds, and No murmurs or gallops IMPRESSION: Fluid in endometrium, AUB, stenotic cervical os PLAN: The risks/benefits/alternatives and personal involved for the planned hysteroscopy DANDC with possible polypectomy and IUD insertion were reviewed with the patient. Her questions were answered to her satisfaction and she desires to proceed. Consent was signed. I reviewed with her postop instructions and expectations. I have reviewed and updated past medical and surgical history, medications and allergies Kade Obando M.D. Allergies As of Date: 12/27/2023 Noted Allergy Reaction PENICILLINS 2006 4 - Hives ADVAIR DISKUS (FLUTICASONE PROPIO*12/27/2010 7 - Swelling LATEX 2006 5 - Intolerance Comments: Possible latex allergy- bandaids Date Reviewed: 12/27/2023 Reviewed by: Ema Guo MA - Fully Assessed Reason for Visit: Follow Up [171] Primary Visit Diagnosis:Right flank pain [R10.9] Other Visit Diagnoses:Nausea [R11.0] Abnormal uterine bleeding (AUB) [N93.9] Stenotic cervical os [N88.2] Fluid in endometrial cavity [N85.9] Order(s):tranexamic acid (LYSTEDA) 650 mg tabletTake 2 tablets by mouth three times a day as needed.Disp: 30 tabletRfl: 11 Prescriptions as of 12/27/2023 - tranexamic acid (LYSTEDA) 650 mg tablet Take 2 tablets by mouth three times a day as needed. - ondansetron (ZOFRAN) 4 mg tablet Take 1 tablet by mouth every 8 hours as needed for nausea/vomiting. - DUPIXENT PEN 300 mg/2 mL pen injection - omeprazole (PRILOSEC) 20 mg capsule - montelukast (SINGULAIR) 10 mg tablet - cetirizine (ZYRTEC) 10 mg tablet Take by mouth. - cholecalciferol (VITAMIN D3) 1,000 unit tab tablet VITAMIN D TABS 50,000 IU once a week CHOLECALCIFEROL TABS [id number] Nila SANCHEZ ELLIPTA 200-25 mcg/dose inhaler 1 PUFF DAILY WITH GOOD ORAL CARE - albuterol HFA (PROAIR HFA) 90 mcg/actuation inhaler Inhale 2 Puffs as instructed every 4 hours as needed. - L. acidoph-L. plantar-L. rhamn 15 billion cell cap Take 1 capsule by mouth once daily. Problem List As Of Date 12/27/2023 Noted Resolved Supervision of normal first [Z34.00] 09/23/2006 12/29/2011 Mild hyperemesis gravidarum, antepartum [O21.0] 10/03/2006 01/16/2012 Threatened premature labor, antepartum [O47.00] 01/30/2007 01/16/2012 Other malaise and fatigue [R53.81, R53.83] 05/06/2008 01/16/2012 BENIGN HYPERTENSION [I10] 05/06/2008 Previous section [Z98.891] 12/29/2011 08/07/2012 History of delivery, currently *12/29/2011 08/07/2012 History of recurrent UTI (urinary tract infecti*12/29/2011 08/07/2012 History of kidney stones [Z87.442] 12/29/2011 04/16/2012 Patient requested diagnostic testing [Z01.89] 12/29/2011 04/16/2012 Nausea/vomiting in [O21.9] 12/29/2011 03/15/2012 Anesthesia complication [T88.59XA] 12/29/2011 04/16/2012 History of cardiac dysrhythmia [Z86.79] 12/29/2011 08/07/2012 Immunization due [Z23] 12/29/2011 08/07/2012 High-risk [O09.90] 01/02/2012 08/07/2012 Advanced maternal age in multigravida [O09.529] 02/06/2015 10/15/2015 History of classical section [Z98.891] 02/06/2015 10/15/2015 Previous delivery in first trimester, a*02/06/2015 10/15/2015 Nausea and vomiting of , antepartum [O*02/06/2015 10/15/2015 Single umbilical artery [Q27.0] 05/05/2015 10/15/2015 Type 2 diabetes mellitus (HCC) [E11.9] 09/14/2022 Hyperlipidemia [E78.5] 12/14/2023 Prescriptions ordered this encounter Disp Refills Start End TRANEXAMIC ACID 650 MG TABLET 30 t* 11 12/27/2023 Route: ORAL Sig: Take 2 tablets by mouth three times a day as needed. Medications Discontinued During This Encounter Prescriptions - norethindrone (AYGESTIN) 5 mg tablet (Discontinued) Take 1 tablet by mouth as directed. One tablet daily, may use BID as needed for increased bleeding Encounter Status:Closed by KADE OBANDO on 12/27/23 PROGRESS Observed: 12/27/2023 10:04 AM Status: COMPLETED Source: [facility] ID: [id number] Author: KADE OBANDO MD Service: ? Author Type: Physician Type: Progress Notes Filed: 12/27/2023 12:47 Note Text: Héctor Cruz is a 43 year old female who presents for problem visit for c/o pelvic pressure and nausea. Feels like someone has a fist in my side. On right. No fever or chills. No blood in urine. Had eval for kidney stones and has some on left but not right. Has CT scan ordered by Dr. Carrasco. No emesis but taking zofran for nausea. Some hearburn despite medications. Has been going on since started aygestin. It did stop bleeding. No constipation or diarrhea, no blood in stools. Urine culture from urology pending but doesn't feel like it is a UTI.Tylenol and ibuprofen prn pain but it kept her up at night. Almost went to ED last night. OB History T1 L3 SAB0 IAB0 Ectopic0 Multiple0 Live Births3 [employer] History LMP: 11/26/2023 (Exact Date), Having periods Age at Menarche: Age at First : Age at Menopause: [employer] History Comments: Sexual Activity: Yes; Male Contraception: Tubal Ligation PAST MEDICAL HISTORY Diagnosis Date Cardiac dysrhythmia, unspecified Chronic kidney disease Complication of anesthesia NAUSEA WITH ANESTHESIA H/O blood transfusion reaction BORN PREMATURE HAD BLOOD INFECTION Hypertension Infertility, female Sleep apnea Sleep apnea Type 2 diabetes mellitus (HCC) 09/14/2022 Urinary calculus, unspecified 1998 Renal stones Urinary tract infection, site not specified Recurrent UTI's PAST SURGICAL HISTORY Procedure Laterality Date DELIVERY ONLY 02/07/2007,07/24/12 , CLASSICAL LAPAROSCOPY SURG CHOLECYSTECTOMY 2010 Cholecystectomy, lap PAST SURGICAL HISTORY OF WISDOM TEETH PAST SURGICAL HISTORY OF TUBES IN CHEST WHEN BORN TUBAL LIGATION HX 2016 FAMILY HISTORY Problem Relation Age of Onset Hypertension Mother Thyroid Mother Cancer Father kidney Thyroid Brother Diabetes Maternal Grandmother Cancer Maternal Grandmother pancreas Thyroid Maternal Grandmother Diabetes Maternal Grandfather other (BLOOD CLOTS IN LEGS) Maternal Grandfather Social History Tobacco Use Smoking status: Never Smokeless tobacco: Never Vaping Use Vaping status: Never Used Substance Use Topics Alcohol use: No Drug use: No Current Outpatient Medications Medication Sig ondansetron (ZOFRAN) 4 mg tablet Take 1 tablet by mouth every 8 hours as needed for nausea/vomiting. DUPIXENT PEN 300 mg/2 mL pen injection norethindrone (AYGESTIN) 5 mg tablet Take 1 tablet by mouth as directed. One tablet daily, may use BID as needed for increased bleeding omeprazole (PRILOSEC) 20 mg capsule montelukast (SINGULAIR) 10 mg tablet cetirizine (ZYRTEC) 10 mg tablet Take by mouth. cholecalciferol (VITAMIN D3) 1,000 unit tab tablet VITAMIN D TABS 50,000 IU once a week CHOLECALCIFEROL TABS [id number] Nila Mahajan PA-C BREO ELLIPTA 200-25 mcg/dose inhaler 1 PUFF DAILY WITH GOOD ORAL CARE albuterol HFA (PROAIR HFA) 90 mcg/actuation inhaler Inhale 2 Puffs as instructed every 4 hours as needed. L. acidoph-L. plantar-L. rhamn 15 billion cell cap Take 1 capsule by mouth once daily. No current facility-administered medications for this visit. Allergies As of Date: 12/27/2023 Allergen Noted Reaction PENICILLINS 2006 Hives ADVAIR DISKUS [FLUTICASONE PROPIO*12/27/2010 Swelling LATEX 2006 Intolerance Fully Assessed 12/27/2023 Allergies and current medication updated:Yes SENSITIVE EXAM: The sensitive examination was discussed with the Patient or Patient's Authorized Chicken Cutter. As applicable, any other physician, advance practice provider, medical student, or other health professional student that will be observing or involved in the sensitive examination for educational or training purposes was discussed with the Patient or Authorized Chicken Cutter. The Patient or Authorized Chicken Cutter has agreed to proceed with the sensitive examination. (Sensitive examination includes inspection and/or palpation of the breasts, pelvis, prostate and anorectal regions). EXAM: BP 132/90 Wt 275 lb (124.7kg) LMP 11/26/2023 GENERAL: pleasant, female in no apparent distress ABDOMEN: soft, no hernia, no masses, and Mild tenderness in RLQ, right lateral abdomen and suprapubic, no rebound or guarding PELVIC: external genitalia normal, normal Bartholin's glands, urethra, [place]'s glands, no vulvar lesions, no cervical lesions, good vaginal support, physiologic discharge present, normal appearing perineal body and perianal region BIMANUAL: no adnexal masses, non-tender, and uterus mildly tender, chris. on right ASSESSMENT AND PLAN: Assessment AND Plan Right flank pain Nausea Uncertain of etiology of pain, does seem to have started after EMB. Has f/u w/ urology, CT ordered to rule out stone and this seems reasonable. US suggests may have adhesions of uterus and ovary, may have endometriosis and this may be flaring. Cont. symptoamtic measures and ibuprofen and tylenol and zofran prn. Offered pain medication for prn use as pain has kept her awake, declines this. D/w her plan for IUD for heavy menses/aub may help pain if is endometriosis related. Decision for surgery today for hysteroscopy DANDC w/ possible polyp resection and IUD insertion due to stenotic cervix and AUB reviewed. Desires to proceed. Kade Obando MD [facility] Observed: 12/11/2023 12:00 AM Status: COMPLETED Source: [facility] Telephone (OBGY[facility]) HÉCTOR CRUZ ([id number]) 1980 F Date Time Provider Department 12/11/23 KADE OBANDO [employer] During your visit today, we recorded the following information about you: Jo-Ann Caruso 12/11/2023 9:48 AM Signed Pt called to check status of scheduling a procedure. She thought a DANDC. Abby Liz LPN 12/12/2023 3:54 PM Signed Patient scheduled 01/26/2024 at [facility]. Patient would like moved to a sooner date if available. Allergies As of Date: 12/11/2023 Noted Allergy Reaction ADVAIR DISKUS (FLUTICASONE PROPIO*12/27/2010 7 - Swelling LATEX 2006 Comments: Possible latex allergy- bandaids PENICILLINS 2006 4 - Hives Date Reviewed: 11/29/2023 Reviewed by: Kade Obando MD - Fully Assessed Reason for Visit: Patient Question [4267] Prescriptions as of 12/12/2023 - ondansetron (ZOFRAN) 4 mg tablet Take 1 tablet by mouth every 8 hours as needed for nausea/vomiting. - DUPIXENT PEN 300 mg/2 mL pen injection - norethindrone (AYGESTIN) 5 mg tablet Take 1 tablet by mouth as directed. One tablet daily, may use BID as needed for increased bleeding - omeprazole (PRILOSEC) 20 mg capsule - montelukast (SINGULAIR) 10 mg tablet - cetirizine (ZYRTEC) 10 mg tablet Take by mouth. - cholecalciferol (VITAMIN D3) 1,000 unit tab tablet VITAMIN D TABS 50,000 IU once a week CHOLECALCIFEROL TABS [id number] Nila Mahajan PA-C - BREO ELLIPTA 200-25 mcg/dose inhaler 1 PUFF DAILY WITH GOOD ORAL CARE - albuterol HFA (PROAIR HFA) 90 mcg/actuation inhaler Inhale 2 Puffs as instructed every 4 hours as needed. - L. acidoph-L. plantar-L. rhamn 15 billion cell cap Take 1 capsule by mouth once daily. Problem List As Of Date 12/11/2023 Noted Resolved Supervision of normal first [Z34.00] 09/23/2006 12/29/2011 Mild hyperemesis gravidarum, antepartum [O21.0] 10/03/2006 01/16/2012 Threatened premature labor, antepartum [O47.00] 01/30/2007 01/16/2012 Other malaise and fatigue [R53.81, R53.83] 05/06/2008 01/16/2012 BENIGN HYPERTENSION [I10] 05/06/2008 Previous section [Z98.891] 12/29/2011 08/07/2012 History of delivery, currently *12/29/2011 08/07/2012 History of recurrent UTI (urinary tract infecti*12/29/2011 08/07/2012 History of kidney stones [Z87.442] 12/29/2011 04/16/2012 Patient requested diagnostic testing [Z01.89] 12/29/2011 04/16/2012 Nausea/vomiting in [O21.9] 12/29/2011 03/15/2012 Anesthesia complication [T88.59XA] 12/29/2011 04/16/2012 History of cardiac dysrhythmia [Z86.79] 12/29/2011 08/07/2012 Immunization due [Z23] 12/29/2011 08/07/2012 High-risk [O09.90] 01/02/2012 08/07/2012 Advanced maternal age in multigravida [O09.529] 02/06/2015 10/15/2015 History of classical section [Z98.891] 02/06/2015 10/15/2015 Previous delivery in first trimester, a*02/06/2015 10/15/2015 Nausea and vomiting of , antepartum [O*02/06/2015 10/15/2015 Single umbilical artery [Q27.0] 05/05/2015 10/15/2015 Encounter Status:Closed by JO-ANN LAURENT on 12/11/23 ALLERGIES DATE TYPE / CODE NAME / CODE REACTION SEVERITY SOURCE 06/19/2024 DRUG INGREDI/[id number] 003(SNOMED CT) METFORMIN OTHER: SEE C [facility] 12/27/2010 DRUG/[id number] (SNOMED CT) FLUTICASONE PROPION-SALMETEROL [facility] 2006 Drug Class/36462769 3(SNOMED CT) PENICILLINS HIVES [facility] 2006 DRUG INGREDI/096913 003(SNOMED CT) LATEX INTOLERANCE Low [facility] ENCOUNTERS ADMIT/DISCHARGE ACCOUNT NUMBER ADMITTING ENCOUNTER CLASS LOC ATION SOURCE 11/21/2024/ 5 [id number] [facility] HospitalBuild ing:[facility] 06/19/2024/ 5 [id number] [address] [facility] HospitalBuild ing:W[facility]B [facility] 05/24/2024/ 5 [id number] Amb[address] [facility] HospitalBuild ing:[facility]C [facility] 05/22/2024/ 5 [id number] Amb[address] [facility] HospitalBuild ing:WOL2 [facility] 05/22/2024/ 5 [id number] Amb[address] [facility] HospitalBuild ing:WMOB [facility] 02/27/2024/ 4 [id number] Amb[address] [facility] HospitalBuild ing:WORG [facility] 02/27/2024/ 4 [id number] [address] [facility] HospitalBuild ing:W[facility]C [facility] 12/27/2023/ [address] [id number] [facility] PAYERS ENCOUNTER GUARANTOR PAYER SUBSCRIBER SOURCE 11/21/2024 Primary Insuranc e:MMO SUPERMED PPOPolicy Number: [id number] Date:[id number] Name:Gucci OSEGUERAFROILAN: [id number] [place] [address] [facility] 06/19/2024 Primary Insuranc e:MMO SUPERMED PPOPolicy Number: [id number] Date:0256-32-91Lunu Name:Gucci ANAYA JORY: [id number] [place] [address] [facility] 05/24/2024 Primary Insuranc e:MMO SUPERMED PPOPolicy Number: [id number] Date:8801-80-30Pgkm Name:Gucci ANAYA JORY: [id number] [place], [place] [address] [place] [address] 05/22/2024 Primary Insuranc e:MMO SUPERMED PPOPolicy Number: [id number] Date:1378-86-42Htnm Name:Gucci ANAYA JORY: [id number] [place] [address] [facility] 05/22/2024 Primary Insuranc e:MMO SUPERMED PPOPolicy Number: [id number] Date:1838-70-09Jxjz Name:Gucci ANAYA JORY: [id number] [place], [place] [address] [place] [address] 02/27/2024 Primary Insuranc e:MMO SUPERMED PPOPolicy Number: [id number] Date:9232-15-42Ijqr Name:Gucci ANAYA JORY: [id number] [place] [address] [facility] 02/27/2024 Primary Insuranc e:MMO SUPERMED PPOPolicy Number: [id number] Date:5405-31-10Racw Name:Gucci CORLEY: [id number] [place] [address] [facility] 12/27/2023 Primary Insuranc e:MMO SUPERMED PPOPolicy Number: [id number] Date:8737-19-12Resk Name:Gucci CORLEY: [id number] [place] [address] [facility]
[2024-12-09 10:37] LABS: Hematocrit 40.0 % (37-47); Hemoglobin 12.7 g/dL (12.0-15.0); Immature Granulocytes Count 0.080 X10^3/uL (0.0-0.0); Mean Corp Hgb Conc 31.8 g/dL (32-36); Mean Corpuscular Volume 91.3 fL (81-99); Mean Platelet Vol. 10.1 fl (6.2-12.0); NRBC Flagged by Analyzer 0 % (0-5); Platelet Count 336 K/mm3 (150-450); RBC Distribution Width CV 12.8 % (11.6-14.6); RBC Distribution Width SD 42.3 fl (35.1-43.9); Red Blood Count 4.38 M/mm3 (4.2-5.4); White Blood Count 10.2 K/mm3 (4.4-11.0)
[2024-12-09 11:29] LABS: AST(SGOT) 19 U/L (<=31); Alanine Aminotransfer ALT/SGPT 16 U/L (<=34); Albumin, Serum 4.1 g/dL (3.5-5.0); Alkaline Phosphatase 72 U/L (35-104); Anion Gap 12 (5-15); BUN 14 mg/dL (4-19); BUN/Creat Ratio 17.2 RATIO (10-20); CRP 6.91 mg/L (0.0-3.0); Calcium,Total 9.2 mg/dL (7.6-11.0); Carbon Dioxide 20.1 mmol/L (21.0-32.0); Chloride 104 mmol/L (98-108); Cholesterol 249 mg/dL (<=200); Globulin 3.6 g/dL (2.2-4.2); Glucose 122 mg/dL (70-99); Low Density Lipoprotein Calc. 155 mg/dL; Magnesium 2.1 mg/dL (1.5-2.2); Potassium 4.3 mmol/L (3.3-5.1); Triglycerides 210 mg/dL; Uric Acid 4.5 mg/dL (2.6-6.0); Very Low Density Lipoprotein 42 mg/dL (5-40); Vitamin B12 436 pg/mL (180-914); Vitamin D,25 Hydroxy 32.2 ng/mL (30-100); cholesterol:hdl ratio screen 4.81
== END | disposition home or self-care (01) ==
LOC: MTLAB 08:56
PROVIDERS: PCP Internal Medicine; Referring Provider Internal Medicine; Visit Provider Internal Medicine
DX: I10 Essential (primary) hypertension (principal); E66.01 Morbid (severe) obesity due to excess calories; Z68.42 Body mass index [BMI] 45.0-49.9, adult; E11.9 Type 2 diabetes mellitus without complications; L65.9 Nonscarring hair loss, unspecified; R53.83 Other fatigue; K76.0 Fatty (change of) liver, not elsewhere classified; Z13.220 Encounter for screening for lipoid disorders
CPT/HCPCS: 36415; 80053; 80061; 82306; 82607; 83036; 83735; 84550; 85025; 85652; 86140

== ENCOUNTER → 2025-02-26 | Outpatient (CLI) | payer OTHER, SELFPAY ==
[2025-02-26 10:48] LABS: AST(SGOT) 19 U/L (<=31); Alanine Aminotransfer ALT/SGPT 21 U/L (<=34); Albumin, Serum 4.1 g/dL (3.5-5.0); Alkaline Phosphatase 64 U/L (35-104); Anion Gap 11 (5-15); BUN 14 mg/dL (4-19); BUN/Creat Ratio 17.7 RATIO (10-20); Calcium,Total 9.4 mg/dL (7.6-11.0); Carbon Dioxide 21.6 mmol/L (21.0-32.0); Chloride 105 mmol/L (98-108); Cholesterol 205 mg/dL (<=200); Globulin 3.4 g/dL (2.2-4.2); Glucose 96 mg/dL (70-99); Low Density Lipoprotein Calc. 140 mg/dL; Potassium 4.2 mmol/L (3.3-5.1); Triglycerides 138 mg/dL; Very Low Density Lipoprotein 28 mg/dL (5-40); cholesterol:hdl ratio screen 5.11
== END | disposition home or self-care (01) ==
PROVIDERS: PCP Internal Medicine; Referring Provider Internal Medicine; Visit Provider Internal Medicine
DX: Z13.220 Encounter for screening for lipoid disorders (principal); E11.9 Type 2 diabetes mellitus without complications; I10 Essential (primary) hypertension; E78.5 Hyperlipidemia, unspecified; K76.0 Fatty (change of) liver, not elsewhere classified
CPT/HCPCS: 36415; 80053; 80061; 83036